=== PATIENT | female | born 1955 | race Caucasian/White ===

== ENCOUNTER 2017-09-04 19:08 | Emergency (ER) | payer OTHER, SELFPAY ==
[2017-09-04 19:09] VITALS: BP 124/80; PULSE 98; RESP 17; TEMP 36.6; O2SAT 100; BMI 41.1
--- NOTE | 2017-09-04 19:19 | RAD_ITS ---
STUDY: X-RAY CHEST REASON FOR EXAM: Female, 62 years old. Chest pain, shortness of breath and nausea. TECHNIQUE: Single AP portable view of the chest. COMPARISON: Prior chest radiograph of October 24, 2015 FINDINGS: The lungs are clear and expanded. There is no demonstrated pleural abnormality. Normal size heart. Normal mediastinum and yakov. Normal visualized pulmonary arteries. Normal visualized aortic arch and descending thoracic aorta. Normal visualized thoracic spine. Normal visualized ribs, clavicles, and shoulders. There is no demonstrated abnormality of the visualized soft tissue structures of the upper abdomen. RAD/Chest 1 View (Portable) IMPRESSION: Normal x-ray examination of the chest. Electronically Signed: Bisi Ng MD at 19:38 EDT , Service support ,
--- NOTE | 2017-09-04 19:19 | EKG12_ITS ---
Test Reason : CP Blood Pressure : / mmHG Vent. Rate : 094 BPM Atrial Rate : 094 BPM P-R Int : 152 ms QRS Dur : 074 ms QT Int : 358 ms P-R-T Axes : 067 049 051 degrees QTc Int : 447 ms Normal sinus rhythm Normal ECG Confirmed by PEREZ DOMINGO, STEVEN ([id number]), story editor ROBERT CARUSO ([id number]) on 09/09/2017 2:18:20 PM Referred By: BEBETO Confirmed By:STEVEN TODD MD
--- NOTE | 2017-09-04 19:22 | ED.VISSUMM ---
- ER Visit Summary Date of Service: 09/04/17 Chief Complaint: Chest pain History of Present Illness: The patient is a 62 F who presents with chest pain. Described as burning and about a 4 out of 10. She states that she ate dinner around 530 6:00 and had a whopper and potato chips. Just prior to arrival she developed a burning chest pain and epigastric discomfort. States her heart was racing and she felt a little short of breath. She took a nitroglycerin but did not help. Patient has a history of hypertension. She is a non-smoker. She does also carry a history of GERD and hypothyroidism. She was admitted in July 2015 at that time she had a negative nuclear stress test. Physical Examination: Afebrile vital signs are stable Gen: Well-nourished well-developed Head: Normocephalic atraumatic Eyes: Perrl EOMI ENT: TMs clear no rhinorrhea moist mucous membranes Neck: Supple no lymphadenopathy no JVD nontender CVS: Regular rate rhythm no murmurs normal S1-S2 Respiratory: No distress clear to auscultation bilaterally chest nontender Abdomen: Soft nontender nondistended normal bowel sounds no masses Back: Nontender Extremity: Nontender no edema Skin: Normal color no rash Neuro: alert orientated ?3 CN II-XII intact normal strength sensation reflexes gait cerebellar Psych: Normal affect normal mood Test Results: EKG shows a normal sinus rhythm at a rate of 94. Chest x-ray shows no acute findings. Creatinine 1.21. Troponin less than 0.02. Emergency Department Course and Treatment: Patient received Zofran and a GI cocktail. Patient is resting comfortably and pain-free. Her HARRIS score is 0. I believe her symptoms are most consistent with reflux disease. She will follow-up with her doctor return if worsening Impression: 1. Acute chest pain 2. GERD This note was generated with [employer] dictation software. It may contain incorrect words, spelling, and punctuation that were not noted in review of the chart prior to signing ED Disposition - Plan for ED Patient: Disposition: Home or Assisted Living Chief Complaint: Chest Pain Instructions: ED Chest Pain NonCardiac, ED GERD Referrals: Scot Griffin DO [Primary Care Provider] - 1 Week
[2017-09-04] MEDS: Ondansetron 4 MG/2 ML Vial IV (19:56)
[2017-09-04 20:33] LABS: Absolute Lymphocyte Count 3.93 X10^3/ul (0.83-4.51); Absolute Neutrophil Count 5.3 X10^3/uL (2.0-7.7); Basophil# 0.03 X10^3/uL; Basophil% 0.3 % (0-1); Eosinophil# 0.15 X10^3/uL; Eosinophils% 1.5 % (0-5); Hematocrit 43.4 % (37-47); Hemoglobin 14.2 g/dl (12.0-15.0); Lymphocyte # 3.93 X10^3/ul (4.0); Lymphocyte % 38.7 % (19-41); Mean Corp Hgb Conc 32.7 g/gl (32-36); Mean Corpuscular Hgb 29.3 pg (27.0-32.0); Mean Corpuscular Volume 89.5 fL (81-99); Mean Platelet Vol. 10.7 fl (6.2-12.0); Monocyte# 0.77 X10^3/uL; Monocyte% 7.6 % (0-10); Neutrophil # 5.26 X10^3/uL (2.7-7.7); Neutrophil % 51.7 % (47-70); Platelet Count 296 K/mm3 (150-450); RBC Distribution Width CV 13.8 % (11.6-14.6); Red Blood Count 4.85 M/mm3 (4.2-5.4); White Blood Count 10.2 K/mm3 (4.4-11.0)
[2017-09-04 20:34] LABS: Anion Gap 10 (5-15); BUN 22 mg/dL (7-18); BUN/Creat Ratio 18.2 RATIO (10-20); Calcium,Total 9.2 mg/dL (8.5-10.1); Chloride 103 mmol/L (98-107); Creatinine, Serum 1.21 mg/dL (0.55-1.02); EST Glomerular Filtration Rate 48 mL/min (>60); Est Glom Filt Rate - Afr Amer 58 mL/min (>60); Glucose 131 mg/dL (74-106); POSITIVE COUNT NO; POSITIVE DIFFERENTIAL NO; POSITIVE MORPHOLOGY NO; Potassium 3.8 mmol/L (3.5-5.1); Sodium Level 138 mmol/L (136-145)
[2017-09-04 21:51] VITALS: BP 122/95; PULSE 95; RESP 16
== END 2017-09-04 21:57 | disposition home or self-care (01) ==
PROVIDERS: Emergency Provider Emergency Medicine; Family Provider Student in an Organized Health Care Education/Training Program; PCP Student in an Organized Health Care Education/Training Program
DX: R07.9 Chest pain, unspecified (principal); K21.9 Gastro-esophageal reflux disease without esophagitis; I10 Essential (primary) hypertension; E03.9 Hypothyroidism, unspecified; E66.9 Obesity, unspecified; Z79.82 Long term (current) use of aspirin; Z79.899 Other long term (current) drug therapy
CPT/HCPCS: 71045; 80048; 84484; 85025; 93005; 96374; 99284; A4216; J2405

== ENCOUNTER 2019-05-31 05:16 | Observation (INO) | payer OTHER, SELFPAY ==
[2019-05-31] VITALS (14 sets, daily range): BP systolic 97–149; BP diastolic 47–83; PULSE 65–87; RESP 12–20; TEMP 36.6–36.9; O2SAT 93–100; BMI 42.8; BMI 42.0; BMI 42.1
--- NOTE | 2019-05-31 05:19 | EKG12_ITS ---
Test Reason : CP Blood Pressure : / mmHG Vent. Rate : 080 BPM Atrial Rate : 080 BPM P-R Int : 146 ms QRS Dur : 076 ms QT Int : 378 ms P-R-T Axes : 058 016 041 degrees QTc Int : 435 ms Normal sinus rhythm Possible Left atrial enlargement Borderline ECG Confirmed by HAYDE DOMINGO, MICHAEL ([id number]), science editor ROBERT CARUSO ([id number]) on 06/02/2019 10:44:53 AM Referred By: Taylor Almaraz Confirmed By:MICHAEL LOCK MD
--- NOTE | 2019-05-31 05:19 | RAD_ITS ---
HISTORY: cp, palpitations, sob. EXAMINATION/TECHNIQUE: XR Chest 1 View: Portable COMPARISON: 09/04/2017 FINDINGS: Cardiac telemetry leads in place. No significant change. Normal heart size. No vascular congestion, pleural effusion, or acute pulmonary infiltration. No pneumothorax. The bony thorax appears intact. RAD/Chest 1 View (Portable) IMPRESSION: No acute cardiopulmonary disease. No significant interval change. at 0600 Reported and signed by: Reynold Price MD Electronically Signed: Reynold Price, at 5:59 EST Tel , Service support ,
[2019-05-31] MEDS: Aspirin 81 MG TAB.CHEW 324 MG PO (05:25)
[2019-05-31] MEDS: Morphine 4 MG/ML Syringe IV (05:25)
[2019-05-31] MEDS: Ondansetron 4 MG/2 ML Vial IV (05:26)
[2019-05-31] MEDS: 0.9% Normal Saline 1,000 ML 150 ML IV (05:48)
[2019-05-31 05:49] LABS: Absolute Lymphocyte Count 2.01 X10^3/uL (0.83-4.51); Absolute Neutrophil Count 4.1 X10^3/uL (2.0-7.7); Basophil# 0.04 X10^3/uL; Basophil% 0.6 % (0-1); Eosinophil# 0.13 X10^3/uL; Eosinophils% 1.9 % (0-5); Hematocrit 38.4 % (37-47); Hemoglobin 12.6 g/dL (12.0-15.0); Lymphocyte # 2.01 X10^3/ul (4.0); Lymphocyte % 29.7 % (19-41); Mean Corp Hgb Conc 32.8 g/dL (32-36); Mean Corpuscular Volume 88.5 fL (81-99); Monocyte# 0.52 X10^3/uL; Monocyte% 7.7 % (0-10); NRBC Flagged by Analyzer 0 % (0-5); Neutrophil # 4.05 X10^3/uL (2.7-7.7); Neutrophil % 59.8 % (47-70); Platelet Count 222 K/mm3 (150-450); RBC Distribution Width CV 13.1 % (11.6-14.6); RBC Distribution Width SD 43.1 fl (35.1-43.9); Red Blood Count 4.34 M/mm3 (4.2-5.4); White Blood Count 6.8 K/mm3 (4.4-11.0)
[2019-05-31 06:12] LABS: Anion Gap 4 (5-15); BUN 15 mg/dL (7-18); BUN/Creat Ratio 14.3 RATIO (10-20); Calcium,Total 8.6 mg/dL (8.5-10.1); Chloride 109 mmol/L (98-107); Creatinine, Serum 1.05 mg/dL (0.55-1.02); EST Glomerular Filtration Rate 56 mL/min (>60); Est Glom Filt Rate - Afr Amer 68 mL/min (>60); Estimated Creatinine Clearance 41.92 ml/min; Glucose 100 mg/dL (74-106); Potassium 4.1 mmol/L (3.5-5.1); Sodium Level 141 mmol/L (136-145)
--- NOTE | 2019-05-31 06:20 | CT_ITS ---
HISTORY: CHEST PAIN, SOB, PALPITATIONS, HTN, SURG-ALICIA, HIATAL HERNIA REPAIR, EXAMINATION: CTA Chest WO/W Contrast Injection TECHNIQUE: Helically acquired images were obtained of the chest following IV contrast as per pulmonary angiogram protocol with 3D reconstructions. A radiation dose optimization technique was used for this scan. IV Contrast dosage and agent: 100ML ISOVUE 370 COMPARISON: 07/24/2015 FINDINGS: PULMONARY ARTERIES: Normal in caliber. No pulmonary embolism. AORTA, HEART, AND mediastinum: No aortic aneurysm or aortic dissection. Normal heart size. No pericardial effusion. No lymphadenopathy. Small hiatal hernia, unchanged. Lungs and pleural: Bilateral mild bronchial dilatation and peribronchial thickening without barrie bronchiectasis. No pulmonary infiltrate or suspicious lesion. No pleural effusion or significant pleural disease. Upper abdomen: Not well visualized. Bones: No acute osseous abnormality. CT/CTA Chest W/WO Contrast IMPRESSION: 1. No PE, thoracic aortic dissection, or pneumonia. 2. Peribronchial thickening and mild bronchial dilatation compatible with bronchitis. Smoking related bronchitis would be included in the differential. 3. Small hiatal hernia, unchanged. Individualized dose optimization techniques were used for this CT. at 0801 Reported and signed by: Reynold Price MD Electronically Signed: Reynold Price, at 8:00 EST Tel , Service support ,
--- NOTE | 2019-05-31 06:43 | ED.VIS.GEN ---
History of Present Illness Chief Complaint: Chest Pain Informant: Patient Onset: Today Context: Sudden Onset - Woke with pain Current Severity: Moderate Maximum Severity: Moderate Narrative: Patient presents with chest pain that woke her from sleep. States it feels like her heart is racing. She does have a history of hiatal hernia and tried taking some Mylanta. This did not resolve her symptoms. She took 2 of her 's nitroglycerin and reports minimal improvement. She states she does feel she has pain in her back as well. She denies shortness of breath. Pain does not radiate down into her abdomen or extremities. - Past Medical History (1) Hypothyroid Status: Chronic (2) Hiatal hernia Status: Chronic (3) Ureteral calculus, right Status: Chronic Comment: admitted with large stone in distal ureter intractable pain, n/v (4) Benign essential HTN Status: Chronic (5) GERD (gastroesophageal reflux disease) Status: Chronic Past Medical History - Allergies and Home Meds Allergies/Adverse Reactions: Allergies No Known Allergies Allergy (Verified 09/04/17 19:15) Primary Care Physician: Scot Griffin DO [Primary Care Provider] - Prior records reviewed: Yes Surgical History: cholecystectomy Lives: Spouse/ Significant Other Smoking Status: Never smoker - Family History Paternal Family History: Reports: Heart Disease Review of Systems General: Denies: Chills, Fever Eyes: Denies: Visual changes - bilaterally ENT: Denies: Bilateral ear pain Cardiovascular: Reports: Chest pain, Heart racing Respiratory: Denies: Dyspnea, Cough Gastrointestinal: Denies: Abdominal pain, Nausea, Vomiting, Diarrhea Genitourinary: Denies: Dysuria Musculoskeletal: Reports: Back pain. Denies: Extremity Pain Skin: Denies: Rash Neurological: Denies: Headache Allergy: Denies: Uticaria Physical Exam Vital Signs/Narrative: Vital Signs Temp Pulse Resp BP Pulse Ox 05/31/19 06:34 66 12 118/77 100 05/31/19 05:22 99 05/31/19 05:19 85 17 99 05/31/19 05:17 97.9 F 87 20 H 149/83 H 100 Inital Vital Signs reviewed: Yes General: Well nourished, Well developed Head: Normocephalic ENT: Moist mucous membranes Neck: Supple Cardiovascular: Regular rate, Regular rhythm Respiratory: No distress, CTA bilaterally Abdomen: Soft, Nontender, Hypoactive bowel sounds Extremities: Nontender, No edema Skin: Normal color, No rash Neurological: Alert, Oriented x3 Psychological: Normal affect Diagnostic/Tx/Re-eval Impressions Chest X-Ray 05/31/19 05:19 IMPRESSION: No acute cardiopulmonary disease. No significant interval change. at 0600 Reported and signed by: Reynold Price MD Electronically Signed: Reynold Price, at 5:59 EST Tel , Service support , Chest CTA 05/31/19 06:20 IMPRESSION: 1. No PE, thoracic aortic dissection, or pneumonia. 2. Peribronchial thickening and mild bronchial dilatation compatible with bronchitis. Smoking related bronchitis would be included in the differential. 3. Small hiatal hernia, unchanged. Individualized dose optimization techniques were used for this CT. at 0801 Reported and signed by: Reynold Price MD Electronically Signed: Reynold Price, at 8:00 EST Tel , Service support , 05/31/19 05:19 Chest 1 View (Portable) [RAD] Stat 05/31/19 06:20 CTA Chest W/WO Contrast [CT] Stat Laboratory Results 05/31/19 05/31/19 05/31/19 05:40 05:40 05:40 WBC 6.8 RBC 4.34 Hgb 12.6 Hct 38.4 MCV 88.5 MCH 29.0 MCHC 32.8 RDW Std Deviation 43.1 RDW Coeff of Ashleigh 13.1 Plt Count 222 MPV 10.0 Immature Gran % (Auto) 0.300 Neut % (Auto) 59.8 Lymph % (Auto) 29.7 [place] % (Auto) 7.7 Eos % (Auto) 1.9 Baso % (Auto) 0.6 Absolute Neuts (auto) 4.1 Absolute Lymphs (auto) 2.01 Nucleated RBC % 0 D-Dimer Quant (PE/DVT) 1.80 H* Sodium 141 Potassium 4.1 Chloride 109 H Carbon Dioxide 28.0 Anion Gap 4 L BUN 15 Creatinine 1.05 H Estim Creat Clear Calc 41.92 Est GFR (MDRD) Af Amer 68 Est GFR (MDRD) Non-Af 56 L BUN/Creatinine Ratio 14.3 Glucose 100 Calcium 8.6 Troponin I < 0.015 - EKG Initial EKG Interpretation: Sinus Rhythm - Sinus at 80 with no acute ischemia. - Medical Decision Making Patient was given aspirin on arrival along with morphine and Zofran. On repeat evaluation she is feeling improved. D-dimer is elevated. CTA of the chest is unremarkable. Patient be admitted for cardiac rule out. ED Disposition - Plan for ED Patient: Disposition: Acute Care Hospital [facility] Diagnosis: Chest pain Referrals: Scot Griffin DO [Primary Care Provider] -
--- NOTE | 2019-05-31 08:21 | NURSING ---
Addendum entered by Simona Hewitt 05/31/19 08:21: NOT OBS Original Note: MARIANNA PETERSON OBS
--- NOTE | 2019-05-31 09:58 | HP.PCM_ITS ---
History of Present Illness Date of Admission: 05/31/19 Chief Complaint: chest pain The patient is a 64 year old F with a past medical history of hypertension and hypothyroidism. She was admitted through the ED on 05/31/2019 with a complaint of chest pain which started acutely on morning of admission. Patient states she felt a sudden sharp retrosternal chest pain with assisted lightheadedness and dizziness and palpitations. She has not had pain like this before. She denied any shortness of breath or abdominal pain no diarrhea vomiting. Review of symptoms otherwise negative. She denied any long distance travel any history of blood clots in the legs of the lungs. Denies any previous history of heart disease. On admission in the ED vitals were essentially stable and chemistry was unremarkable. Initial troponin was negative. CBC was also unremarkable. D-dimer was elevated and so she had a CT a of the chest which was negative for PE. She was admitted to be managed for chest pain to rule out ACS. [] Past Medical History Past Medical History (Chronic Problems): Chronic Problems Hypothyroid (Chronic) Hiatal hernia (Chronic) Ureteral calculus, right (Chronic) admitted with large stone in distal ureter intractable pain, n/v GERD (gastroesophageal reflux disease) (Chronic) Benign essential HTN (Chronic) Allergies No Known Allergies Allergy (Verified 09/04/17 19:15) Home Medications: Ambulatory Orders Medication Instructions Recorded Aspirin E.C. 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 Denies: Chest Pressure, Chest Tightness, Edema, Heaviness, Orthopnea, Paroxysmal Noc. Dyspnea, Syncope Respiratory: Denies: Cough, Shortness of Breath, Shortness of breath at rest, Shortness of breath upon exertion, Sputum production Gastrointestinal: Denies: Abdominal Pain, Nausea, Vomiting Genitourinary: Denies: Dysuria Musculoskeletal: Denies: Joint Pain, Joint Tenderness Skin: Denies: Rash, Wounds Neurological: Denies: Numbness, Tingling, Focal weakness Psychiatric: Denies: Anxiety, Depression, Homicidal Ideations, Suicidal Ideations Hematologic/ Lymphatic: Denies: Easy Bruising, Easy Bleeding VTE Information - Inpt Only VTE Present on Admission: No VTE Pharm Prophylaxis ordered?: Yes Patient Problems: Active and Suspected Problems Chest pain (Acute) - Physical Exam Vitals/I&O's: Vital Signs Temp Pulse Resp BP Pulse Ox 97.9 F 65 17 120/66 99 05/31/19 08:50 05/31/19 08:50 05/31/19 08:50 05/31/19 08:50 05/31/19 08:50 Oxygen Flow Rate (L/min) 2 Oxygen Delivery Method Room Air Weight: 226 lb 6.636 oz Body Mass Index (BMI) 42.0 General: Alert, Oriented x3, Cooperative, No apparent distress HEENT: Atraumatic, PERRLA, EOMI, Normocephalic Oral: Moist Mucosa Neck: Supple, No JVD, Negative Carotid Bruits Lungs: Clear to auscultation, Normal air movement, No rhonchi, No wheeze, No rales Cardiovascular: Regular rate, Regular Rhythm, Normal S1, Normal S2, No murmurs Abdomen: Bowel Sounds Present, Soft, Non Tender, Non-Distended, No Hepato- splenomegaly Extremities: No clubbing, No cyanosis, No edema, Capillary Refill Less than 3 Seconds Skin: No rashes, No breakdown Musculoskeletal: No Tenderness to Palpation of Joints or Extremities Lymphatic: No Cervical, Supraclavicular, or Inguinal Adenopathy Neurological: Cranial nerves II-XII grossly intact, Neuro grossly intact, Motor Exam 5/5 strength throughout Psych/Mental Status: Normal Affect, Appropriate, Alert and oriented to time, place, person, mood and affect Laboratory Results 05/31/19 05:40: WBC 6.8, RBC 4.34, Hgb 12.6, Hct 38.4, MCV 88.5, MCH 29.0, MCHC 32.8, RDW Std Deviation 43.1, RDW Coeff of Ashleigh 13.1, Plt Count 222, MPV 10.0, Immature Gran % (Auto) 0.300, Neut % (Auto) 59.8, Lymph % (Auto) 29.7, [place] % (A uto) 7.7, Eos % (Auto) 1.9, Baso % (Auto) 0.6, Absolute Neuts (auto) 4.1, Absolute Lymphs (auto) 2.01, Nucleated RBC % 0 05/31/19 05:40: D-Dimer Quant (PE/DVT) 1.80 H* 05/31/19 05:40: Sodium 141, Potassium 4.1, Chloride 109 H, Carbon Dioxide 28.0, Anion Gap 4 L, BUN 15, Creatinine 1.05 H, Estim Creat Clear Calc 41.92, Est GFR (MDRD) Af Amer 68, Est GFR (MDRD) Non-Af 56 L, BUN/Creatinine Ratio 14.3, Glucose 100, Calcium 8.6, Troponin I < 0.015 05/31/19 09:35: Troponin I Pending Diagnostic Data Chest X-Ray 05/31/19 05:19 IMPRESSION: No acute cardiopulmonary disease. No significant interval change. at 0600 Reported and signed by: Reynold Price MD Electronically Signed: Reynold Price, at 5:59 EST Tel , Service support , Chest CTA 05/31/19 06:20 IMPRESSION: 1. No PE, thoracic aortic dissection, or pneumonia. 2. Peribronchial thickening and mild bronchial dilatation compatible with bronchitis. Smoking related bronchitis would be included in the differential. 3. Small hiatal hernia, unchanged. Individualized dose optimization techniques were used for this CT. at 0801 Reported and signed by: Reynold Price MD Electronically Signed: Reynold Price at 8:00 EST Tel , Service support , Current Medications Sodium Chloride () 10 - 40 ml IV UD PRN PRN Reason: SALINE FLUSH Assessment/Plan All Active Problems Chest pain (Acute) 64 y/o admitted with a complaint of chest pain to r.o ACS 1. Chest pain rule out ACS. * Admit to PCU with telemetry * Initial troponin is negative. We will cycle. * Chest CT a was negative for PE and showed peribronchial thickening and mild bronchial dilatation compatible with bronchitis and a small hiatal hernia which is unchanged. * Sublingual nitroglycerin as needed. P.o. aspirin 81 mg daily. * For stress test if troponins are negative. * check lipid panel. * 2. Hypothyroidism: On Synthroid. Will continue. 3. Hypertension: On lisinopril 20 mg daily. Blood pressure on admission felt to the 90 systolic. Will hold lisinopril for now. 4. GERD: On Protonix. DVT prophylaxis: Lovenox Code Status: Full code * Patient counseled extensively about different types of CODE STATUS including full code, DNR CCA and DNR CCA. Patient elects to be full code. Total [id number] time 16 minutes. * Code Visit OBSV E&M: 18153 Initial observation care L2 Procedures: 24186 Advncd Care Plan 30 Min
--- NOTE | 2019-05-31 10:10 | EKG12_ITS ---
Test Reason : CP ADMISSION Blood Pressure : / mmHG Vent. Rate : 059 BPM Atrial Rate : 059 BPM P-R Int : 158 ms QRS Dur : 084 ms QT Int : 428 ms P-R-T Axes : 055 033 035 degrees QTc Int : 423 ms Sinus bradycardia Otherwise normal ECG Confirmed by HAYDE DOMINGO, MICHAEL ([id number]), acquisitions editor ROBERT CARUSO ([id number]) on 06/02/2019 11:40:40 AM Referred By: Taylor Almaraz Confirmed By:MICHAEL LOCK MD
[2019-05-31] MEDS: Levothyroxine 25 MCG TABLET PO (12:23)
[2019-05-31 12:30] LABS: Bedside Glucose 113 mg/dL (70-110)
--- NOTE | 2019-05-31 14:57 | STRESSREP ---
Stress Test Report Pharmacologic myocardial perfusion stress test. 64-year-old lady with a history of chest pain. Stress protocol: Resting KG demonstrates normal sinus rhythm with a rate of 67 bpm normal intervals are noted resting blood pressure is 120/80 mmHg. 0.4 mg of regadenoson was infused per usual protocol followed by up intravenous and flush injection continuous security monitor was performed. The maximum heart rate was 99 bpm which was 62% of maximum predicted heart rate the maximum workload was 1 metabolic equivalent. At rest there were no ST or T wave changes noted suggest abnormal flow reserve at peak infusion nonspecific ST-T wave changes were noted. No clinical angina was noted. The resting blood pressure was 120/80 mmHg with a final blood pressure 124/70 mmHg. Myocardial perfusion protocol. 14.5 mCi of technetium 99m sestamibi was injected at rest. 0.4 mg of regadenoson was infused per usual protocol peak infusion 44.7 mCi of technetium 99m sestamibi was injected stress images were obtained stress and rest images were reconstructed in comparing the short axis vertical long horizontal long axis. Gated images was obtained Perfusion SPECT analysis: Review of the stress images demonstrate normal uptake of tracer noted in all areas of myocardium the rest images similar demonstrate normal uptake of tracer noted in all areas of myocardium no areas of reversibility are noted suggest ischemia no previous infarct is noted. Gated SPECT analysis: The gated ejection fraction is noted to be 81%. Conclusion: Normal pharmacologic myocardial perfusion stress test. Preserved ejection fraction
[2019-05-31] MEDS: Pantoprazole Sodium 40 MG Tablet PO (20:17)
[2019-05-31] MEDS: Paroxetine 20 MG Tablet PO (20:17)
[2019-06-01 03:00] VITALS: PULSE 78
[2019-06-01 04:20] VITALS: BP 131/73; PULSE 94; RESP 17; TEMP 36.7; O2SAT 95
[2019-06-01] MEDS: Levothyroxine 25 MCG TABLET PO (05:15)
[2019-06-01] MEDS: Enoxaparin 40 MG/0.4 ML Syringe SC (05:15)
[2019-06-01 05:31] LABS: Absolute Lymphocyte Count 1.88 X10^3/uL (0.83-4.51); Absolute Neutrophil Count 3.4 X10^3/uL (2.0-7.7); Basophil# 0.04 X10^3/uL; Basophil% 0.7 % (0-1); Eosinophil# 0.13 X10^3/uL; Eosinophils% 2.2 % (0-5); Hematocrit 38.9 % (37-47); Hemoglobin 12.1 g/dL (12.0-15.0); Lymphocyte # 1.88 X10^3/ul (4.0); Mean Corp Hgb Conc 31.1 g/dL (32-36); Mean Corpuscular Hgb 28.2 pg (27.0-32.0); Mean Corpuscular Volume 90.7 fL (81-99); Mean Platelet Vol. 9.8 fl (6.2-12.0); Monocyte# 0.42 X10^3/uL; Monocyte% 7.2 % (0-10); NRBC Flagged by Analyzer 0 % (0-5); Neutrophil # 3.38 X10^3/uL (2.7-7.7); Neutrophil % 57.6 % (47-70); Platelet Count 215 K/mm3 (150-450); RBC Distribution Width CV 13.4 % (11.6-14.6); RBC Distribution Width SD 44.7 fl (35.1-43.9); Red Blood Count 4.29 M/mm3 (4.2-5.4); White Blood Count 5.9 K/mm3 (4.4-11.0)
[2019-06-01 05:57] LABS: Anion Gap 2 (5-15); BUN 14 mg/dL (7-18); BUN/Creat Ratio 14.3 RATIO (10-20); Calcium,Total 8.3 mg/dL (8.5-10.1); Chloride 109 mmol/L (98-107); Creatinine, Serum 0.98 mg/dL (0.55-1.02); EST Glomerular Filtration Rate 61 mL/min (>60); Est Glom Filt Rate - Afr Amer 74 mL/min (>60); Estimated Creatinine Clearance 44.91 ml/min; Glucose 88 mg/dL (74-106); Potassium 4.2 mmol/L (3.5-5.1); Sodium Level 140 mmol/L (136-145)
[2019-06-01 07:00] VITALS: PULSE 79
[2019-06-01 09:15] VITALS: BP 147/86; PULSE 86; RESP 16; TEMP 36.8; O2SAT 96
[2019-06-01] MEDS: Lisinopril 20 MG Tablet PO (09:18)
[2019-06-01] MEDS: Pantoprazole Sodium 40 MG Tablet PO (09:18)
[2019-06-01] MEDS: Aspirin E.C. 81 MG Tablet PO (09:18)
--- NOTE | 2019-06-01 10:46 | DCINST_ITS ---
- Discharge Diagnoses Current Active Problems: Current Active and Chronic Problems Hypothyroid (Chronic) Hiatal hernia (Chronic) Chest pain (Acute) You will use the following diet at home:: Cardiac Your food should be the consistency of: Regular Your liquids should be the consistency of: Regular/Thin Discharge Activity: Return to Normal Activity Weight Bearing Status: Weight bearing as tolerated Call your doctor if you observe: Fever of 101 or Higher, Shortness of breath, Swelling in the ankles, Chest pain Instructions: What Is Angina?, First Aid: Heart Attacks, Recognizing a Heart Attack or Angina Allergies/Adverse Reactions: Allergies No Known Allergies Allergy (Verified 09/04/17 19:15) Medications to take at Discharge Aspirin E.C. [Ecotrin] 81 mg PO DAILY 07/08/13 Lisinopril [Zestril] 20 mg PO DAILY 07/08/13 Omeprazole [Prilosec] 40 mg PO BID 07/08/13 Paroxetine [Paxil] 20 mg PO QHS 07/08/13 Levothyroxine [Synthroid] 25 mcg PO DAILY@0600 05/31/19 Primary Care Physician: Scot Griffin DO [Primary Care Provider] - Please follow up with your Primary Care Physician in: one week Test Results: Test results from this visit will be discussed in further detail at your follow- up appointment, if applicable. Please Follow Up With: Joi De Luna Proposed Discharge Date: 06/01/19
--- NOTE | 2019-06-01 10:47 | PCM.DC.SUM ---
Discharge Date and Diagnosis Date of Admission: 05/31/19 Date of Discharge: 06/01/19 - Primary Discharge Diagnosis Active and Suspected Problems Chest pain (Acute) - Secondary Discharge Diagnosis Chronic Problems Hypothyroid (Chronic) Hiatal hernia (Chronic) Ureteral calculus, right (Chronic) admitted with large stone in distal ureter intractable pain, n/v GERD (gastroesophageal reflux disease) (Chronic) Benign essential HTN (Chronic) Hospital Course and Treatment Imaging Results: Diagnostic Data Chest X-Ray 05/31/19 05:19 IMPRESSION: No acute cardiopulmonary disease. No significant interval change. at 0600 Reported and signed by: Reynold Price MD Electronically Signed: Reynold Price, at 5:59 EST Tel , Service support , Chest CTA 05/31/19 06:20 IMPRESSION: 1. No PE, thoracic aortic dissection, or pneumonia. 2. Peribronchial thickening and mild bronchial dilatation compatible with bronchitis. Smoking related bronchitis would be included in the differential. 3. Small hiatal hernia, unchanged. Individualized dose optimization techniques were used for this CT. at 0801 Reported and signed by: Reynold Price MD Electronically Signed: Reynold Price at 8:00 EST Tel , Service support , Operations: None, - - ureteroscopy alex stone and stent Procedures: Stress test Summary of Care Provided: The patient is a 64 year old F with a past medical history of hypertension and hypothyroidism. She was admitted through the ED on 05/31/2019 with a complaint of chest pain which started acutely on morning of admission. Patient states she felt a sudden sharp retrosternal chest pain with assisted lightheadedness and dizziness and palpitations. She has not had pain like this before. She denied any shortness of breath or abdominal pain no diarrhea vomiting. Review of symptoms otherwise negative. She denied any long distance travel any history of blood clots in the legs of the lungs. Denies any previous history of heart disease. On admission in the ED vitals were essentially stable and chemistry was unremarkable. Initial troponin was negative. CBC was also unremarkable. D-dimer was elevated and so she had a CT a of the chest which was negative for PE. She was admitted to be managed for chest pain to rule out ACS. She had a stress test on 05/31/2019 which was negative. Of note, patient became hypotensive on day of admission with blood pressure going down to the 90s systolic. She was asymptomatic. Decision was made to keep patient overnight to monitor her. Hypotension resolved and did not recur. Patient was discharged home on 06/01/2019 and is follow-up with her primary care doctor within 1 week. Patient seen and examined prior to discharge. She had no complaints and was eager to go home. Review of systems otherwise negative. Labs and vitals reviewed. Home medication reviewed and reconciled. o/e: Vital Signs Height 5 ft 1.5 in Weight: 226 lb 6.636 oz Weight in Pounds 226.4 lbs Pulse Ox 96 Temperature 98.2 F Pulse Rate 86 Respiratory Rate 16 Blood Pressure 147/86 Blood Pressure Position Semi-Fowlers General: Alert, Oriented x3, Cooperative, No apparent distress HEENT: Atraumatic, PERRLA, EOMI, Normocephalic Oral: Moist Mucosa Neck: Supple, No JVD, Negative Carotid Bruits Lungs: Clear to auscultation, Normal air movement, No rhonchi, No wheeze, No rales Cardiovascular: Regular rate, Regular Rhythm, Normal S1, Normal S2, No murmurs Abdomen: Bowel Sounds Present, Soft, Non Tender, Non-Distended, No Hepato-splenomegaly Extremities: No clubbing, No cyanosis, No edema, Capillary Refill Less than 3 Seconds Skin: No rashes, No breakdown Musculoskeletal: No Tenderness to Palpation of Joints or Extremities Lymphatic: No Cervical, Supraclavicular, or Inguinal Adenopathy Neurological: Cranial nerves II-XII grossly intact, Neuro grossly intact, Motor Exam 5/5 strength throughout Psych/Mental Status: Normal Affect, Appropriate, Alert and oriented to time, place, person, mood and affect Plan as above. - Physical Exam Vitals/I&O's: Vital Signs Temp Pulse Resp BP Pulse Ox 98.2 F 86 16 147/86 H 96 06/01/19 09:15 06/01/19 09:15 06/01/19 09:15 06/01/19 09:15 06/01/19 09:15 Oxygen Flow Rate (L/min) 2 Oxygen Delivery Method Room Air Weight: 226 lb 6.636 oz Body Mass Index (BMI) 42.0 Intake and Output for Last 24 Hours 05/30/19 05/31/19 06/01/19 23:59 23:59 23:59 Intake Total 1205 / 1205 Balance 1205 / 1205 Laboratory Results 05/31/19 12:20: POC Glucose 113 H 05/31/19 12:30: Troponin I < 0.015 06/01/19 05:10: WBC 5.9, RBC 4.29, Hgb 12.1, Hct 38.9, MCV 90.7, MCH 28.2, MCHC 31.1 L, RDW Std Deviation 44.7 H, RDW Coeff of Ashleigh 13.4, Plt Count 215, MPV 9.8, Immature Gran % (Auto) 0.300, Neut % (Auto) 57.6, Lymph % (Auto) 32.0, [place] % (Auto) 7.2, Eos % (Auto) 2.2, Baso % (Auto) 0.7, Absolute Neuts (auto) 3.4, Absolute Lymphs (auto) 1.88, Nucleated RBC % 0 06/01/19 05:10: Sodium 140, Potassium 4.2, Chloride 109 H, Carbon Dioxide 29.0, Anion Gap 2 L, BUN 14, Creatinine 0.98, Estim Creat Clear Calc 44.91, Est GFR (MDRD) Af Amer 74, Est GFR (MDRD) Non-Af 61, BUN/Creatinine Ratio 14.3, Glucose 88, Calcium 8.3 L Current Medications Aspirin (Ecotrin) 81 mg PO DAILY@0800 [facility] Last Admin: 06/01/19 09:18 Dose: 81 mg Documented by: Enoxaparin Sodium (Lovenox) 40 mg SC DAILY@0600 [facility] Last Admin: 06/01/19 05:15 Dose: 40 mg Documented by: Glucagon () 1 mg IM .X1 PRN PRN Reason: Hypoglycemia Dextrose (Dextrose 10%-Water) 250 mls @ 999 mls/hr IV .Q16M PRN; Protocol PRN Reason: HYPOGLYCEMIA Levothyroxine Sodium (Synthroid) 25 mcg PO DAILY@0600 [facility] Last Admin: 06/01/19 05:15 Dose: 25 mcg Documented by: Lisinopril (Zestril) 20 mg PO DAILY [facility] Last Admin: 06/01/19 09:18 Dose: 20 mg Documented by: Nitroglycerin (Nitrostat) 0.4 mg SUBLINGUAL Q5M PRN PRN Reason: CARDIAC/CHEST PAIN Ondansetron HCl (Zofran) 4 mg IV Q8H PRN PRN PRN Reason: NAUSEA/VOMITING Pantoprazole Sodium (Protonix) 40 mg PO BID [facility] Last Admin: 06/01/19 09:18 Dose: 40 mg Documented by: Paroxetine HCl (Paxil) 20 mg PO QHS [facility] Last Admin: 05/31/19 20:17 Dose: 20 mg Documented by: Sodium Chloride () 10 - 40 ml IV UD PRN PRN Reason: SALINE FLUSH Discharge Diet: Low fat/ Low Cholesterol Discharge Activity: Return to Normal Activity Weight Bearing Status: Weight bearing as tolerated Call your doctor if you observe: Fever of 101 or Higher, Shortness of breath, Swelling in the ankles, Chest pain Home Medications: Medications to take at Discharge Aspirin E.C. [Ecotrin] 81 mg PO DAILY 07/08/13 Lisinopril [Zestril] 20 mg PO DAILY 07/08/13 Omeprazole [Prilosec] 40 mg PO BID 07/08/13 Paroxetine [Paxil] 20 mg PO QHS 07/08/13 Levothyroxine [Synthroid] 25 mcg PO DAILY@0600 05/31/19 Primary Care Physician: Scot Griffin DO [Primary Care Provider] - Please follow up with your Primary Care Physician in: one week Please Follow Up With: Joi De Luna Patient Instructions: What Is Angina?, First Aid: Heart Attacks, Recognizing a Heart Attack or Angina Disposition: Home Minutes spent on discharge:: 35 Patient Condition:: Stable Medical Necessity - Tobacco Use Smoking Status: Never smoker Meaningful Use Info Meaningful Use Diagnoses (Choose all that apply): None applicable Code Visit OBSV E&M: 54686 Observation care discharge
--- NOTE | 2019-06-01 11:42 | PHA.DC.MR ---
Pharmacy Service has performed discharge medication reconciliation for this patient. Home Medications Aspirin E.C. [Ecotrin] 81 mg PO DAILY 07/08/13 Lisinopril [Zestril] 20 mg PO DAILY 07/08/13 Omeprazole [Prilosec] 40 mg PO BID 07/08/13 Paroxetine [Paxil] 20 mg PO QHS 07/08/13 Levothyroxine [Synthroid] 25 mcg PO DAILY@0600 05/31/19 The patient's discharge medication list was reviewed for discrepancies and discrepancies were resolved.
== END 2019-06-01 12:35 | disposition home or self-care (01) ==
LOC: ED 08:08 → PCU 08:40
PROVIDERS: Admitting Provider Student in an Organized Health Care Education/Training Program; Emergency Provider Emergency Medicine; Family Provider Student in an Organized Health Care Education/Training Program; PCP Student in an Organized Health Care Education/Training Program; Referring Provider Student in an Organized Health Care Education/Training Program; Visit Provider Student in an Organized Health Care Education/Training Program
DX: R07.89 Other chest pain (principal); K44.9 Diaphragmatic hernia without obstruction or gangrene; E03.9 Hypothyroidism, unspecified; I10 Essential (primary) hypertension; K21.9 Gastro-esophageal reflux disease without esophagitis; Z79.899 Other long term (current) drug therapy; Z79.82 Long term (current) use of aspirin
CPT/HCPCS: 36415; 71045; 71275; 78452; 80048; 82962; 84484; 85025; 85379; 93005; 93017; 96361; 96372; 96374; 96375; 99218; 99285; A9500; J7030; Q9967; A4216; G0378; J2405; J2785

== ENCOUNTER → 2020-02-04 17:23 | Outpatient (CLI) | payer OTHER, SELFPAY ==
[2019-05-31 08:56] VITALS: BMI 42.0
== END ==
PROVIDERS: PCP Student in an Organized Health Care Education/Training Program; Referring Provider Nurse Practitioner Family; Visit Provider Nurse Practitioner Family
DX: Z20.828 Contact with and (suspected) exposure to other viral communicable diseases (principal)
CPT/HCPCS: 87635; C9803; U0003

== ENCOUNTER 2021-10-24 13:09 | Emergency (ER) | payer OTHER, SELFPAY ==
[2021-10-24 13:11] VITALS: BP 146/107; PULSE 129; RESP 20; TEMP 36.1; O2SAT 93; BMI 37.5
[2021-10-24 14:09] VITALS: BP 110/74; PULSE 99; RESP 12; O2SAT 99
--- NOTE | 2021-10-24 14:11 | ED.VIS.CHEST ---
HPI History of Present Illness Chief Complaint: Chest Pain Informant: patient Onset/Context/Timing Onset: Yesterday Activity at onset: gradual Timing: Continuous Quality: Positive for Aching and Pressure Location: Left Chest (Left upper chest) and - (Bilateral jaw) Worsened By: Nothing Relieved By: Nothing Associated Symptoms: Positive for Dyspnea, Lightheadedness and Palpitations; Negative for Nausea, Vomiting, Diaphoresis, Cough, Fever and Acid Reflux Narrative Narrative: This patient presented with chest pain that began last night. Patient states it was actually jaw pain that began last night. Patient states it was like an aching and pressure in her jaw. Patient then developed some pressure in her upper chest today. Patient states it is gradually gotten worse. Patient states nothing makes it worse and nothing makes it better. Patient admits to some shortness of breath and palpitations with it. Patient also admits to some lightheadedness. PFSH PFSH Home Medications Omeprazole [Prilosec] 40 mg PO BID 07/08/13 [History Last Taken 05/30/19] aspirin 81 mg PO DAILY 07/08/13 [History Last Taken 05/30/19] lisinopril 20 mg PO DAILY 07/08/13 [History Last Taken 05/30/19] paroxetine HCl 20 mg PO QHS 07/08/13 [History Last Taken 05/30/19] levothyroxine 25 mcg PO DAILY@0600 05/31/19 [History Last Taken 05/30/19] Allergy/AdvReac Type Severity Reaction Status Date / Time No Known Allergies Allergy Verified 10/24/21 13:15 Surgical History (Updated 10/24/21 @ 14:[address] Doug Shore DO) Hx of cholecystectomy Social History Smoking Status: Never smoker ROS ROS ED Constitutional Constitutional ED: Denies chills or fever(s) Eyes Eyes: Denies blurry vision or change in vision ENT ENT ED: Denies rhinorrhea or sore throat Cardiovascular Cardiovascular: Reports chest pain and palpitations Respiratory/Chest Respiratory/Chest: Reports dyspnea; Denies cough Gastrointestinal Gastrointestinal: Denies abdominal pain, nausea or vomiting Genitourinary Genitourinary ED: Denies dysuria or hematuria Musculoskeletal Musculoskeletal: Reports back pain and neck pain Integumentary Denies abscess or rash Neurologic Neurologic: Denies headache(s) or weakness Allergic/Immunologic Allergic/Immunologic ED: Denies mouth swelling or urticaria EXAM Physical Exam Const Vital Signs: 10/24/21 13:11 10/24/21 13:16 10/24/21 14:09 Temperature 97 F L Temperature Source Temporal Pulse Rate 129 H 99 Respiratory Rate 20 H 12 Respiratory Effort Short of Breath Labored Blood Pressure 146/107 H 110/74 Blood Pressure Mean 120 86 Pulse Ox 93 99 Oxygen Delivery Method Room Air Room Air Oxygen Flow Rate (L/min) 10/24/21 14:28 10/24/21 16:00 Temperature Temperature Source Pulse Rate 91 Respiratory Rate 12 Respiratory Effort Blood Pressure 105/67 Blood Pressure Mean 79 Pulse Ox 99 Oxygen Delivery Method Room Air Nasal Cannula Oxygen Flow Rate (L/min) 2 Positive well nourished, well developed and obese General Appearance ED: well developed and NAD Nutritional Appearance: obese HEENT normocephalic and atraumatic Eyes PERRL and EOMs intact bilaterally Neck supple and no JVD Chest Wall palpation of chest normal Resp normal respiratory effort and clear to auscultation bilaterally Effort and Inspection: Negative for respiratory distress Cardio regular rate, regular rhythm and no murmurs GI normal to inspection, nondistended, normoactive bowel sounds, soft to palpation, non-tender and non-distended Extremity normal to inspection General Extremety ED: Negative for edema or tenderness General Extremity: Negative for edema Neuro oriented x3, CN's II-XII intact bilaterally and no sensory deficits noted Sensorium / Orientation: awake and alert Motor Exam: strength 5/5 throughout Psych mental status grossly normal Heart Score History: Moderately Suspicious ECG: Normal Age: >45 - <65 years Risk Factors: 1 or 2 Risk Factors Troponin: </= Normal Limit Score: 3 MDM MDM MDM Narrative Medical decision making narrative: Patient was given aspirin here. EKG was obtained. On my interpretation, it showed a sinus tachycardia with a rate of 122. [place] interval, QRS interval, and QTc intervals were all normal. [place] was normal. There are no acute ST or T wave changes. Chest x-ray was obtained. There is 1 view. On my interpretation, there is left basilar atelectasis. There is no acute cardiopulmonary process. Bony thorax is normal. There is no cardiomegaly. Radiologist also interpreted the x-ray and agrees. CBC was within normal limits. Basic metabolic profile was within normal limits. D-dimer was obtained and was elevated at 1.01. High-sensitivity troponin a CTA of the chest was ordered. This was negative for any pulmonary embolism or aortic dissection. There is no infiltrate noted on the CT scan. 2-hour repeat high-sensitivity troponin was obtained and was also less than 3. Patient has a HEART score of 3. Patient was advised that this is low risk for acute cardiac event. Patient was instructed to follow-up with her primary care physician in 5 to 7 days for further evaluation. Patient understood and was agreeable with the plan. All questions were answered. Lab Data Attestation: I reviewed the patient's lab results. Labs: Laboratory Results - last 24 hr 10/24/21 10/24/21 10/24/21 13:24 13:24 13:24 WBC 8.1 RBC 4.38 Hgb 13.1 Hct 39.5 MCV 90.2 MCH 29.9 MCHC 33.2 RDW Std Deviation 42.4 RDW Coeff of Ashleigh 12.9 Plt Count 253 MPV 10.5 Immature Gran % (Auto) 0.400 Neut % (Auto) 87.6 H Lymph % (Auto) 6.1 L [place] % (Auto) 5.2 Eos % (Auto) 0.5 Baso % (Auto) 0.2 Absolute Neuts (auto) 7.1 Absolute Lymphs (auto) 0.49 L Nucleated RBC % 0 D-Dimer Quant (PE/DVT) 1.01 H* Sodium 137 Potassium 3.6 Chloride 106 Carbon Dioxide 23.0 Anion Gap 8 BUN 13 Creatinine 1.05 H Estim Creat Clear Calc 40.84 Est GFR (MDRD) Af Amer 68 Est GFR (MDRD) Non-Af 56 L BUN/Creatinine Ratio 12.4 Glucose 133 H Calcium 9.0 Troponin I High Sens < 3 L 10/24/21 17:05 WBC RBC Hgb Hct MCV MCH MCHC RDW Std Deviation RDW Coeff of Ashleigh Plt Count MPV Immature Gran % (Auto) Neut % (Auto) Lymph % (Auto) [place] % (Auto) Eos % (Auto) Baso % (Auto) Absolute Neuts (auto) Absolute Lymphs (auto) Nucleated RBC % D-Dimer Quant (PE/DVT) Sodium Potassium Chloride Carbon Dioxide Anion Gap BUN Creatinine Estim Creat Clear Calc Est GFR (MDRD) Af Amer Est GFR (MDRD) Non-Af BUN/Creatinine Ratio Glucose Calcium Troponin I High Sens < 3 L Radiography Diagnostic Testing: Clinical Impression(s) from Imaging Studies Chest X-Ray 10/24/21 15:05 IMPRESSION: Mild degree of increased markings at the left lung base suggestive of either atelectasis and/or early left basilar infiltrate.-ray examination of the chest. Electronically Signed: Pelon Perera MD at 15:29 EDT , Chest CTA 10/24/21 15:07 IMPRESSION: 1. No evidence of pulmonary embolus. 2. No aortic dissection or aneurysm. 3. No acute acute pulmonary disease or major interval change. 4. Small hiatal hernia. Electronically Signed: Bandar Conner DO at 16:18 EDT Reading Location ID and State: [facility] / [place] Tel [phone], Service support , EKG Initial EKG: Attestation: I personally reviewed and interpreted this EKG as follows: Interpretation: No Acute Injury Pattern and Sinus Tachycardia (122) Prior EKG tracings: available for review Prior: Unchanged (05/31/2019) Discharge Plan Triage Chief Complaint: Chest Pain ED Provider: Doug Shore Dx/Rx/DC Orders Clinical Impression: Chest pain, Benign essential HTN Instructions: ED Chest Pain, Uncertain Cause Prescriptions: No Action lisinopril 20 MG tablet 20 mg PO DAILY RF: 0 aspirin 81 MG tablet 81 mg PO DAILY RF: 0 paroxetine HCl 20 MG tablet 20 mg PO QHS RF: 0 Omeprazole [Prilosec] 40 MG capsule 40 mg PO BID RF: 0 levothyroxine 25 MCG tablet 25 mcg PO DAILY@0600 RF: 0 Primary Care Provider: Scot Griffin Referrals: Scot Griffin DO [Primary Care Provider] - 5-7 Days Disposition Disposition: Home, Self Care
--- NOTE | 2021-10-24 14:28 | EKG12_ITS ---
Test Reason : CP Blood Pressure : / mmHG Vent. Rate : 122 BPM Atrial Rate : 122 BPM P-R Int : 138 ms QRS Dur : 072 ms QT Int : 302 ms P-R-T Axes : 069 055 057 degrees QTc Int : 430 ms Sinus tachycardia Otherwise normal ECG Confirmed by SARAH DOMINGO, KENDRA ([id number]), editorial director ALEK HAMILTON ([id number]) on 10/26/2021 1:48:51 PM Referred By: GERDA Confirmed By:GAY SMITH MD
[2021-10-24] MEDS: Aspirin 81 MG TAB.CHEW 324 MG PO (14:38)
[2021-10-24 14:47] LABS: Absolute Lymphocyte Count 0.49 X10^3/uL (0.83-4.51); Absolute Neutrophil Count 7.1 X10^3/uL (2.0-7.7); Basophil# 0.02 X10^3/uL; Basophil% 0.2 % (0-1); Differential Indicated SCAN CRITERIA MET; Eosinophil# 0.04 X10^3/uL; Eosinophils% 0.5 % (0-5); Hematocrit 39.5 % (37-47); Hemoglobin 13.1 g/dL (12.0-15.0); Lymphocyte # 0.49 X10^3/ul (0.83-4.51); Lymphocyte % 6.1 % (19-41); Mean Corp Hgb Conc 33.2 g/dL (32-36); Mean Corpuscular Hgb 29.9 pg (27.0-32.0); Mean Corpuscular Volume 90.2 fL (81-99); Mean Platelet Vol. 10.5 fl (6.2-12.0); Monocyte# 0.42 X10^3/uL; Monocyte% 5.2 % (0-10); NRBC Flagged by Analyzer 0 % (0-5); Neutrophil # 7.09 X10^3/uL (2.7-7.7); Neutrophil % 87.6 % (47-70); POSITIVE DIFFERENTIAL YES; Platelet Count 253 K/mm3 (150-450); RBC Distribution Width CV 12.9 % (11.6-14.6); RBC Distribution Width SD 42.4 fl (35.1-43.9); Red Blood Count 4.38 M/mm3 (4.2-5.4); White Blood Count 8.1 K/mm3 (4.4-11.0)
[2021-10-24 14:57] LABS: D-Dimer Quantitative (DVT/PE) 1.01 FEU/ug/m (0.27-0.49)
[2021-10-24 15:00] LABS: Anion Gap 8 (5-15); BUN 13 mg/dL (7-18); BUN/Creat Ratio 12.4 RATIO (10-20); Chloride 106 mmol/L (98-107); Creatinine, Serum 1.05 mg/dL (0.55-1.02); EST Glomerular Filtration Rate 56 mL/min (>60); Est Glom Filt Rate - Afr Amer 68 mL/min (>60); Estimated Creatinine Clearance 40.84 ml/min; Glucose 133 mg/dL (74-106); Potassium 3.6 mmol/L (3.5-5.1); Sodium Level 137 mmol/L (136-145); Troponin-I HS (w/2H Reflex) < 3 pg/mL (3.0-54.0)
--- NOTE | 2021-10-24 15:05 | RAD_ITS ---
STUDY: X-RAY CHEST REASON FOR EXAM: Female, 66 years old. Chest pain TECHNIQUE: Single AP portable view of the chest. COMPARISON: Comparison is made with prior study dated 05/31/2019. FINDINGS: EKG electrodes are seen. Mild degree of increased markings at the left lung base suggestive of atelectasis and/or early left basilar infiltrate. There is no demonstrated pleural abnormality. Normal size heart. Normal mediastinum and yakov. Normal visualized pulmonary arteries. Normal visualized aortic arch and descending thoracic aorta. Normal visualized thoracic spine. Normal visualized ribs, clavicles, and shoulders. There is no demonstrated abnormality of the visualized soft tissue structures of the upper abdomen. RAD/Chest 1 View (Portable) IMPRESSION: Mild degree of increased markings at the left lung base suggestive of either atelectasis and/or early left basilar infiltrate.-ray examination of the chest. Electronically Signed: Pelon Perera MD at 15:29 EDT ,
--- NOTE | 2021-10-24 15:07 | CT_ITS ---
STUDY: CTA CHEST REASON FOR EXAM: Female, 66 years old. Elevated d-dimer. RADIATION DOSAGE (If Supplied By Facility): CTDIvol = ( 11.14 ) mGy, DLP = ( 542.13 ) mGycm TECHNIQUE: The examination was performed with the intravenous administration of IV 100mL Isovue-370. Post-processing of the angiographic images was performed, with multiplanar reformation and 3D reconstruction. Individualized dose optimization techniques were used for this CT. COMPARISON: CTA of the chest, 05/31/2019. Chest, 10/24/2021. FINDINGS: Normal enhancement of the main pulmonary artery and right and left pulmonary arteries. Normal enhancement of the bilateral peripheral pulmonary arteries. There is no demonstrated pulmonary embolism. Minimal atherosclerotic changes of the thoracic aorta without aneurysm. There is no demonstrated aortic dissection. Normal heart and pericardium. No coronary artery calcifications. Normal mediastinum. Normal hilar regions. Normal visualized trachea and bronchi. The lungs are hyper expanded, with flattening of the hemidiaphragms. No acute infiltrate or mass. Normal pleura. Normal chest wall structures. There are degenerative changes of thoracic spine. Question small hiatal hernia. The upper abdomen is otherwise unremarkable. CT/CTA Chest W/WO Contrast IMPRESSION: 1. No evidence of pulmonary embolus. 2. No aortic dissection or aneurysm. 3. No acute acute pulmonary disease or major interval change. 4. Small hiatal hernia. Electronically Signed: Bandar Conner DO at 16:18 EDT Reading Location ID and State: [id number] Tel [phone], Service support ,
[2021-10-24 16:00] VITALS: BP 105/67; PULSE 91; RESP 12; O2SAT 99
--- NOTE | 2021-10-24 16:19 | NURSING ---
PT STATES SHE IS NOT HAVING CHEST PAIN AT THIS TIME.
[2021-10-24 16:40] LABS: Reflex Troponin-HS? (from REC) Y
[2021-10-24 17:30] LABS: Troponin-I HS < 3 pg/mL (3.0-54.0)
[2021-10-24 17:39] VITALS: BP 112/68; PULSE 90; RESP 11; O2SAT 97
== END 2021-10-24 17:49 | disposition home or self-care (01) ==
PROVIDERS: Emergency Provider Emergency Medicine; PCP Student in an Organized Health Care Education/Training Program; Visit Provider Emergency Medicine
DX: R07.9 Chest pain, unspecified (principal); I10 Essential (primary) hypertension; E66.9 Obesity, unspecified; Z79.82 Long term (current) use of aspirin; Z79.899 Other long term (current) drug therapy
CPT/HCPCS: 71045; 71275; 80048; 84484; 85025; 85379; 93005; 99283; Q9967; A4216

== ENCOUNTER 2022-01-02 13:15 | Emergency (ER) | payer OTHER, SELFPAY ==
[2022-01-02 13:15] VITALS: BP 151/79; PULSE 74; PULSE 82; RESP 14; RESP 20; TEMP 36.3; O2SAT 97; BMI 38.0
--- NOTE | 2022-01-02 13:24 | EKG12_ITS ---
Test Reason : CHEST PAIN Blood Pressure : / mmHG Vent. Rate : 069 BPM Atrial Rate : 069 BPM P-R Int : 130 ms QRS Dur : 070 ms QT Int : 388 ms P-R-T Axes : 058 012 041 degrees QTc Int : 415 ms Normal sinus rhythm Normal ECG Confirmed by SARAH DOMINGO, KENDRA ([id number]), international editorial producer ALEK HAMILTON ([id number]) on 01/04/2022 2:16:43 PM Referred By: SONIA Confirmed By:GAY SMITH MD
[2022-01-02] MEDS: Aspirin 81 MG TAB.CHEW 324 MG PO (13:27)
[2022-01-02 13:29] VITALS: O2SAT 97
--- NOTE | 2022-01-02 13:30 | RAD_ITS ---
STUDY: X-RAY CHEST REASON FOR EXAM: Female, 66 years old. Chest pain TECHNIQUE: Single AP portable view of the chest. COMPARISON: Comparison is made with prior study dated 10/24/2021. FINDINGS: EKG electrodes are seen. The lungs are clear and expanded. There is no demonstrated pleural abnormality. Normal size heart. Normal mediastinum and yakov. Normal visualized pulmonary arteries. Normal visualized aortic arch and descending thoracic aorta. There are diffuse degenerative changes of the visualized thoracic spine. Normal visualized ribs, clavicles, and shoulders. There is no demonstrated abnormality of the visualized soft tissue structures of the upper abdomen. RAD/Chest 1 View (Portable) IMPRESSION: No acute abnormality is seen. Electronically Signed: Pelon Perera MD at 13:43 EDT ,
--- NOTE | 2022-01-02 13:32 | ED.VIS.CHEST ---
HPI History of Present Illness Chief Complaint: Chest Pain Informant: patient Onset/Context/Timing Onset: Today and Hours Activity at onset: sudden Timing: Continuous Quality: Positive for Aching Current Severity: Mild Maximum Severity: Mild Worsened By: Nothing Relieved By: Nothing Associated Symptoms: Negative for Nausea, Vomiting, Diaphoresis, Dyspnea, Cough, Fever or Lightheadedness Narrative Narrative: 66-year-old female history of hypothyroidism and hypertension. Has had prior stress test that were negative and a heart cath years ago that was negative. States that she is recently been placed on a steroid taper for poison abhishek. Yesterday she had an accelerated heart rate and had midsternal chest discomfort. Denies any recent exertional chest pain or exertional dyspnea. Denies any diaphoresis or nausea. Mild shortness of breath associate with chest pain today. The pain is improving on its own. She denies any leg pain or swelling. No history of DVT or PE. No hemoptysis. Prior Similar Symptoms: No Recent Illness/Hospitalization: No CVD Risk Factors: Positive for Hypertension; Negative for Diabetes or Smoking PE Risk Factors: Negative for Recent Travel/Surgery, Recent Immobilization, Prior DVT or PE, Cancer or OCP + Smoking + >/=35 TAD Risk Factors: Negative for Marfan's Syndrome PFSH PFSH Home Medications Omeprazole [Prilosec] 40 mg PO BID GERD 07/08/13 [History Last Taken 05/30/19] aspirin 81 mg tablet,delayed release 81 mg PO DAILY heart health 07/08/13 [History Last Taken 05/30/19] lisinopril 20 mg tablet 20 mg PO DAILY blood pressure 07/08/13 [History Last Taken 05/30/19] paroxetine HCl 20 mg tablet 20 mg PO QHS depression 07/08/13 [History Last Taken 05/30/19] levothyroxine 25 mcg tablet 25 mcg PO DAILY@0600 thyroid 05/31/19 [History Last Taken 05/30/19] Allergy/AdvReac Type Severity Reaction Status Date / Time No Known Allergies Allergy Verified 10/24/21 13:15 Surgical History Hx of cholecystectomy Social History Smoking Status: Never smoker ROS ROS ED ROS Narrative Chest pain. Review of Systems ROS Unobtainable: Denies due to encephalopathy Constitutional Constitutional ED: Denies chills or fever(s) Eyes Eyes: Reports none ENT ENT ED: Denies ear pain or rhinorrhea Cardiovascular Cardiovascular: Reports as per HPI and chest pain Respiratory/Chest Respiratory/Chest: Denies cough or dyspnea Gastrointestinal Gastrointestinal: Denies abdominal pain or constipation Genitourinary Genitourinary ED: Denies dysuria or hematuria Musculoskeletal Musculoskeletal: Denies arthralgias Integumentary Denies abscess Neurologic Neurologic: Denies headache(s) Psychiatric Psychiatric: Denies anxiety Endocrine Endocrinology: Denies cold intolerance Hematologic/Lymphatic Hematologic/Lymphatic: Denies easy bleeding Allergic/Immunologic Allergic/Immunologic ED: Denies mouth swelling EXAM Physical Exam Narrative Exam Narrative: 66-year-old female no acute distress. Vital signs stable afebrile. HEENT exam unremarkable. Neck nontender. No JVD. Lungs clear to auscultation. Heart regular rhythm rate about 80 no murmur. Abdomen soft nontender. Normal bowel sounds no peritoneal signs. Chest wall nontender. Back nontender. Moving all 4 extremities. Calves nontender without edema or cords. 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 Dorsi plantarflexion intact. Neurologic exam normal. Const Vital Signs: 01/02/22 13:15 01/02/22 13:15 01/02/22 13:29 Temperature 97.3 F L Temperature Source Temporal Pulse Rate 82 74 Respiratory Rate 20 H 14 Blood Pressure 151/79 H 151/79 H Blood Pressure Mean 103 103 Pulse Ox 97 97 97 Oxygen Delivery Method Room Air Room Air Room Air Positive well nourished, well developed and obese; Negative for cachectic, contractures or unkempt General Appearance ED: well developed and NAD; Negative for unkempt, cachectic, contractures or pallor Nutritional Appearance: obese; Negative for cachectic HEENT Reports moist mucous membranes normocephalic and atraumatic; Negative for trauma Eyes PERRL and EOMs intact bilaterally General Eye ED: Yes pale conjunctiva and scleral icterus Neck no lymphadenopathy, supple and no JVD General: Negative for tenderness Chest Wall inspection of chest normal and palpation of chest normal Chest: Negative for tenderness Resp normal respiratory effort and clear to auscultation bilaterally Effort and Inspection: respiratory distress Auscultation: Negative for rales, rhonchi or wheezes Cardio regular rate, regular rhythm, S1 normal heart sound, S2 normal heart sound and no murmurs Rate: Negative for bradycardia Rhythm: Negative for abnormal rhythm Peripheral Pulses: pulses 2+ throughout GI normal to inspection, nondistended, normoactive bowel sounds, soft to palpation, non-tender, non-distended and no masses Auscultation: Negative for hyperactive bowel sounds Back/Spine no CVA tenderness and no thoracic nor lumbar tenderness General Back: Negative for CVA tenderness Cervical Spine: Negative for cervical spine tenderness Extremity normal to inspection General Extremety ED: Negative for edema General Extremity: Negative for edema Neuro oriented x3 and CN's II-XII intact bilaterally Sensorium / Orientation: awake, alert, oriented to person, oriented to place and oriented to time; Negative for confused, lethargic or stuporous Motor Exam: strength 5/5 throughout Psych mental status grossly normal Appearance: Negative for unkempt Attitude: No agitated Mood & Affect: Negative for depressed, anxious or tearful Skin no rashes or lesions noted and no wounds General Skin Exam: Negative for jaundice or pallor Rashes: No rashes noted Trauma: Negative for abrasion Heart Score History: Slightly/Non-Suspicious ECG: Normal Age: >45 - <65 years Risk Factors: 1 or 2 Risk Factors Troponin: </= Normal Limit Score: 2 MDM MDM MDM Narrative Medical decision making narrative: 66-year-old female with nonexertional chest pain. Exam benign. She undergo cardiac work-up. Her initial EKG is unremarkable. Repeat exam patient is doing well at 2:45 PM. Pain is resolved. She has had no recent exertional symptoms. She had negative stress test a year ago in May 2019 and also a negative stress test in 2015. She is comfortable being discharged home. We discussed a 2-hour troponin which she deferred. I will follow-up with her primary care physician. She knows return if worse. Lab Data Attestation: I reviewed the patient's lab results. Lab results narrative: CBC shows a white count 16.1. H&H 14 and 43. Platelets 290. Electrolytes show a gap of 8 normal BUN and creatinine. Glucose 105. Troponin of 3. Chest x-ray negative. Labs: Laboratory Results - last 24 hr 01/02/22 01/02/22 13:20 13:20 WBC 16.1 H RBC 4.84 Hgb 14.7 Hct 43.1 MCV 89.0 MCH 30.4 MCHC 34.1 RDW Std Deviation 44.5 H RDW Coeff of Ashleigh 13.7 Plt Count 298 MPV 9.6 Immature Gran % (Auto) 0.900 Neut % (Auto) 79.2 H Lymph % (Auto) 13.1 L [place] % (Auto) 6.5 Eos % (Auto) 0.2 Baso % (Auto) 0.1 Absolute Neuts (auto) 12.7 H Absolute Lymphs (auto) 2.11 Nucleated RBC % 0 Sodium 139 Potassium 4.0 Chloride 105 Carbon Dioxide 26.0 Anion Gap 8 BUN 18 Creatinine 0.99 Estim Creat Clear Calc 43.32 Est GFR (MDRD) Af Amer 72 Est GFR (MDRD) Non-Af 60 BUN/Creatinine Ratio 18.2 Glucose 105 Calcium 9.2 Troponin I High Sens 3 Radiography Chest X-Ray - ED: 1 View, Read by ED Physician, Heart, Lungs, Mediastinum, Bony Structures, No Acute Disease and Chronic Changes Diagnostic Testing: Clinical Impression(s) from Imaging Studies Chest X-Ray 01/02/22 13:30 IMPRESSION: No acute abnormality is seen. Electronically Signed: Pelon Perera MD at 13:43 EDT , X-ray, portable, single view shows no acute abnormality. Interpreted by myself. Chronic changes. Rhythm Strip Rhythm Strip: Sinus Rhythm Rate: 69 Ectopy: None EKG Initial EKG: Attestation: I personally reviewed and interpreted this EKG as follows: Interpretation: Sinus Rhythm and No Acute Injury Pattern Comments: Normal sinus rhythm rate of 69 no acute signs of HI or ischemia. No S1, every 3 of T3. 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 Follow-up with your primary care physician. If you are feeling worse such as worsening pain, shortness of breath then return to the emergency department for repeat evaluation. Disposition Disposition: Home, Self Care
[2022-01-02 13:39] LABS: Absolute Lymphocyte Count 2.11 X10^3/uL (0.83-4.51); Absolute Neutrophil Count 12.7 X10^3/uL (2.0-7.7); Basophil# 0.02 X10^3/uL; Basophil% 0.1 % (0-1); Eosinophil# 0.04 X10^3/uL; Eosinophils% 0.2 % (0-5); Hematocrit 43.1 % (37-47); Hemoglobin 14.7 g/dL (12.0-15.0); Lymphocyte # 2.11 X10^3/ul (0.83-4.51); Lymphocyte % 13.1 % (19-41); Mean Corp Hgb Conc 34.1 g/dL (32-36); Mean Corpuscular Hgb 30.4 pg (27.0-32.0); Mean Platelet Vol. 9.6 fl (6.2-12.0); Monocyte# 1.05 X10^3/uL; Monocyte% 6.5 % (0-10); NRBC Flagged by Analyzer 0 % (0-5); Neutrophil # 12.73 X10^3/uL (2.7-7.7); Neutrophil % 79.2 % (47-70); Platelet Count 298 K/mm3 (150-450); RBC Distribution Width CV 13.7 % (11.6-14.6); RBC Distribution Width SD 44.5 fl (35.1-43.9); Red Blood Count 4.84 M/mm3 (4.2-5.4); White Blood Count 16.1 K/mm3 (4.4-11.0)
[2022-01-02 13:55] LABS: Anion Gap 8 (5-15); BUN 18 mg/dL (7-18); BUN/Creat Ratio 18.2 RATIO (10-20); Calcium,Total 9.2 mg/dL (8.5-10.1); Chloride 105 mmol/L (98-107); Creatinine, Serum 0.99 mg/dL (0.55-1.02); EST Glomerular Filtration Rate 60 mL/min (>60); Est Glom Filt Rate - Afr Amer 72 mL/min (>60); Estimated Creatinine Clearance 43.32 ml/min; Glucose 105 mg/dL (74-106); Sodium Level 139 mmol/L (136-145); Troponin-I HS (w/2H Reflex) 3 pg/mL (3.0-54.0)
[2022-01-02 14:54] VITALS: BP 132/82; PULSE 59; RESP 12; O2SAT 96
[2022-01-02 15:34] LABS: Reflex Troponin-HS? (from REC) Y
== END 2022-01-02 14:59 | disposition home or self-care (01) ==
PROVIDERS: Emergency Provider Emergency Medicine; PCP Student in an Organized Health Care Education/Training Program; Visit Provider Emergency Medicine
DX: R07.9 Chest pain, unspecified (principal); I10 Essential (primary) hypertension; E03.9 Hypothyroidism, unspecified; E66.9 Obesity, unspecified; Z68.38 Body mass index [BMI] 38.0-38.9, adult; Z79.82 Long term (current) use of aspirin; Z79.899 Other long term (current) drug therapy
CPT/HCPCS: 71045; 80048; 84484; 85025; 93005; 99284; A4216

== ENCOUNTER 2023-04-22 14:40 | Emergency (ER) | payer MEDICARE, SELFPAY ==
[2023-04-22 14:41] VITALS: BP 143/85; PULSE 94; RESP 16; TEMP 36.3; O2SAT 97; BMI 39.4
--- NOTE | 2023-04-22 15:10 | EKG12_ITS ---
Test Reason : CHEST PAIN Blood Pressure : / mmHG Vent. Rate : 085 BPM Atrial Rate : 085 BPM P-R Int : 150 ms QRS Dur : 072 ms QT Int : 364 ms P-R-T Axes : 058 027 048 degrees QTc Int : 433 ms Normal sinus rhythm Normal ECG Confirmed by PEREZ DOMINGO, STEVEN ([id number]), editorial assistant ALEK HAMILTON ([id number]) on 04/23/2023 11:08:36 AM Referred By: Confirmed By:STEVEN TODD MD
--- NOTE | 2023-04-22 15:14 | ED.VIS.CHEST ---
HPI <ANNMARIE Levin - Last Filed: 04/22/23 18:14> History of Present Illness Chief Complaint: Chest Pain Narrative Narrative: 67-year-old female with past medical history of HTN, HLD, hypothyroidism presents after an episode of chest pain. She states last night she had thanksgiving leftovers and then developed abdominal pain and significant amount of nonbloody diarrhea. She had a small amount of diarrhea this morning but the abdominal pain resolved. About 2 PM she was sitting watching TV when she had left-sided chest pressure radiating towards the left shoulder. It resolved within [address] here and she states she now feels back to normal. She had no shortness of breath, nausea or vomiting, or back pain. She denies cardiac history other than tachycardia episodes but she states she had normal Holter monitor and stress test within the last couple years. PFSH <ANNMARIE Levin - Last Filed: 04/22/23 18:14> PFSH Home Medications Omeprazole [Prilosec] 40 mg PO BID GERD 07/08/13 [History Last Taken 05/30/19] aspirin 81 mg tablet,delayed release 81 mg PO DAILY heart health 07/08/13 [History Last Taken 05/30/19] lisinopril 20 mg tablet 20 mg PO DAILY blood pressure 07/08/13 [History Last Taken 05/30/19] paroxetine HCl 20 mg tablet 20 mg PO QHS depression 07/08/13 [History Last Taken 05/30/19] levothyroxine 25 mcg tablet 25 mcg PO DAILY@0600 thyroid 05/31/19 [History Last Taken 05/30/19] Allergy/AdvReac Type Severity Reaction Status Date / Time No Known Allergies Allergy Verified 10/24/21 13:15 Surgical History Hx of cholecystectomy Social History Smoking Status: Never smoker ROS <ANNMARIE Levin - Last Filed: 04/22/23 18:14> ROS ED ROS Narrative Constitutional: Negative for fever, chills, malaise. CVS: Positive for chest pain. Negative for palpitations, syncope. Respiratory: Negative for shortness of breath, cough, orthopnea. GI: Positive for abdominal pain, diarrhea. Negative for nausea, vomiting, melena, hematochezia. : Negative for dysuria. Neuro: Negative for headache. EXAM <ANNMARIE Levin - Last Filed: 04/22/23 18:14> Physical Exam Narrative Exam Narrative: CONST: Patient sitting in no acute distress. EYES: Normal inspection. NECK: Normal inspection. RESP: No respiratory distress, CTAB. CVS: Regular rate and rhythm, no murmur, no gallop. ABD: Soft and nontender, no guarding or rebound, nondistended. SKIN: Color normal, no rash, warm, dry, intact. EXTREMITIES: Normal appearance, no pedal edema. NEURO: Oriented x4. PSYCH: Normal affect. Const Vital Signs: 04/22/23 14:41 04/22/23 15:20 04/22/23 17:11 Temperature 97.3 F L Temperature Source Temporal Pulse Rate 94 82 Respiratory Rate 16 16 Respiratory Effort Normal Non-Labored Blood Pressure 143/85 H 134/77 H Blood Pressure Mean 104 96 Pulse Ox 97 97 Oxygen Delivery Method Room Air Room Air 04/22/23 18:22 Temperature Temperature Source Pulse Rate 72 Respiratory Rate 16 Respiratory Effort Blood Pressure 129/74 H Blood Pressure Mean 92 Pulse Ox 98 Oxygen Delivery Method <Dr. Esequiel iVllalba MD - Last Filed: 04/22/23 22:02> Physical Exam Const Vital Signs: 04/22/23 14:41 04/22/23 15:20 04/22/23 17:11 Temperature 97.3 F L Temperature Source Temporal Pulse Rate 94 82 Respiratory Rate 16 16 Respiratory Effort Normal Non-Labored Blood Pressure 143/85 H 134/77 H Blood Pressure Mean 104 96 Pulse Ox 97 97 Oxygen Delivery Method Room Air Room Air 04/22/23 18:22 Temperature Temperature Source Pulse Rate 72 Respiratory Rate 16 Respiratory Effort Blood Pressure 129/74 H Blood Pressure Mean 92 Pulse Ox 98 Oxygen Delivery Method <ANNMARIE Levin - Last Filed: 04/22/23 18:14> Heart Score History: Moderately Suspicious ECG: Normal Age: >/= 65 years Risk Factors: >/= 3 Risk Factors or History of CAD Troponin: </= Normal Limit Score: 5 <Dr. Esequiel Villalba MD - Last Filed: 04/22/23 22:02> Heart Score Score: 5 MDM <ANNMARIE Levin - Last Filed: 04/22/23 18:14> [facility] Narrative Medical decision making narrative: Patient had abdominal pain and diarrhea last night which has resolved but presents due to an episode of chest pain prior to arrival. She appears well nontoxic. Vital signs within normal limits. She has a normal cardiopulmonary exam and abdomen is soft and nontender. CBC and CMP are unremarkable. EKG is sinus rhythm with no ischemic changes and serial enzymes are 5, delta 6. CXR shows no acute process. Her heart score is 5 but with 2 very low troponins I feel she can follow-up outpatient. She has remained asymptomatic here. She was comfortable with this plan and discharged in stable condition. Differential: ACS, GERD, musculoskeletal among others External records reviewed: Stress test 05/31/19 shows no ischemia, EF 81% Lab Data Attestation: I reviewed the patient's lab results. Labs: Laboratory Results - last 24 hr 04/22/23 04/22/23 15:16 17:10 WBC 8.2 RBC 4.31 Hgb 12.8 Hct 39.7 MCV 92.1 MCH 29.7 MCHC 32.2 RDW Std Deviation 44.4 H RDW Coeff of Ashleigh 13.1 Plt Count 237 MPV 9.9 Immature Gran % (Auto) 0.400 Neut % (Auto) 75.2 H Lymph % (Auto) 16.6 L [place] % (Auto) 6.3 Eos % (Auto) 1.0 Baso % (Auto) 0.5 Absolute Neuts (auto) 6.2 Absolute Lymphs (auto) 1.36 Nucleated RBC % 0 Sodium 142 Potassium 4.2 Chloride 114 H Carbon Dioxide 25.0 Anion Gap 3 L BUN 12 Creatinine 0.92 Estim Creat Clear Calc 46.00 Est GFR (MDRD) Af Amer 79 Est GFR (MDRD) Non-Af 65 BUN/Creatinine Ratio 13.1 Glucose 100 Calcium 8.6 Total Bilirubin 0.30 AST 15 ALT 24 Alkaline Phosphatase 88 Troponin I High Sens 5 6 Total Protein 6.8 Albumin 3.7 Globulin 3.1 Albumin/Globulin Ratio 1.2 Radiography Diagnostic Testing: Clinical Impression(s) from Imaging Studies Chest X-Ray 04/22/23 15:50 IMPRESSION: Normal x-ray examination of the chest. Electronically Signed: Hayden Garcia MD at 16:22 EST Reading Location ID and State: [address] Tel , Service support , ED attending interpretation of 1-view chest x-ray shows normal heart size, no acute infiltrate, edema, or effusion. <Dr. Esequeil Villalba MD - Last Filed: 04/22/23 22:02> [facility] Lab Data Labs: Laboratory Results - last 24 hr 04/22/23 04/22/23 15:16 17:10 WBC 8.2 RBC 4.31 Hgb 12.8 Hct 39.7 MCV 92.1 MCH 29.7 MCHC 32.2 RDW Std Deviation 44.4 H RDW Coeff of Ashleigh 13.1 Plt Count 237 MPV 9.9 Immature Gran % (Auto) 0.400 Neut % (Auto) 75.2 H Lymph % (Auto) 16.6 L [place] % (Auto) 6.3 Eos % (Auto) 1.0 Baso % (Auto) 0.5 Absolute Neuts (auto) 6.2 Absolute Lymphs (auto) 1.36 Nucleated RBC % 0 Sodium 142 Potassium 4.2 Chloride 114 H Carbon Dioxide 25.0 Anion Gap 3 L BUN 12 Creatinine 0.92 Estim Creat Clear Calc 46.00 Est GFR (MDRD) Af Amer 79 Est GFR (MDRD) Non-Af 65 BUN/Creatinine Ratio 13.1 Glucose 100 Calcium 8.6 Total Bilirubin 0.30 AST 15 ALT 24 Alkaline Phosphatase 88 Troponin I High Sens 5 6 Total Protein 6.8 Albumin 3.7 Globulin 3.1 Albumin/Globulin Ratio 1.2 Radiography Diagnostic Testing: Clinical Impression(s) from Imaging Studies Chest X-Ray 04/22/23 15:50 IMPRESSION: Normal x-ray examination of the chest. Electronically Signed: Hayden Garcia MD at 16:22 EST Reading Location ID and State: [address] [place] [address] Tel , Service support , Treatment and Re-Evaluation :: I have personally performed a face to face assessment of the patient and have reviewed the ELICEO Note. I performed a substantive portion of the visit including all aspects of the following. My felix findings include: History: Patient states that she had onset of chest pain in the upper mid chest. It radiated toward the left and the left upper arm. Did not go to the back or jaw. She felt slightly short of breath with it but was not diaphoretic lightheaded or nauseated. She is not exactly sure how long it lasted but it was at least 20 minutes and maybe 30 or so minutes. It is completely gone now. She had had some recent GI upset but that was mostly abdominal cramping and diarrhea and has essentially resolved. She was not having GERD symptoms with that. She thought her last stress test was 2 years ago but when we review the records it was almost 4 years ago this coming May. It was negative for acute disease. But the patient does have history of blood pressure cholesterol and obesity has risk factors. Exam: Patient is awake alert nontoxic and comfortable appearing. HEENT is normal. Neck shows no JVD. Lungs are clear bilaterally no pain with a deep breath. Saturations are normal at 97% on room air showing no hypoxia. Heart is regular. I hear no murmur. Peripheral pulses are normal x 4. Abdomen is mildly obese but soft and nontender. Extremities show no pallor swelling or tenderness. Medical Decision Making: EKG shows no acute process but this was done while she is not having symptoms. We will do x-ray and blood work. 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
[2023-04-22 15:32] LABS: Absolute Lymphocyte Count 1.36 X10^3/uL (0.83-4.51); Absolute Neutrophil Count 6.2 X10^3/uL (2.0-7.7); Basophil# 0.04 X10^3/uL; Basophil% 0.5 % (0-1); Eosinophil# 0.08 X10^3/uL; Hematocrit 39.7 % (37-47); Hemoglobin 12.8 g/dL (12.0-15.0); Lymphocyte # 1.36 X10^3/ul (0.83-4.51); Lymphocyte % 16.6 % (19-41); Mean Corp Hgb Conc 32.2 g/dL (32-36); Mean Corpuscular Hgb 29.7 pg (27.0-32.0); Mean Corpuscular Volume 92.1 fL (81-99); Mean Platelet Vol. 9.9 fl (6.2-12.0); Monocyte# 0.52 X10^3/uL; Monocyte% 6.3 % (0-10); NRBC Flagged by Analyzer 0 % (0-5); Neutrophil # 6.18 X10^3/uL (2.7-7.7); Neutrophil % 75.2 % (47-70); Platelet Count 237 K/mm3 (150-450); RBC Distribution Width CV 13.1 % (11.6-14.6); RBC Distribution Width SD 44.4 fl (35.1-43.9); Red Blood Count 4.31 M/mm3 (4.2-5.4); White Blood Count 8.2 K/mm3 (4.4-11.0)
--- NOTE | 2023-04-22 15:50 | RAD_ITS ---
STUDY: X-RAY CHEST REASON FOR EXAM: Female, 67 years old. chest pain TECHNIQUE: Single frontal view of the chest. COMPARISON: January 02, 2022 FINDINGS: The lungs are clear and expanded. There is no demonstrated pleural abnormality. Normal size heart. Normal mediastinum and yakov. Normal visualized pulmonary arteries. Normal visualized aortic arch and descending thoracic aorta. Normal visualized thoracic spine. Normal visualized ribs, clavicles, and shoulders. There is no demonstrated abnormality of the visualized soft tissue structures of the upper abdomen. RAD/Chest 1 View (Portable) IMPRESSION: Normal x-ray examination of the chest. Electronically Signed: Hayden Garcia MD at 16:22 [facility] ,
[2023-04-22 16:04] LABS: ALB/GLOB Ratio 1.2 RATIO (0.9-2.4); AST(SGOT) 15 U/L (15-37); Alanine Aminotransfer ALT/SGPT 24 U/L (13-56); Albumin, Serum 3.7 g/dL (3.2-5.0); Alkaline Phosphatase 88 U/L (45-117); Anion Gap 3 (5-15); BUN 12 mg/dL (7-18); BUN/Creat Ratio 13.1 RATIO (10-20); Calcium,Total 8.6 mg/dL (8.5-10.1); Chloride 114 mmol/L (98-107); Creatinine, Serum 0.92 mg/dL (0.55-1.02); EST Glomerular Filtration Rate 65 mL/min (>60); Est Glom Filt Rate - Afr Amer 79 mL/min (>60); Globulin 3.1 g/dL (2.2-4.2); Glucose 100 mg/dL (74-106); Potassium 4.2 mmol/L (3.5-5.1); Protein, Total 6.8 g/dL (6.4-8.2); Sodium Level 142 mmol/L (136-145); Troponin-I HS 5 pg/mL (3.0-54.0)
[2023-04-22 17:11] VITALS: BP 134/77; PULSE 82; RESP 16; O2SAT 97
[2023-04-22 18:05] LABS: Troponin-I HS 6 pg/mL (3.0-54.0)
[2023-04-22 18:22] VITALS: BP 129/74; PULSE 72; RESP 16; O2SAT 98
== END 2023-04-22 18:23 | disposition home or self-care (01) ==
PROVIDERS: Physician Assistant; Emergency Provider Emergency Medicine; PCP Student in an Organized Health Care Education/Training Program; Visit Provider Emergency Medicine
DX: R07.9 Chest pain, unspecified (principal)
CPT/HCPCS: 71045; 80053; 84484; 85025; 93005; 99283; A4216

== ENCOUNTER 2024-05-07 20:48 | Emergency (ER) | payer MEDICARE, SELFPAY ==
--- NOTE | 2024-05-07 20:25 | RAD_ITS ---
INDICATION: cough EXAMINATION/TECHNIQUE: X-RAY - XR Chest 2 Views COMPARISON: 04/22/2023 FINDINGS: LINES/DEVICES: None. LUNGS: No consolidation, edema or effusion. No pneumothorax. MEDIASTINUM AND CARDIOVASCULAR STRUCTURES: Cardiac silhouette not enlarged. Central airways and mediastinal contour are unremarkable. BONES AND SOFT TISSUES: No acute changes. RAD/Chest PA and Lateral IMPRESSION: No radiographic evidence of acute cardiopulmonary disease. Electronically Signed: Rico Spear MD at 21:54 EST ,
[2024-05-07 20:50] VITALS: BP 123/72; PULSE 108; RESP 18; TEMP 36.7; O2SAT 98; BMI 37.4
--- NOTE | 2024-05-07 21:05 | EKG12_ITS ---
Test Reason : DYSRHYTHMIA Blood Pressure : */* mmHG Vent. Rate : 89 BPM Atrial Rate : 89 BPM P-R Int : 150 ms QRS Dur : 72 ms QT Int : 346 ms P-R-T Axes : 50 41 52 degrees QTcB Int : 420 ms Normal sinus rhythm Normal ECG Confirmed by SARAH DOMINGO, KENDRA ([id number]), web editor ALEK HAMILTON ([id number]) on 05/12/2024 1:35:26 P M Referred By: Confirmed By: KENDRA SMITH MD
--- NOTE | 2024-05-07 21:12 | EDS_ITS ---
HPI <CHERYL Conklin - Last Filed: 05/07/24 21:17> History of Present Illness Chief Complaint: General Illness Narrative Narrative: Patient is a 68-year-old female history of hypertension hyperlipidemia, hypothyroidism, GERD who presents to the emergency department for chest pressure, left-sided chest pain. Patient states that 2 days ago, she received a COVID-19 and influenza shot on the same day. That night, states that she had some fever and chills, she had some jaw tightness that went away with Advil. Patient then had left-sided chest pain this morning, and 1 episode right before she came in, she states she was not doing any specific. She states at this time, she has no pain and feels generally well. She is just concerned because she has a family history of cardiac disease. PFSH <CHERYL Conklin - Last Filed: 05/07/24 21:17> [facility] Medical History (Updated 05/07/24 @ 21:38 by Kristi Lemus) Depression Hyperlipidemia Hypertension Home Medications ?Medication ?Instructions ?Recorded ?Last Taken ?Type Omeprazole [Prilosec] 40 mg PO BID GERD 07/08/13 05/30/19 History aspirin 81 mg tablet,delayed 81 mg PO DAILY heart health 07/08/13 05/30/19 History release lisinopril 20 mg tablet 20 mg PO DAILY blood pressure 07/08/13 05/30/19 History paroxetine HCl 20 mg tablet 20 mg PO QHS depression 07/08/13 05/30/19 History levothyroxine 25 mcg tablet 25 mcg PO DAILY@0600 thyroid 05/31/19 05/30/19 History metformin 500 mg tablet 500 mg PO QPM 05/07/24 Unknown History rosuvastatin 10 mg tablet 10 mg PO QHS 05/07/24 Unknown History Allergy/AdvReac Type Severity Reaction Status Date / Time No Known Allergies Allergy Verified 05/07/24 20:49 Surgical History Hx of cholecystectomy Social History Smoking Status: Never smoker ROS <CHERYL Conklin - Last Filed: 05/07/24 21:17> ROS ED ROS Narrative Constitutional: Negative for fever, chills, weight loss, weakness Eyes: Negative for vision loss, vision change, double vision ENT: Negative for any sore throat, ear pain, congestion Cardiovascular: Negative for any tightness, palpitations. Positive for left- sided chest pain Respiratory: Negative for any cough, sputum production, hemoptysis, dyspnea, dyspnea on exertion, orthopnea Gastrointestinal: Negative for any abdominal pain, nausea, vomiting, diarrhea, constipation, blood in stool, blood in vomit : Negative for any urinary frequency, dysuria, retention, blood in urine Muscle skeletal: Negative for any neck pain, back pain Neurological: Negative for any headache, syncope, dizziness Skin: Negative for any rashes, itching, abrasions, lacerations Psychiatric: Negative for any depression, anxiety, stress, suicidal ideation, homicidal ideation Hematologic: Negative for any excessive bruising, easy bleeding EXAM <CHERYL Conklin - Last Filed: 05/07/24 21:17> Physical Exam Narrative Exam Narrative: Vital signs reviewed. HEET: Head normocephalic atraumatic, TMs clear bilaterally. Posterior pharynx is clear, moist mucous membranes. Nares clear bilaterally. Neck: Supple with no lymphadenopathy or tenderness. No signs of meningismus. Cardiac: Regular rate and rhythm no murmurs gallops or rubs, equal peripheral p ulses bilaterally. Respiratory: Lungs clear to auscultation bilaterally. No chest tenderness. Abdomen: Soft, nontender, nondistended. No abdominal bruit or pulsatile masses. No hepatosplenomegaly Extremities: No peripheral edema, no signs of gross trauma or deformity. Active full range of motion of all extremities. Neuro: Cranial nerves II through XII intact, no focal neurological deficits. Skin: Clean dry and intact with no rash, purpura, petechiae, vesicles or pustules. Backs/flank: No CVA tenderness, no midline spinal tenderness, no deformity. Psych: Normal mood and affect. No SI, HI or acute psychosis. Const Vital Signs: 05/07/24 20:50 05/07/24 21:34 Temperature 98.1 F Temperature Source Temporal Pulse Rate 108 H Respiratory Rate 18 Respiratory Effort Normal Non-Labored Respiratory Pattern Normal Blood Pressure 123/72 H Blood Pressure Mean 89 Pulse Ox 98 Oxygen Delivery Method Room Air Positive well nourished and well developed General Appearance ED: well developed <Dr. Isaac High DO - Last Filed: 05/07/24 22:38> Physical Exam Const Vital Signs: 05/07/24 20:50 05/07/24 21:34 Temperature 98.1 F Temperature Source Temporal Pulse Rate 108 H Respiratory Rate 18 Respiratory Effort Normal Non-Labored Respiratory Pattern Normal Blood Pressure 123/72 H Blood Pressure Mean 89 Pulse Ox 98 Oxygen Delivery Method Room Air MDM <CHERYL Conklin - Last Filed: 05/07/24 21:17> [facility] Lab Data Labs: Laboratory Results - last 24 hr 05/07/24 21:15 WBC 5.3 RBC 4.17 L Hgb 12.2 Hct 38.1 MCV 91.4 MCH 29.3 MCHC 32.0 RDW Std Deviation 41.9 RDW Coeff of Ashleigh 12.4 Plt Count 200 MPV 10.2 Immature Gran % (Auto) 0.200 Neut % (Auto) 70.4 H Lymph % (Auto) 14.3 L Fountain % (Auto) 12.6 H Eos % (Auto) 1.9 Baso % (Auto) 0.6 Absolute Neuts (auto) 3.7 Absolute Lymphs (auto) 0.76 L Nucleated RBC % 0 Sodium 137 Potassium 4.1 Chloride 108 H Carbon Dioxide 24.0 Anion Gap 5 BUN 10 Creatinine 0.96 Estim Creat Clear Calc 58.79 Est GFR (MDRD) Af Amer 75 Est GFR (MDRD) Non-Af 62 BUN/Creatinine Ratio 10.5 Glucose 113 H Calcium 9.4 Troponin I High Sens < 3 L Radiography Diagnostic Testing: Clinical Impression(s) from Imaging Studies Chest X-Ray 05/07/24 20:25 IMPRESSION: No radiographic evidence of acute cardiopulmonary disease. Electronically Signed: Rico Spear MD at 21:54 EST Reading Location ID and State: [facility] / [place] Tel , Service support , EKG EKG shows normal sinus rhythm: Attestation: I personally reviewed and interpreted this EKG as follows: Interpretation: Sinus Rhythm Comments: Normal sinus rhythm, rate of 89 bpm, NJ interval 150 ms, QRS duration 72 ms, no acute ST elevation, no acute infarct noted. Treatment and Re-Evaluation :: Differential diagnosis includes however is not limited to: ACS, CA, anxiety, muscle skeletal chest pain Patient appears generally well, vital signs are stable, patient is nontoxic- appearing. Presenting to the emergency department for complaints of left-sided chest pain post COVID-19/influenza vaccinations 2 days ago. Since the pain has been intermittent, the patient received 2 troponins, basic laboratory values and including a chest x-ray. Patient states to be asymptomatic at this time and feels generally well. All radiologic examinations were read, reviewed by the emergency department attending. From these reads, a plan of care will be put in place. <Dr. Isaac High, DO - Last Filed: 05/07/24 22:38> [facility] MDM Narrative Medical decision making narrative: Attending note: I have personally performed a face to face assessment of the patient and have reviewed the ELICEO note. I personally made/approved the management plan and take responsibility for the patient management. I performed a substantive portion of the visit including all aspects of the following. My felix findings include: Jaw pain 2 days ago after COVID influenza vaccine. Yesterday intermittent left-sided chest pain lasting 1 to 2 hours. Last onset of symptoms today 6 PM last an hour. No cardiac history. Hypertension with diabetes, hyperlipidemia. Exam alert nontoxic currently symptomatic heart is regular lungs are clear. No swelling of the legs. EKG sinus rhythm. Chest x- ray 2 views interpreted myself and read by radiology shows no acute process. Labs cardiac workup negative troponin less than 3. Per algorithm nearly 100% sensitivity rule out cardiac disease. She remains asymptomatic. Outpatient follow-up with her doctor. Strict return precautions. All questions were answered. Lab Data Attestation: I reviewed the patient's lab results. Labs: Laboratory Results - last 24 hr 05/07/24 21:15 WBC 5.3 RBC 4.17 L Hgb 12.2 Hct 38.1 MCV 91.4 MCH 29.3 MCHC 32.0 RDW Std Deviation 41.9 RDW Coeff of Ashleigh 12.4 Plt Count 200 MPV 10.2 Immature Gran % (Auto) 0.200 Neut % (Auto) 70.4 H Lymph % (Auto) 14.3 L Fountain % (Auto) 12.6 H Eos % (Auto) 1.9 Baso % (Auto) 0.6 Absolute Neuts (auto) 3.7 Absolute Lymphs (auto) 0.76 L Nucleated RBC % 0 Sodium 137 Potassium 4.1 Chloride 108 H Carbon Dioxide 24.0 Anion Gap 5 BUN 10 Creatinine 0.96 Estim Creat Clear Calc 58.79 Est GFR (MDRD) Af Amer 75 Est GFR (MDRD) Non-Af 62 BUN/Creatinine Ratio 10.5 Glucose 113 H Calcium 9.4 Troponin I High Sens < 3 L Radiography Diagnostic Testing: Clinical Impression(s) from Imaging Studies Chest X-Ray 05/07/24 20:25 IMPRESSION: No radiographic evidence of acute cardiopulmonary disease. Electronically Signed: Rico Spear MD at 21:54 EST Reading Location ID and State: [facility] / [place] Tel , Service support , Discharge Plan Triage Chief Complaint: General Illness ED Midlevel Provider: Joon Stover ED Provider: Isaac High Dx/Rx/DC Orders Clinical Impression: Chest pain, Myalgia Instructions: ED Chest Pain, Noncardiac, ED Chest Pain, Uncertain Cause, ED Myalgias Prescriptions: No Action lisinopril 20 MG tablet 20 mg PO DAILY Patient Comments: blood pressure aspirin 81 MG tablet 81 mg PO DAILY Patient Comments: blood thinner paroxetine HCl 20 MG tablet 20 mg PO QHS Patient Comments: anti-depressant Omeprazole [Prilosec] 40 MG capsule 40 mg PO BID 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 Cardiac workup negative. Continue to take ibuprofen, Tylenol for your myalgias. Maintain hydration. Follow-up your doctor. If symptoms reoccurs or worsen, return to the ED for reevaluation. Print Language: Citizen Of [place] Disposition Disposition: Home, Self Care
[2024-05-07 21:27] LABS: Absolute Lymphocyte Count 0.76 X10^3/uL (0.83-4.51); Absolute Neutrophil Count 3.7 X10^3/uL (2.0-7.7); Basophil# 0.03 X10^3/uL; Basophil% 0.6 % (0-1); Eosinophils% 1.9 % (0-5); Hematocrit 38.1 % (37-47); Hemoglobin 12.2 g/dL (12.0-15.0); Lymphocyte # 0.76 X10^3/ul (0.83-4.51); Lymphocyte % 14.3 % (19-41); Mean Corpuscular Hgb 29.3 pg (27.0-32.0); Mean Corpuscular Volume 91.4 fL (81-99); Mean Platelet Vol. 10.2 fl (6.2-12.0); Monocyte# 0.67 X10^3/uL; Monocyte% 12.6 % (0-10); NRBC Flagged by Analyzer 0 % (0-5); Neutrophil # 3.74 X10^3/uL (2.7-7.7); Neutrophil % 70.4 % (47-70); Platelet Count 200 K/mm3 (150-450); RBC Distribution Width CV 12.4 % (11.6-14.6); RBC Distribution Width SD 41.9 fl (35.1-43.9); Red Blood Count 4.17 M/mm3 (4.2-5.4); White Blood Count 5.3 K/mm3 (4.4-11.0)
[2024-05-07 22:06] LABS: Anion Gap 5 (5-15); BUN 10 mg/dL (7-18); BUN/Creat Ratio 10.5 RATIO (10-20); Calcium,Total 9.4 mg/dL (8.5-10.1); Chloride 108 mmol/L (98-107); Creatinine, Serum 0.96 mg/dL (0.55-1.02); EST Glomerular Filtration Rate 62 mL/min (>60); Est Glom Filt Rate - Afr Amer 75 mL/min (>60); Estimated Creatinine Clearance 58.79 ml/min; Glucose 113 mg/dL (74-106); Potassium 4.1 mmol/L (3.5-5.1); Sodium Level 137 mmol/L (136-145); Troponin-I HS (w/2H Reflex) < 3 pg/mL (3.0-54.0)
[2024-05-07 22:36] VITALS: BP 136/84; PULSE 74; RESP 16; TEMP 36.7; O2SAT 97
[2024-05-07 23:20] LABS: Reflex Troponin-HS? (from REC) Y
== END 2024-05-07 22:37 | disposition home or self-care (01) ==
PROVIDERS: Nurse Practitioner; Emergency Provider Emergency Medicine; PCP Student in an Organized Health Care Education/Training Program; Visit Provider Emergency Medicine
DX: R07.89 Other chest pain (principal); M79.10 Myalgia, unspecified site; I10 Essential (primary) hypertension; E78.5 Hyperlipidemia, unspecified; Z79.82 Long term (current) use of aspirin; Z79.899 Other long term (current) drug therapy
CPT/HCPCS: 71046; 80048; 84484; 85025; 93005; 99283

== ENCOUNTER 2024-09-27 14:29 | Emergency (ER) | payer MEDICARE, SELFPAY ==
[2024-09-27 14:31] VITALS: BP 129/90; PULSE 101; RESP 26; TEMP 36.1; O2SAT 97; BMI 40.6
[2024-09-27] MEDS: Ibuprofen 200 MG Tablet 400 MG PO (14:58)
--- NOTE | 2024-09-27 15:00 | RAD_ITS ---
PROCEDURE: RIBS UNI MIN 3V W/PA CHEST, 09/27/2024 REASON FOR EXAM: FALL 3 WEEKS AGO, PAIN TECHNIQUE: A PA view of the chest as well as PA and oblique views of the RIGHT ribs were obtained. COMPARISON: 05/07/2024 FINDINGS: Heart: Unremarkable. Mediastinum: Trace atherosclerosis in the arch. Lungs/pleura: No focal consolidation. No sizeable pleural effusion or visible pneumothorax. Bones: Demineralization without visible acute displaced rib fracture. Degenerative changes of the shoulders including evidence of rotator cuff pathology on the RIGHT. Lines and support devices: None. Other: RIGHT upper quadrant surgical clips. RAD/Ribs Uni Min 3V w/PA Chest IMPRESSION: 1. Demineralization without visible acute displaced rib fracture or pneumothora x. 2. Additional description as above. Reading Location: [id number]
--- NOTE | 2024-09-27 15:03 | ED.VIS.FALL ---
HPI HPI - Fall History of Present Illness Chief Complaint: Fall Narrative Narrative: Patient is a 69-year-old female with history of GERD, hypertension, hypothyroidism and renal stones presenting with right-sided rib pain as well as chills and malaise. Patient is about 3 weeks ago she sustained a mechanical fall. She was walking in her kitchen when it was dark out and tripped. She landed on her right side. She does something fell off the counter and also hit her in the head. She denies any associated loss of conscious. She is not on any blood thinners. She notes since then she has had this right-sided rib pain. Has been worse with movement or deep breathing. It had been getting better however about a week ago she was mowing the lawn and was hurrying up because it was about to rain and line was very bumpy. She has had increased pain since. Today she woke up generally feeling worse and so become concerned that maybe she had a urinary tract infection so she came to the emergency room. She notes she called her primary care doctor and recommend she go to the ER to also get x-rays. She denies any dysuria or hematuria. Denies any fevers. Has had a mild associated cough. Did not feel short of breath but notes her pain is worse when she takes a big breath. Has not been taking anything for her pain. Denies any recent headaches. Did initially have a headache when she first hit her head but nothing since. Denies any associate numbness or tingling. Denies any vision changes no other complaints or concerns at this time. [facility] Medical History Depression Hyperlipidemia Hypertension Home Medications ?Medication ?Instructions ?Recorded ?Last Taken ?Type aspirin 81 mg tablet,delayed 81 mg PO DAILY heart health 07/08/13 09/27/24 History release lisinopril 20 mg tablet 20 mg PO DAILY blood pressure 07/08/13 09/27/24 History paroxetine HCl 20 mg tablet 20 mg PO QHS depression 07/08/13 09/26/24 History levothyroxine 25 mcg tablet 25 mcg PO SUMOTHFRSA thyroid 05/31/19 09/27/24 History metformin 500 mg tablet 500 mg PO QPM 05/07/24 09/26/24 History rosuvastatin 10 mg tablet 10 mg PO QHS 05/07/24 09/26/24 History ibuprofen 200 mg tablet (Advil) 400 mg PO Q6H PRN pain 09/27/24 09/27/24 History levothyroxine 25 mcg tablet 50 mcg PO TUWE 09/27/24 09/21/24 History Allergy/AdvReac Type Severity Reaction Status Date / Time No Known Allergies Allergy Verified 09/27/24 14:31 Surgical History Hx of cholecystectomy Social History Smoking Status: Never smoker ROS ROS ED Constitutional Constitutional ED: Reports chills; Denies fever(s) Cardiovascular Cardiovascular: Reports other Details: Right sided rib pain ; Denies chest pain or palpitations Respiratory/Chest Respiratory/Chest: Denies cough or dyspnea Gastrointestinal Gastrointestinal: Denies abdominal pain, nausea or vomiting Genitourinary Genitourinary ED: Denies dysuria, hematuria or urinary frequency Musculoskeletal Musculoskeletal: Denies back pain, myalgias or neck pain Integumentary Denies rash Neurologic Neurologic: Denies paresthesias or weakness Hematologic/Lymphatic Hematologic/Lymphatic: Denies easy bleeding or easy bruising EXAM Physical Exam Const Vital Signs: 09/27/24 14:31 Temperature 96.9 F L Temperature Source Temporal Pulse Rate 101 H Respiratory Rate 26 H Blood Pressure 129/90 H Blood Pressure Mean 103 Pulse Ox 97 Oxygen Delivery Method Room Air Positive well nourished and well developed General Appearance ED: well developed HEENT Reports normocephalic atraumatic Eyes PERRL Neck full ROM General: Negative for tenderness Chest Wall inspection of chest normal Chest Narrative: No chest wall crepitus. Highly reproducible tenderness to the right anterior ribs along the costal margin. No overlying skin changes. Resp normal respiratory effort and clear to auscultation bilaterally Effort and Inspection: pain with movement Cardio regular rate, regular rhythm and no murmurs GI non-tender and non-distended Inspection: Negative for abdominal distention Auscultation: normoactive bowel sounds Palpation: soft; Negative for guarding Back/Spine no CVA tenderness Neuro oriented x3, moves all extremities and no focal motor deficits [place] Coma Scale: document GCS findings Spontaneous Obeys Commands Oriented 15 Psych mental status grossly normal and thought process normal MDM MDM MDM Narrative Medical decision making narrative: Patient evaluated for right-sided rib pain for the past 3 weeks as a mechanical fall. As she is at increased pain for the past week since she mowed her lawn on a riding lawnmower. In addition today she started to feel foggy and chills and came in because she was also concerned she could have a urinary tract infection. On exam she has a soft abdomen with no tenderness in the right upper quadrant. She is having reproducible pain over the right lower ribs around the midclavicular line. No overlying rash present. Low suspicion for shingles. Patient overall is quite well-appearing. Will patient states something landed on her head she denies any loss of consciousness or major head injury. The fall was 3 weeks ago she has a normal neurologic exam. I do not think she requires CT imaging at this time. She is not on any blood thinner. Review x-ray obtained to look for secondary pneumonia, rib fracture or pneumothorax. Reviewed by myself as well as radiology does not show any acute process. Patient is given a dose of Motrin in the emergency room. Urinalysis is not consistent with urinary tract infection. As she has a benign abdominal exam and highly reproducible rib pain I do not think she requires further imaging or blood work. Is encouraged to follow-up outpatient with her primary care doctor. Discussed using Lidoderm patches as well as [id number] pain medication. She verbalized given understands plan. Discharged home in stable and improved condition. Lab Data Labs: Laboratory Results - last 24 hr 09/27/24 16:30 Urine Color Straw Urine Clarity Clear Urine pH 7.0 Ur Specific [place] 1.005 Urine Protein 15 H Urine Glucose (UA) Normal Urine Ketones Negative Urine Occult Blood Negative Urine Nitrite Negative Urine Bilirubin Negative Urine Urobilinogen Normal Ur Leukocyte Esterase 25 H Radiography Diagnostic Testing: Clinical Impression(s) from Imaging Studies Ribs w/Chest X-Ray 09/27/24 15:00 IMPRESSION: 1. Demineralization without visible acute displaced rib fracture or pneumothorax. 2. Additional description as above. Reading Location: [facility] Discharge Plan Triage Chief Complaint: Fall ED Provider: Kera Ceja Dx/Rx/DC Orders Clinical Impression: Right-sided chest wall pain Instructions: ED Mechanical Fall, ED Bruise, Rib Prescriptions: No Action lisinopril 20 MG tablet 20 mg PO DAILY Patient Comments: blood pressure aspirin 81 MG tablet 81 mg PO DAILY Patient Comments: blood thinner paroxetine HCl 20 MG tablet 20 mg PO QHS Patient Comments: anti-depressant levothyroxine 25 MCG tablet 25 mcg PO SUMOTHFR Patient Comments: thyroid levothyroxine 25 mcg tablet 50 mcg PO TUWE ibuprofen [Advil] 200 mg tablet 400 mg PO Q6H PRN (Reason: pain) metformin 500 mg tablet 500 mg PO QPM rosuvastatin 10 mg tablet 10 mg PO QHS Primary Care Provider: Scot Griffin Referrals: Scot Griffin DO [Primary Care Provider] - Activity Restrictions/Additional Instructions: Use Lidoderm patches and [id number] ibuprofen or Tylenol for pain. If your symptoms worsen you have a hard time breathing please return to the emergency room. Your urinalysis is not consistent with urinary tract infection at this time. Print Language: [place] Disposition Disposition: Home, Self Care
[2024-09-27 16:37] LABS: Bacteria 0 SEEN /hpf (None Seen); Mucous, Urine 0 SEEN /hpf (<or=2+); Red Blood Cells-Urine 0 SEEN /hpf (0-5)
[2024-09-27 16:44] LABS: Color, Urine Straw (Yellow); Glucose, Dipstick Normal (Normal); Ketone-Dipstick Negative (Negative); Leukocyte Esterase-Dipstick 25 /ul (Negative); Nitrite-Dipstick Negative (Negative); Occult Blood-Urine Negative /ul (Negative); Protein-Dipstick 15 mg/dl (Negative); Specific Gravity, Urine 1.005 (1.002-1.030); Urine Bilirubin Dipstick Negative (Negative); Urine Clarity Clear (Clear); Urine Urobilinogen Normal (Normal)
[2024-09-27 17:06] VITALS: BP 134/78; PULSE 79; RESP 16; O2SAT 99
[2024-09-27 17:53] LABS: Squamous Epithelial Cells - UA 0-5 SEEN /hpf (5-10); White Blood Cells 0-5 SEEN /hpf (0-5)
== END 2024-09-27 17:07 | disposition home or self-care (01) ==
PROVIDERS: Emergency Provider Emergency Medicine; PCP Student in an Organized Health Care Education/Training Program; Visit Provider Emergency Medicine
DX: R07.89 Other chest pain (principal); I10 Essential (primary) hypertension; E78.5 Hyperlipidemia, unspecified; Z79.82 Long term (current) use of aspirin; Z79.899 Other long term (current) drug therapy
CPT/HCPCS: 71101; 81001; 99282

== ENCOUNTER 2024-11-04 01:17 | Emergency (ER) | payer MEDICARE, SELFPAY ==
[2024-11-04 01:18] VITALS: BP 159/80; PULSE 118; RESP 20; TEMP 36.4; O2SAT 98; BMI 38.6
--- NOTE | 2024-11-04 01:30 | RAD_ITS ---
PROCEDURE: CHEST 1 VIEW (PORTABLE) 11/04/2024 REASON FOR EXAM: CHEST PAIN TECHNIQUE: Frontal view of the chest. COMPARISON: 09/27/ FINDINGS: Interval appearance of bilateral basilar atelectatic pulmonary changes. There is no demonstrated pleural abnormality. Normal heart and pericardium. Normal mediastinum and yakov. Normal visualized pulmonary arteries. Normal visualized aortic arch and descending thoracic aorta. Unchanged diffuse spondylosis of the visualized thoracic spine. Normal visualized ribs, clavicles, and shoulders. There is no demonstrated abnormality of the visualized soft tissue structures of the upper abdomen. RAD/Chest 1 View (Portable) IMPRESSION: Interval appearance of bilateral basilar atelectatic pulmonary changes. Reading Location: [facility]
--- NOTE | 2024-11-04 01:32 | EKG12_ITS ---
Test Reason : PALPS Blood Pressure : */* mmHG Vent. Rate : 100 BPM Atrial Rate : 100 BPM P-R Int : 156 ms QRS Dur : 72 ms QT Int : 348 ms P-R-T Axes : 57 9 44 degrees QTcB Int : 448 ms Sinus rhythm with occasional Premature ventricular complexes Otherwise normal ECG Confirmed by Malik Marcelo ([id number]), editor in chief newspaper ALEK HAMILTON ([id number]) on 11/04/2024 10:19:53 AM Referred By: Confirmed By: Malik Marcelo
--- NOTE | 2024-11-04 01:33 | EDS_ITS ---
HPI History of Present Illness Chief Complaint: Palpitations Narrative Narrative: 69-year-old female past medical history of hypothyroidism, hypertension, presents with heart palpitations that began about half an hour ago. She relates history that she was trying to go to bed and she felt her heart racing, then skipping a beat. She tried to take her pulse and she felt it going fast, then paused. She denies any chest pain, no shortness of breath. She states she felt very flushed and had to take the covers off of her. She is concerned about her elevated heart rate. She denies any leg swelling, no fevers or chills. Occasional cough. PFSH [facility] Medical History Depression Hyperlipidemia Hypertension Home Medications ?Medication ?Instructions ?Recorded ?Last Taken ?Type aspirin 81 mg tablet,delayed 81 mg PO DAILY heart heal th 07/08/13 09/27/24 History release lisinopril 20 mg tablet 20 mg PO DAILY blood pressur e 07/08/13 09/27/24 History paroxetine HCl 20 mg tablet 20 mg PO QHS depression 09/26/24 History levothyroxine 25 mcg tablet 25 mcg PO SUMOTHFRSA thyro id 05/31/19 09/27/24 History metformin 500 mg tablet 500 mg PO QPM 05/07/2409/26 History rosuvastatin 10 mg tablet 10 mg PO QHS 05/07/24 History ibuprofen 200 mg tablet (Advil) 400 mg PO Q6H PRN pain 09/27/24 09/27/24 History levothyroxine 25 mcg tablet 50 mcg PO TUWE 09/27/24 History turmeric PO 11/04/24 Unknown History Allergy/AdvReac Type Severity Reaction Status Date / Time No Known Allergies Allergy Verified 11/04/24 01:17 Surgical History Hx of cholecystectomy Social History Smoking Status: Never smoker ROS ROS ED ROS Narrative Review of systems positive for palpitations, no chest pain, no shortness of breath. Positive for feeling flushed. No leg swelling. No nausea or vomiting. No diaphoresis. EXAM Physical Exam Narrative Exam Narrative: Afebrile. Vital signs noted. Nontoxic-appearing. Cardiovascular examination initially revealed a mild tachycardia. She then went into a slower rate in the 90s on examination. Lungs clear to auscultation bilaterally. Abdomen soft, nontender, with positive bowel sounds. No guarding or rebound. Neurological examination nonfocal, nonlateralizing. No pedal edema appreciated. Const Vital Signs: 11/04/24 01:18 11/04/24 01:18 11/04/24 01:36 Temperature 97.5 F L Temperature Source Temporal Pulse Rate 118 H Respiratory Rate 20 H Respiratory Effort Short of Breath Blood Pressure 159/80 H Blood Pressure Mean 106 Pulse Ox 98 99 Oxygen Delivery Method Room Air Room Air 11/04/24 02:17 11/04/24 03:00 11/04/24 04:00 Temperature Temperature Source Pulse Rate 86 90 80 Respiratory Rate 18 16 16 Respiratory Effort Blood Pressure 120/72 109/55 L 106/50 L Blood Pressure Mean 88 73 68 Pulse Ox 98 96 97 Oxygen Delivery Method Room Air Room Air Room Air MDM MDM MDM Narrative Medical decision making narrative: Differential diagnosis includes but not limited to sinus tachycardia versus atrial fibrillation versus acute coronary syndrome versus pulmonary embolism. EKG was obtained and interpreted by myself independently as normal sinus rhythm at 100 bpm with PVCs but no acute ST changes. No STEMI. I will screen her with a D-dimer and rule her out with biomarkers with initial and repeat troponin. TSH will be obtained as well. However, I doubt thyroid storm. I reviewed her laboratory work and she has normal white count of 8.6 with hemoglobin 12.3, hematocrit 36.5 and platelet count normal at 210. D-dimer is elevated at 0.89 but when compared to prior, it has been as high as 1, and chronically elevated. Regardless, in order to rule out pulmonary embolism, CTA was obtained and there is no evidence of dissection, nor is or evidence of pulmonary embolism. Electrolyte panel is significant for carbon dioxide of 17.8 and slightly elevated anion gap of 16 which may be lab error versus hyperventilation. Glucose 106. High-sensitivity troponin initially is 10, TSH normal at 1.52. Chest x-ray interpreted by myself independently shows no evidence of pneumonia or consolidation, I do not feel antibiotics are indicated. I reviewed the radiology report which confirms my independent interpretation. As she was awaiting her second troponin, repeat examination shows her feeling improved. Her heart rate is now in the 80s to 90. Her blood pressure has improved as well to 109/55. As long as her second high-sensitivity troponin makes her have an acceptable delta troponin, I do feel that she can be discharged to follow-up with her primary care provider. She is no longer having PVCs on the monitor. I reviewed her second troponin and it is 9 for an acceptable delta troponin. She states she only drinks 1 cup of coffee daily. She was told she may need to wear a Holter monitor in the future as an outpatient. Return instructions were reviewed. Disposition is discharged home in stable condition. History & Record Review Discussion w/independent historian: Patient Lab Data Attestation: I reviewed the patient's lab results. Labs: Laboratory Results - last 24 hr 11/04/24 11/04/24 01:23 03:24 WBC 8.6 RBC 4.11 L Hgb 12.3 Hct 36.5 L MCV 88.8 MCH 29.9 MCHC 33.7 RDW Std Deviation 40.9 RDW Coeff of Ashleigh 12.5 Plt Count 210 MPV 10.3 Immature Gran % (Auto) 0.200 Neut % (Auto) 83.4 H Lymph % (Auto) 9.7 L Young % (Auto) 5.9 Eos % (Auto) 0.6 Baso % (Auto) 0.2 Absolute Neuts (auto) 7.2 Absolute Lymphs (auto) 0.84 Nucleated RBC % 0 D-Dimer Quant (PE/DVT) 0.89 H* Sodium 139 Potassium 3.4 Chloride 105 Carbon Dioxide 17.8 L Anion Gap 16 H BUN 13 Creatinine 0.92 Estim Creat Clear Calc 61.64 Est GFR (MDRD) Non-Af 68 BUN/Creatinine Ratio 13.9 Glucose 106 H Calcium 9.6 Magnesium 1.9 Troponin T High Sens 10 Troponin T Hi Sens 2 Hr 9 TSH 1.520 Radiography Diagnostic Testing: Clinical Impression(s) from Imaging Studies Chest X-Ray 11/04/24 01:30 IMPRESSION: Interval appearance of bilateral basilar atelectatic pulmonary changes. [id number] Chest CT[facility] 11/04/24 02:04 IMPRESSION: Mild bilateral basilar atelectatic pulmonary changes. Small sliding hiatal hernia. 4 mm nodule in the left lower lobe. No follow-up is needed. No significant coronary artery calcifications. No CT evidence of pulmonary embolus or aortic dissection. Reading Location: [place] [id number] Discharge Plan Triage Chief Complaint: Palpitations ED Provider: Zach Mckay Dx/Rx/DC Orders Clinical Impression: Palpitations, Dysrhythmia, PVCs (premature ventricular contractions) Instructions: Premature Ventricular Contractions, ED Palpitations Prescriptions: No Action lisinopril 20 MG tablet 20 mg PO DAILY Patient Comments: blood pressure aspirin 81 MG tablet 81 mg PO DAILY Patient Comments: blood thinner paroxetine HCl 20 MG tablet 20 mg PO QHS Patient Comments: anti-depressant levothyroxine 25 MCG tablet 25 mcg PO SUMOTHFR Patient Comments: thyroid levothyroxine 25 mcg tablet 50 mcg PO TUWE ibuprofen [Advil] 200 mg tablet 400 mg PO Q6H PRN (Reason: pain) turmeric PO metformin 500 mg tablet 500 mg PO QPM rosuvastatin 10 mg tablet 10 mg PO QHS Primary Care Provider: Scot Griffin Referrals: Scot Griffin DO [Primary Care Provider] - As soon as possible Activity Restrictions/Additional Instructions: Return to the emergency department with continued elevated heart rate, new or worsening symptoms. Follow-up with your primary care provider. You may need referral to cardiology or wear a Holter monitor in the future. Print Language: Turkmen Disposition Disposition: Home, Self Care
[2024-11-04 01:36] VITALS: O2SAT 99
[2024-11-04 01:42] LABS: Absolute Lymphocyte Count 0.84 X10^3/uL (0.83-4.51); Absolute Neutrophil Count 7.2 X10^3/uL (2.0-7.7); Basophil# 0.02 X10^3/uL; Basophil% 0.2 % (0-1); Eosinophil# 0.05 X10^3/uL; Eosinophils% 0.6 % (0-5); Hematocrit 36.5 % (37-47); Hemoglobin 12.3 g/dL (12.0-15.0); Lymphocyte # 0.84 X10^3/ul (0.83-4.51); Lymphocyte % 9.7 % (19-41); Mean Corp Hgb Conc 33.7 g/dL (32-36); Mean Corpuscular Hgb 29.9 pg (27.0-32.0); Mean Corpuscular Volume 88.8 fL (81-99); Mean Platelet Vol. 10.3 fl (6.2-12.0); Monocyte# 0.51 X10^3/uL; Monocyte% 5.9 % (0-10); NRBC Flagged by Analyzer 0 % (0-5); Neutrophil % 83.4 % (47-70); Platelet Count 210 K/mm3 (150-450); RBC Distribution Width CV 12.5 % (11.6-14.6); RBC Distribution Width SD 40.9 fl (35.1-43.9); Red Blood Count 4.11 M/mm3 (4.2-5.4); White Blood Count 8.6 K/mm3 (4.4-11.0)
[2024-11-04] MEDS: 0.9% Normal Saline (1000mL) 1,000 ML 999 ML IV (01:51)
--- OUTSIDE RECORDS SUMMARY | 2024-11-04 01:51 | XMS RPT_ITS | CCD ---
Author Organization [facility] Care Team Providers Care [employer] Admissions Representative Name Role Phone Scot Griffin DO Primary Care Provider Scot Griffin Unavailable Judah Jaimes Unavailable Dr. Judah Jaimes Attending Unavail able Dr. Scot Griffin Primary Care Unava ilable Scot Griffin DO Primary Care Provider [facility] Attending Unava ilable SCOT GRIFFIN Primary Care Unavailable Scto Griffin DO Primary Care Provider Alberto JOHNSON, Adalgisa Unavailable [phone] Scot Griffin Primary Care Unavailable Isaac High Attending Unavailable Kera Ceja Attending Unavailable Scot Griffin Primary Care Unavailable SCOT GRIFFIN Attending Unavailable SCOT GRIFFIN Primary Care Unavailable SELF Referring Unavailable SCOT GRIFFIN L Primary Care Unavailable JOSÉ MIGUEL GODINEZ Referring Unavailable SCOT GRIFFIN Referring Unavailable ELIAS SCOT L Primary Care Unavailable SCOT GRIFFIN L Attending Unavailable SCOT GRIFFIN L Primary Care Unavailable GRIFFINSCOT MACEDO L Referring Unavailable SCOT GRIFFIN L Primary Care Unavailable SCOT GRIFFIN L Primary Care Unavailable SCOT GRIFFIN Attending Unavailable Scot Griffin DO Primary Care Provider SCOT GRIFFIN Primary Care Unavailable GIOVANY POON Attending U navailable Medications Current Medications Medication Drug Class(es) Dates Sig (Normalized) Sig (Original) [id number] 200 actuat albuterol 0.09 mg/actuat metered dose inhaler (20 sources) beta2-Adrenergic Agonist Start: 2021 take 2 puff(s) by inhalation every four hours as needed albuterol HFA (PROAIR HFA) 90 mcg/actuation inhaler Inhale 2 Puffs as instructed every 4 hours as needed. 18 g 2021 Active Comment on above: Inhale 2 Puffs as in structed every 4 hours as needed. aspirin 81 mg delayed release oral tablet (20 sources) Platelet Aggregation Inhibitor, Nonsteroidal Anti-inflammatory Drug Start: 07-08-2013 aspirin 81 MG EC tablet Take 1 (one) tablet (81 mg total) by mouth . 07/08/2013 Active Start: 10-06-2001 ASPIRIN 81MG T ABLET Take one (1) tablet daily . 0 10/06/2001 Active Comment on above: Take one (1) tablet daily . benzonatate 100 mg oral capsule (20 sources) Non-narcotic Antitussive Start: 05-21-20 take 1 capsule by mouth every eight hours as needed benzonatate (TESSALON PERLE) 100 mg capsule Take 1 capsule by mouth three times daily as needed. 30 capsule 2021 Active Comment on above: Take 1 capsule by [facility] three times daily as needed. clobetasol propionate 0.0005 mg/mg topical ointment (2 sources) Corticosteroid Start: 12-25-19 End: 01-24-20 clobetasol (TEMOVATE) 0.05 % ointment Indications: Dermatitis due to plants, including poison shira, sumac, and oak Apply to affected area twice daily. 60 g 0 12/24/2021 01/23/2022 Active Start: 12-24-2021 End: 12-24-2021 clobetasol (IMPOYZ) 0.025 % cream Apply to affected area twice daily. 100 g 0 12/24/2021 12/24/2021 Discontinued Comment on above: Apply to affected ar ea twice daily. levothyroxine sodium 0.025 mg oral tablet (20 sources) l-Thyroxine Start: 09-23-2023 End: 09-29-2024 levothyroxine (SYNTHROID) 25 mcg tablet Take 1 tablet 5 days a week (25 mcg) and Take 2 tablets 2 days a week (50 mcg). 100 tablet 3 09/29/2024 Active Start: 07-25-2015 End: 09-23-2023 take 1 tablet by mouth once daily before breakfast levothyroxine (SYNTHROID) 25 mcg tablet Take 1 tablet by mouth daily before breakfast. 90 tablet 1 06/01/2021 12/17/2021 Discontinued levothyroxine so dium (LEVOTHYROXINE ORAL) Take by mouth . Active Comment on above: Take 1 tablet by kayden th daily before breakfast. lisinopril 20 mg oral tablet (20 sources) Angiotensin Converting Enzyme Inhibitor Start: 014 End: lisinopriL (PRINIVIL,ZESTRIL) 20 MG tablet Take 1 (one) tablet (20 mg total) by mouth . 07/08/2013 Active Comment on above: Take 1 tablet by kayden th once daily. metFORMIN hydrochloride 500 mg oral tablet (16 sources) Biguanide Start: End: take 1 tablet by mouth once daily at dinner metFORMIN (GLUCOPHAGE) 500 mg tablet Take 1 tablet by mouth daily with dinner. 90 tablet 3 09/29/2024 Active Comment on above: Take 1 tablet by kayden th daily with dinner. nitrofurantoin, macrocrystals 25 mg / nitrofurantoin, monohydrate 75 mg oral capsule (2 sources) Nitrofuran Antibacterial Start: 023 End: take 1 capsule by mouth twice daily at mealtime nitrofurantoin monohydrate and macrocrystal (MACROBID) 100 mg capsule Indications: Recurrent UTI (urinary tract infection) Take 1 capsule by mouth twice daily with meals for 7 days. 14 capsule 0 08/01/2022 08/08/2022 Active Comment on above: Take 1 capsule by mo uth twice daily with meals for 7 days. nystatin [id number] unt/ml topical cream (20 sources) Polyene Antifungal Start: End: nystatin (MYCOSTATIN) cream Indications: Yeast infection of the skin Apply to affected area two times a day for 14 days. 30 g 0 09/22/2023 10/06/2023 Active Start: 08-01-2022 nystatin (MYCO STATIN) powder Indications: Yeast infection of the skin Apply 1 application to affected area twice daily. 30 g 08/01/2022 Active Comment on above: Apply 1 application to affected area twice daily. omeprazole 40 mg delayed release oral capsule (20 sources) Proton Pump Inhibitor Start: 07-08-2013 omeprazole (PRILOSEC) 40 MG capsule Take by mouth . 07/08/2013 Active take 1 capsule by mouth once kenia ly omeprazole (PRILOSEC) 20 mg capsule Take 20 mg by mouth once daily. Active Comment on above: Take 20 mg by mouth once daily. PARoxetine hydrochloride 20 mg oral tablet (20 sources) Serotonin Reuptake Inhibitor Start: 2 End: take 1 tablet by mouth once daily PARoxetine (PAXIL) 20 mg tablet Take 1 tablet by mouth once daily. 90 tablet 3 02/24/2024 Active Start: 07-08-2013 PARoxetine mes ylate (PEXEVA) 20 MG tablet Take 1 (one) tablet (20 mg total) by mouth . 07/08/2013 Active Comment on above: Take 1 tablet by kayden once daily. polyethylene glycol 3350 [id number] mg / potassium chloride 2980 mg / sodium bicarbonate 6720 mg / sodium chloride 5840 mg / sodium sulfate 90216 mg powder for oral solution (2 sources) Osmotic Laxative Start: 09-12-2023 End: 09-12-2023 peg 3350-electrolytes (GAVILYTE-C) 240-22.72-6.72 -5.84 gram solution Indications: Special screening for malignant neoplasms, colon Take 4,000 mL by mouth one time only for 1 dose. 4000 mL 0 09/12/2023 09/12/2023 Discontinued Comment on above: Take 4,000 mL by kayden one time only for 1 dose. predniSONE 10 mg oral tablet (3 sources) Start: 09-22-2023 End: 10-01-2023 predniSONE (DELTASONE) 10 mg tablet Indications: Contact dermatitis due to plants, except food, unspecified contact dermatitis type Take 4 tabs daily for 3 days, then 2 tabs daily for 3 days, then 1 tab daily for 3 days with food. 21 tablet 0 09/22/2023 10/01/2023 Active Start: 12-24-2021 End: 01-08-2022 predniSONE (DELTASONE) 10 mg tablet Indications: Dermatitis due to plants, including poison shira, sumac, and oak Take 4 tabs daily x5 days, then 2 tabs daily for 5 days, then 1 tab daily for 5 days. 35 tablet 0 12/24/2021 01/08/2022 Active Comment on above: Take 4 tabs daily x5 days, then 2 tabs daily for 5 days, then 1 tab daily for 5 days. rosuvastatin calcium 10 mg oral tablet (20 sources) HMG-CoA Reductase Inhibitor Start: 3 End: 4 take 1 tablet by mouth once daily at bedtime rosuvastatin (CRESTOR) 10 mg tablet Take 1 tablet by mouth daily at bedtime. 90 tablet 3 02/24/2024 Active Comment on above: Take 1 tablet by kayden th daily at bedtime. Completed/Discontinued Medications Medication Drug Class(es) Dates Sig (Normalized) Sig (Original) azithromycin 250 mg oral tablet (3 sources) Macrolide Antimicrobial Start: 07-24-2015 End: 07-25-2015 Azithromycin (Zithromax Z-Shahzad) 250 MG tablet Discontinued 250 MG PO DIRECTED July 24, 2015 12:00am July 25, 2015 10:56am Problems Active Problems Problem Classification Problem Date Documented Date Episodic/Chronic Abdominal hernia (20 sources) Hiatal hernia; Translations: [Diaphragmatic hernia without obstruction or gangrene] 09-19-2003 Episodic Abdominal pain (1 source) Right upper quadrant pain; Translations: [Right upper quadrant pain] 04-29-2023 Episodic Allergic reactions (2 sources) Contact dermatitis due to plants; Translations: [Unspecified contact dermatitis due to plants, except food] Episodic Anxiety disorders (20 sources) Anxiety; Translations: [Anxiety disorder, unspecified] 07-20-2012 Chronic Calculus of urinary tract (3 sources) Ureteric stone; Translations: [Calculus of ureter] 05-31-2019 Episodic Cardiac dysrhythmias (20 sources) Cardiac arrhythmia; Translations: [Cardiac arrhythmia, unspecified] 09-19-2003 Chronic Cardiac dysrhythmias (4 sources) Palpitations; Translations: [Palpitations] Onset: 06-11-2022 06-11-2022 Episodic Disorders of lipid metabolism (20 sources) Dyslipidemia; Translations: [Hyperlipidemia, unspecified] Onset: 08-13-2022 Chronic Esophageal disorders (20 sources) Gastroesophageal reflux disease; Translations: [Gastro-esophageal reflux disease without esophagitis] Onset: 04-11-2015 2021 Chronic Essential hypertension (20 sources) Benign essential hypertension; Translations: [Essential (primary) hypertension] Onset: 04-11-2015 Resolved: 07-21-2015 04-11-2015 Chronic Genitourinary symptoms and ill-defined conditions (1 source) Increased frequency of urination; Translations: [Frequency of micturition] Episodic Immunizations and screening for infectious disease (2 sources) Requires a tetanus booster; Translations: [Encounter for immunization] Onset: 09-29-2024 09-29-2024 Episodic Mycoses (2 sources) Candidiasis of skin; Translations: [Candidiasis of skin and nail] Episodic Nonspecific chest pain (8 sources) Chest pain; Translations: [Chest pain, unspecified] Onset: 06-11-2022 06-11-2022 Episodic Osteoarthritis (20 sources) Bilateral arthritis of knees; Translations: [Bilateral primary osteoarthritis of knee] Onset: 04-11-2015 04-11-2015 Chronic Other congenital anomalies (20 sources) Fragile X syndrome; Translations: [Fragile X chromosome] 09-19-2003 Chronic Other ear and sense organ disorders (18 sources) Bilateral tinnitus; Translations: [Tinnitus, bilateral] Onset: 09-12-2023 09-12-2023 Episodic Other injuries and conditions due to external causes (1 source) Injury of right shoulder; Translations: [Unspecified injury of right shoulder and upper arm, subsequent encounter] Episodic Other injuries and conditions due to external causes (1 source) Injury of upper extremity; Translations: [Unspecified injury of left shoulder and upper arm, initial encounter] 07-17-2021 Episodic Other lower respiratory disease (2 sources) Shortness of breath; Translations: [Shortness of breath] Onset: 06-11-2022 Episodic Other non-traumatic joint disorders (1 source) Pain in right shoulder; Translations: [Pain in joint, shoulder region] Episodic Other non-traumatic joint disorders (1 source) Decreased range of shoulder movement; Translations: [Stiffness of right shoulder, not elsewhere classified] Episodic Other nutritional; endocrine; and metabolic disorders (20 sources) Body mass index 40+ - severely obese; Translations: [Morbid (severe) obesity due to excess calories] Onset: 04-11-2015 04-11-2015 Chronic Other nutritional; endocrine; and metabolic disorders (20 sources) Cholesterol level - finding; Translations: [Lipoprotein deficiency] Onset: 04-11-2015 04-11-2015 Chronic Other nutritional; endocrine; and metabolic disorders (20 sources) Obese class II; Translations: [Obesity, unspecified] Onset: 08-13-2022 Chronic Other nutritional; endocrine; and metabolic disorders (15 sources) Obesity; Translations: [Obesity, unspecified] Onset: 09-12-2023 09-12-2023 Chronic Spondylosis; intervertebral disc disorders; other back problems (1 source) Pain in thoracic spine; Translations: [Pain in thoracic spine] Onset: 06-11-2022 Episodic Sprains and strains (2 sources) Unspecified sprain of left shoulder joint, initial encounter; Translations: [Unspecified sprain of left shoulder joint, initial encounter] Onset: 10-08-2022 Episodic Thyroid disorders (20 sources) Hypothyroidism; Translations: [Hypothyroidism, unspecified] Onset: 06-23-2019 06-23-2019 Chronic Unclassified (2 sources) CHEST PAIN/ANXIETY 06-11-2022 Comment on above: CHEST PAIN/ANXIETY Urinary tract infections (1 source) Recurrent urinary tract infection; Translations: [Urinary tract infection, site not specified] Episodic Past or Other Problems Problem Classification Problem Date Documented Da te Episodic/Chronic Diabetes mellitus without complication (18 sources) Hyperglycemia; Translations: [Hyperglycemia, unspecified] Onset: 09-12-2023 09-12-2023 Episodic Other ear and sense organ disorders (20 sources) Tinnitus; Translations: [Tinnitus, unspecified ear] Onset: 09-27-2016 09-27-2016 Episodic Other ear and sense organ disorders (1 source) Tinnitus, bilateral; Translations: [Tinnitus, bilateral] Onset: 09-12-2023 Episodic Other gastrointestinal disorders (15 sources) Diarrhea; Translations: [Diarrhea, unspecified] Onset: 09-12-2023 04-29-2023 Episodic Other non-traumatic joint disorders (20 sources) Pain in right knee; Translations: [Pain in joint, lower leg] Onset: 04-11-2015 04-11-2015 Episodic Other nutritional; endocrine; and metabolic disorders (8 sources) Weight gain; Translations: [Abnormal weight gain] Onset: 09-12-2023 09-12-2023 Episodic Other nutritional; endocrine; and metabolic disorders (6 sources) Weight increased; Translations: [Abnormal weight gain] Onset: 09-12-2023 09-12-2023 Episodic Other screening for suspected conditions (not mental disorders or infectious disease) (8 sources) Patient encounter status; Translations: [Encounter for screening mammogram for malignant neoplasm of breast] Onset: 04-06-2024 Episodic Results Test Name Value Interpretation Reference Range Facility [facility] 09-29-2024 CNOV Office Visit (FAMPWS ) MINDI JOSHI ([id number]) 1955 F Date Time Provider Department 09/29/24 10:20 AM SCOT GRIFFIN [facility] During your visit today, we recorded the following information about you: Temperature Pulse Respiration Blood pressure 97 degrees 80/minute 16/minute 116/70 Weight 92.1 kg Scot Griffin, 09/29/2024 12:46 PM Signed CC: Mindi Joshi is a 69 year old female who presents to the office for follow up HPI: Tried Rejuven knee product for her knee pain, caused her pain to be worse- doesn't want to pursue injections or pain medications. Was cleaning, she fell and tripped over a trash can and she fell on her right rib cage- went to the EMERGENCY DEPARTMENT and had no fractures. HTN, well controlled, taking lisinopril as prescribed, no SE with medication HPL, taking Crestor medication 10 mg a day, tolerating well without SE Hypothyroidism, taking synthroid as prescribed, no SE with medication Mood, stable, taking Paxil Obesity, she was seen about 3 months ago in the office and was started on meformin to help her with weight loss. She is noticing that the medication is working. She has been able to lose 10 lbs. Weight down from 205 lbs to currently 195 lbs. She is excited about this. She has been cutting back on her sugars and starch foods as well. Started getting headaches, coming and going, mild. Started after began metformin- she feels that these are getting better for her. No red flag symptoms Hyperglycemia, no known hx of diabetes. 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 Colon polyp 2012 tubular adenoma GERD (gastroesophageal reflux disease) hiatal hernia HTN (hypertension) Hypothyroidism 07/2015 Renal calculus 1990s Snoring PAST SURGICAL HISTORY Procedure Laterality Date COLONOSCOPY AND POLYPECTOMY 07/08/2012 tubular adenoma, repeat 2016 EGD hiatal hernia HEART CATHETERIZATION 2000s x 2, patient reports negative PAST SURGICAL HISTORY OF gallbladder PAST SURGICAL HISTORY OF kidney stone retrieval Social History: Social History Tobacco Use Smoking status: Never Smokeless tobacco: Never Substance Use Topics Alcohol use: No Drug use: No FAMILY HISTORY Problem Relation Age of Onset Ischemic Heart Disease Father CABG Stroke Maternal Grandmother Stroke Paternal Grandmother in 80s Seizures Daughter Stroke Sister brain aneurysm other (Fragile X) Daughter other (Fragile X) Daughter Current Outpatient prescriptions: metFORMIN (GLUCOPHAGE) 500 mg tablet Take 1 tablet by mouth daily with dinner. lisinopril (ZESTRIL) 20 mg tablet Take 1 tablet by mouth once daily. levothyroxine (SYNTHROID) 25 mcg tablet Take 1 tablet 5 days a week (25 mcg) and Take 2 tablets 2 days a week (50 mcg). rosuvastatin (CRESTOR) 10 mg tablet Take 1 tablet by mouth daily at bedtime. PARoxetine (PAXIL) 20 mg tablet Take 1 tablet by mouth once daily. nystatin (MYCOSTATIN) powder Apply 1 application to affected area twice daily. benzonatate (TESSALON PERLE) 100 mg capsule Take 1 capsule by mouth three times daily as needed. albuterol HFA (PROAIR HFA) 90 mcg/actuation inhaler Inhale 2 Puffs as instructed every 4 hours as needed. omeprazole (PRILOSEC) 20 mg capsule Take 20 mg by mouth once daily. ASPIRIN 81MG TABLET Take one (1) tablet daily . Allergies: ALLERGIES No Known Allergies ROS: See HPI PE: 09/29/24 1027 09/29/24 1028 BP: 116/70 Pulse: 80 Resp: 16 Temp: 36.1 ?C (97 ?F) TempSrc: Left Tympanic Weight: 92.1 kg (203 lb) 92.1 kg (203 lb) Gen: AANDO, NAD, non-toxic appearing, Pleasant, cooperative HEENT: NT/AC, PERRLA, EOMs intact b/l, nares clear and patent b/l, pharynx without erythema, exudate or lesions. MMM, Uvula midline. EACs without erythema or debris. TMs pearly leonardo with intact landmarks b/l. Neck: supple, No cervical LAD, no thyromegaly, no carotid bruits CV: RRR, normal S1 and S2, no murmurs, no gallops, no rubs, Pulses 2+ and symmetric in UE and LE b/l Lungs: normal respiratory effort, CTA b/l, no wheezing or rhonchi or rales Abd: soft, central obesity, NT, ND, +BS, no hepatosplenomegaly MS: FROM all 4 extremities- arthritis multiple joints including b/l knees Neuro: CN II-XII intact b/l, strength 5/5 b/l UE and LE, DTRs 2/4 UE and LE, sensation intact. Skin: warm, dry, intact, No rashes or lesions on exposed skin. No edema, normal pulses ASSESSMENT/PLAN: 1. IFG (impaired fasting glucose) - ICD9: 790.21, ICD10: R73.01 (primary diagnosis) Diet controlled. stable 2. Need for tetanus booster - ICD9: V03.7, ICD10: Z23 - TD VACCINE, AGE 7+ YR, 2 LF TETANUS (TDVAX) 3. Hypothyroidism, acquired - ICD9: 244.9, ICD10: E03.9 - Instructed patient on importance of taking on an empty stomach either first thing in the morning or at bedtime. 4. Essential hyperte (more content not included)... Normal [facility] Emergency Department Summary on 09-27-2024 Emergency Department Summary [facility] Medical Records Department [address] [place] [address] Emergency Department Summary 09/27/24 MR#: [id number] Acct: [id number] Name: MINDI JOSHI Rep #: [id number] : 1955 69 From: Kera Ceja DO PCP: Dr. Scot Griffin, DO Status:[facility] ER Location: ED HPI HPI - Fall History of Present Illness Chief Complaint: Fall Narrative Narrative: Patient is a 69-year-old female with history of GERD, hypertension, hypothyroidism and renal stones presenting with right-sided rib pain as well as chills and malaise. Patient is about 3 weeks ago she sustained a mechanical fall. She was walking in her kitchen when it was dark out and tripped. She landed on her right side. She does something fell off the counter and also hit her in the head. She denies any associated loss of conscious. She is not on any blood thinners. She notes since then she has had this right-sided rib pain. Has been worse with movement or deep breathing. It had been getting better however about a week ago she was mowing the lawn and was hurrying up because it was about to rain and line was very bumpy. She has had increased pain since. Today she woke up generally feeling worse and so become concerned that maybe she had a urinary tract infection so she came to the emergency room. She notes she called her primary care doctor and recommend she go to the ER to also get x-rays. She denies any dysuria or hematuria. Denies any fevers. Has had a mild associated cough. Did not feel short of breath but notes her pain is worse when she takes a big breath. Has not been taking anything for her pain. Denies any recent headaches. Did initially have a headache when she first hit her head but nothing since. Denies any associate numbness or tingling. Denies any vision changes no other complaints or concerns at this time. [facility] Medical History Depression Hyperlipidemia Hypertension Home Medications ???Medication ???Instructions ???Recorded ???Last Taken ???Type aspirin 81 mg tablet,delayed 81 mg PO DAILY heart health 09/27/24 History release lisinopril 20 mg tablet 20 mg PO DAILY blood pressure 06/2609/27/24 History paroxetine HCl 20 mg tablet 20 mg PO QHS depression 07/08/13 0 09/26/24 History levothyroxine 25 mcg tablet 25 mcg PO SUMOTHFRSA thyroid 05/3109/27/24 History metformin 500 mg tablet 500 mg PO QPM 05/07/24 09/26/24 Hi story rosuvastatin 10 mg tablet 10 mg PO QHS 05/07/24 09/26/24 His tory ibuprofen 200 mg tablet (Advil) 400 mg PO Q6H PRN pain 09/27/24 History levothyroxine 25 mcg tablet 50 mcg PO TUWE 09/27/24 09/21/24 H istory Allergy/AdvReac Type Severity Reaction Status Date / Time No Known Allergies Allergy Verified 09/27/24 14:31 Surgical History Hx of cholecystectomy Social History Smoking Status: Never smoker ROS ROS ED Constitutional Constitutional ED: Reports chills; Denies fever(s) Cardiovascular Cardiovascular: Reports other Details: Right sided rib pain ; Denies chest pain or palpitations Respiratory/Chest Respiratory/Chest: Denies cough or dyspnea Gastrointestinal Gastrointestinal: Denies abdominal pain, nausea or vomiting Genitourinary Genitourinary ED: Denies dysuria, hematuria or urinary frequency Musculoskeletal Musculoskeletal: Denies back pain, myalgias or neck pain Integumentary Denies rash Neurologic Neurologic: Denies paresthesias or weakness Hematologic/Lymphatic Hematologic/Lymphatic: Denies easy bleeding or easy bruising EXAM Physical Exam Const Vital Signs: 09/27/24 14:31 Temperature 96.9 F L Temperature Source Temporal Pulse Rate 101 H Respiratory Rate 26 H Blood Pressure 129/90 H Blood Pressure Mean 103 Pulse Ox 97 Oxygen Delivery Method Room Air Positive well nourished and well developed General Appearance ED: well developed HEENT Reports normocephalic atraumatic Eyes PERRL Neck full ROM General: Negative for tenderness Chest Wall inspection of chest normal Chest Narrative: No chest wall crepitus. Highly reproducible tenderness to the right anterior ribs along the costal margin. No overlying skin changes. Resp normal respiratory effort and clear to auscultation bilaterally Effort and Inspection: pain with movement Cardio regular rate, regular rhythm and no murmurs GI non-tender and non-distended Inspection: Negative for abdominal distention Auscultation: normoactive bowel sounds Palpation: soft; Negative for guarding Back/Spine no CVA tenderness Neuro oriented x3, moves all extremities and no focal motor deficits [place] [facility] (more content not included)... Normal [facility] Ribs Uni Min 3V w/PA Cheston 09-27-2024 Ribs Uni Min 3V w/PA Chest [facility] Imaging Services [address] [place], [place] [id number] Ribs Uni Min 3V w/PA Chest MR#: [id number] Acct: [id number] Name: MINDI JOSHI Rep #: [id number] : 1955 F 69 From: Cristian Cid MD PCP: Dr. Scot Griffin DO Status: REG ER Study: Ribs Uni Min 3V w/PA Chest Date of Exam: 09/27 Exam# [id number] Ordering Dr: Kera Ceja DO PROCEDURE: RIBS UNI MIN 3V W/PA CHEST, 09/27/2024 REASON FOR EXAM: FALL 3 WEEKS AGO, PAIN TECHNIQUE: A PA view of the chest as well as PA and oblique views of the RIGHT ribs were obtained. COMPARISON: 05/07/2024 FINDINGS: Heart: Unremarkable. Mediastinum: Trace atherosclerosis in the arch. Lungs/pleura: No focal consolidation. No sizeable pleural effusion or visible pneumothorax. Bones: Demineralization without visible acute displaced rib fracture. Degenerative changes of the shoulders including evidence of rotator cuff pathology on the RIGHT. Lines and support devices: None. Other: RIGHT upper quadrant surgical clips. RAD/Ribs Uni Min 3V w/PA Chest IMPRESSION: 1. Demineralization without visible acute displaced rib fracture or pneumothorax. 2. Additional description as above. Reading Location: [id number] CC: Dr. Kera Ceja DO; Dr. Scot Griffin DO Job Coach: Signed Normal [facility] Urinalysis, Completeon 09-27 EPI,SQUAMOUS 0-5 SEEN Normal 5-10 [facility] Comment on above: Order Comment: CLEAN CATCH Performed By: #### L 400.0001 #### [facility] [address] [place], [place], [address] WBC 0-5 SEEN Normal 0-5 [facility] Comment on above: Order Comment: CLEAN CATCH Performed By: #### L 400.0001 #### [facility] [address] [place], [address] BACTERIA 0 SEEN Normal None Seen [facility] Comment on above: Order Comment: CLEAN CATCH Performed By: #### L 400.0001 #### [facility] [address] [place], [address] Mucus Ql (Urine sed) 0 SEEN Normal [facility] Comment on above: Order Comment: CLEAN CATCH Performed By: #### L 400.0001 #### [facility] [address] [place], [address] RBC 0 SEEN Normal 0-5 [facility] Comment on above: Order Comment: CLEAN CATCH Performed By: #### L 400.0001 #### [facility] [address] [place], [address] 12 Lead EKGon 05-07-2024 12 Lead EKG [facility] Cardiovascular Services [address] [place] [address] 12 Lead EKG 05/07/24 2110 MR#: [id number] Acct: [id number] Name: MINDI JOSHI Rep #: [id number] : 1955 68 From: Stefania Magallanes MD Attending Dr: Status: DEP ER Ordering Dr: Joon Stover Date: 05/07/24 Location: ED Sex: F C Admitted: Test Reason : DYSRHYTHMIA Blood Pressure : */* mmHG Vent. Rate : 89 BPM Atrial Rate : 89 BPM P-R Int : 150 ms QRS Dur : 72 ms QT Int : 346 ms P-R-T Axes : 50 41 52 degrees QTcB Int : 420 ms Normal sinus rhythm Normal ECG Confirmed by SARAH DOMINGO, KENDRA ([id number]), editor continuity and script DANIKA HAMILTON ([id number]) on 05/12/2024 1:35:26 PM Referred By: Confirmed By: KENDRA MAGALLANES MD 05/12/24 1332 Date Stefania Magallanes MD CC: CHERYL Stover; Dr. Scot Griffin DO; Dr. Isaac High DO Signed Normal [facility] Basic Metabolic Profile (BMP )on 05-07-2024 BUN/CRE 10.5 RATIO Normal 10-20 [facility] Comment on above: Order Comment: 'TROP ' Serial specimen #1, #2 or #3: 1 1 Y Performed By: #### L 500.2500, L501.5425, L100.0100 #### [facility] [address] [place], [address] CA,Total 9.4 mg/dL Normal 8.5-10.1 [facility] Comment on above: Order Comment: 'TROP ' Serial specimen #1, #2 or #3: 1 1 Y Performed By: #### L 500.2500, L501.5425, L100.0100 #### [facility] [address] [place], [address] Chloride [Moles/Vol] 108 mmol/L High 98-107 [facility] Comment on above: Order Comment: 'TROP ' Serial specimen #1, #2 or #3: 1 1 Y Performed By: #### L 500.2500, L501.5425, L100.0100 #### [facility] [address] [place], [address] CO2 [Moles/Vol] 24.0 mmol/L Normal 21.0-32.0 [facility] Comment on above: Order Comment: 'TROP ' Serial specimen #1, #2 or #3: 1 1 Y Performed By: #### L 500.2500, L501.5425, L100.0100 #### [facility] [address] [place], [address] Creatinine [Mass/Vol] 0.96 mg/dL Normal 0.55-1.02 [facility] Comment on above: Order Comment: 'TROP ' Serial specimen #1, #2 or #3: 1 1 Y Result Comment: The validity of the calculated GFR GFRAA in patients over 70 years has not been determined. Clinical correlation is essential. Performed By: #### L 500.2500, L501.5425, L100.0100 #### [facility] [address] [place], [address] ECRCL 58.79 ml/min Normal [facility] Comment on above: Order Comment: 'TROP ' Serial specimen #1, #2 or #3: 1 1 Y Performed By: #### L 500.2500, L501.5425, L100.0100 #### [facility] [address] [place], [address] EST GFR - AA 75 mL/min Normal >60 [facility] Comment on above: Order Comment: 'TROP ' Serial specimen #1, #2 or #3: 1 1 Y Result Comment: Afri can Pan[place]ian GFR Calc Performed By: #### L 500.2500, L501.5425, L100.0100 #### [facility] [address] [place], [address] GAP 5 Normal 5-15 [facility] Comment on above: Order Comment: 'TROP ' Serial specimen #1, #2 or #3: 1 1 Y Performed By: #### L 500.2500, L501.5425, L100.0100 #### [facility] [address] [place], [address] GFR/1.73 sq M.predicted among non-blacks MDRD (S/P/Bld) [Vol rate/Area] 62 mL/min/{1.73_m2} Normal >60 [facility] Comment on above: Order Comment: 'TROP ' Serial specimen #1, #2 or #3: 1 1 Y Result Comment: Non- GFR Calc Performed By: #### L 500.2500, L501.5425, L100.0100 #### [facility] [address] [place], [address] Glucose [Mass/Vol] 113 mg/dL High 74-106 [facility] Comment on above: Order Comment: 'TROP ' Serial specimen #1, #2 or #3: 1 1 Y Result Comment: Fast ing Glucose result from 100 to 125 mg/dL suggests IMPAIRED HOMEOSTASIS per A.D.A. criteria. Performed By: #### L 500.2500, L501.5425, L100.0100 #### [facility] [address] [place], [address] Potassium [Moles/Vol] 4.1 mmol/L Normal 3.5-5.1 [facility] Comment on above: Order Comment: 'TROP ' Serial specimen #1, #2 or #3: 1 1 Y Performed By: #### L 500.2500, L501.5425, L100.0100 #### [facility] [address] [place], [address] Sodium [Moles/Vol] 137 mmol/L Normal 136-145 [facility] Comment on above: Order Comment: 'TROP ' Serial specimen #1, #2 or #3: 1 1 Y Performed By: #### L 500.2500, L501.5425, L100.0100 #### [facility] [address] [place], [address] Urea nitrogen [Mass/Vol] 10 mg/dL Normal 7-18 [facility] Comment on above: Order Comment: 'TROP ' Serial specimen #1, #2 or #3: 1 1 Y Performed By: #### L 500.2500, L501.5425, L100.0100 #### [facility] [address] [place], [address] CBC W/Diff, Automatedon 12- Absolute Lymph 0.76 X10 3/uL Low 0.83-4.51 [facility] Comment on above: Performed By: #### L 500.2500, L501.5425, L100.0100 #### [facility] [address] [place], [address] Absolute Neut 3.7 X10 3/uL Normal 2.0-7.7 [facility] Comment on above: Performed By: #### L 500.2500, L501.5425, L100.0100 #### [facility] [address] [place], [address] Basophils/100 WBC (Bld) 0.6 % Normal 0-1 [facility] Comment on above: Performed By: #### L 500.2500, L501.5425, L100.0100 #### [facility] [address] [place], [address] Eosinophils/100 WBC (Bld) 1.9 % Normal 0-5 [facility] Comment on above: Performed By: #### L 500.2500, L501.5425, L100.0100 #### [facility] [address] [place], [address] Erythrocyte distribution width (RBC) [Ratio] 12.4 % Normal 11.6-14.6 [facility] Comment on above: Performed By: #### L 500.2500, L501.5425, L100.0100 #### [facility] [address] [place], [address] Hematocrit (Bld) [Volume fraction] 38.1 % Normal 37-47 [facility] Comment on above: Performed By: #### L 500.2500, L501.5425, L100.0100 #### [facility] [address] [place], [address] Hemoglobin (Bld) [Mass/Vol] 12.2 g/dL Normal 12.0-15.0 [facility] Comment on above: Performed By: #### L 500.2500, L501.5425, L100.0100 #### [facility] [address] [place], [address] IG% 0.200 Normal 0.0-0.9 [facility] Comment on above: Result Comment: IG% - Immature Granulocytes (promyelocytes, myelocytes and metamyelocytes) > 1% indicates that a LEFT SHIFT is Present. Performed By: #### L 500.2500, L501.5425, L100.0100 #### [facility] [address] [place], [address] Lymphocytes/100 WBC (Bld) 14.3 % Low 19-41 [facility] Comment on above: Performed By: #### L 500.2500, L501.5425, L100.0100 #### [facility] [address] [place], [address] MCH (RBC) [Entitic mass] 29.3 pg Normal 27.0-32.0 [facility] Comment on above: Performed By: #### L 500.2500, L501.5425, L100.0100 #### [facility] [address] [place], [address] MCHC (RBC) [Mass/Vol] 32.0 g/dL Normal 32-36 [facility] Comment on above: Performed By: #### L 500.2500, L501.5425, L100.0100 #### [facility] [address] [place], [address] MCV (RBC) [Entitic vol] 91.4 fL Normal 81-99 [facility] Comment on above: Performed By: #### L 500.2500, L501.5425, L100.0100 #### [facility] [address] [place], [address] Monocytes/100 WBC (Bld) 12.6 % High 0-10 [facility] Comment on above: Performed By: #### L 500.2500, L501.5425, L100.0100 #### [facility] [address] [place], [address] Neutrophils/100 WBC (Bld) 70.4 % High 47-70 [facility] Comment on above: Performed By: #### L 500.2500, L501.5425, L100.0100 #### [facility] [address] [place], [address] Nucleated RBC (Bld) [#/Vol] 0 10*3/uL Normal 0-5 [facility] Comment on above: Performed By: #### L 500.2500, L501.5425, L100.0100 #### [facility] [address] [place], [address] Platelet mean volume (Bld) [Entitic vol] 10.2 fL Normal 6.2-12.0 [facility] Comment on above: Performed By: #### L 500.2500, L501.5425, L100.0100 #### [facility] [address] [place], [address] Platelets (Bld) [#/Vol] 200 10*3/uL Normal 150-450 [facility] Comment on above: Performed By: #### L 500.2500, L501.5425, L100.0100 #### [facility] [address] [place], [address] RBC (Bld) [#/Vol] 4.17 10*6/uL Low 4.2-5.4 [facility] Comment on above: Performed By: #### L 500.2500, L501.5425, L100.0100 #### [facility] [address] [place], [address] RDW SD 41.9 fl Normal 35.1-43.9 [facility] Comment on above: Performed By: #### L 500.2500, L501.5425, L100.0100 #### [facility] [address] [place], [address] WBC (Bld) [#/Vol] 5.3 10*3/uL Normal 4.4-11.0 [facility] Comment on above: Performed By: #### L 500.2500, L501.5425, L100.0100 #### [facility] [address] [place], [address] Chest PA and Lateralon 05-07 Chest PA and Lateral [facility] Imaging Services [address] [place] [address] Chest PA and Lateral MR#: [id number] Acct: [id number] Name: MINDI JOSHI Rep #: [id number] : 1955 F 68 From: Rico Spear MD PCP: Dr. Scot Griffin DO Status: REG ER Study: Chest PA and Lateral Date of Exam: 05/07/24 Exam# [id number] Ordering Dr: Joon Stover [employer] [id number] INDICATION: cough EXAMINATION/TECHNIQUE: X-RAY - XR Chest 2 Views COMPARISON: 04/22/2023 FINDINGS: LINES/DEVICES: None. LUNGS: No consolidation, edema or effusion. No pneumothorax. MEDIASTINUM AND CARDIOVASCULAR STRUCTURES: Cardiac silhouette not enlarged. Central airways and mediastinal contour are unremarkable. BONES AND SOFT TISSUES: No acute changes. RAD/Chest PA and Lateral IMPRESSION: No radiographic evidence of acute cardiopulmonary disease. Electronically Signed: Rico Spear MD at 21:54 EST , CC: CHERYL Stover; Dr. Scot Griffin DO Job Coach: Signed Normal [facility] Emergency Department Summary on 05-07-2024 Emergency Department Summary [facility] Medical Records Department [address] [place] [address] Emergency Department Summary 05/07/24 MR#: [id number] Acct: [id number] Name: MINDI JOSHI Rep #: [id number] : 1955 68 From: Isaac Dee PCP: Dr. Scot Griffin DO Status:DEP ER Location: ED HPI History of Present Illness Chief Complaint: General Illness Narrative Narrative: Patient is a 68-year-old female history of hypertension hyperlipidemia, hypothyroidism, GERD who presents to the emergency department for chest pressure, left-sided chest pain. Patient states that 2 days ago, she received a COVID-19 and influenza shot on the same day. That night, states that she had some fever and chills, she had some jaw tightness that went away with Advil. Patient then had left-sided chest pain this morning, and 1 episode right before she came in, she states she was not doing any specific. She states at this time, she has no pain and feels generally well. She is just concerned because she has a family history of cardiac disease. [facility] Medical History (Updated 05/07/24 @ 21:38 by Kristi Lemus) Depression Hyperlipidemia Hypertension Home Medications ???Medication ???Instructions ???Recorded ???Last Taken ???Type Omeprazole [Prilosec] 40 mg PO BID GERD 07/08/13 05/30/19 History aspirin 81 mg tablet,delayed 81 mg PO DAILY heart health 07/08/13 05/30/19 History release lisinopril 20 mg tablet 20 mg PO DAILY blood pressure 07/08/13 05/30/19 History paroxetine HCl 20 mg tablet 20 mg PO QHS depression 07/08/13 05/30/19 History levothyroxine 25 mcg tablet 25 mcg PO DAILY@0600 thyroid 05/31/19 05/30/19 History metformin 500 mg tablet 500 mg PO QPM 05/07/24 Unknown History rosuvastatin 10 mg tablet 10 mg PO QHS 05/07/24 Unknown History Allergy/AdvReac Type Severity Reaction Status Date / Time No Known Allergies Allergy Verified 05/07/24 20:49 Surgical History Hx of cholecystectomy Social History Smoking Status: Never smoker ROS ROS ED ROS Narrative Constitutional: Negative for fever, chills, weight loss, weakness Eyes: Negative for vision loss, vision change, double vision ENT: Negative for any sore throat, ear pain, congestion Cardiovascular: Negative for any tightness, palpitations. Positive for left-sided chest pain Respiratory: Negative for any cough, sputum production, hemoptysis, dyspnea, dyspnea on exertion, orthopnea Gastrointestinal: Negative for any abdominal pain, nausea, vomiting, diarrhea, constipation, blood in stool, blood in vomit : Negative for any urinary frequency, dysuria, retention, blood in urine Muscle skeletal: Negative for any neck pain, back pain Neurological: Negative for any headache, syncope, dizziness Skin: Negative for any rashes, itching, abrasions, lacerations Psychiatric: Negative for any depression, anxiety, stress, suicidal ideation, homicidal ideation Hematologic: Negative for any excessive bruising, easy bleeding EXAM Physical Exam Narrative Exam Narrative: Vital signs reviewed. HEET: Head normocephalic atraumatic, TMs clear bilaterally. Posterior pharynx is clear, moist mucous membranes. Nares clear bilaterally. Neck: Supple with no lymphadenopathy or tenderness. No signs of meningismus. Cardiac: Regular rate and rhythm no murmurs gallops or rubs, equal peripheral pulses bilaterally. Respiratory: Lungs clear to auscultation bilaterally. No chest tenderness. Abdomen: Soft, nontender, nondistended. No abdominal bruit or pulsatile masses. No hepatosplenomegaly Extremities: No peripheral edema, no signs of gross trauma or deformity. Active full range of motion of all extremities. Neuro: Cranial nerves II through XII intact, no focal neurological deficits. Skin: Clean dry and intact with no rash, purpura, petechiae, vesicles or pustules. Backs/flank: No CVA tenderness, no midline spinal tenderness, no deformity. Psych: Normal mood and affect. No SI, HI or acute psychosis. Const Vital Signs: 05/07/24 20:50 05/07/24 21:34 Temperature 98.1 F Temperature Source Temporal Pulse Rate 108 H Respiratory Rate 18 Respiratory Effort Normal Non-Labored Respiratory Pattern Normal Blood Pressure 123/72 H Blood Pressure Mean 89 Pulse Ox 98 Oxygen Delivery Method Room Air Positive well nourished and well developed General Appearance ED: well developed Physical Exam Const Vital Signs: 05/07/24 20:50 05/07/24 21:34 Temperature 98.1 F Temperature Source Temporal Pulse Rate 108 H Respiratory Rate 18 Respiratory Effort Normal Non-Labored Respiratory Pattern Normal Blood Pressure 123/72 H Blood Pressure Mean 89 Pulse Ox 98 (more content not included)... Normal [facility] L501.5425on 05-07-2024 TROPONIN-I HS < 3 Low 3.0-54.0 [facility] Comment on above: Order Comment: 'TROP ' Serial specimen #1, #2 or #3: 1 1 Y Result Comment: Mia carreon Note: New Test Units and Gender Specific Reference Ranges. For more information see Policy Stat Procedure [place] High Sensitivity Troponin (TNIH) and attachments. Performed By: #### L 500.2500, L501.5425, L100.0100 #### [facility] [address] [place], [address] CBC W Auto Differential pane l (Bld)on 05-05-2024 Basophils (Bld) [#/Vol] 0.04 10*3/uL Normal <0.11 [facility] Comment on above: Order Comment: Speci men Type: BLOOD SPECIMENOrdering Facility: [facility] Address: [address] [place] [address] Performed By: #### 5 7021-8 ####[facility] [id number] [place] [address] [place] Basophils/100 WBC (Bld) 0.6 % Normal [facility] Comment on above: Order Comment: Speci men Type: BLOOD SPECIMENOrdering Facility: [facility] Address: [address] [place] [address] Performed By: #### 5 7021-8 ####[facility] [id number] [place] [address] [place] Differential cell count method Nom (Bld) Auto Normal [facility] Comment on above: Order Comment: Speci men Type: BLOOD SPECIMENOrdering Facility: [facility] Address: [address] [place] [address] Performed By: #### 5 7021-8 ####[facility] [id number] [place] [address] [place] Eosinophils (Bld) [#/Vol] 0.20 10*3/uL Normal <0.46 [facility] Comment on above: Order Comment: Speci men Type: BLOOD SPECIMENOrdering Facility: [facility] Address: [address] [place] [address] Performed By: #### 5 7021-8 ####[facility] [id number] [place] [address] [place] Eosinophils/100 WBC (Bld) 2.8 % Normal [facility] Comment on above: Order Comment: Speci men Type: BLOOD SPECIMENOrdering Facility: [facility] Address: [address] [place] [address] Performed By: #### 5 7021-8 ####[facility] [id number] [place] [address] [place] Erythrocyte distribution width (RBC) [Ratio] 12.8 % Normal 11.5-15.0 [facility] Comment on above: Order Comment: Speci men Type: BLOOD SPECIMENOrdering Facility: [facility] Address: [address] [place] [address] Performed By: #### 5 7021-8 ####[facility] [id number] [place] [address] [place] Hematocrit (Bld) [Volume fraction] 41.4 % Normal 36.0-46.0 [facility] Comment on above: Order Comment: Speci men Type: BLOOD SPECIMENOrdering Facility: [facility] Address: [address] [place] [address] Performed By: #### 5 7021-8 ####[facility] [id number] [place] [address] [place] Hemoglobin (Bld) [Mass/Vol] 12.8 g/dL Normal 11.5-15.5 [facility] Comment on above: Order Comment: Speci men Type: BLOOD SPECIMENOrdering Facility: [facility] Address: [address] [place] [address] Performed By: #### 5 7021-8 ####[facility] [id number] [place] [address] [place] Immature granulocytes (Bld) [#/Vol] 10*3/uL Normal <0.10 [facility] Comment on above: Order Comment: Speci men Type: BLOOD SPECIMENOrdering Facility: [facility] Address: [address] [place] [address] Performed By: #### 5 7021-8 ####[facility] [id number] [place] [address] [place] Immature granulocytes/100 WBC (Bld) 0.3 % Normal [facility] Comment on above: Order Comment: Speci men Type: BLOOD SPECIMENOrdering Facility: [facility] Address: [address] [place] [address] Performed By: #### 5 7021-8 ####[facility] [id number] [place] [address] [place] Lymphocytes (Bld) [#/Vol] 2.21 10*3/uL Normal 1.00-4.00 [facility] Comment on above: Order Comment: Speci men Type: BLOOD SPECIMENOrdering Facility: [facility] Address: [address] [place] [address] Performed By: #### 5 7021-8 ####[facility] [id number] [place] [address] [place] Lymphocytes/100 WBC (Bld) 30.9 % Normal [facility] Comment on above: Order Comment: Speci men Type: BLOOD SPECIMENOrdering Facility: [facility] Address: [address] [place] [address] Performed By: #### 5 7021-8 ####[facility] [id number] [place] [address] [place] MCH (RBC) [Entitic mass] 29.0 pg Normal 26.0-34.0 [facility] Comment on above: Order Comment: Speci men Type: BLOOD SPECIMENOrdering Facility: [facility] Address: [address] [place] [address] Performed By: #### 5 7021-8 ####[facility] [id number] [place] [address] [place] MCHC (RBC) [Mass/Vol] 30.9 g/dL Normal 30.5-36.0 [facility] Comment on above: Order Comment: Speci men Type: BLOOD SPECIMENOrdering Facility: [facility] Address: [address] [place] [address] Performed By: #### 5 7021-8 ####[facility] [id number] [place] [address] [place] MCV (RBC) [Entitic vol] 93.9 fL Normal 80.0-100.0 [facility] Comment on above: Order Comment: Speci men Type: BLOOD SPECIMENOrdering Facility: [facility] Address: [address] [place] [address] Performed By: #### 5 7021-8 ####[facility] [id number] [place] [address] [place] Monocytes (Bld) [#/Vol] 0.59 10*3/uL Normal <0.87 [facility] Comment on above: Order Comment: Speci men Type: BLOOD SPECIMENOrdering Facility: [facility] Address: [address] [place] [address] Performed By: #### 5 7021-8 ####[facility] [id number] [place] [address] [place] Monocytes/100 WBC (Bld) 8.3 % Normal [facility] Comment on above: Order Comment: Speci men Type: BLOOD SPECIMENOrdering Facility: [facility] Address: [address] [place] [address] Performed By: #### 5 7021-8 ####[facility] [id number] [place] [address] [place] Neutrophils (Bld) [#/Vol] 4.09 10*3/uL Normal 1.45-7.50 [facility] Comment on above: Order Comment: Speci men Type: BLOOD SPECIMENOrdering Facility: [facility] Address: [address] [place] [address] Performed By: #### 5 7021-8 ####[facility] [id number] [place] [address] [place] Neutrophils/100 WBC (Bld) 57.1 % Normal [facility] Comment on above: Order Comment: Speci men Type: BLOOD SPECIMENOrdering Facility: [facility] Address: [address] [place] [address] Performed By: #### 5 7021-8 ####[facility] [id number] [place] [address] [place] Nucleated RBC (Bld) [#/Vol] 10*3/uL Normal <0.01 [facility] Comment on above: Order Comment: Speci men Type: BLOOD SPECIMENOrdering Facility: [facility] Address: [address] [place] [address] Performed By: #### 5 7021-8 ####[facility] LABCLIA [id number] [place] [address] [place] Nucleated RBC/100 WBC (Bld) [Ratio] 0.0 /100 WBC Normal [facility] Comment on above: Order Comment: Speci men Type: BLOOD SPECIMENOrdering Facility: [facility] Address: [address] [place] [address] Performed By: #### 5 7021-8 ####[facility] LABCLIA [id number] [place] [address] [place] Platelet mean volume (Bld) [Entitic vol] 11.0 fL Normal 9.0-12.7 [facility] Comment on above: Order Comment: Speci men Type: BLOOD SPECIMENOrdering Facility: [facility] Address: [address] [place] [address] Performed By: #### 5 7021-8 ####[facility] LABCLIA [id number] [place] [address] [place] Platelets (Bld) [#/Vol] 240 10*3/uL Normal 150-400 [facility] Comment on above: Order Comment: Speci men Type: BLOOD SPECIMENOrdering Facility: [facility] Address: [address] [place] [address] Performed By: #### 5 7021-8 ####[facility] LABCLIA [id number] [place] [address] [place] RBC (Bld) [#/Vol] 4.41 10*6/uL Normal 3.90-5.20 [facility] Comment on above: Order Comment: Speci men Type: BLOOD SPECIMENOrdering Facility: [facility] Address: [address] [place] [address] Performed By: #### 5 7021-8 ####[facility] LABCLIA [id number] [place] [address] [place] WBC (Bld) [#/Vol] 7.15 10*3/uL Normal 3.70-11.00 [facility] Comment on above: Order Comment: Speci men Type: BLOOD SPECIMENOrdering Facility: [facility] Address: [address] [place] [address] Performed By: #### 5 7021-8 ####[facility] LABCLIA [id number] [address] [id number] [id number] [place] CNOVjennifer 05-05-2024 CNOV Office Visit (FAMPWS ) MINDI JOSHI ([id number]) 1955 F Date Time Provider Department 05/05/24 8:40 [facility] visit today, we recorded the following information about you: Temperature Pulse Respiration Blood pressure 97 degrees 64/minute 20/minute 120/70 Weight 90.1 kg Scot Griffin DO 05/05/2024 9:09 PM Signed CC: Mindi Joshi is a 68 year old female who presents to the office for follow up HPI: HTN, well controlled, taking lisinopril as prescribed, no SE with medication HPL, taking Crestor medication 10 mg a day, tolerating well without SE Hypothyroidism, taking synthroid as prescribed, no SE with medication Mood, stable, taking Paxil Obesity, she was seen about 3 months ago in the office and was started on meformin to help her with weight loss. She is noticing that the medication is working. She has been able to lose >10 lbs in the last 6-7 months. Weight down from 205 lbs to currently 198 lbs, previously at 210 lbs. She is excited about this. She has been cutting back on her sugars and starch foods as well. Tolerating the medication well without SE Hyperglycemia, no known hx of diabetes. 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 lisinopril (ZESTRIL) 20 mg tablet Take 1 tablet by mouth once daily. levothyroxine (SYNTHROID) 25 mcg tablet Take 1 tablet 5 days a week (25 mcg) and Take 2 tablets 2 days a week (50 mcg). rosuvastatin (CRESTOR) 10 mg tablet Take 1 tablet by mouth daily at bedtime. PARoxetine (PAXIL) 20 mg tablet Take 1 tablet by mouth once daily. nystatin (MYCOSTATIN) powder Apply 1 application to affected area twice daily. benzonatate (TESSALON PERLE) 100 mg capsule Take 1 capsule by mouth three times daily as needed. albuterol HFA (PROAIR HFA) 90 mcg/actuation inhaler Inhale 2 Puffs as instructed every 4 hours as needed. omeprazole (PRILOSEC) 20 mg capsule Take 20 mg by mouth once daily. ASPIRIN 81MG TABLET Take one (1) tablet daily . No current facility-administered medications for this visit. ALLERGIES No Known Allergies Social History Tobacco Use Smoking status: Never Smokeless tobacco: Never Substance Use Topics Alcohol use: No Drug use: No ROS: See HPI PE: BP 120/70 Pulse 64 Temp (Src) 97 (Temporal) Resp 20 Wt 198 lb 10.2 oz (90.1kg) Gen: AANDOX3, NAD, non-toxic appearing HEENT: PERRLA, EOMs intact b/l, nares without drainage, pharynx without erythema, exudate, lesions, or drainage. Uvula midline. Neck: No LAD, no thyromegaly, no meningismus. CV: RRR, no murmur Lungs: CTA b/l, no wheezing Skin: No rashes, lesions, or wounds on exposed skin. Central obesity No edema, normal pulses ASSESSMENT/PLAN: 1. IFG (impaired fasting glucose) - ICD9: 790.21, ICD10: R73.01 (primary diagnosis) Continue metformin Continue weight loss efforts. 2. Need for influenza vaccination - ICD9: V04.81, ICD10: Z23 - INFLUENZA VACCINE, PRSV FREE, AGE 65+ YR, HIGH DOSE, TRIVALENT (FLUZONE HIGH-DOSE) 3. Need for COVID-19 vaccine - ICD9: V04.89, ICD10: Z23 - PFIZER-BIONTECH COVID-19 VACCINE AGE 12+ YR (COMIRNATY) 4. Hypothyroidism, acquired - ICD9: 244.9, ICD10: E03.9 - Instructed patient on importance of taking on an empty stomach either first thing in the morning or at bedtime. - continue current dose of Synthroid - COMPREHENSIVE METABOLIC PANEL - COMPLETE BLOOD COUNT AND DIFFERENTIAL - THYROID STIMULATING HORMONE - T4 FREE/FREE THYROXINE 5. Essential hypertension - ICD9: 401.9, ICD10: I10 - Controlled - Continue current medications - Recommend home blood pressure monitoring, to bring results to next visit - Encouraged sodium restriction, DASH or Mediterranean diet - Recommend regular aerobic exercise 6. Dyslipidemia - ICD9: 272.4, ICD10: E78.5 - Control undetermined, due for labs - Continue current medications - Counseled on healthy diet and regular exercise Scot Griffin DO Return if no improvement. Follow up with Scot Griffin DO. To ER if develops chest pain, shortness of breath. Discussed risks, benefits, alternatives, and potential side effects of medications. Patient/Guardian expressed understanding and agreed with the plan. See patient instructions. (more content not included)... Normal [facility] Comprehensive metabolic 2000 panelon 05-05-2024 Albumin [Mass/Vol] 4.2 g/dL Normal 3.9-4.9 [facility] Comment on above: Order Comment: Bonnyi aletha Type: BLOOD SPECIMENOrdering Facility: [facility] Address: [address] [place] [address] Performed By: #### 2 4323-8, 3016-3, 3024-7 ####[facility] LABCLIA [id number] [place] [address] [place] ALP [Catalytic activity/Vol] 91 U/L Normal 34-123 [facility] Comment on above: Order Comment: Speci men Type: BLOOD SPECIMENOrdering Facility: [facility] Address: [address] [place] [address] Performed By: #### 2 4323-8, 3016-3, 302-7 ####[facility] LABCLIA [id number] [address] [address] [place] ALT [Catalytic activity/Vol] 17 U/L Normal 7-38 [facility] Comment on above: Order Comment: Speci men Type: BLOOD SPECIMENOrdering Facility: [facility] Address: [address] [place] [address] Performed By: #### 2 4323-8, 6-3, 7 ####[facility] LABCLIA [id number] [place] [address] [place] Anion gap [Moles/Vol] 12 mmol/L Normal 8-15 [facility] Comment on above: Order Comment: Speci men Type: BLOOD SPECIMENOrdering Facility: [facility] Address: [address] [place] [address] Performed By: #### 2 4323-8, 3015-3, 7 ####[facility] LABCLIA [id number] [place] [id number] [place] AST [Catalytic activity/Vol] 20 U/L Normal 13-35 [facility] Comment on above: Order Comment: Speci men Type: BLOOD SPECIMENOrdering Facility: [facility] Address: [address] [place] [address] Performed By: #### 2 4323-8, 3015-3, 7 ####[facility] LABCLIA [id number] [address] [address] [place] Bilirubin [Mass/Vol] 0.2 mg/dL Normal 0.2-1.3 [facility] Comment on above: Order Comment: Speci men Type: BLOOD SPECIMENOrdering Facility: [facility] Address: [address] [place] [address] Performed By: #### 2 4323-8, 6-3, 3023-7 ####[facility] LABCLIA [id number] [address] [address] [place] Calcium [Mass/Vol] 9.3 mg/dL Normal 8.5-10.2 [facility] Comment on above: Order Comment: Speci men Type: BLOOD SPECIMENOrdering Facility: [facility] Address: [address] [place], [place] [address] Performed By: #### 2 4323-8, 6-3, 7 ####[facility] LABCLIA [id number] [address] [address] [place] Chloride [Moles/Vol] 109 mmol/L High 98-107 [facility] Comment on above: Order Comment: Speci men Type: BLOOD SPECIMENOrdering Facility: [facility] Address: [address] [place] [address] Performed By: #### 2 4323-8, 3015-3, 7 ####[facility] LABCLIA [id number] [place] [id number] [place] CO2 [Moles/Vol] 24 mmol/L Normal 22-30 [facility] Comment on above: Order Comment: Speci men Type: BLOOD SPECIMENOrdering Facility: [facility] Address: [address] [place] [address] Performed By: #### 2 4323-8, 3015-3, 7 ####[facility] LABCLIA [id number] [address] [address] [place] Creatinine [Mass/Vol] 0.95 mg/dL Normal 0.58-0.96 [facility] Comment on above: Order Comment: Speci men Type: BLOOD SPECIMENOrdering Facility: [facility] Address: [address] [place], [place] [address] Performed By: #### 2 4323-8, 6-3, 3023-7 ####[facility] LABCLIA [id number] [place] [id number] [place] Creatinine and Glomerular filtration rate.predicted panel (S/P/Bld) 66 mL/min/1.73m??? Normal >=60 [facility] Comment on above: Order Comment: Jarvis pompa Type: BLOOD SPECIMENOrdering Facility: [facility] Address: [address] [place] [address] Result Comment: Shaneka mated Glomerular Filtration Rate (eGFR) is calculated using the 2020 CKD-EPI creatinine equation. This equation utilizes serum creatinine, sex, and age as parameters. The creatinine assay has traceable calibration to isotope dilution-mass spectrometry. Refer to KDIGO guidelines for clinical interpretation. In patients with unstable renal function, e.g. those with acute kidney injury, the eGFR may not accurately reflect actual GFR. Performed By: #### 2 4323-8, 3016-3, 302-7 ####[facility] LABCLIA [id number] [place] [address] [place] Glucose [Mass/Vol] 89 mg/dL Normal 74-99 [facility] Comment on above: Order Comment: Jarvis pompa Type: BLOOD SPECIMENOrdering Facility: [facility] Address: [address] [place] [address] Result Comment: The [place] Diabetes Association (ADA) provides guidance for cutoff values for fasting glucose and random glucose. The ADA defines fasting as no caloric intake for at least 8 hours. Fasting plasma glucose results between 100 to 125 mg/dL indicate increased risk for diabetes (prediabetes). Fasting plasma glucose results greater than or equal to 126 mg/dL meet the criteria for diagnosis of diabetes. In the absence of unequivocal hyperglycemia, results should be confirmed by repeat testing. In a patient with classic symptoms of hyperglycemia or hyperglycemic crisis, random plasma glucose results greater than or equal to 200 mg/dL meet the criteria for diagnosis of diabetes. Reference: Standards of Medical Care in Diabetes 2016, [place] [employer]. Diabetes Care. 2016.39(Suppl 1). Performed By: #### 2 4323-8, 3016-3, 3024-7 ####[facility] LABCLIA [id number] [place] [id number] [place] Potassium [Moles/Vol] 4.5 mmol/L Normal 3.7-5.1 [facility] Comment on above: Order Comment: Speci men Type: BLOOD SPECIMENOrdering Facility: [facility] Address: [address] [place] [address] Performed By: #### 2 4323-8, 3016-3, 7 ####[facility] LABCLIA [id number] [place] [address] [place] Protein [Mass/Vol] 6.6 g/dL Normal 6.3-8.0 [facility] Comment on above: Order Comment: Speci men Type: BLOOD SPECIMENOrdering Facility: [facility] Address: [address] [place] [address] Performed By: #### 2 4323-8, 3015-3, 7 ####[facility] LABCLIA [id number] [place] [address] [place] Sodium [Moles/Vol] 145 mmol/L High 136-144 [facility] Comment on above: Order Comment: Speci men Type: BLOOD SPECIMENOrdering Facility: [facility] Address: [address] [place] [address] Performed By: #### 2 4323-8, 3015-3, 7 ####[facility] LABCLIA [id number] [place] [address] [place] Urea nitrogen [Mass/Vol] 8 mg/dL Normal 7-21 [facility] Comment on above: Order Comment: Speci men Type: BLOOD SPECIMENOrdering Facility: [facility] Address: [address] [place] [address] Performed By: #### 2 4323-8, 3015-3, 7 ####[facility] LABCLIA [id number] [place] [id number] [place] T4 Free SerPl-mCncon 024 Free T4 [Mass/Vol] 1.2 ng/dL Normal 0.9-1.7 [facility] Comment on above: Order Comment: Speci men Type: BLOOD SPECIMENOrdering Facility: [facility] Address: [address] [place], [place] [address] Performed By: #### 2 4323-8, 3016-3, 3024-7 ####[facility]CLIA [id number] [place] [id number] [place] TSH SerPl-aCncon 05-05-2024 TSH Qn 3.470 m[IU]/L Normal 0.270-4.200 [facility] Comment on above: Order Comment: Speci men Type: BLOOD SPECIMENOrdering Facility: [facility] Address: [address] [place] [address] Performed By: #### 2 4323-8, 3016-3, 3024-7 ####[facility] LABCLIA [id number] [place] [id number] [place] [facility]ATH SCREENINGon 04-06-2024 [facility] SCREENING * * *Final Report* * * DATE OF EXAM: Apr 06 2024 8:29AM [facility] 0581 - [facility] SCREENING / PROCEDURE REASON: Encounter for screening mammogram for malignant neoplasm of breast * * * * Physician Interpretation * * * * RESULT: [place] [address] HISTORY: Patient is 68 years old and is seen for screening and is asymptomatic in both breasts. Patient states no personal history of breast cancer. Patient states no personal history of other cancers. COMPARISON STUDIES: The present examination has been compared to prior imaging studies dated 04/24/2015 (mammogram), 10/23/2016 (mammogram) and 03/10/2023 (mammogram). MAMMOGRAM TECHNIQUE: The study was acquired using full field digital technology and interpreted from soft copy. Digital Breast Tomosynthesis (DBT) images were obtained and used to assist in the interpretation of this examination. Computer-aided detection was utilized by the radiologist in the interpretation of this examination. MAMMOGRAM FINDINGS: There are scattered areas of fibroglandular density. No suspicious masses, calcifications or other abnormalities are seen in either breast. There are no significant changes from the prior study. IMPRESSION: There is no mammographic evidence of malignancy in either breast. Routine screening mammogram is recommended. Annual mammogram will be due in 1 year. BI-RADS Category 1: Negative RISK: Based on the Tyrer-Cuzick (TC) risk assessment model, this patient has a 3.0% lifetime risk of developing breast cancer, meaning they are at average risk for developing breast cancer. However, this is only an estimate based on available history provided on the patient's questionnaire. We encourage all patients to talk with their providers about these results, further recommendations for managing breast health, and appropriate supplemental screening options if the patient has dense breast tissue. Interpreting Radiologist: Kiran Raygoza M.D. Electronically signed on: 04/06/2024 Job Coach: [employer] Date/Time: Apr 06 2024 8:16A Dictated by: KIRAN RAYGOZA MD This examination was interpreted and the report reviewed and electronically signed by: KIRAN RAYGOZA MD on Apr 06 2024 10:50AM EST [id number] Normal [facility] Breast Screeningon 2023 IMPRESSION: There is no mammographic evidence of malignancy in either breast. Routine screening mammogram is recommended. Annual mammogram will be due in 1 year. BI-RADS Category 1: Negative RISK: Based on the Tyrer-Cuzick (TC) risk assessment model, this patient has a 3.0% lifetime risk of developing breast cancer, meaning they are at average risk for developing breast cancer. However, this is only an estimate based on available history provided on the patient's questionnaire. We encourage all patients to talk with their providers about these results, further recommendations for managing breast health, and appropriate supplemental screening options if the patient has dense breast tissue. Interpreting Radiologist: Kiran Raygoza M.D. Electronically signed on: 04/06/2024 Job Coach: [employer] Date/Time: Apr 06 2024 8:16A Dictated by: KIRAN RAYGOZA MD This examination was interpreted and the report reviewed and electronically signed by: KIRAN RAYGOZA MD on Apr 06 2024 10:50AM EST DIVISION OF RADIOLOGY * * *Final Report* * * DATE OF EXAM: Apr 06 2024 8:29AM [facility] 0581 - [facility] SCREENING / PROCEDURE REASON: Encounter for screening mammogram for malignant neoplasm of breast * * * * Physician Interpretation * * * * RESULT: [facility] [address] [place] [address] HISTORY: Patient is 68 years old and is seen for screening and is asymptomatic in both breasts. Patient states no personal history of breast cancer. Patient states no personal history of other cancers. COMPARISON STUDIES: The present examination has been compared to prior imaging studies dated 04/24/2015 (mammogram), 10/23/2016 (mammogram) and 03/10/2023 (mammogram). MAMMOGRAM TECHNIQUE: The study was acquired using full field digital technology and interpreted from soft copy. Digital Breast Tomosynthesis (DBT) images were obtained and used to assist in the interpretation of this examination. Computer-aided detection was utilized by the radiologist in the interpretation of this examination. MAMMOGRAM FINDINGS: There are scattered areas of fibroglandular density. No suspicious masses, calcifications or other abnormalities are seen in either breast. There are no significant changes from the prior study. DIVISION OF RADIOLOGY Provider, [facility] - 04/06/2024 * * *Final Report* * * DATE OF EXAM: Apr 06 2024 8:29AM [facility] 0581 - [facility] SCREENING / PROCEDURE REASON: Encounter for screening mammogram for malignant neoplasm of breast * * * * Physician Interpretation * * * * RESULT: [facility] [address] [place] [id number] HISTORY: Patient is 68 years old and is seen for screening and is asymptomatic in both breasts. Patient states no personal history of breast cancer. Patient states no personal history of other cancers. COMPARISON STUDIES: The present examination has been compared to prior imaging studies dated 04/24/2015 (mammogram), 10/23/2016 (mammogram) and 03/10/2023 (mammogram). MAMMOGRAM TECHNIQUE: The study was acquired using full field digital technology and interpreted from soft copy. Digital Breast Tomosynthesis (DBT) images were obtained and used to assist in the interpretation of this examination. Computer-aided detection was utilized by the radiologist in the interpretation of this examination. MAMMOGRAM FINDINGS: There are scattered areas of fibroglandular density. No suspicious masses, calcifications or other abnormalities are seen in either breast. There are no significant changes from the prior study. IMPRESSION IMPRESSION: There is no mammographic evidence of malignancy in either breast. Routine screening mammogram is recommended. Annual mammogram will be due in 1 year. BI-RADS Category 1: Negative RISK: Based on the Tyrer-Cuzick (TC) risk assessment model, this patient has a 3.0% lifetime risk of developing breast cancer, meaning they are at average risk for developing breast cancer. However, this is only an estimate based on available history provided on the patient's questionnaire. We encourage all patients to talk with their providers about these results, further recommendations for managing breast health, and appropriate supplemental screening options if the patient has dense breast tissue. Interpreting Radiologist: Kiran Raygoza M.D. Electronically signed on: 04/06/2024 Job Coach: CHIOMA Transcribe Date/Time: Apr 06 2024 8:16A Dictated by: KIRAN RAYGOZA MD This examination was interpreted and the report reviewed and electronically signed by: KIRAN RAYGOZA MD on Apr 06 2024 10:50AM EST [facility] Radiology Study observation (narrative) [facility] MG Breast ScreeningOrdered B y: [facility] Provider on 04-06-2024 [facility] CNCOon 02-18-2024 CNCO Letter Text Normal [facility]IND[facility]OS[facility] ([id number]) 1955 F Date Time Provider Department 02/10/24 JOSÉ MIGUEL GODINEZ During your visit today, we recorded the following information about you: José Miguel Godinez PA-C 02/10/2024 2:18 PM Signed Please let patient know that her TSH was just above normal range, but her free T4 was normal. Is she taking her thyroid medication regularly and on an empty stomach? Is she having any symptoms? The rest of her labs all looked good, kidney function stable-increase fluids and avoid NSAIDs. José Miguel Godinez PA-C 02/10/2024 Roz Yi MA 02/10/2024 4:26 PM Signed Tried to reach pt, VM not set up yet. Unable to leave message or call back number. KATE Bush Rilee, MA 02/16/2024 11:06 AM Signed Attempted to contact pt but unable to LM due to VM not being setup yet. KATE Coats Kathryn, MA 02/17/2024 11:30 AM Signed Tried to reach pt again, Still unable to leave message. KATE Bush Helen E, LPN 02/17/2024 1:10 PM Signed Mindi returned call, given below results/recommendations . Patient initially started to take thyroid med 1 tablet 5 days a week, then 2 tablets 2 days a week, but she completely forgot and went back to taking 1 tablet once daily. Reports no s/s, no constipation, fatigue, hair lose. Please review AND advise. José Miguel Langford LPN, PA-C 02/17/2024 1:51 PM Signed She can go back to taking as prescribed- 1 tab 5 days a week, and 2 tabs 2 days a week. AIDE Garcia Jazzmin, MA 02/17/2024 2:20 PM Signed Pt informed Rachael Burch MA Allergies As of Date: 02/10/2024 (No Known Allergies) Date Reviewed: 01/14/2024 Reviewed by: Juliet Hart LPN - Fully Assessed Reason for Visit: Results [95] Prescriptions as of 02/17/2024 - rosuvastatin (CRESTOR) 10 mg tablet Take 1 tablet by mouth daily at bedtime. - levothyroxine (SYNTHROID) 25 mcg tablet Take 1 tablet 5 days a week (25 mcg) and Take 2 tablets 2 days a week (50 mcg). - metFORMIN (GLUCOPHAGE) 500 mg tablet Take 1 tablet by mouth daily with dinner. - lisinopril (ZESTRIL) 20 mg tablet Take 1 tablet by mouth once daily. - PARoxetine (PAXIL) 20 mg tablet Take 1 tablet by mouth once daily. - nystatin (MYCOSTATIN) powder Apply 1 application to affected area twice daily. - benzonatate (TESSALON PERLE) 100 mg capsule Take 1 capsule by mouth three times daily as needed. - albuterol HFA (PROAIR HFA) 90 mcg/actuation inhaler Inhale 2 Puffs as instructed every 4 hours as needed. - omeprazole (PRILOSEC) 20 mg capsule Take 20 mg by mouth once daily. - ASPIRIN 81MG TABLET Take one (1) tablet daily . Meds Comments as of 07/08/2012: Held ASA and garlic tabs as advised. Problem List As Of Date 02/10/2024 Noted Resolved Supraventricular tachycardia [I49.9] Unspecified essential hypertension [I10] 07/21/2015 Carrier of Fragile X syndrome [Q99.2] DIAPHRAGMATIC HERNIA [K44.9] GERD (gastroesophageal reflux disease) [K21.9] Anxiety [F41.9] Morbid obesity with BMI of 40.0-44.9, adult (HC*04/11/2015 Gastroesophageal reflux disease without esophag*04/11/2015 Low HDL (under 40) [E78.6] 04/11/2015 Essential hypertension [I10] 04/11/2015 Bilateral knee pain [M25.561, M25.562] 04/11/2015 Arthritis of both knees [M17.0] 04/11/2015 Tinnitus [H93.19] 09/27/2016 Well adult exam [Z00.00] 06/23/2019 Hypothyroidism, acquired [E03.9] 06/23/2019 Obesity, Class II, BMI 35-39.9 [E66.9] 08/13/2022 Dyslipidemia [E78.5] 08/13/2022 Weight gain [R63.5] 09/12/2023 Class 2 obesity with body mass index (BMI) of 3*09/12/2023 Tinnitus, bilateral [H93.13] 09/12/2023 Diarrhea [R19.7] 09/12/2023 Hyperglycemia [R73.9] 09/12/2023 Encounter Status:Closed by RACHAEL BURCH on 02/17/24 Normal [facility] CNOVon 01-14-2024 CNOV Office Visit (FAMPWS ) MINDI JOSHI ([id number]) 1955 F Date Time Provider Department 01/14/24 9:00 [facility] visit today, we recorded the following information about you: Temperature Pulse Respiration Blood pressure 97 degrees 80/minute 20/minute 110/60 Weight 88.5 kg Scot Griffin, 01/14/2024 11:48 AM Signed CC Mindi Donohue Aroldo is a 68 year old female who presents to the office for follow up HPI: HTN, well controlled, taking lisinopril as prescribed, no SE with medication HPL, taking Crestor medication 10 mg a day, tolerating well without SE Hypothyroidism, taking synthroid as prescribed, no SE with medication Mood, stable, taking Paxil Obesity, she was seen about 3 months ago in the office and was started on meformin to help her with weight loss. She is noticing that the medication is working. She has been able to lose 10 lbs. Weight down from 205 lbs to currently 195 lbs. She is excited about this. She has been cutting back on her sugars and starch foods as well. Started getting headaches, coming and going, mild. Started after began metformin- she feels that these are getting better for her. No red flag symptoms Hyperglycemia, no known hx of diabetes. 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 2013: Colon polyp Comment: tubular adenoma No date: GERD (gastroesophageal reflux disease) Comment: hiatal hernia No date: HTN (hypertension) 07/2015: Hypothyroidism : Renal calculus No date: Snoring PAST SURGICAL HISTORY 07/08/2012: COLONOSCOPY AND POLYPECTOMY Comment: tubular adenoma, repeat 2016 No date: EGD Comment: hiatal hernia 1999s: HEART CATHETERIZATION Comment: x 2, patient reports negative No date: PAST SURGICAL HISTORY OF Comment: gallbladder No date: PAST SURGICAL HISTORY OF Comment: kidney stone retrieval Current Outpatient Medications Medication Sig rosuvastatin (CRESTOR) 10 mg tablet Take 1 tablet by mouth daily at bedtime. levothyroxine (SYNTHROID) 25 mcg tablet Take 1 tablet 5 days a week (25 mcg) and Take 2 tablets 2 days a week (50 mcg). metFORMIN (GLUCOPHAGE) 500 mg tablet Take 1 tablet by mouth daily with dinner. lisinopril (ZESTRIL) 20 mg tablet Take 1 tablet by mouth once daily. PARoxetine (PAXIL) 20 mg tablet Take 1 tablet by mouth once daily. nystatin (MYCOSTATIN) powder Apply 1 application to affected area twice daily. benzonatate (TESSALON PERLE) 100 mg capsule Take 1 capsule by mouth three times daily as needed. albuterol HFA (PROAIR HFA) 90 mcg/actuation inhaler Inhale 2 Puffs as instructed every 4 hours as needed. omeprazole (PRILOSEC) 20 mg capsule Take 20 mg by mouth once daily. ASPIRIN 81MG TABLET Take one (1) tablet daily . No current facility-administered medications for this visit. ALLERGIES No Known Allergies Social History Tobacco Use Smoking status: Never Smokeless tobacco: Never Substance Use Topics Alcohol use: No Drug use: No ROS: See HPI PE: BP 110/60 Pulse 80 Temp (Src) 97 (Right Tympanic) Resp 20 Wt 195 lb (88.5kg) Gen: AANDOX3, NAD, non-toxic appearing HEENT: PERRLA, EOMs intact b/l, nares without drainage, pharynx without erythema, exudate, lesions, or drainage. Uvula midline. Neck: No LAD, no thyromegaly, no meningismus. CV: RRR, no murmur Lungs: CTA b/l, no wheezing Skin: No rashes, lesions, or wounds on exposed skin. Normal neurologic examination No edema, normal pulses ASSESSMENT/PLAN: 1. Hypothyroidism, acquired - ICD9: 244.9, ICD10: E03.9 (primary diagnosis) - Instructed patient on importance of taking on an empty stomach either first thing in the morning or at bedtime. - continue current dose of Synthroid 2. Encounter for screening mammogram for malignant neoplasm of breast - ICD9: V76.12, ICD10: Z12.31 - Set up for mammogram, yearly mammogram recommended - Encouraged monthly BSE - SARATH SCREENING 3. Class 2 obesity with body mass index (BMI) of 39.0 to 39.9 in adult, unspecified obesity type, unspecified whether serious comorbidity present - ICD9: 278.00, V85.39, ICD10: E66.9, Z68.39 Weight decreasing - Behavioral intervention, - Pharmacological intervention, - Eat well program, and - Continue current medications 4. Essential hypertension - ICD9: 401.9, ICD10: I10 - Controlled - Continue current medications - Recommend home blood pressure monitoring, to bring results to next visit - Encouraged sodium restriction, DASH or Mediterranean diet - Recommend regular aerobic exercise - Discussed need for and benefit of weight loss. BMI 37.79 kg/(m2) 5. Dyslipidemia - ICD9: 272.4, ICD10: E78.5 - Improving control - Continue current medications - Counseled on healthy diet and regular exercise Scot Griffin DO Return if no improvement. Follow up with Scot Griffin DO. To (more content not included)... Normal [facility] Comprehensive metabolic 2000 panelon 01-14-2024 Albumin [Mass/Vol] 4.6 g/dL Normal 3.9-4.9 [facility] Comment on above: Order Comment: Speci men Type: BLOOD SPECIMENOrdering Facility: [facility] Address: [address] [place] [address] Performed By: #### 2 4323-8, 3024-7, 3016-3 ####[facility] LABCLIA [id number] [address] [address] [place] ALP [Catalytic activity/Vol] 96 U/L Normal 34-123 [facility] Comment on above: Order Comment: Speci men Type: BLOOD SPECIMENOrdering Facility: [facility] Address: [address] [place] [address] Performed By: #### 2 4323-8, 3024-7, 3016-3 ####[facility] LABCLIA [id number] [address] [address] [place] ALT [Catalytic activity/Vol] 20 U/L Normal 7-38 [facility] Comment on above: Order Comment: Speci men Type: BLOOD SPECIMENOrdering Facility: [facility] Address: [address] [place] [address] Performed By: #### 2 4323-8, 3024-7, 3016-3 ####[facility] LABCLIA [id number] [place] [address] [place] Anion gap [Moles/Vol] 12 mmol/L Normal 8-15 [facility] Comment on above: Order Comment: Speci men Type: BLOOD SPECIMENOrdering Facility: [facility] Address: [address] [place] [address] Performed By: #### 2 4323-8, 3024-7, 3016-3 ####[facility] LABCLIA [id number] [place] [address] [place] AST [Catalytic activity/Vol] 25 U/L Normal 13-35 [facility] Comment on above: Order Comment: Speci men Type: BLOOD SPECIMENOrdering Facility: [facility] Address: [address] [place] [address] Performed By: #### 2 4323-8, 3024-7, 3016-3 ####[facility] LABCLIA [id number] [place] [address] [place] Bilirubin [Mass/Vol] 0.5 mg/dL Normal 0.2-1.3 [facility] Comment on above: Order Comment: Speci men Type: BLOOD SPECIMENOrdering Facility: [facility] Address: [address] [place] [address] Performed By: #### 2 4323-8, 3024-7, 3016-3 ####[facility] LABCLIA [id number] [place] [address] [place] Calcium [Mass/Vol] 10.0 mg/dL Normal 8.5-10.2 [facility] Comment on above: Order Comment: Speci men Type: BLOOD SPECIMENOrdering Facility: [facility] Address: [address] [place] [address] Performed By: #### 2 4323-8, 3024-7, 6-3 ####[facility] LABCLIA [id number] [place] [address] [place] Chloride [Moles/Vol] 106 mmol/L Normal 98-107 [facility] Comment on above: Order Comment: Speci men Type: BLOOD SPECIMENOrdering Facility: [facility] Address: [address] [place] [address] Performed By: #### 2 4323-8, 3023-7, 3015-3 ####[facility] LABCLIA [id number] [place] [address] [place] CO2 [Moles/Vol] 23 mmol/L Normal 22-30 [facility] Comment on above: Order Comment: Speci men Type: BLOOD SPECIMENOrdering Facility: [facility] Address: [address] [place] [address] Performed By: #### 2 4323-8, 3023-7, 3 ####[facility] LABCLIA [id number] [place] [address] [place] Creatinine [Mass/Vol] 1.03 mg/dL High 0.58-0.96 [facility] Comment on above: Order Comment: Speci men Type: BLOOD SPECIMENOrdering Facility: [facility] Address: [address] [place] [address] Performed By: #### 2 4323-8, 3023-7, 3015-3 ####[facility] LABCLIA [id number] [place] [id number] [place] Creatinine and Glomerular filtration rate.predicted panel (S/P/Bld) 60 mL/min/1.73m??? Normal >=60 [facility] Comment on above: Order Comment: Jarvis pompa Type: BLOOD SPECIMENOrdering Facility: [facility] Address: [address] [place] [address] Result Comment: Shaneka mated Glomerular Filtration Rate (eGFR) is calculated using the 2020 CKD-EPI creatinine equation. This equation utilizes serum creatinine, sex, and age as parameters. The creatinine assay has traceable calibration to isotope dilution-mass spectrometry. Refer to KDIGO guidelines for clinical interpretation. In patients with unstable renal function, e.g. those with acute kidney injury, the eGFR may not accurately reflect actual GFR. Performed By: #### 2 4323-8, 3024-7, 3016-3 ####[facility] LABIA [id number] [place] [address] [place] Glucose [Mass/Vol] 99 mg/dL Normal 74-99 [facility] Comment on above: Order Comment: Jarvis pompa Type: BLOOD SPECIMENOrdering Facility: [facility] Address: [address] [place] [address] Result Comment: The [place] Diabetes Association (ADA) provides guidance for cutoff values for fasting glucose and random glucose. The ADA defines fasting as no caloric intake for at least 8 hours. Fasting plasma glucose results between 100 to 125 mg/dL indicate increased risk for diabetes (prediabetes). Fasting plasma glucose results greater than or equal to 126 mg/dL meet the criteria for diagnosis of diabetes. In the absence of unequivocal hyperglycemia, results should be confirmed by repeat testing. In a patient with classic symptoms of hyperglycemia or hyperglycemic crisis, random plasma glucose results greater than or equal to 200 mg/dL meet the criteria for diagnosis of diabetes. Reference: Standards of Medical Care in Diabetes 2016, [place] [employer]. Diabetes Care. 2016.39(Suppl 1). Performed By: #### 2 4323-8, 3024-7, 6-3 ####[facility] LABIA [id number] [place] [id number] [place] Potassium [Moles/Vol] 4.2 mmol/L Normal 3.7-5.1 [facility] Comment on above: Order Comment: Speci men Type: BLOOD SPECIMENOrdering Facility: [facility] Address: [address] [place] [address] Performed By: #### 2 4323-8, 302-7, 6-3 ####[facility] LABCLIA [id number] [address] [address] [place] Protein [Mass/Vol] 7.4 g/dL Normal 6.3-8.0 [facility] Comment on above: Order Comment: Speci men Type: BLOOD SPECIMENOrdering Facility: [facility] Address: [address] [place] [address] Performed By: #### 2 4323-8, 3023-7, 3 ####[facility] LABCLIA [id number] [place] [address] [place] Sodium [Moles/Vol] 141 mmol/L Normal 136-144 [facility] Comment on above: Order Comment: Speci men Type: BLOOD SPECIMENOrdering Facility: [facility] Address: [address] [place] [address] Performed By: #### 2 4323-8, 3023-7, 3 ####[facility] LABCLIA [id number] [place] [address] [place] Urea nitrogen [Mass/Vol] 12 mg/dL Normal 7-21 [facility] Comment on above: Order Comment: Speci men Type: BLOOD SPECIMENOrdering Facility: [facility] Address: [address] [place] [address] Performed By: #### 2 4323-8, 3023-7, 3015-3 ####[facility] LABIA [id number] [place] [id number] [place] T4 Free SerPl-mCncon 024 Free T4 [Mass/Vol] 1.4 ng/dL Normal 0.9-1.7 [facility] Comment on above: Order Comment: Speci men Type: BLOOD SPECIMENOrdering Facility: [facility] Address: [address] [place] [id number] Performed By: #### 2 4323-8, 3024-7, 3016-3 ####[facility] LABIA [id number] [place] [id number] [place] TSH SerPl-aCncon 01-14-2024 TSH Qn 4.290 m[IU]/L High 0.270-4.200 [facility] Comment on above: Order Comment: Speci men Type: BLOOD SPECIMENOrdering Facility: [facility] Address: [address] [place] [id number] Performed By: #### 2 4323-8, 3024-7, 3016-3 ####[facility] LABCLIA [id number] [place] [id number] [facility] CNPNon 12-29-2023 CNPN Telephone (4CQ) MINDI JOSHI ([id number]) 1955 F Date Time Provider Department 12/29/23 SCOT GRIFFIN 4CQ During your visit today, we recorded the following information about you: Radha Alberts 12/29/2023 9:47 AM Signed PT is requesting confirmation if any labs are to be done prior to her upcoming appointment on 01/14/[address] Griffin. No labs are currently shown. Please advise patient. Thank you! José Miguel Godinez PA-C 12/30/2023 11:32 AM Signed Thyroid labs and cmp ordered (last TSH slightly elevated). Recent lipid panel and A1C within normal range 3 months ago, will hold on rechecking at this visit. José Miguel Godinez PA-C 12/30/2023 Danika Cullen, LETICIA 12/30/2023 11:43 AM Signed Pt called and is notified of providers message and instructions. Pt voices understanding. Danika Cullen RN Allergies As of Date: 12/29/2023 (No Known Allergies) Date Reviewed: 09/22/2023 Reviewed by: Seda Fletcher MA - Fully Assessed Reason for Visit: Results [95] Primary Visit Diagnosis:Hypothyroidis m, acquired [E03.9] Order(s):THYROID STIMULATING HORMONE [SQTSH] Order #: [id number] FUTURE T4 FREE/FREE THYROXINE [SQFT4] Order #: [id number] FUTURE COMPREHENSIVE METABOLIC PANEL [SQCMP] Order #: [id number] FUTURE Prescriptions as of 12/30/2023 - rosuvastatin (CRESTOR) 10 mg tablet Take 1 tablet by mouth daily at bedtime. - levothyroxine (SYNTHROID) 25 mcg tablet Take 1 tablet 5 days a week (25 mcg) and Take 2 tablets 2 days a week (50 mcg). - metFORMIN (GLUCOPHAGE) 500 mg tablet Take 1 tablet by mouth daily with dinner. - lisinopril (ZESTRIL) 20 mg tablet Take 1 tablet by mouth once daily. - PARoxetine (PAXIL) 20 mg tablet Take 1 tablet by mouth once daily. - nystatin (MYCOSTATIN) powder Apply 1 application to affected area twice daily. - benzonatate (TESSALON PERLE) 100 mg capsule Take 1 capsule by mouth three times daily as needed. - albuterol HFA (PROAIR HFA) 90 mcg/actuation inhaler Inhale 2 Puffs as instructed every 4 hours as needed. - omeprazole (PRILOSEC) 20 mg capsule Take 20 mg by mouth once daily. - ASPIRIN 81MG TABLET Take one (1) tablet daily . Meds Comments as of 07/08/2012: Held ASA and garlic tabs as advised. 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] DIAPHRAGMATIC HERNIA [K44.9] GERD (gastroesophageal reflux disease) [K21.9] Anxiety [F41.9] Morbid obesity with BMI of 40.0-44.9, adult (HC*04/11/2015 Gastroesophageal reflux disease without esophag*04/11/2015 Low HDL (under 40) [E78.6] 04/11/2015 Essential hypertension [I10] 04/11/2015 Bilateral knee pain [M25.561, M25.562] 04/11/2015 Arthritis of both knees [M17.0] 04/11/2015 Tinnitus [H93.19] 09/27/2016 Well adult exam [Z00.00] 06/23/2019 Hypothyroidism, acquired [E03.9] 06/23/2019 Obesity, Class II, BMI 35-39.9 [E66.9] 08/13/2022 Dyslipidemia [E78.5] 08/13/2022 Weight gain [R63.5] 09/12/2023 Class 2 obesity with body mass index (BMI) of 3*09/12/2023 Tinnitus, bilateral [H93.13] 09/12/2023 Diarrhea [R19.7] 09/12/2023 Hyperglycemia [R73.9] 09/12/2023 Encounter Status:Closed by DANIKA CULLEN on 12/30/23 Normal [facility] CBC W Auto Differential pane l (Bld)on 04-29-2023 Basophils (Bld) [#/Vol] 0.03 10*3/uL <0.11 k/uL [facility] Basophils/100 WBC (Bld) 0.5 % [facility] Differential cell count method Nom (Bld) Auto [facility] Eosinophils (Bld) [#/Vol] 0.08 10*3/uL <0.46 k/uL [facility] Eosinophils/100 WBC (Bld) 1.3 % [facility] Erythrocyte distribution width (RBC) [Ratio] 12.9 % 11.5 - 15.0 % [facility] Hematocrit (Bld) [Volume fraction] 43.8 % 36.0 - 46.0 % [facility] Hemoglobin (Bld) [Mass/Vol] 14.2 g/dL 11.5 - 15.5 g/dL [facility] Immature granulocytes (Bld) [#/Vol] <0.10 k/uL [facility] Immature granulocytes/100 WBC (Bld) 0.2 % [facility] Lymphocytes (Bld) [#/Vol] 1.88 10*3/uL 1.00 - 4.00 k/uL [facility] Lymphocytes/100 WBC (Bld) 31.2 % [facility] MCH (RBC) [Entitic mass] 29.8 pg 26.0 - 34.0 pg [facility] MCHC (RBC) [Mass/Vol] 32.4 g/dL 30.5 - 36.0 g/dL [facility] MCV (RBC) [Entitic vol] 91.8 fL 80.0 - 100.0 fL [facility] Monocytes (Bld) [#/Vol] 0.54 10*3/uL <0.87 k/uL [facility] Monocytes/100 WBC (Bld) 9.0 % [facility] Neutrophils (Bld) [#/Vol] 3.49 10*3/uL 1.45 - 7.50 k/uL [facility] Neutrophils/100 WBC (Bld) 57.8 % [facility] Nucleated RBC (Bld) [#/Vol] <0.01 k/uL [facility] Nucleated RBC/100 WBC (Bld) [Ratio] 0.0 /100 WBC [facility] Platelet mean volume (Bld) [Entitic vol] 10.6 fL 9.0 - 12.7 fL [facility] Platelets (Bld) [#/Vol] 258 10*3/uL 150 - 400 k/uL [facility] RBC (Bld) [#/Vol] 4.77 10*6/uL 3.90 - 5.2 0 m/uL [facility] WBC (Bld) [#/Vol] 6.03 10*3/uL 3.70 - 11. 00 k/uL [facility] Absolute lymphocyte countOrd ered By: Suzepoonam Burnette on 04-22-2023 Lymphocytes Auto (Unsp spec) [#/Vol] 1.36 10*3/uL 0.83-4.51 [facility] Basophil percentageOrdered B y: Suze Vasile on 04-22-2023 Basophils/100 WBC (Bld) 0.5 % 0-1 [facility] Bilirubin [Mass/Vol] 0.30 mg/dL 0.20-1.00 [facility] Comment on above: For patients on eltr ombopag therapy, use of Dimension [place] TBIL is not recommended. Chloride [Moles/Vol] 114 mmol/L 98-107 [facility] Eosinophils/100 WBC (Bld) 1.0 % 0-5 [facility] Glucose [Mass/Vol] 100 mg/dL 74-106 [facility] Comment on above: Fasting Glucose resu lt from 100 to 125 mg/dL suggests IMPAIRED HOMEOSTASIS per A.D.A. criteria. Neutrophils (Bld) [#/Vol] 6.2 10*3/uL 2.0-7.7 [facility] Neutrophils/100 WBC (Bld) 75.2 % 47-70 [facility] Potassium [Moles/Vol] 4.2 mmol/L 3.5-5.1 [facility] Protein [Mass/Vol] 6.8 g/dL 6.4-8.2 [facility] Sodium [Moles/Vol] 142 mmol/L 136-145 [facility] WBC (Bld) [#/Vol] 8.2 10*3/uL 4.4-11.0 [facility] Blood erythrocytes count (nu mber/volume)Ordered By: Suze Burnette on 04-22-2023 RBC (Bld) [#/Vol] 4.31 10*6/uL 4.2-5.4 [facility] Blood hemoglobin measurement (mass/volume)Ordered By: Suze Burnette on 04-22-2023 Hemoglobin (Bld) [Mass/Vol] 12.8 g/dL 12.0-15.0 [facility] Blood lymphocytes/100 leukoc ytesOrdered By: Suze Burnette on 04-22-2023 Lymphocytes/100 WBC (Bld) 16.6 % 19-41 [facility] Blood monocytes/100 leukocyt esOrdered By: Suze Burnette on 04-22-2023 Monocytes/100 WBC (Bld) 6.3 % 0-10 [facility] Blood platelet mean volumeOr dered By: Suze Burnette on 04-22-2023 Platelet mean volume (Bld) [Entitic vol] 9.9 fL 6.2-12.0 [facility] Determination of erythrocyte mean corpuscular volume (MCV)Ordered By: Suze Burnette on 04-22-2023 MCV (RBC) [Entitic vol] 92.1 fL 81-99 [facility] Hematocrit Auto (Bld) [Volum e fraction]Ordered By: Suze Burnette on 04-22-2023 Hematocrit (Bld) [Volume fraction] 39.7 % 37-47 [facility] Laboratory - Chemistry and C hemistry - challengeOrdered By: Suze Burnette on 04-22-2023 ALP [Catalytic activity/Vol] 88 U/L 45-117 [facility] ALT [Catalytic activity/Vol] 24 U/L 13-56 [facility] CO2 [Moles/Vol] 25.0 mmol/L 21.0-32.0 [facility] Globulin (S) [Mass/Vol] 3.1 g/dL 2.2-4.2 [facility] Urea nitrogen/Creatinine [Mass ratio] 13.1 mg/mg 10-20 [facility] Laboratory - Hematology and Cell countsOrdered By: Suze Burnette on 04-22-2023 Erythrocyte distribution width (RBC) [Entitic vol] 44.4 fL 35.1-43.9 [facility] Erythrocyte distribution width (RBC) [Ratio] 13.1 % 11.6-14.6 [facility] Immature granulocytes/100 WBC (Bld) 0.400 % 0.0-0.9 [facility] Comment on above: IG% - Immature Granu locytes (promyelocytes, myelocytes and metamyelocytes) > 1% indicates that a LEFT SHIFT is Present. MCH (RBC) [Entitic mass] 29.7 pg 27.0-32.0 [facility] Nucleated RBC/100 WBC (Bld) [Ratio] 0 % 0-5 [facility] MCHC Auto (RBC) [Mass/Vol]Or dered By: Suze Burnette on 04-22-2023 MCHC (RBC) [Mass/Vol] 32.2 g/dL 32-36 [facility] No Panel InformationOrdered By: Suze Burnette on 04-22-2023 Troponin I High Sensitivity 6 pg/mL 3.0-54.0 [facility] Comment on above: Please Note: New Janessa t Units and Gender Specific Reference Ranges. For more information see Policy Stat Procedure [place] High Sensitivity Troponin (TNIH) and attachments. Estimated Creatinine Clearance Calc 46.00 ml/min [facility] Estimated GFR (MDRD) Amer 79 mL/min >60 [facility] Comment on above: GFR Calc Estimated GFR (MDRD) Non-Af Amer 65 mL/min >60 [facility] Comment on above: Non- GFR Calc Platelets bldOrdered By: Ev Burnette on 04-22-2023 Platelets (Bld) [#/Vol] 237 10*3/uL 150-450 [facility] Serum or plasma albumin ami urement (mass/volume)Ordered By: Suze Burnette on 04-22-2023 Albumin [Mass/Vol] 3.7 g/dL 3.2-5.0 [facility] Serum or plasma albumin/glob ulin mass ratioOrdered By: Suze Burnette on 04-22-2023 Albumin/Globulin [Mass ratio] 1.2 {ratio} 0.9-2.4 [facility] Serum or plasma calcium ami urement (mass/volume)Ordered By: Suze Burnette on 04-22-2023 Calcium [Mass/Vol] 8.6 mg/dL 8.5-10.1 [facility] Serum or plasma creatinine m easurement (mass/volume)Ordered By: Suze Burnette on 04-22-2023 Creatinine [Mass/Vol] 0.92 mg/dL 0.55-1.02 [facility] Comment on above: The validity of the calculated GFR & GFRAA in patients over 70 years has not been determined. Clinical correlation is essential. Serum or plasma urea nitroge n measurement (mass/volume)Ordered By: Suze Burnette on 04-22-2023 Urea nitrogen [Mass/Vol] 12 mg/dL 7-18 [facility] Thin prep Papanicolaou smear with manual screeningOrdered By: Suze Burnette on 04-22-2023 Thin prep Papanicolaou smear with manual screening 15 U/L 15-37 [facility] Thin prep Papanicolaou smear with manual screening 3 5-15 [facility] SARATH SCREENINGon 03-10-2023 [facility] XR HUMERUS RIGHT 2+ VIEWS (S TANDARD)on 10-08-2022 XR HUMERUS RIGHT 2+ VIEWS (STANDARD) EXAMINATION: XR HUMERUS RIGHT 2+ VIEWS (STANDARD); XR SHOULDER RIGHT 2+ VIEWS (STANDARD) 10/08/2022 6:43 pm HISTORY: ORDERING SYSTEM PROVIDED HISTORY: right upper arm pain, TECHNOLOGIST PROVIDED HISTORY: Injury/Trauma Reason for exam: right upper arm pain Cancer History: no Surgery, RadiationHistory: no Encounter Type: Initial Mechanism of injury: fell through deck ORDERING SYSTEM PROVIDED DIAGNOSIS CODES: COMPARISON: None FINDINGS: 3 films were done of the right shoulder. 2 films were done of the right humerus. Mild osteopenic changes are noted in both studies. No fracture is noted the clavicle or scapula. The ureter shows no bony lesion or fracture. Soft tissues are unremarkable. Limited views of the right hemothorax are unremarkable. IMPRESSION: 1. No dislocation or obvious fracture of the right humerus or shoulder. 2. Mild osteopenic changes noted. Workstation ID: [id number] Dictated by: GOKUL LAMBERT on FriOctober 08, 2022 7:31:18 PM EDT Transcribed by: GOKUL LAMBERT on FriOctober 08, 2022 7:31:18 PM EDT Finalized by: GOKUL LAMBERT on FriOctober 08, 2022 7:31:18 PM EDT [facility] Comment on above: Order Comment: Injur y/Trauma or Illness?:Injury/Trauma How long have you had these symptoms (acute/chronic)?:Acute Reason for exam?:right upper arm pain History of cancer?:no Surgeries, chemotherapy, or radiation?:no Type of Exam?:Initial Mechanism of injury?:fell through deck XR SHOULDER RIGHT 2+ VIEWS ( STANDARD)on 10-08-2022 XR SHOULDER RIGHT 2+ VIEWS (STANDARD) EXAMINATION: XR HUMERUS RIGHT 2+ VIEWS (STANDARD); XR SHOULDER RIGHT 2+ VIEWS (STANDARD) 10/08/2022 6:43 pm HISTORY: ORDERING SYSTEM PROVIDED HISTORY: right upper arm pain, TECHNOLOGIST PROVIDED HISTORY: Injury/Trauma Reason for exam: right upper arm pain Cancer History: no Surgery, RadiationHistory: no Encounter Type: Initial Mechanism of injury: fell through deck ORDERING SYSTEM PROVIDED DIAGNOSIS CODES: COMPARISON: None FINDINGS: 3 films were done of the right shoulder. 2 films were done of the right humerus. Mild osteopenic changes are noted in both studies. No fracture is noted the clavicle or scapula. The ureter shows no bony lesion or fracture. Soft tissues are unremarkable. Limited views of the right hemothorax are unremarkable. IMPRESSION: 1. No dislocation or obvious fracture of the right humerus or shoulder. 2. Mild osteopenic changes noted. Workstation ID: [id number] Dictated by: GOKUL LAMBERT on FriOctober 08, 2022 7:31:18 PM EDT Transcribed by: GOKUL LAMBERT on FriOctober 08, 2022 7:31:18 PM EDT Finalized by: GOKUL LAMBERT on FriOctober 08, 2022 7:31:18 PM EDT [facility] Comment on above: Order Comment: Injur y/Trauma or Illness?:Injury/Trauma How long have you had these symptoms (acute/chronic)?:Acute Reason for exam?:right upper arm pain after falling through deck History of cancer?:no Surgeries, chemotherapy, or radiation?:no Type of Exam?:Initial Mechanism of injury?:fall UA DIP, URINE (POC)on 2022 BILIRUBIN UA (POCT) Negative Negative [facility] CLARITY UA (POCT) Clear [facility] COLOR UA (POCT) Yellow [facility] GLUCOSE UA (POCT) Negative Negative mg/dL [facility] HEMOGLOBIN/BLOOD UA (POCT) Negative Negative [facility] KETONE UA (POCT) Negative Negative mg/dL [facility] LEUKOCYTES UA (POCT) Trace Abnormal Negative [facility] NITRITE UA (POCT) Negative Negative [facility] PH UA (POCT) 6.0 4.5 - 8.0 [facility] Protein Ql (U) Negative Negative mg/dL [facility] SPECIFIC GRAVITY UA (POCT) <=1.005 Abnormal 1.005 - 1.030 [facility] UROBILINOGEN UA (POCT) 0.2 E.U./dL Glory l E.U./dL [facility] BASIC METABOLIC PANELon 05-26 Anion gap [Moles/Vol] 14 mmol/L Normal 10 - 20 [facility] Comment on above: Performed By: #### B MP #### [address] [address] Calcium [Mass/Vol] 9.0 mg/dL Normal 8.6 - 10.3 [facility] Comment on above: Performed By: #### B MP #### [address] [address] Chloride [Moles/Vol] 107 mmol/L Normal 98 - 107 [facility] Comment on above: Performed By: #### B MP #### [address] [address] Creatinine [Mass/Vol] 0.98 mg/dL Normal 0.50 - 1.05 [facility] Comment on above: Performed By: #### B MP #### [address] [address] GFR/1.73 sq M.predicted among non-blacks MDRD (S/P/Bld) [Vol rate/Area] 64 mL/min/{1.73_m2} Normal >90 [facility] Comment on above: Result Comment: CALC ULATIONS OF ESTIMATED GFR ARE PERFORMED USING THE 2020 CKD-EPI STUDY REFIT EQUATION WITHOUT THE RACE VARIABLE FOR THE IDMS-TRACEABLE CREATININE METHODS. https://jasn.asnjournals.org/content//ASN.70061 05850 Performed By: #### B MP #### [address] [address] Glucose [Mass/Vol] 102 mg/dL High 74 - 99 [facility] Comment on above: Performed By: #### B MP #### [address] [address] HCO3 (Bld) [Moles/Vol] 23 mmol/L Normal 21 - 32 [facility] Comment on above: Performed By: #### B MP #### [address] [address] Potassium [Moles/Vol] 3.8 mmol/L Normal 3.5 - 5.3 [facility] Comment on above: Performed By: #### B MP #### [address] [address] Sodium [Moles/Vol] 140 mmol/L Normal 136 - 145 [facility] Comment on above: Performed By: #### B MP #### [address] [address] Urea nitrogen [Mass/Vol] 15 mg/dL Normal 6 - 23 [facility] Comment on above: Performed By: #### B MP #### [address] [address] CBC AND DIFFERENTIALon 06-11 % AUTOMATED IMMATURE GRAN 0.2 % Normal 0.0 - 0.9 [facility] Comment on above: Result Comment: Jessy ture Granulocyte Count (IG) includes promyelocytes, myelocytes and metamyelocytes but does not include bands. Percent differential counts (%) should be interpreted in the context of the absolute cell counts (cells/L). Performed By: #### C BCDF #### [address] [address] Basophils (Bld) [#/Vol] 0.04 10*3/uL Normal 0.00 - 0.10 [facility] Comment on above: Performed By: #### C BCDF #### [address] [address] Basophils/100 WBC (Bld) 0.7 % Normal 0.0 - 2.0 [facility] Comment on above: Performed By: #### C BCDF #### [address] [address] Eosinophils (Bld) [#/Vol] 0.10 10*3/uL Normal 0.00 - 0.70 [facility] Comment on above: Performed By: #### C BCDF #### [address] [address] Eosinophils/100 WBC (Bld) 1.7 % Normal 0.0 - 6.0 [facility] Comment on above: Performed By: #### C BCDF #### [address] [address] Erythrocyte distribution width (RBC) [Ratio] 13.0 % Normal 11.5 - 14.5 [facility] Comment on above: Performed By: #### C BCDF #### [address] [address] Hematocrit (Bld) [Volume fraction] 37.6 % Normal 36.0 - 46.0 [facility] Comment on above: Performed By: #### C BCDF #### [address] [address] Hemoglobin (Bld) [Mass/Vol] 12.3 g/dL Normal 12.0 - 16.0 [facility] Comment on above: Performed By: #### C BCDF #### [address] [address] Lymphocytes (Bld) [#/Vol] 2.13 10*3/uL Normal 1.20 - 4.80 [facility] Comment on above: Performed By: #### C BCDF #### [address] [address] Lymphocytes/100 WBC (Bld) 36.9 % Normal 13.0 - 44.0 [facility] Comment on above: Performed By: #### C BCDF #### [address] [address] MCHC (RBC) [Mass/Vol] 32.7 g/dL Normal 32.0 - 36.0 [facility] Comment on above: Performed By: #### C BCDF #### [address] [address] MCV (RBC) [Entitic vol] 89 fL Normal 80 - 100 [facility] Comment on above: Performed By: #### C BCDF #### [address] [address] Monocytes (Bld) [#/Vol] 0.42 10*3/uL Normal 0.10 - 1.00 [facility] Comment on above: Performed By: #### C BCDF #### [address] [address] Monocytes/100 WBC (Bld) 7.3 % Normal 2.0 - 10.0 [facility] Comment on above: Performed By: #### C BCDF #### [address] [address] Neutrophils (Bld) [#/Vol] 3.08 10*3/uL Normal 1.20 - 7.70 [facility] Comment on above: Result Comment: Perc ent differential counts (%) should be interpreted in the context of the absolute cell counts (cells/L). Performed By: #### C BCDF #### [address] [address] Neutrophils/100 WBC (Bld) 53.2 % Normal 40.0 - 80.0 [facility] Comment on above: Performed By: #### C BCDF #### [address] [address] Platelets (Bld) [#/Vol] 229 10*3/uL Normal 150 - 450 [facility] Comment on above: Performed By: #### C BCDF #### [address] [address] RBC 4.24 x10E12/L Normal 4.00 - 5.20 [facility] Comment on above: Performed By: #### C BCDF #### [address] [address] WBC (Bld) [#/Vol] 5.8 10*3/uL Normal 4.4 - 11.3 [facility] Comment on above: Performed By: #### C BCDF #### [address] [address] CHEST 1 VIEWon 06-11-2022 CHEST 1 VIEW Patient Name: MINDI JOSHI STUDY: CHEST 1 VIEW; 06/11/2022 5:06 am INDICATION: Chest Pain . COMPARISON: None. ACCESSION NUMBER(S): [id number] ORDERING CLINICIAN: JUDAH JAIMES FINDINGS: AP radiograph of the chest was provided. CARDIOMEDIASTINAL SILHOUETTE: Enlarged LUNGS: Nonspecific perihilar and left basilar interstitial opacities. No sizable pleural effusion or pneumothorax. ABDOMEN: No remarkable upper abdominal findings. BONES: No acute osseous changes. IMPRESSION: 1. Enlarged cardiac silhouette with possible pulmonary vascular congestion. Left basilar opacities likely atelectasis. Electronically signed by: LILIYA NOWAK DO Normal [facility] MAGNESIUMon 06-11-2022 Magnesium [Mass/Vol] 2.03 mg/dL Normal 1.60 - 2.40 [facility] Comment on above: Performed By: #### M G #### [facility] [address] [place] [address] Provider Note - ED v3on 05-26 Provider Note - ED v3 Provider Note: Chart Review: ED NOTES ED NOTES: HPI: Patient is a 67-year-old female presents with a chief complaint of chest pain/rapid heartbeat. States it lasted about 1/2-hour. She was lying in bed at the time. EMS was contacted. States it lasted about half hour but is since dissipated. When asked whether it was still going on when EMS was there during the EKG she said yes. That EKG showed a heart rate of 86 and a normal sinus rhythm without any ST changes. He is currently essentially asymptomatic. No shortness of breath or radiating symptoms. No fevers or chills. ROS: Constitution: Denies Eyes: Chucky Ears: Denies Nose: Denies Mouth/Teeth: Denies Throat/Neck: Denies Cardiovascular: Denies Respiratory: Denies Gastrointestinal: Denies Musculoskeletal: Denies Integumentary: Denies Endocrine: Denies Neuro: Denies Psychiatric: Denies Heme/Lymph: Denies Allergic/Immunologic: Denies Physical Exam I have reviewed the triage vital signs. Const: Well nourished, well developed, appears stated age, no acute distress Eyes: PERRL, EOM intact, no conjunctival injection, vision grossly normal HENT: Neck supple without meningismus , Moist mucous membranes, no pharyengeal swelling or exudate CV: Regular rate and rhythm, Warm, well-perfused extremities. Chest non tender RESP: Lungs clear bilaterally, Unlabored respiratory effort GI: soft, non-tender, non-distended, no masses : MSK: No gross deformities appreciated Back: Non tender, no pain with ROM Skin: Warm, dry. No rashes Neuro: Alert and oriented x4, GCS 15 , production estimator II-XII grossly intact. Sensation and motor function of extremities grossly intact. Psych: Appropriate mood and affect. I have reviewed and confirmed nurses/medics notes for patient past, social and family history. Portions of this note were dictated by speech recognition. An attempt at proof reading was made to minimize errors. Minor errors in video poker floorman may be present. HISTORY OF PRESENTING ILLNESS MINDI is a 67 year old Female and was seen by me at 11-Jun-2022 04:36 for a chief complaint of chest pain (pt states around 0300 she began to have some shortness of breath along with chest pain and a racing heart. She got up and started to walk around to try to relax. Laid and still felt like her heart was racing and developed what she thought was heart burn so she took her mylanta. she states that she waited 15 min for it to kick in and then call EMS per her DrRochelle triana. Also endorses back pain between the shoulder blades)(1). Triage Information: Most recent Vital Sign Value Date Temp (F): 97.8 06-11-2022 04:39 Temp (C): 36.5 06-11-2022 04:39 Heart Rate (beats/min): 75 06-11-2022 04:39 Respirations (breaths/min): 18 06-11-2022 04:39 SpO2 (%): 98 06-11-2022 04:39 BP Systolic (mm Hg): 98 06-11-2022 04:39 BP Diastolic (mm Hg): 64 06-11-2022 04:39 PAST MEDICAL HISTORY ALLERGIES/INTOLERANCES: No Known Allergies HEALTH HISTORY: No documented data. OUTPATIENT MEDICATIONS: Home Medications Review Status for Reconciliation: N/A Med Status: N/A No documented data. SIGNIFICANT EVENTS: Past Medical History Description:Anxiety Description:HTN CRITICAL CARE RESULTS: Recent Lab Results: I have reviewed these laboratory results: Troponin I, High Sensitivity Trending View [id number] 05:35:00 11-Jun-2022 04:44:00 Troponin I, High Sensitivity3 3 Complete Blood Count + Differential 11-Jun-2022 04:44:00 ResultValue White Blood Cell Count 5.8 Red Blood Cell Count 4.24 HGB 12.3 HCT 37.6 MCV 89 MCHC 32.7 PLT 229 RDW-CV 13.0 Neutrophil % 53.2 Immature Granulocytes % 0.2 Lymphocyte % 36.9 Monocyte % 7.3 Eosinophil % 1.7 Basophil % 0.7 Neutrophil Count 3.08 Lymphocyte Count 2.13 Monocyte Count 0.42 Eosinophil Count 0.10 Basophil Count 0.04 Basic Metabolic Panel 11-Jun-2022 04:44:00 ResultValue Glucose, Serum 102 H NA 140 K 3.8 CL 107 Bicarbonate, Serum 23 Anion Gap, Serum 14 BUN 15 CREAT 0.98 GFR Female 64 Calcium, Serum 9.0 Magnesium, Serum 11-Jun-2022 04:44:00 ResultValue Magnesium, Serum 2.03 Radiology Results: Impression: 1. Enlarged cardiac silhouette with possible pulmonary vascular congestion. Left basilar opacities likely atelectasis. Xray Chest 1 View [Jun 11 2022 5:16AM] VITAL SIGNS: T PRBP SpO2O2(LPM) %FiO2 Method 11-Jun-2022 04:39:[id number]/64 98 room air, no respiratory support MDM MDM/ED COURSE: Is nontoxic and well-appearing. She presented with a chief complaint of chest pain/heart racing sensation. She was placed on a monitor and IV access was established. She was administered 1 L of normal saline. And overall she is feeling much better. Laboratory studies essentially unremarkable for acute findings. Chest x-ray showed some mild cardiomegaly however (more content not included)... Normal [facility] Risk Screen - Adult Emergenc yon 06-11-2022 Risk Screen - Adult Emergency Preferred Language: Preferred Language: Preferred Language for Discussing Health Care (patient/designee)Pato perez Patient Preferred Pharmacy: Patient Preferred Pharmacy Statement: I have reviewed and updated the patient's preferred pharmacy selection for today's visit. Advanced Directives: Advance Directive/DNRno Advance Directive Information Givenpatient/family declined Family Violence Adult: Abuse Screen: Are you or have you been threatened or abused physically, emotionally, or sexually by anyoneno Learning Assessment (Patient): Learning Assessment (Patient): Patient is Able to be Assessed for Learningyes Factors Influencing Readiness to Learnfatigue Factors that Impact Ability to Learnnone Devices/Methods Used to Communicatenone Learning Preferencesverbal instruction; written material Cultural Considerationsnone Developmental Considerationsnone Baptism Considerationsnone Learning Assessment (Other Learner): Learning Assessment (Other Learner): Other learner availableno Pressure Injury/TB/Substance: Pressure Injury: Pressure Injury Present on Admissionno Do you have a coughno Smoking Statusnever smoker Alcohol Usedenies Drug Usedenies Drug 2 Usedenies Admission Risk Screen: Significant IndicatorsComplete CAGE: CAGE: Is this an injured patient at a Tra[place] Center [place] [place] no Electronic Signatures: Juliana Chin (RN) (Signed 11-Jun-2022 04:59) Authored: Preferred Language, Patient Preferred Pharmacy, Advanced Directives, Family Violence Adult, Learning Assessment (Patient), Learning Assessment (Other Learner), Pressure Injury/TB/Substance, Pressure Injury, CAGE Last Updated: 11-Jun-2022 04:59 by Juliana Chin (RN) Normal [facility] TROPONIN I, HIGH SENSITIVITY on 06-11-2022 TROPONIN I, HIGH SENSITIVITY 3 ng/L Normal 0 - 13 [facility] Comment on above: Result Comment: . Less than 99th percentile of normal range cutoff- Female and children under 18 years old <14 ng/L; Male <21 ng/L: Negative Repeat testing should be performed if clinically indicated. . Female and children under 18 years old 14-50 ng/L; Male 21-50 ng/L: Consistent with possible cardiac damage and possible increased clinical risk. Serial measurements may help to assess extent of myocardial damage. . >50 ng/L: Consistent with cardiac damage, increased clinical risk and myocardial infarction. Serial measurements may help assess extent of myocardial damage. . NOTE: Children less than 1 year old may have higher baseline troponin levels and results should be interpreted in conjunction with the overall clinical context. . NOTE: Troponin I testing is performed using a different testing methodology at [facility] than at other legacy [facility]. Direct result comparisons should only be made within the same method. Performed By: #### T [facility] #### [id number] [place] [address] TROPONIN I, HIGH SENSITIVITY 3 ng/L Normal 0 - 13 [facility] Comment on above: Result Comment: . Less than 99th percentile of normal range cutoff- Female and children under 18 years old <14 ng/L; Male <21 ng/L: Negative Repeat testing should be performed if clinically indicated. . Female and children under 18 years old 14-50 ng/L; Male 21-50 ng/L: Consistent with possible cardiac damage and possible increased clinical risk. Serial measurements may help to assess extent of myocardial damage. . >50 ng/L: Consistent with cardiac damage, increased clinical risk and myocardial infarction. Serial measurements may help assess extent of myocardial damage. . NOTE: Children less than 1 year old may have higher baseline troponin levels and results should be interpreted in conjunction with the overall clinical context. . NOTE: Troponin I testing is performed using a different testing methodology at [facility] than at other [facility]. Direct result comparisons should only be made within the same method. Performed By: #### T [facility] #### [facility] [address] [place] [address] Triage - EDon 06-11-2022 Triage - ED Chart Review: ARRIVAL INFORMATION Mode of Arrival: ambulance Agency: City Agency Name: [place] CHIEF COMPLAINT MINDI JOSHI is a Female patient with a chief complaint of chest pain (pt states around 0300 she began to have some shortness of breath along with chest pain and a racing heart. She got up and started to walk around to try to relax. Laid and still felt like her heart was racing and developed what she thought was heart burn so she took her mylanta. she states that she waited 15 min for it to kick in and then call EMS per her DrRochelle instructed. Also endorses back pain between the shoulder blades). Triage Date/Time: 11-Jun-2022 04:39 JEWEL: 2 Pain Rating (0-10): 3 = Mild Pain location: chest and back Vital Signs: Temperature: 97.8F ( 36.5C) taken temporal Blood Pressure: 98/64 Mean: Heart Rate: 75 Respiratory Rate: 18 Pulse Oximetry: 98% on room air, no respiratory support. Height: 5 feet 1.00 inches. 154.9 CM Weight: 210.3 pounds. Calculated 95.4 kg. (stated) Calculated BMI (kg/m2): 39.759 Calculated BSA (m2) 2.03 [place] Coma Scale: Best Eye Response: (E4) spontaneous Best Motor Response: (M6) obeys commands Best Verbal Response: (V5) oriented Kae Score: 15 Cough lasting greater than 3 weeks: no Allergies: no Mask applied: no Patient has homicidal thoughts: no Symptoms Are POSITIVE For: pain Symptoms Are Negative For: anxiety, chills, diaphoresis, dyspnea, headache, loss of consciousness, nausea, numbness, tingling and weakness Risk Screens Suicide Risk Screen In the Past Month: Have you wished you were or wished you could go to sleep and not wake up no In the Past Month: Have you had any actual thoughts of killing yourself no In Your Lifetime: Have you ever done anything, started to do anything, or prepared to do anything to end your life no Nicole Fall Scale Screening Has the patient fallen before (or is the patient in the ED as a result of a fall) has not had a fall Does the patient have an impaired gait does not have impaired gait Is the patient cognitively impaired not cognitively impaired Interventions: Nicole Fall Interventions: LOW INTERVENTIONS: *patient oriented to surroundings and call system, * patient/family falls education completed and documented, *patients fall status communicated during bedside handoff, *whiteboard updated, *mode of toileting discussed with patient, *bed in low position with brakes locked, *call light in reach, * non-skid footwear TRAVEL HISTORY Travel History Coronavirus Screening: no exposure or symptoms Travel Exposure History: NO travel to International locations in the past 30 days PAIN Pain Scale Used: RONN Pain Rating (0-10): 3 = Mild Past Medical History: Past Medical History Reviewedyes HTN: Past Medical History, Active Anxiety: Past Medical History, Active Electronic Signatures: Juliana Chin (RN) (Signed 11-Jun-2022 04:55) Authored: Quick Triage, Chart Review Mode Christensen (EMT-P) (Signed 11-Jun-2022 04:45) Entered: Risk Screens, Pain, Travel History, Chart Review, Scores, Past Medical History Authored: Quick Triage, Risk Screens, Pain, Travel History, Chart Review, Scores, Past Medical History Last Updated: 11-Jun-2022 04:55 by Juliana Chin (RN) [facility] Absolute lymphocyte counton 01-02-2022 Lymphocytes Auto (Unsp spec) [#/Vol] 2.11 10*3/uL 0.83-4.51 [facility] Work Phone: Basophil percentageon 2021 Basophils/100 WBC (Bld) 0.1 % 0-1 [facility] Work Phone: Chloride [Moles/Vol] 105 mmol/L 98-107 [facility] Work Phone: Eosinophils/100 WBC (Bld) 0.2 % 0-5 [facility] Work Phone: Glucose [Mass/Vol] 105 mg/dL 74-106 [facility] Work Phone: Comment on above: Fasting Glucose resu lt from 100 to 125 mg/dL suggests IMPAIRED HOMEOSTASIS per A.D.A. criteria. Neutrophils (Bld) [#/Vol] 12.7 10*3/uL 2.0-7.7 [facility] Work Phone: Neutrophils/100 WBC (Bld) 79.2 % 47-70 [facility] Work Phone: [phone] Potassium [Moles/Vol] 4.0 mmol/L 3.5-5.1 [facility] Work Phone: [phone] Sodium [Moles/Vol] 139 mmol/L 136-145 [facility] Work Phone: [phone] WBC (Bld) [#/Vol] 16.1 10*3/uL 4.4-11.0 [facility] Work Phone: [phone] Blood erythrocytes count (nu mber/volume)on 01-02-2022 RBC (Bld) [#/Vol] 4.84 10*6/uL 4.2-5.4 [facility] Work Phone: Blood hemoglobin measurement (mass/volume)on 01-02-2022 Hemoglobin (Bld) [Mass/Vol] 14.7 g/dL 12.0-15.0 [facility] Work Phone: Blood lymphocytes/100 leukoc yteson 01-02-2022 Lymphocytes/100 WBC (Bld) 13.1 % 19-41 [facility] Work Phone: [phone] Blood monocytes/100 leukocyt eson 01-02-2022 Monocytes/100 WBC (Bld) 6.5 % 0-10 [facility] Work Phone: Blood platelet mean volumeon 01-02-2022 Platelet mean volume (Bld) [Entitic vol] 9.6 fL 6.2-12.0 [facility] Work Phone: Determination of erythrocyte mean corpuscular volume (MCV)on 01-02-2022 MCV (RBC) [Entitic vol] 89.0 fL 81-99 [facility] Work Phone: [phone] Hematocrit Auto (Bld) [Volum e fraction]on 01-02-2022 Hematocrit (Bld) [Volume fraction] 43.1 % 37-47 [facility] Work Phone: [phone] Laboratory - Chemistry and C hemistry - challengeon 01-02-2022 CO2 [Moles/Vol] 26.0 mmol/L 21.0-32.0 [facility] Work Phone: [phone] Urea nitrogen/Creatinine [Mass ratio] 18.2 mg/mg 10-20 [facility] Work Phone: [phone] Laboratory - Hematology and Cell countson 01-02-2022 Erythrocyte distribution width (RBC) [Entitic vol] 44.5 fL 35.1-43.9 [facility] Work Phone: [phone] Erythrocyte distribution width (RBC) [Ratio] 13.7 % 11.6-14.6 [facility] Work Phone: [phone] Immature granulocytes/100 WBC (Bld) 0.900 % 0.0-0.9 [facility] Work Phone: [phone] Comment on above: IG% - Immature Granu locytes (promyelocytes, myelocytes and metamyelocytes) > 1% indicates that a LEFT SHIFT is Present. MCH (RBC) [Entitic mass] 30.4 pg 27.0-32.0 [facility] Work Phone: [phone] Nucleated RBC/100 WBC (Bld) [Ratio] 0 % 0-5 [facility] Work Phone: [phone] MCHC Auto (RBC) [Mass/Vol]on 01-02-2022 MCHC (RBC) [Mass/Vol] 34.1 g/dL 32-36 [facility] Work Phone: [phone] No Panel Informationon 01-02 Estimated Creatinine Clearance Calc 43.32 ml/min [facility] Work Phone: [phone] Estimated GFR (MDRD) Amer 72 mL/min >60 [facility] Work Phone: [phone] Comment on above: GFR Calc Estimated GFR (MDRD) Non-Af Amer 60 mL/min >60 [facility] Work Phone: Comment on above: Non- GFR Calc Troponin I High Sensitivity 3 pg/mL 3.0-54.0 [facility] Work Phone: Comment on above: Please Note: New Janessa t Units and Gender Specific Reference Ranges. For more information see Policy Stat Procedure [place] High Sensitivity Troponin (TNIH) and attachments. Platelets bldon 01-02-2022 Platelets (Bld) [#/Vol] 298 10*3/uL 150-450 [facility] Work Phone: Serum or plasma calcium ami urement (mass/volume)on 01-02-2022 Calcium [Mass/Vol] 9.2 mg/dL 8.5-10.1 [facility] Work Phone: Serum or plasma creatinine m easurement (mass/volume)on 01-02-2022 Creatinine [Mass/Vol] 0.99 mg/dL 0.55-1.02 [facility] Work Phone: Comment on above: The validity of the calculated GFR & GFRAA in patients over 70 years has not been determined. Clinical correlation is essential. Serum or plasma urea nitroge n measurement (mass/volume)on 01-02-2022 Urea nitrogen [Mass/Vol] 18 mg/dL 7-18 [facility] Work Phone: Thin prep Papanicolaou smear with manual screeningon 01-02-2022 Thin prep Papanicolaou smear with manual screening 8 5-15 [facility] Work Phone: Absolute lymphocyte counton 10-24-2021 Lymphocytes Auto (Unsp spec) [#/Vol] 0.49 10*3/uL 0.83-4.51 [facility] Work Phone: Basophil percentageon 2021 Basophils/100 WBC (Bld) 0.2 % 0-1 [facility] Work Phone: Chloride [Moles/Vol] 106 mmol/L 98-107 [facility] Work Phone: Eosinophils/100 WBC (Bld) 0.5 % 0-5 [facility] Work Phone: Glucose [Mass/Vol] 133 mg/dL 74-106 [facility] Work Phone: Comment on above: Fasting Glucose resu lt greater than or equal to 126 mg/dL suggests DIABETES MELLITUS per A.D.A. criteria. Neutrophils (Bld) [#/Vol] 7.1 10*3/uL 2.0-7.7 [facility] Work Phone: Neutrophils/100 WBC (Bld) 87.6 % 47-70 [facility] Work Phone: Potassium [Moles/Vol] 3.6 mmol/L 3.5-5.1 [facility] Work Phone: Sodium [Moles/Vol] 137 mmol/L 136-145 [facility] Work Phone: WBC (Bld) [#/Vol] 8.1 10*3/uL 4.4-11.0 [facility] Work Phone: Blood erythrocytes count (nu mber/volume)on 10-24-2021 RBC (Bld) [#/Vol] 4.38 10*6/uL 4.2-5.4 [facility] Work Phone: Blood hemoglobin measurement (mass/volume)on 10-24-2021 Hemoglobin (Bld) [Mass/Vol] 13.1 g/dL 12.0-15.0 [facility] Work Phone: Blood lymphocytes/100 leukoc yteson 10-24-2021 Lymphocytes/100 WBC (Bld) 6.1 % 19-41 [facility] Work Phone: Blood monocytes/100 leukocyt eson 10-24-2021 Monocytes/100 WBC (Bld) 5.2 % 0-10 [facility] Work Phone: Blood platelet mean volumeon 10-24-2021 Platelet mean volume (Bld) [Entitic vol] 10.5 fL 6.2-12.0 [facility] Work Phone: [phone] Determination of erythrocyte mean corpuscular volume (MCV)on 10-24-2021 MCV (RBC) [Entitic vol] 90.2 fL 81-99 [facility] Work Phone: [phone] Hematocrit Auto (Bld) [Volum e fraction]on 10-24-2021 Hematocrit (Bld) [Volume fraction] 39.5 % 37-47 [facility] Work Phone: [phone] Laboratory - Chemistry and C hemistry - challengeon 10-24-2021 CO2 [Moles/Vol] 23.0 mmol/L 21.0-32.0 [facility] Work Phone: [phone] Urea nitrogen/Creatinine [Mass ratio] 12.4 mg/mg 10-20 [facility] Work Phone: [phone] Laboratory - Hematology and Cell countson 10-24-2021 Erythrocyte distribution width (RBC) [Entitic vol] 42.4 fL 35.1-43.9 [facility] Work Phone: [phone] Erythrocyte distribution width (RBC) [Ratio] 12.9 % 11.6-14.6 [facility] Work Phone: [phone] Immature granulocytes/100 WBC (Bld) 0.400 % 0.0-0.9 [facility] Work Phone: [phone] Comment on above: IG% - Immature Granu locytes (promyelocytes, myelocytes and metamyelocytes) > 1% indicates that a LEFT SHIFT is Present. MCH (RBC) [Entitic mass] 29.9 pg 27.0-32.0 [facility] Work Phone: [phone] Nucleated RBC/100 WBC (Bld) [Ratio] 0 % 0-5 [facility] Work Phone: [phone] MCHC Auto (RBC) [Mass/Vol]on 10-24-2021 MCHC (RBC) [Mass/Vol] 33.2 g/dL 32-36 [facility] Work Phone: [phone] No Panel Informationon 10-24 Troponin I High Sensitivity < 3 pg/mL 3.0-54.0 [facility] Work Phone: Comment on above: Please Note: New Janessa t Units and Gender Specific Reference Ranges. For more information see Policy Stat Procedure [place] High Sensitivity Troponin (TNIH) and attachments. D-Dimer Quantitative (PE/DVT) 1.01 FEU/ug/m 0.27-0.49 [facility] Work Phone: Comment on above: D-Dimer ELEVATED (>0 .49): Additional studies and clinicalassessments are indicated to conclude diagnosis of:Deep Vein Thrombosis (DVT) or Pulmonary Embolism (PE)CRITICAL VALUE VERIFIED. [facility] DR JONES10/24/21 [facility] READ BACK BY SAME . Estimated Creatinine Clearance Calc 40.84 ml/min [facility] Work Phone: Estimated GFR (MDRD) Amer 68 mL/min >60 [facility] Work Phone: Comment on above: GFR Calc Estimated GFR (MDRD) Non-Af Amer 56 mL/min >60 [facility] Work Phone: Comment on above: Non- GFR Calc Platelets bldon 10-24-2021 Platelets (Bld) [#/Vol] 253 10*3/uL 150-450 [facility] Work Phone: Serum or plasma calcium ami urement (mass/volume)on 10-24-2021 Calcium [Mass/Vol] 9.0 mg/dL 8.5-10.1 oste r [facility] Work Phone: Serum or plasma creatinine m easurement (mass/volume)on 10-24-2021 Creatinine [Mass/Vol] 1.05 mg/dL 0.55-1.02 [facility] Work Phone: Comment on above: The validity of the calculated GFR & GFRAA in patients over 70 years has not been determined. Clinical correlation is essential. Serum or plasma urea nitroge n measurement (mass/volume)on 10-24-2021 Urea nitrogen [Mass/Vol] 13 mg/dL 7-18 [facility] Work Phone: [phone] Thin prep Papanicolaou smear with manual screeningon 10-24-2021 Thin prep Papanicolaou smear with manual screening 8 5-15 [facility] Work Phone: XR Humerus - left AP and Lat eralon 07-17-2021 IMPRESSION: No radiographic evidence of acute osseous abnormality Job Coach: PRAVEEN Transcribe Date/Time: Jul 17 2021 10:04A Dictated by : NEHEMIAS BARRON MD This examination was interpreted and the report reviewed and electronically signed by: NEHEMIAS BARRON MD on Jul 17 2021 10:05AM EST DIVISION OF RADIOLOGY * * *Final Report* * * DATE OF EXAM: Jul 17 2021 10:02AM WOX [id number] - XR HUMERUS 2V AP/LAT LT / PROCEDURE REASON: Arm injury, left, initial encounter * * * * Physician Interpretation * * * * CLINICAL INDICATION: Arm pain TECHNIQUE: AP and lateral radiographs of the left humerus COMPARISON: None FINDINGS: No acute fracture or dislocation identified. DIVISION OF RADIOLOGY Provider, Mike Jones [facility] - 07/17/2021 * * *Final Report* * * DATE OF EXAM: Jul 17 2021 10:02AM WOX 5354 - XR HUMERUS 2V AP/LAT LT / PROCEDURE REASON: Arm injury, left, initial encounter * * * * Physician Interpretation * * * * CLINICAL INDICATION: Arm pain TECHNIQUE: AP and lateral radiographs of the left humerus COMPARISON: None FINDINGS: No acute fracture or dislocation identified. IMPRESSION IMPRESSION: No radiographic evidence of acute osseous abnormality Job Coach: [facility] Transcribe Date/Time: Jul 17 2021 10:04A Dictated by : NEHEMIAS BARRON MD This examination was interpreted and the report reviewed and electronically signed by: NEHEMIAS BARRON MD on Jul 17 2021 10:05AM EST [facility] Radiology Study observation (narrative) [facility] XR Humerus - left AP and Lat eralOrdered By: [facility] Provider on 07-17-2021 [facility] Auto Diffon 11-14-2018 Basophils #/vol (Bld) 0.1 E3/mcL Normal 0.0-0.2 [facility] Comment on above: Order Comment: Order Added by Discern Expert. Performed By: #### 2 [id number] #### YOVANNY RemHemo [address] [place] [address] Basophils/100 WBC (Bld) 0.9 % Normal 0.0-2.0 [facility] Comment on above: Order Comment: Order Added by Discern Expert. Performed By: #### 2 [id number] #### YOVANNY RemHemo [address] [place] [address] Eos Absolute 0.1 E3/mcL Normal 0.0-0.7 [facility] Comment on above: Order Comment: Order Added by Discern Expert. Performed By: #### 2 [id number] #### YOVANNY RemHemo [address] [place] [address] Eosinophils/100 WBC (Bld) 1.9 % Normal 0.0-11.0 [facility] Comment on above: Order Comment: Order Added by Discern Expert. Performed By: #### 2 [id number] #### YOVANNY RemHemo [address] [place] [address] Lymphocytes #/vol (Bld) 1.8 E3/mcL Normal 1.2-3.4 [facility] Comment on above: Order Comment: Order Added by Discern Expert. Performed By: #### 2 [id number] #### YOVANNY RemHemo [address] [place] [address] Lymphocytes/100 WBC (Bld) 26.6 % Normal 20.0-55.0 [facility] Comment on above: Order Comment: Order Added by Discern Expert. Performed By: #### 2 [id number] #### YOVANNY RemHemo [address] [place] [address] Cedar Absolute 0.6 E3/mcL Normal 0.0-0.7 [facility] Comment on above: Order Comment: Order Added by Discern Expert. Performed By: #### 2 [id number] #### YOVANNY RemHemo [address] [place] [address] Monocytes/100 WBC (Bld) 8.9 % Normal 0.0-10.0 [facility] Comment on above: Order Comment: Order Added by Discern Expert. Performed By: #### 2 [id number] #### YOVANNY RemHemo [address] [place] [address] Neutro Absolute 4.2 E3/mcL Normal 1.4-6.5 [facility] Comment on above: Order Comment: Order Added by Discern Expert. Performed By: #### 2 [id number] #### YOVANNY WellsHemo [address] [place] [address] Neutro Auto 61.7 % Normal 37.0-75.0 [facility] Comment on above: Order Comment: Order Added by Discern Expert. Performed By: #### 2 [id number] #### YOVANNY WellsHemo [address] [place], [place] [id number] CBC w/ Auto Diffon 9 Erythrocyte distribution width Ratio (RBC) 14.1 % Normal 11.5-14.5 [facility] Comment on above: Performed By: #### 2 [id number] #### YOVANNY WellsHemo [facility] [place] [address] Hematocrit Volume Fraction (Bld) 37.7 % Normal 36.0-48.0 [facility] Comment on above: Performed By: #### 2 [id number] #### YOVANNY WellsHemo [address] [place] [address] Hemoglobin mass conc (Bld) 12.4 g/dL Normal 12.0-16.0 [facility] Comment on above: Performed By: #### 2 [id number] #### YOVANNY WellsHemo [address] [place], [place] [id number] MCH Entitic mass (RBC) 29.2 pg Normal 27.0-31.0 [facility] Comment on above: Performed By: #### 2 [id number] #### YOVANNY WellsHemo [address] [place] [id number] MCHC mass conc (RBC) 32.9 g/dL Low 33.0-37.[address] [facility] Comment on above: Performed By: #### 2 [id number] #### YOVANNY WellsHemo [address] [place] [address] MCV Entitic volume (RBC) 88.9 fL Normal 78.0-100.0 [facility] Comment on above: Performed By: #### 2 [id number] #### YOVANNY WellsHemo [address] [place] [id number] Platelet mean volume Entitic volume (Bld) 8.6 fL Normal 7.4-11.0 [facility] Comment on above: Performed By: #### 2 [id number] #### YOVANNY WellsHemo [address] [place] [address] Platelets #/vol (Bld) 229 E3/mcL Normal 130-400 [facility] Comment on above: Performed By: #### 2 [id number] #### YOVANNY WellsHemo [address] [place] [id number] RBC #/vol (Bld) 4.24 E6/mcL Normal 3.90-5.40 [facility] Comment on above: Performed By: #### 2 [id number] #### YOVANNY WellsHemo [address] [place] [id number] WBC #/vol (Bld) 6.8 E3/mcL Normal 3.6-11.0 [facility] Comment on above: Performed By: #### 2 [id number] #### YOVANNY WellsHemo [address] [place] [address] CMPon 11-14-2018 Albumin mass conc 3.8 g/dL Normal 3.4-5.0 [facility] Comment on above: Performed By: #### 2 [id number] #### YOVANNYPoonam Burrows [address] [place], [place] [address] Albumin/Globulin mass ratio 1.7 {ratio} Normal 1.1-1.9 [facility] Comment on above: Performed By: #### 2 [id number] #### YOVANNY [employer] [facility] [place] [id number] Alk Phos 87 Int._Unit/L Normal 33-136 [facility] Comment on above: Performed By: #### 2 [id number] #### YOVANNY [employer] [address] [place] [address] ALT enzyme act/vol 13 Int._Unit/L Normal 7-45 [facility] Comment on above: Performed By: #### 2 [id number] #### YOVANNY [employer] [address] [place] [id number] Anion gap molar conc 12 mmol/L Normal 10-[address] [facility] Comment on above: Performed By: #### 2 [id number] #### YOVANNY [employer] [address] [place] [address] AST enzyme act/vol 13 Int._Unit/L Normal 9-39 [facility] Comment on above: Performed By: #### 2 [id number] #### YOVANNY [employer] [address] [place] [address] Bili Total 0.21 mg/dL Normal 0.00-1.20 [facility] Comment on above: Performed By: #### 2 [id number] #### YOVANNY [employer] [address] [place] [address] Calcium mass conc 8.6 mg/dL Normal 8.6-10.3 [facility] Comment on above: Performed By: #### 2 [id number] #### YOVANNY [employer] [address] [place] [address] Chloride molar conc 108 mmol/L High 98-107 [facility] Comment on above: Performed By: #### 2 727644 #### YOVANNY [employer] [address] [place] [address] CO2 molar conc 23.0 mmol/L Normal 21.0-32.0 [facility] Comment on above: Performed By: #### 2 [id number] #### YOVANNY [employer] [address] [place] [address] Creatinine mass conc 0.9 mg/dL Normal 0.5-1.[address] [facility] Comment on above: Performed By: #### 2 [id number] #### YOVANNY [employer] [address] [place] [address] Globulin mass conc (S) 2.0 g/dL Normal 2.0-4.0 [facility] Comment on above: Performed By: #### 2 [id number] #### YOVANNYPoonam [employer] [address] [place] [address] Glucose mass conc 108 mg/dL High 70-99 [facility] Comment on above: Performed By: #### 2 609122 #### YOVANNYPoonam [employer] [address] [place] [address] Potassium molar conc 3.6 mmol/L Normal 3.5-5.[address] [facility] Comment on above: Performed By: #### 2 [id number] #### YOVANNY [employer] [address] [place] [address] Protein mass conc 6.1 g/dL Low 6.4-8.2 [facility] Comment on above: Performed By: #### 2 979392 #### YOVANNY [employer] [facility] [place] [address] Sodium molar conc 140 mmol/L Normal 136-145 [facility] Comment on above: Performed By: #### 2 773561 #### YOVANNY [employer] [address] [place] [address] Urea nitrogen mass conc 16 mg/dL Normal 6-23 [facility] Comment on above: Performed By: #### 2 [id number] #### YOVANNY [address] [place] [address] Urea nitrogen/Creatinine mass ratio 17.8 ratio Normal 5.4-30.0 [facility] Comment on above: Performed By: #### 2 [id number] #### YOVANNY [address] [address] Troponin-Ion 11-14-2018 Troponin I.cardiac mass conc 0.01 ng/mL Normal 0.00-0.03 [facility] Comment on above: Performed By: #### 2 [id number] #### YOVANNY [employer] [address] [place] [address] Troponin I.cardiac mass conc 0.01 ng/mL Normal 0.00-0.03 [facility] Comment on above: Performed By: #### 2 [id number] #### YOVANNY [address] [address] XR Chest 2 Viewson 9 XR Chest 2 Views Exam Date/Time: 11/14/2018 03:19 EDT Reason for Exam: COPD Report STUDY: XR Chest 2 Views; 11/14/2018 3:19 am INDICATION: COPD. COMPARISON: None. ACCESSION NUMBER(S): [id number] ORDERING CLINICIAN: Jose Tam FINDINGS: The cardiac silhouette is normal in size. No focal airspace consolidation or pleural effusion. No pneumothorax. Multilevel degenerative change of the thoracic spine. IMPRESSION: No airspace consolidation or pleural effusion. FINAL REPORT Dictated: 11/14/2018 4:02 am Carlos Riddle MD Signed (Electronic Signature): 11/14/2018 4:02 am Signed by: Carlos Riddle MD Technologist: [facility] eGFRon 11-14-2018 GFR/1.73 sq M predicted among non-blacks MDRD vol rate/area (S/P/Bld) mL/min/{1.73_m2} [facility] Comment on above: Order Comment: Order added by Discern Expert. Performed By: #### 1 [id number] #### YOVANNY [employer] [address] [place] [id number] Vital Signs Date Time Vital Sign Value Performing Clinician Facility 09-29-2024 10:28-0400 Body mass index (BMI) [Ratio] 39.34 kg/m2 Scot Griffin DO Work Phone: [facility] 09-29-2024 10:28-0400 Body temperature 97 [degF] Scot Griffin DO Work Phone: [facility] 09-29-2024 10:28-0400 Body weight 92.08 kg Scot Griffin DO Work Phone: [facility] 09-29-2024 10:28-0400 Diastolic blood pressure 70 mm[Hg] Scot Griffin DO Work Phone: [facility] 09-29-2024 10:28-0400 Heart rate 80 /min Scot Griffin DO Work Phone: [facility] 09-29-2024 10:28-0400 Respiratory rate 16 /min Scot Griffin DO Work Phone: [facility] 09-29-2024 10:28-0400 Systolic blood pressure 116 mm[Hg] Scot Griffin DO Work Phone: [facility] 01-14-2024 09:01-0400 Body mass index (BMI) [Ratio] 37.79 kg/m2 Scot Griffin DO Work Phone: [facility] 01-14-2024 09:01-0400 Body temperature 97 [degF] Scot Griffin DO Work Phone: [facility] 01-14-2024 09:01-0400 Body weight 88.45 kg Scot Griffin DO Work Phone: [facility] 01-14-2024 09:01-0400 Diastolic blood pressure 60 mm[Hg] Scot Griffin DO Work Phone: [facility] 01-14-2024 09:01-0400 Heart rate 80 /min Scot Griffin DO Work Phone: [facility] 01-14-2024 09:01-0400 Respiratory rate 20 /min Scot Griffin DO Work Phone: [facility] 01-14-2024 09:01-0400 Systolic blood pressure 110 mm[Hg] Scot Griffin DO Work Phone: [facility] 09-22-2023 14:47-0400 Body mass index (BMI) [Ratio] 40.84 kg/m2 Becca Martinez APRN.[employer] MACHINE FEEDER Work Phone: [facility] 09-22-2023 14:47-0400 Body temperature 97.5 [degF] Becca Martinez APRN.[employer]ING MACHINE FEEDER Work Phone: [facility] 09-22-2023 14:47-0400 Body weight 95.6 kg Becca Martinez APRN.[employer]ING MACHINE FEEDER Work Phone: [facility] 09-22-2023 14:47-0400 Diastolic blood pressure 82 mm[Hg] Becca Martinez APRN.[employer]ING MACHINE FEEDER Work Phone: [facility] 09-22-2023 14:47-0400 Heart rate 117 /min Becca Martinez APRN.[employer]ING MACHINE FEEDER Work Phone: [facility] 09-22-2023 14:47-0400 Respiratory rate 20 /min Becca Martinez APRN.[employer]ING MACHINE FEEDER Work Phone: [facility] 09-22-2023 14:47-0400 SaO2% (BldA) [Mass fraction] 97 % Becca Martinez APRN.[employer] MACHINE FEEDER Work Phone: [facility] 09-22-2023 14:47-0400 Systolic blood pressure 158 mm[Hg] Becca Martinez CUSTOMER EXPERIENCE RETAIL CLERK.[employer] MACHINE FEEDER Work Phone: [facility] 09-12-2023 07:45-0400 Body height 153 cm Scot Griffin DO Work Phone: [facility] 09-12-2023 07:45-0400 Body temperature 97.2 [degF] Scot Griffin DO Work Phone: [facility] 09-12-2023 07:45-0400 Body weight 92.99 kg Scot Griffin DO Work Phone: [facility] 09-12-2023 07:45-0400 Diastolic blood pressure 82 mm[Hg] Scot Griffni DO Work Phone: [facility] 09-12-2023 07:45-0400 Heart rate 80 /min Scot Griffin DO Work Phone: [facility] 09-12-2023 07:45-0400 Respiratory rate 20 /min Scot Griffin DO Work Phone: [facility] 09-12-2023 07:45-0400 Systolic blood pressure 130 mm[Hg] Scot Griffin DO Work Phone: [facility] 04-29-2023 08:59-0500 Body temperature 99.39 [degF] Tala Podlogar CUSTOMER EXPERIENCE RETAIL CLERK.[employer] MACHINE FEEDER Work Phone: [facility] 04-29-2023 08:59-0500 Body weight 90.9 kg Tala Podlogar CUSTOMER EXPERIENCE RETAIL CLERK.[employer] MACHINE FEEDER Work Phone: [facility] 04-29-2023 08:59-0500 Diastolic blood pressure 78 mm[Hg] Tala Podlogar CUSTOMER EXPERIENCE RETAIL CLERK.[employer]ING MACHINE FEEDER Work Phone: [facility] 04-29-2023 08:59-0500 Heart rate 92 /min Tala Podlogar CUSTOMER EXPERIENCE RETAIL CLERK.[employer]ING MACHINE FEEDER Work Phone: [facility] 04-29-2023 08:59-0500 Respiratory rate 20 /min Tala Podlogar CUSTOMER EXPERIENCE RETAIL CLERK.[employer] MACHINE FEEDER Work Phone: [facility] 04-29-2023 08:59-0500 SaO2% (BldA) [Mass fraction] 97 % Tala Sanchez CUSTOMER EXPERIENCE RETAIL CLERK.[employer]ING MACHINE FEEDER Work Phone: [facility] 04-29-2023 08:59-0500 Systolic blood pressure 122 mm[Hg] Tala Sanchez CUSTOMER EXPERIENCE RETAIL CLERK.[employer]ING MACHINE FEEDER Work Phone: [facility] 04-22-2023 18:22-0500 Diastolic blood pressure 74 mm[Hg] [facility] 04-22-2023 18:22-0500 Heart rate 72 /min [facility] 04-22-2023 18:22-0500 Respiratory rate 16 /min [facility] 04-22-2023 18:22-0500 SaO2% (BldA) [Mass fraction] 98 % [facility] 04-22-2023 18:22-0500 Systolic blood pressure 129 mm[Hg] [facility] 04-22-2023 14:41-0500 Body height 154.94 cm [facility] 04-22-2023 14:41-0500 Body mass index (BMI) [Ratio] 39.4 kg/m2 [facility] 04-22-2023 14:41-0500 Body temperature 97.3 [degF] [facility] 04-22-2023 14:41-0500 Body weight 94.8 kg [facility] 11-19-2022 15:40-0400 Body temperature 96.69 [degF] Scot Griffin DO Work Phone: [facility] 11-19-2022 15:40-0400 Body weight 88.45 kg Scot Griffin DO Work Phone: [facility] 11-19-2022 15:40-0400 Diastolic blood pressure 70 mm[Hg] Scot Griffin DO Work Phone: [facility] 11-19-2022 15:40-0400 Heart rate 64 /min Scot Griffin DO Work Phone: [facility] 11-19-2022 15:40-0400 Respiratory rate 20 /min Scot Griffin DO Work Phone: [facility] 11-19-2022 15:40-0400 Systolic blood pressure 120 mm[Hg] Scot Griffin DO Work Phone: [facility] 08-12-2022 10:53-0400 Body height 153 cm Scot Griffin DO Work Phone: [facility] 08-12-2022 10:53-0400 Body temperature 98.1 [degF] Scot Griffin DO Work Phone: [facility] 08-12-2022 10:53-0400 Body weight 90.27 kg Scot Griffin DO Work Phone: [facility] 08-12-2022 10:53-0400 Diastolic blood pressure 80 mm[Hg] Scot Griffin DO Work Phone: [facility] 08-12-2022 10:53-0400 Heart rate 76 /min Scot Griffin DO Work Phone: [facility] 08-12-2022 10:53-0400 Respiratory rate 20 /min Scot Griffin DO Work Phone: [facility] 08-12-2022 10:53-0400 Systolic blood pressure 118 mm[Hg] Scot Griffin DO Work Phone: [facility] 08-01-2022 16:51-0500 Body temperature 99.19 [degF] Tsering Cain APRN.CRAYON SORTING MACHINE FEEDER Work Phone: [facility] 08-01-2022 16:51-0500 Body weight 87.09 kg Tsering Cain APRN.CRAYON SORTING MACHINE FEEDER Work Phone: [facility] 08-01-2022 16:51-0500 Diastolic blood pressure 70 mm[Hg] Tsering Cain APRN.CRAYON SORTING MACHINE FEEDER Work Phone: [facility] 08-01-2022 16:51-0500 Heart rate 80 /min Tsering Cain APRN.CRAYON SORTING MACHINE FEEDER Work Phone: [facility] 08-01-2022 16:51-0500 Respiratory rate 16 /min Tsering Cain APRN.CRAYON SORTING MACHINE FEEDER Work Phone: [facility] 08-01-2022 16:51-0500 Systolic blood pressure 124 mm[Hg] Tsering Cain APRN.CRAYON SORTING MACHINE FEEDER Work Phone: [facility] 06-11-2022 06:50-0500 Diastolic blood pressure 78 mm[Hg] Scot Griffin Other Phone: [facility] 06-11-2022 06:50-0500 Heart rate 73 /min Scot Griffin Other Phone: [facility] 06-11-2022 06:50-0500 Respiratory rate 16 /min Scot Griffin Other Phone: [facility] 06-11-2022 06:50-0500 SaO2% (BldA) [Mass fraction] 96 % Scot Griffin Other Phone: [facility] 06-11-2022 06:50-0500 Systolic blood pressure 116 mm[Hg] Scot Griffin Other Phone: [facility] 06-11-2022 06:39-0500 Body height 154.9 cm Scot Griffin Other Phone: [facility] 06-11-2022 06:39-0500 Body temperature 97.7 [degF] Scot Griffin Other Phone: [facility] 06-11-2022 06:39-0500 Body weight 95.4 kg Scot Griffin Other Phone: [facility] 02-25-2022 14:24-0400 Body height 153 cm Scot Griffin DO Work Phone: [facility] 02-25-2022 14:24-0400 Body temperature 98.01 [degF] Scot Griffin DO Work Phone: [facility] 02-25-2022 14:24-0400 Body weight 93.89 kg Scot Griffin DO Work Phone: [facility] 02-25-2022 14:24-0400 Diastolic blood pressure 80 mm[Hg] Scot Griffin DO Work Phone: [facility] 02-25-2022 14:24-0400 Heart rate 76 /min Scot Griffin DO Work Phone: [facility] 02-25-2022 14:24-0400 Respiratory rate 16 /min Scot Griffin DO Work Phone: [facility] 02-25-2022 14:24-0400 Systolic blood pressure 120 mm[Hg] Scot Griffin DO Work Phone: [facility] 01-02-2022 14:54-0400 Diastolic blood pressure 82 mm[Hg] [facility] Work Phone: 01-02-2022 14:54-0400 Heart rate 59 /min [facility] Work Phone: 01-02-2022 14:54-0400 Respiratory rate 12 /min [facility] Work Phone: 01-02-2022 14:54-0400 SaO2% (BldA) [Mass fraction] 96 % [facility] Work Phone: 01-02-2022 14:54-0400 Systolic blood pressure 132 mm[Hg] [facility] Work Phone: 01-02-2022 13:15-0400 Body height 154.94 cm [facility] Work Phone: 01-02-2022 13:15-0400 Body mass index (BMI) [Ratio] 38 kg/m2 [facility] Work Phone: 01-02-2022 13:15-0400 Body temperature 97.3 [degF] [facility] Work Phone: 01-02-2022 13:15-0400 Body weight 91.4 kg [facility] Work Phone: 12-24-2021 13:00-0400 Body weight 92.9 kg Kimberly Zurawick CUSTOMER EXPERIENCE RETAIL CLERK.CRAYON SORTING MACHINE FEEDER Work Phone: [facility] 12-24-2021 13:00-0400 Diastolic blood pressure 60 mm[Hg] Kimberly Zurawick CUSTOMER EXPERIENCE RETAIL CLERK.CRAYON SORTING MACHINE FEEDER Work Phone: [facility] 12-24-2021 13:00-0400 Heart rate 82 /min Kimberly Zurawick CUSTOMER EXPERIENCE RETAIL CLERK.CRAYON SORTING MACHINE FEEDER Work Phone: [facility] 12-24-2021 13:00-0400 Respiratory rate 16 /min Kimberly Zurawick CUSTOMER EXPERIENCE RETAIL CLERK.CRAYON SORTING MACHINE FEEDER Work Phone: [facility] 12-24-2021 13:00-0400 SaO2% (BldA) [Mass fraction] 97 % Kimberly Zurawick CUSTOMER EXPERIENCE RETAIL CLERK.CRAYON SORTING MACHINE FEEDER Work Phone: [facility] 12-24-2021 13:00-0400 Systolic blood pressure 118 mm[Hg] Kimberly Zurawick CUSTOMER EXPERIENCE RETAIL CLERK.CRAYON SORTING MACHINE FEEDER Work Phone: [facility] 10-24-2021 17:39-0400 Diastolic blood pressure 68 mm[Hg] [facility] Work Phone: 10-24-2021 17:39-0400 Heart rate 90 /min [facility] Work Phone: 10-24-2021 17:39-0400 Respiratory rate 11 /min [facility] Work Phone: 10-24-2021 17:39-0400 SaO2% (BldA) [Mass fraction] 97 % [facility] Work Phone: 10-24-2021 17:39-0400 Systolic blood pressure 112 mm[Hg] [facility] Work Phone: 10-24-2021 16:00-0400 Inhaled oxygen flow rate 2 L/min [facility] Work Phone: 10-24-2021 13:11-0400 Body height 154.94 cm [facility] Work Phone: 10-24-2021 13:11-0400 Body mass index (BMI) [Ratio] 37.5 kg/m2 [facility] Work Phone: 10-24-2021 13:11-0400 Body temperature 97 [degF] [facility] Work Phone: [id number] Body weight 90.26 kg [facility] Work Phone: Encounters Encounter Date Encounter Type Care Provider Facility Start: 10-05-2024 End: 10-05-2024 Transcribe Orders Yvrose Bosch MA [facility] Comment on above: Tinnitus, bilateral (Primary Dx) Start: 10-05-2024 ambulatory SCOT HARDINON [facility] Start: 09-29-2024 End: 09-29-2024 Patient encounter procedure Scot Burrell Griffin DO Work Phone: [facility] [place] Comment on above: IFG (impaired fastin g glucose) (Primary Dx); Need for tetanus booster; Hypothyroidism, acquired; Essential hypertension; Dyslipidemia; Tinnitus, bilateral; Primary osteoarthritis of both knees Start: 09-29-2024 End: 09-29-2024 ambulatory SCOT L GRIFFIN Facility:[facility] Start: 09-27-2024 End: 09-27-2024 Emergency department patient visit Kera Ceja Facility:[facility] Start: 09-27-2024 End: 09-27-2024 ambulatory Scot Burrell Griffin DO Work Phone: [facility] [place] Comment on above: chest injury Start: 05-07-2024 End: 05-07-2024 Emergency department patient visit Scot Griffin Facility:[facility] Start: 05-05-2024 End: 05-05-2024 ambulatory SCOT L GRIFFIN Facility:[facility] Start: 04-06-2024 End: 04-06-2024 ambulatory SCOT L GRIFFIN Facility:[facility] Start: 04-06-2024 End: 04-06-2024 Subsequent hospital visit by physician Screen Mammo [facility] Comment on above: Encounter for screen ing mammogram for malignant neoplasm of breast [Z12.31] Start: 04-01-2024 End: 04-01-2024 Refill Scot Griffin DO Work Phone: [facility] [place] Comment on above: Refill Request Start: 02-23-2024 End: 02-24-2024 Refill Scot Griffin DO Work Phone: [facility] [place] Comment on above: Refill Request; Medi cation Problem (Has 1 Synthroid left.) Start: 02-10-2024 End: 02-17-2024 Telephone encounter José Miguel Godinez PA-C Work Phone: [facility] [place] Comment on above: Results Start: 01-14-2024 End: 01-14-2024 ambulatory SCOT HARDINON Facility:[facility] Start: 01-14-2024 End: 01-14-2024 Patient encounter procedure Scot Griffin DO Work Phone: [facility] [place] Comment on above: Hypothyroidism, acqu ired (Primary Dx); Encounter for screening mammogram for malignant neoplasm of breast; Class 2 obesity with body mass index (BMI) of 39.0 to 39.9 in adult, unspecified obesity type, unspecified whether serious comorbidity present; Essential hypertension; Dyslipidemia Start: 12-29-2023 Telephone encounter Scot Burrell Julio nicciammon DO Work Phone: [address] [place] [address] Comment on above: Results Start: 12-18-2023 ambulatory Yasmeen Ko [facility] Start: 12-18-2023 Patient encounter procedure Yasmeen Ko MA [facility] Comment on above: Population Health Na vigation Outreach ([place] AWV/HCC and care gaps ) Start: 12-02-2023 Refill Scot glynn DO Work Phone: [facility] [place] Comment on above: Refill Request Start: 09-23-2023 Telephone encounter José Miguel Godinez PA-C Work Phone: [facility] Start: 09-22-2023 End: 09-22-2023 Patient encounter procedure Becca Martinez APRN.CRAYON SORTING MACHINE FEEDER Work Phone: [facility] Comment on above: Yeast infection of t he skin (Primary Dx); Contact dermatitis due to plants, except food, unspecified contact dermatitis type Start: 09-12-2023 End: 09-12-2023 Patient encounter procedure Scot Griffin DO Work Phone: [facility] [place] Comment on above: Hypothyroidism, acqu ired (Primary Dx); Special screening for malignant neoplasms, colon; Tinnitus, bilateral; Class 2 obesity with body mass index (BMI) of 39.0 to 39.9 in adult, unspecified obesity type, unspecified whether serious comorbidity present; Weight gain; Essential hypertension; Diarrhea, unspecified type; Dyslipidemia; Anxiety; Hyperglycemia; Screening for malignant neoplasm of the rectum; Screening for colon cancer Start: 09-02-2023 ambulatory Suze Perry [facility] [place] Comment on above: Population Health Na vigation Outreach (Med adherence ) Start: 06-30-2023 Telephone encounter Scot zuñiga DO Work Phone: [facility] [place] Comment on above: Lab Orders Start: 04-29-2023 End: 04-29-2023 Patient encounter procedure Tala Sanchez APRN.CRAYON SORTING MACHINE FEEDER Work Phone: [facility] [place] Comment on above: Diarrhea, unspecifie d type (Primary Dx); Right upper quadrant pain Start: 04-22-2023 End: 04-22-2023 Emergency department patient visit [facility] Work Phone: Start: 03-10-2023 Documentation procedure Mammog wanda Coordinator [facility] Start: 03-10-2023 Letter encounter Mammography Coordinator [facility] Department Start: 03-10-2023 End: 03-10-2023 Subsequent hospital visit by physician Screen Mammo [facility] Comment on above: Encounter for screen ing mammogram for breast cancer [Z12.31] Start: 03-08-2023 End: 03-08-2023 ambulatory [facility] [place] Work Phone: [facility] [place] Start: 03-06-2023 Refill Scot glynn DO Work Phone: [facility] [place] Comment on above: Refill Request Start: 11-19-2022 End: 11-19-2022 Patient encounter procedure Scot Griffin DO Work Phone: [facility] Comment on above: Acute pain of right shoulder (Primary Dx); Injury of right shoulder, subsequent encounter; Decreased right shoulder range of motion Start: 10-08-2022 End: 10-08-2022 Emergency department patient visit XAVI RIVERA [facility] Start: 08-12-2022 End: 08-12-2022 Patient encounter procedure Scot Griffin DO Work Phone: [facility] [place] Comment on above: Hypothyroidism, acqu ired (Primary Dx); Essential hypertension; Dyslipidemia; Anxiety; Obesity, Class II, BMI 35-39.9 Start: 08-05-2022 Telephone encounter Tsering floyd CUSTOMER EXPERIENCE RETAIL CLERK.CRAYON SORTING MACHINE FEEDER Work Phone: [facility] Comment on above: Results Start: 08-01-2022 End: 08-01-2022 Patient encounter procedure Tsering Cain CUSTOMER EXPERIENCE RETAIL CLERK.CRAYON SORTING MACHINE FEEDER Work Phone: [facility] Comment on above: Yeast infection of t he skin (Primary Dx); Urinary frequency; Recurrent UTI (urinary tract infection) Start: 06-14-2022 Telephone encounter Suze Dunbar son PT Work Phone: [facility] Comment on above: Patient Update; Appo intment Start: 06-11-2022 End: 06-11-2022 Emergency department patient visit Judah Jaimes [facility] Emergency 02 Start: 06-05-2022 Telephone encounter Scot zuñiga DO Work Phone: [facility] Start: 02-25-2022 End: 02-25-2022 Patient encounter procedure Scot Griffin DO Work Phone: [facility] Comment on above: Well adult exam (Kavita bruno Dx); Hypothyroidism, acquired; Essential hypertension; Anxiety Start: 02-25-2022 End: 02-25-2022 Patient encounter status Scot Griffin DO Work Phone: [facility] Start: 01-02-2022 End: 01-02-2022 [facility] Start: 12-24-2021 End: 12-24-2021 Patient encounter procedure Kimberly Birmingham CUSTOMER EXPERIENCE RETAIL CLERK.CRAYON SORTING MACHINE FEEDER Work Phone: [facility] Comment on above: Dermatitis due to pl ants, including poison shira, sumac, and oak (Primary Dx) Start: 12-17-2021 Refill Scot glynn DO Work Phone: [facility] Comment on above: Refill Request Start: 10-31-2021 ambulatory Scot glynn DO Work Phone: Internal [facility] Start: 10-24-2021 End: 10-24-2021 Emergency department patient visit [facility] Start: 07-17-2021 End: 07-17-2021 Subsequent hospital visit by physician [facility] Work Phone: Radiology Comment on above: Arm injury, left, in itial encounter [S49.92XA] Start: 06-23-2019 Patient encounter status Myranda jose Griffin DO Work Phone: [facility] Work Phone: Procedures Date Procedure Procedure Detail Performing Clinician Start: 04-06-2024 Screening mammograph y bi 2-view breast inc cad Scot Griffin DO Work Phone: Start: 09-12-2023 Adult depression scr eening assessment Yasmeen Ko MA Start: 09-12-2023 Lipid 1996 panel - S vadim or Plasma Becca Martinez APRN.CRAYON SORTING MACHINE FEEDER Work Phone: Start: 04-29-2023 Lipid 1996 panel - S vadim or Plasma Scot Griffin DO Work Phone: Start: 04-22-2023 Plain chest X-ray Start: 03-10-2023 Screening mammograph y bi 2-view breast inc cad Bulk Order Provider Start: 03-08-2023 INFLUENZA VACCINE, P RSV FREE, AGE 65+ YR, HIGH DOSE, QUADRIVALENT (FLUZONE HIGH-DOSE) Cristian Whalen MD Work Phone: Start: 08-01-2022 Urnls dip stick/tabl et rgnt auto w/o microscopy Tsering Cain APRN.CRAYON SORTING MACHINE FEEDER Work Phone: Start: 06-11-2022 End: 06-11-2022 EKG impression Judah Jaimes Start: 05-29-2022 Lipid 1996 panel - S vadim or Plasma Scot Griffin DO Work Phone: Start: 01-02-2022 Plain chest X-ray Start: 12-24-2021 Adult depression scr eening assessment Kimberly Birmingham CUSTOMER EXPERIENCE RETAIL CLERK.CRAYON SORTING MACHINE FEEDER Work Phone: Start: 10-24-2021 CT angiography of ch est with contrast Start: 10-24-2021 Plain chest X-ray Start: 07-17-2021 Radex humerus minimu m 2 views Risa Barger PA-C Work Phone: Start: 11-22-2020 Adult depression scr eening assessment Scot Griffin DO Work Phone: Start: 08-09-2019 Colonoscopy Scot macedo DO Work Phone: Start: 04-24-2015 Mammography Scot macedo DO Work Phone: Plan of Treatment Date Care Activity Detail Author Start: 09-29-2034 Urine microalbumin profile DTa P,Tdap,Td Vaccine (3 - Td or Tdap) [facility] Start: 2032 Respiratory Syncytia l Virus Immunization: Risk, 60-74 Risk, or 75+ (1 - 1-dose 75+ series) Respiratory Syncytial Virus Immunization: Risk, 60-74 Risk, or 75+ (1 - 1-dose 75+ series) [facility] Start: 09-11-2028 Lipid panel Lipid Screening [facility] Start: 04-29-2028 Lipid panel Lipid Screening [facility] Start: 05-29-2027 Lipid 1996 panel - S vadim or Plasma Lipid Screening [facility] Start: 05-29-2027 LIPID SCREEN LIPID SCREEN [facility] Start: 05-05-2027 Diabetes Screening Diabetes Screenin [facility] Start: 01-13-2027 Diabetes Screening Diabetes Screenin g [facility] Start: 09-11-2026 Diabetes Screening Diabetes Screenin g [facility] Start: 04-29-2026 Diabetes Screening Diabetes Screenin g [facility] Start: 12-09-2025 LIPID SCREEN LIPID SCREEN [facility] Start: 09-29-2025 Annual PCP Team Roller Coaster Operator fabiana Disease Visit Annual PCP Team Chronic Disease Visit [facility] Start: 09-29-2025 BP Controlled (<130/80) BP Controlle d (<130/80) [facility] Start: 06-11-2025 DIABETES SCREEN DIABETES SCREEN [facility] Start: 06-11-2025 Diabetes Screening Diabetes Screenin g [facility] Start: 05-29-2025 DIABETES SCREEN DIABETES SCREEN [facility] Start: 05-05-2025 Annual PCP Team Roller Coaster Operator fabiana Disease Visit Annual PCP Team Chronic Disease Visit [facility] Start: 05-05-2025 BP Controlled (<130/80) BP Controlle d (<130/80) [facility] Start: 04-06-2025 Screening for malign ant neoplasm of breast Mammogram Screening [facility] Start: 04-05-2025 End: 04-05-2025 Patient encounter procedure 04/05/2025 12:00 PM EST Office Visit Family Digna P[facility] [address] [place], [place] [id number] Scot Griffin DO [address] [place], [place] [id number] 6 month follow up Family [facility] Comment on above: 6 month follow up Start: 01-24-2025 Influenza vaccination Influenz a Vaccine (Season Ended) [facility] Start: 01-13-2025 Annual PCP Team Roller Coaster Operator fabiana Disease Visit Annual PCP Team Chronic Disease Visit [facility] Start: 01-13-2025 BP Controlled (<130/80) BP Controlle d (<130/80) [facility] Start: 11-03-2024 Covid-19 Vaccine ( season) Covid-19 Vaccine ( season) [facility] Start: 09-29-2024 End: 09-29-2024 Patient encounter procedure 09/29/2024 10:20 AM EDT Office Visit Family Digna Pugh [address] [place] [id number] Scot Griffin DO [address] [place], [place] [id number] 6 month follow up [facility] [place] Comment on above: 6 month follow up Start: 09-11-2024 Annual PCP Team Roller Coaster Operator fabiana Disease Visit Annual PCP Team Chronic Disease Visit [facility] Start: 09-11-2024 Covid-19 Vaccine ( season) Covid-19 Vaccine () [facility] Comment on above: Postponed from 01/24 (Declined at this time) Start: 09-11-2024 Depression Screening Depression Scre ening [facility] Start: 05-05-2024 End: 05-05-2024 Patient encounter procedure 05/05/2024 8:40 AM EST Office Visit [facility] [place] [address] [facility] [place], [place] [id number] Scot Griffin DO [address] [place] [address] 4 month follow up Family Digna P[facility] Comment on above: 4 month follow up Start: 04-29-2024 Annual PCP Team Roller Coaster Operator fabiana Disease Visit Annual PCP Team Chronic Disease Visit [facility] Start: 04-29-2024 BP Controlled (<130/80) BP Controlle d (<130/80) [facility] Start: 04-06-2024 End: 04-06-2024 Patient encounter procedure 04/06/2024 8:30 AM EST Appointment Mammogram [address] [place], [place] [address] Encounter for screening mammogram for malignant neoplasm of breast [Z12.31] Mammogram Comment on above: Encounter for screen ing mammogram for malignant neoplasm of breast [Z12.31] Start: 03-10-2024 Mammography Mammogram Screening [facility] Start: 03-10-2024 Screening for malign ant neoplasm of breast Mammogram Screening [facility] Start: 01-25-2024 Covid-19 Vaccine ( season) Covid-19 Vaccine ( season) [facility] Start: 01-25-2024 Influenza vaccination Influenza Vacc ine (#1) [facility] Start: 01-14-2024 End: 01-14-2024 Patient encounter procedure 01/14/2024 9:00 AM EDT Office Visit [facility] [place] [address] [place] [address] Scot Griffin DO [address] [place] [address] 4 month follow up [facility] [place] Comment on above: 4 month follow up Start: 12-30-2023 End: 03-30-2024 Comprehensive metabolic 2000 panel - Serum or Plasma COMPREHENSIVE METABOLIC PANEL Lab Routine Hypothyroidism, acquired Expected: 12/30/2023, Expires: 03/30/2024 [facility] Comment on above: Expected: 12/30/2023 , Expires: 03/30/2024 Start: 12-30-2023 End: 03-30-2024 Thyrotropin [Units/volume] in Serum or Plasma THYROID STIMULATING HORMONE Lab Routine Hypothyroidism, acquired Expected: 12/30/2023, Expires: 03/30/2024 [facility] Work Phone: Comment on above: Expected: 12/30/2023 , Expires: 03/30/2024 Start: 12-30-2023 End: 03-30-2024 Thyroxine (T4) free [Mass/volume] in Serum or Plasma T4 FREE/FREE THYROXINE Lab Routine Hypothyroidism, acquired Expected: 12/30/2023, Expires: 03/30/2024 [facility] Comment on above: Expected: 12/30/2023 , Expires: 03/30/2024 Start: 12-26-2023 End: 12-26-2023 Patient encounter procedure 12/26/2023 8:15 AM EDT Appointment Ambulatory Surgery [address] [place] [address] Anupama Barrientos MD [address] [place] [id number] Screening for colon cancer [Z12.11] Ambulatory Surgery Comment on above: Screening for colon cancer [Z12.11] Start: 12-10-2023 DIABETES SCREEN DIABETES SCREEN [facility] Start: 11-20-2023 ANNUAL PCP TEAM STEREOTYPER FABIANA DISEASE VISIT ANNUAL PCP TEAM CHRONIC DISEASE VISIT [facility] Start: 06-27-2024 BP CONTROLLED (<130/80) BP CONTROLLE D (<130/80) [facility] Start: 11-05-2023 End: 11-05-2023 Patient encounter procedure 11/05/2023 7:30 AM EDT Appointment Ambulatory Surgery [address] [place] [address] Anupama Barrientos MD [address] [place] [address] Screening for colon cancer [Z12.11] Ambulatory Surgery Comment on above: Screening for colon cancer [Z12.11] Start: 09-23-2023 End: 12-23-2023 Thyrotropin [Units/volume] in Serum or Plasma THYROID STIMULATING HORMONE Lab Routine Hypothyroidism, acquired Expected: 09/23/2023, Expires: 12/23/2023 [facility] Work Phone: Comment on above: Expected: 09/23/2023 , Expires: 12/23/2023 Start: 09-23-2023 End: 12-23-2023 Thyroxine (T4) free [Mass/volume] in Serum or Plasma T4 FREE/FREE THYROXINE Lab Routine Hypothyroidism, acquired Expected: 09/23/2023, Expires: 12/23/2023 [facility] Comment on above: Expected: 09/23/2023 , Expires: 12/23/2023 Start: 09-23-2023 End: 12-23-2023 Triiodothyronine (T3) Free [Mass/volume] in Serum or Plasma T3, FREE Lab Routine Hypothyroidism, acquired Expected: 09/23/2023, Expires: 12/23/2023 [facility] Comment on above: Expected: 09/23/2023 , Expires: 12/23/2023 Start: 09-12-2023 End: 12-12-2023 CBC W Auto Differential panel - Blood [facility] Work Phone: Comment on above: Expected: 09/12/2023 , Expires: 12/12/2023 Start: 09-12-2023 End: 12-12-2023 Hemoglobin A1c in Blood [facility] Work Phone: Comment on above: Expected: 09/12/2023 , Expires: 12/12/2023 Start: 09-12-2023 End: 12-12-2023 Lipid 1996 panel - Serum or Plasma [facility] Work Phone: Comment on above: Expected: 09/12/2023 , Expires: 12/12/2023 Start: 08-27-2023 Tetanus vaccination Tetanus: Every 1 0yrs [facility] Start: 08-27-2023 Urine microalbumin profile [facility] Start: 08-13-2023 ANNUAL PCP TEAM STEREOTYPER FABIANA DISEASE VISIT ANNUAL PCP TEAM CHRONIC DISEASE VISIT [facility] Start: 08-02-2023 ANNUAL PCP TEAM STEREOTYPER FABIANA DISEASE VISIT ANNUAL PCP TEAM CHRONIC DISEASE VISIT [facility] Start: 08-02-2023 BP CONTROLLED (<130/80) BP CONTROLLE D (<130/80) [facility] Start: 07-02-2023 End: 10-01-2023 CBC panel - Blood by Automated count CBC Lab Routine Essential hypertension Expected: 07/02/2023, Expires: 10/01/2023 [facility] Work Phone: Comment on above: Expected: 07/02/2023 , Expires: 10/01/2023 Start: 07-02-2023 End: 10-01-2023 Comprehensive metabolic 2000 panel - Serum or Plasma COMP METABOLIC PANEL Lab Routine Essential hypertension Expected: 07/02/2023, Expires: 10/01/2023 [facility] Work Phone: Comment on above: Expected: 07/02/2023 , Expires: 10/01/2023 Start: 07-02-2023 End: 10-01-2023 Thyrotropin [Units/volume] in Serum or Plasma TSH BLD Lab Routine Hypothyroidism, acquired Expected: 07/02/2023, Expires: 10/01/2023 [facility] Work Phone: Comment on above: Expected: 07/02/2023 , Expires: 10/01/2023 Start: 07-02-2023 End: 10-01-2023 Thyroxine (T4) free [Mass/volume] in Serum or Plasma T4 FREE/FREE THYROX Lab Routine Hypothyroidism, acquired Expected: 07/02/2023, Expires: 10/01/2023 [facility] Work Phone: Comment on above: Expected: 07/02/2023 , Expires: 10/01/2023 Start: 05-26-2023 Behavioral Health Screening Behavioral Health Screening [facility] Start: 05-26-2023 Depression Assessment Depression Ass essment [facility] Start: 04-29-2023 End: 07-29-2023 Lipase [Enzymatic activity/volume] in Serum or Plasma [facility] Work Phone: Comment on above: Expected: 04/29/2023 , Expires: 07/29/2023 Start: 04-22-2023 [facility] Start: 02-25-2023 ANNUAL PCP TEAM STEREOTYPER FABIANA DISEASE VISIT ANNUAL PCP TEAM CHRONIC DISEASE VISIT [facility] Start: 01-24-2023 Covid-19 Vaccine () Covid-19 Vaccine () [facility] Start: 01-24-2023 Influenza vaccination C [facility] Start: 12-24-2022 Adult depression scr eening assessment DEPRESSION SCREENING [facility] Start: 12-24-2022 ANNUAL PCP TEAM STEREOTYPER FABIANA DISEASE VISIT ANNUAL PCP TEAM CHRONIC DISEASE VISIT [facility] Start: 12-24-2022 BP CONTROLLED (<130/80) BP CONTROLLE D (<130/80) [facility] Start: 08-12-2022 End: 10-12-2022 Comprehensive metabolic 2000 panel - Serum or Plasma COMP METABOLIC PANEL Lab Routine Hypothyroidism, acquired Expected: 08/12/2022, Expires: 10/12/2022 [facility] Work Phone: Comment on above: Expected: 08/12/2022 , Expires: 10/12/2022 Start: 08-12-2022 End: 10-12-2022 Lipid 1996 panel - Serum or Plasma LIPID PANEL BASIC Lab Routine Dyslipidemia Expected: 08/12/2022, Expires: 10/12/2022 [facility] Work Phone: Comment on above: Expected: 08/12/2022 , Expires: 10/12/2022 Start: 08-12-2022 End: 10-12-2022 Thyrotropin [Units/volume] in Serum or Plasma TSH BLD Lab Routine Hypothyroidism, acquired Expected: 08/12/2022, Expires: 10/12/2022 [facility] Work Phone: Comment on above: Expected: 08/12/2022 , Expires: 10/12/2022 Start: 08-12-2022 End: 10-12-2022 Thyroxine (T4) free [Mass/volume] in Serum or Plasma T4 FREE/FREE THYROX Lab Routine Dyslipidemia Expected: 08/12/2022, Expires: 10/12/2022 [facility] Work Phone: Comment on above: Expected: 08/12/2022 , Expires: 10/12/2022 Start: 08-08-2022 Colonoscopy COLONOSCOPY [facility] Start: 08-08-2022 COLORECTAL CANCER SCREENING COLORECTAL CANCER SCREENING [facility] Start: 08-08-2022 Screening for malign ant neoplasm of colon [facility] Start: 07-17-2022 BP CONTROLLED (<130/80) BP CONTROLLE D (<130/80) [facility] Start: 05-26-2022 ADVANCE DIRECTIVE DISCUSSION ADVANCE DIRECTIVE DISCUSSION [facility] Start: 05-26-2022 DEPRESSION ASSESSMENT DEPRESSION ASS ESSMENT [facility] Start: 2022 BONE DENSITY BONE DENSITY [facility] Start: 2022 Bone Density Screening Bone Density Screening [facility] Start: 2022 Fall risk assessment Falls Risk Asse ssment [facility] Start: 2022 PNEUMOCOCCAL: 65+ (1 - PCV) PNEUMOCOCCAL: 65+ (1 - PCV) [facility] Start: 2022 Screening for osteoporosis Bone Dens ity Screening [facility] Start: 04-27-2022 End: 06-27-2022 CBC panel - Blood by Automated count CBC Lab Routine Well adult exam Expected: 04/27/2022, Expires: 06/27/2022 [facility] Work Phone: Comment on above: Expected: 04/27/2022 , Expires: 06/27/2022 Start: 04-27-2022 End: 06-27-2022 Comprehensive metabolic 2000 panel - Serum or Plasma COMP METABOLIC PANEL Lab Routine Well adult exam Expected: 04/27/2022, Expires: 06/27/2022 [facility] Work Phone: Comment on above: Expected: 04/27/2022 , Expires: 06/27/2022 Start: 04-27-2022 End: 06-27-2022 Hemoglobin A1c in Blood HGB A1C Lab Routine Well adult exam Expected: 04/27/2022 (Approximate), Expires: 06/27/2022 [facility] Work Phone: Comment on above: Expected: 04/27/2022 (Approximate), Expires: 06/27/2022 Start: 04-27-2022 End: 06-27-2022 Lipid 1996 panel - Serum or Plasma LIPID PANEL BASIC Lab Routine Well adult exam Expected: 04/27/2022, Expires: 06/27/2022 [facility] Work Phone: Comment on above: Expected: 04/27/2022 , Expires: 06/27/2022 Start: 04-27-2022 End: 06-27-2022 Thyrotropin [Units/volume] in Serum or Plasma TSH BLD Lab Routine Hypothyroidism, acquired Well adult exam Expected: 04/27/2022, Expires: 06/27/2022 [facility] Work Phone: Comment on above: Expected: 04/27/2022 , Expires: 06/27/2022 Start: 04-27-2022 End: 06-27-2022 Thyroxine (T4) free [Mass/volume] in Serum or Plasma T4 FREE/FREE THYROX Lab Routine Hypothyroidism, acquired Well adult exam Expected: 04/27/2022, Expires: 06/27/2022 [facility] Work Phone: Comment on above: Expected: 04/27/2022 , Expires: 06/27/2022 Start: 01-24-2022 Influenza vaccination C [facility] Start: 01-02-2022 Blood chemistry [facility] Work Phone: Start: 01-02-2022 End: 01-02-2022 [facility] Work Phone: Start: 12-17-2021 End: 02-16-2022 CBC panel - Blood by Automated count CBC Lab Routine Essential hypertension Expected: 12/17/2021, Expires: 02/16/2022 [facility] Work Phone: Comment on above: Expected: 12/17/2021 , Expires: 02/16/2022 Start: 12-17-2021 End: 02-16-2022 Comprehensive metabolic 2000 panel - Serum or Plasma COMP METABOLIC PANEL Lab Routine Essential hypertension Expected: 12/17/2021, Expires: 02/16/2022 [facility] Work Phone: Comment on above: Expected: 12/17/2021 , Expires: 02/16/2022 Start: 12-17-2021 End: 02-16-2022 Thyrotropin [Units/volume] in Serum or Plasma TSH BLD Lab Routine Hypothyroidism, acquired Expected: 12/17/2021, Expires: 02/16/2022 [facility] Work Phone: Comment on above: Expected: 12/17/2021 , Expires: 02/16/2022 Start: 12-17-2021 End: 02-16-2022 Thyroxine (T4) free [Mass/volume] in Serum or Plasma T4 FREE/FREE THYROX Lab Routine Hypothyroidism, acquired Expected: 12/17/2021, Expires: 02/16/2022 [facility] Work Phone: Comment on above: Expected: 12/17/2021 , Expires: 02/16/2022 Start: 12-17-2021 End: 02-16-2022 Triiodothyronine (T3) [Mass/volume] in Serum or Plasma T3 BLD Lab Routine Hypothyroidism, acquired Expected: 12/17/2021, Expires: 02/16/2022 [facility] Work Phone: Comment on above: Expected: 12/17/2021 , Expires: 02/16/2022 Start: 11-22-2021 Adult depression scr eening assessment DEPRESSION SCREENING [facility] Start: 11-22-2021 ANNUAL PCP TEAM STEREOTYPER FABIANA DISEASE VISIT ANNUAL PCP TEAM CHRONIC DISEASE VISIT [facility] Start: 11-22-2021 BP CONTROLLED (<130/80) BP CONTROLLE D (<130/80) [facility] Start: 10-24-2021 [facility] Work Phone: Start: 03-15-2021 COVID-19 VACCINE (3 - Booster for Moderna series) COVID-19 VACCINE (3 - Booster for Moderna series) [facility] Start: 12-08-2020 COVID-19 VACCINE (3 - Booster for Moderna series) COVID-19 VACCINE (3 - Booster for Moderna series) [facility] Start: 12-08-2020 COVID-19 VACCINE (3 - Moderna series) COVID-19 VACCINE (3 - Moderna series) [facility] Start: 06-02-2020 PAP TESTING PAP TESTING [facility] Start: 2017 RSV Vaccine (1 - 1-d ose 60+ series) RSV Vaccine (1 - 1-dose 60+ series) [facility] Start: 2017 RSV Vaccine (1 - Ris k 60-74 years 1-dose series) RSV Vaccine (1 - Risk 60-74 years 1-dose series) [facility] Start: 04-24-2016 Mammography [facility] Start: 2007 Administration of he rpes zoster vaccine Zoster Vaccines (1 of 2) [facility] Start: 2007 Pneumococcal Vaccine : Age 50+ (1 of 1 - PCV) Pneumococcal Vaccine: Age 50+ (1 of 1 - PCV) [facility] Start: 2007 Screening for malign ant neoplasm of colon Flexible sigmoidoscopy [facility] Start: 2007 SHINGRIX VACCINE (1 of 2) AGUAYO GRIX VACCINE (1 of 2) [facility] Start: 2002 COLOGUARD (FIT-DNA) COLOGUARD (FIT-D NA) [facility] Start: [address] COLONOGRAPHY [facility] Start: 2002 FECAL OCCULT BLOOD FECAL OCCULT BLOO D [facility] Start: 2002 Screening for malign ant neoplasm of colon [facility] Start: 2002 SIGMOIDOSCOPY SIGMOIDOSCOPY [facility] Start: 1997 Screening for malign ant neoplasm of breast Mammogram [facility] Start: 1987 HPV TESTING HPV TESTING [facility] Start: 1975 Hepatitis C screening Hepatitis C Sc reening [facility] Start: 1975 HIV SCREENING HIV SCREENING Shireen rosado [facility] Start: 1969 Depression screening using PHQ-9 (Patient Health Questionnaire 9) score Depression Screening/Follow-Up (PHQ-2/9) [facility] Start: 1960 Medicare Wellness Visit Medicare Wel lness Visit [facility] Start: 1957 Screening for malign ant neoplasm of colon [facility] Start: 1957 Screening for osteoporosis Dexa Scan [facility] Bacteria identified in Urine by Culture URINE CULTURE Microbiology Routine Recurrent UTI (urinary tract infection) Ordered: 08/01/2022 [facility] Work Phone: Comment on above: Ordered: 08/01/2022 End: 02-12-2025 MG Breast Screening SARATH SCREENING Radiology Routine Encounter for screening mammogram for malignant neoplasm of breast 1 Occurrences starting 01/14/2024 until 02/12/2025 [facility] Work Phone: Comment on above: 1 Occurrences starti ng 01/14/2024 until 02/12/2025 Patient Education [facility] Work Phone: Patient referral [facility] Work Phone: End: 09-11-2024 Screening colonoscopy COLONOSCOPY SCREENING Endoscopy Routine Screening for colon cancer 1 Occurrences starting 09/12/2023 until 09/11/2024 [facility] Work Phone: Comment on above: 1 Occurrences starti ng 09/12/2023 until 09/11/2024 End: 11-30-2022 Screening mammography bi 2-view breast inc cad SARATH SCREENING Radiology Routine Encounter for screening mammogram for breast cancer 1 Occurrences starting 10/31/2021 until 11/30/2022 [facility] Work Phone: Comment on above: 1 Occurrences starti ng 10/31/2021 until 11/30/[facility] Immunizations Immunization Date Immunization Notes Care Provider William humphrey 09-29-2024 tetanus and diphtheria toxoids, adsorbed, preservative free, for adult use (2 Lf of tetanus toxoid and 2 Lf of diphtheria toxoid) Scot Griffin DO Work Phone: [facility] 05-05-2024 COVID-19 vaccine, ag e 12+ yr ([facility] Scot Griffin DO Work Phone: [facility] 05-05-2024 influenza, high dose seasonal, preservative-free Scot Griffin DO Work Phone: [facility] 03-08-2023 influenza (HD-IIV4) vaccine, age 65+ yr, high dose, quadrivalent, PF (FLUZONE HIGH-DOSE) Immunization [place] Work Phone: [facility] 03-08-2023 influenza virus vaccine, unspecified formulation Scot Griffin DO Work Phone: [facility] 08-12-2022 pneumococcal (PCV20) vaccine, 20 valent (PREVNAR 20) Scot Griffin DO Work Phone: [facility] Work Phone: 08-12-2022 pneumococcal Conjugate, unspecified formulation Scot Griffin DO Work Phone: [facility] Work Phone: 02-20-2022 influenza, seasonal, injectable Scot Griffin DO Work Phone: [facility] Work Phone: 02-20-2022 influenza virus vaccine, unspecified formulation Scot Griffin DO Work Phone: [facility] 10-13-2020 COVID-19 vaccine, full dose (MODERNA) Scot Griffin DO Work Phone: [facility] Work Phone: 09-15-2020 COVID-19 vaccine, full dose (MODERNA) Scot Griffin DO Work Phone: [facility] Work Phone: 03-16-2019 influenza, seasonal, injectable Scot Griffin DO Work Phone: [facility] Work Phone: 03-15-2015 influenza, injectable, quadrivalent, preservative free [facility] 03-15-2015 influenza, seasonal, injectable [facility] Work Phone: 03-13-2015 influenza, seasonal, injectable Scot Griffin DO Work Phone: [facility] Work Phone: 08-26-2013 tetanus toxoid, reduced diphtheria toxoid, and acellular pertussis vaccine, adsorbed Scot Griffin DO Work Phone: [facility] 06-09-2012 influenza virus vaccine, unspecified formulation Scot Matthewrison DO Work Phone: [facility] Payers Date Payer Category Payer Self-pay [id number] 2022 Medicare (Managed Care) [employer] Member Subscriber Plan / Payer (Effective 2022-Present) Name: Mindi Joshi Relation to Subscriber: Self Name: Mindi Joshi Payer ID: [id number] (NAIC) Group ID: Not on file Type: HMO Address: [address] [place] [id number] 2022 Unknown 2022 Medicare HMO [employer] ESSENTIAL/PLUS/CONNECT/SN P HMO [id number] 2022 Unknown [id number] 2017 Private Health Insurance AESHARON QUINTANILLA CHOICE POS II [id number] 2017-Present [phone] [address] [place] [address] POS [id number] 2017 Private Health Insurance [id number] 2011 Private Health Insurance [id number] 1955 Unknown [id number] 1955 Unknown [id number] 1955 Unknown [id number] Unknown [id number] Unknown [id number] Social History Date Type Detail Facility Start: 10-24-2021 End: 04-22-2023 Tobacco smoking status NHIS Unknown if ever smoked [facility] Start: 05-31-2019 Occasional [facility] Start: 05-31-2019 None [facility] Start: 05-31-2019 Spouse/ Signif icant Other [facility] Start: 12-07-2016 Non-smoker [facility] Start: 1955 Sex Assigned At Female W [facility] Start: 06-17-2012 End: 10-08-2022 Tobacco smoking status NHIS Never smoked tobacco [facility] Start: 06-17-2012 End: 10-08-2022 Tobacco use and exposure Smokeless tobacco non-user [facility] Start: 07-17-2021 End: 09-29-2024 Alcohol intake Current non-drinker of alcohol (finding) [facility] Start: 1955 Sex Assigned At Not on file C [facility] Start: 12-14-2021 End: 12-24-2021 Exposure to SARS-CoV-2 (event) Yes [facility] Start: 06-17-2021 End: 02-25-2022 Exposure to SARS-CoV-2 (event) Not sure [facility] Work Phone: Start: 10-08-2022 End: 11-19-2022 History of Social function [facility] Work Phone: Start: 10-08-2022 End: 11-19-2022 Tobacco use panel [facility] Work Phone: Adult Depression Screening Assessment 0 [facility] Work Phone: Start: 10-08-2022 Alcoholic beverage intake Lifetime non-drinker (finding) [facility] Functional Status Date Assessment Result Facility 09-19-2014 Are you deaf, or do you have serious difficulty hearing No 09/19/2014 2:38 PM EDT Monica Rodriguez Cma No [facility] 09-19-2014 Are you blind, or do you have serious difficulty seeing, even when wearing glasses No 09/19/2014 2:38 PM EDT Monica Rodriguez Cma No [facility] 09-19-2014 Do you have serious difficulty walking or climbing stairs No 09/19/2014 2:38 PM EDT Monica Rodriguez Cma No [facility] 09-19-2014 Do you have difficul ty dressing or bathing Yes 09/19/2014 2:38 PM EDT Monica Rodriguez Cma Yes [facility] 09-19-2014 Because of a physica l, mental, or emotional condition, do you have difficulty doing errands alone such as visiting a physician's office or shopping No 09/19/2014 2:38 PM EDT Monica Rodriguez Cma No [facility] Mental Status Date Assessment Result Facility 04-22-2023 Cognitive function Voice/Name [facility] Work Phone: 01-02-2022 Cognitive function Voice/Name [facility] Work Phone: 10-24-2021 Cognitive function Voice/Name [facility] Work Phone: 09-19-2014 Because of a physica l, mental, or emotional condition, do you have serious difficulty concentrating, remembering, or making decisions No 09/19/2014 2:38 PM EDT Monica Rodriguez Cma No [facility] Clinical Notes 07-21-2015 to 09-29-2024 Patient InstructionsScot Griffin DO - 09/29/2024 10:45 AM EDTTelephone Encounter - Rosanna Prado RN - 09/27/2024 1:13 PM EDTTelephone Encounter - Rosanna Prado RN - 09/27/2024 1:13 PM EDT Note Date & Type Note Facility 09-29-2024 Instructions Scot Griffin DO - 09/29/2024 10:50 AM EDT Turmeric-curcumin 500-1000 mg 1-2 times a day with food (can start once a day and then increase to twice a day after a few weeks) + [place] oil or Krill oil 7451-9909 mg a day with food. documented in this encounter [facility] 09-29-2024 Note HNO ID: [id number] Author: SCOT GRIFFIN DO Service: ? Author Type: Physician Type: Progress Notes Filed: 09/29/2024 12:46 Note Text: CC: Mindi Joshi is a 69 year old female who presents to the office for follow up HPI: Tried Rejuven knee product for her knee pain, caused her pain to be worse- doesn't want to pursue injections or pain medications. Was cleaning, she fell and tripped over a trash can and she fell on her right rib cage- went to the EMERGENCY DEPARTMENT and had no fractures. HTN, well controlled, taking lisinopril as prescribed, no SE with medication HPL, taking Crestor medication 10 mg a day, tolerating well without SE Hypothyroidism, taking synthroid as prescribed, no SE with medication Mood, stable, taking Paxil Obesity, she was seen about 3 months ago in the office and was started on meformin to help her with weight loss. She is noticing that the medication is working. She has been able to lose 10 lbs. Weight down from 205 lbs to currently 195 lbs. She is excited about this. She has been cutting back on her sugars and starch foods as well. Started getting headaches, coming and going, mild. Started after began metformin- she feels that these are getting better for her. No red flag symptoms Hyperglycemia, no known hx of diabetes. 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 Colon polyp 2012 tubular adenoma GERD (gastroesophageal reflux disease) hiatal hernia HTN (hypertension) Hypothyroidism 07/2015 Renal calculus Snoring PAST SURGICAL HISTORY Procedure Laterality Date COLONOSCOPY AND POLYPECTOMY 07/08/2012 tubular adenoma, repeat 2016 EGD hiatal hernia HEART CATHETERIZATION 2000s x 2, patient reports negative PAST SURGICAL HISTORY OF gallbladder PAST SURGICAL HISTORY OF kidney stone retrieval Social History: Social History Tobacco Use Smoking status: Never Smokeless tobacco: Never Substance Use Topics Alcohol use: No Drug use: No FAMILY HISTORY Problem Relation Age of Onset Ischemic Heart Disease Father CABG Stroke Maternal Grandmother Stroke Paternal Grandmother in 80s Seizures Daughter Stroke Sister brain aneurysm other (Fragile X) Daughter other (Fragile X) Daughter Current Outpatient prescriptions: metFORMIN (GLUCOPHAGE) 500 mg tablet Take 1 tablet by mouth daily with dinner. lisinopril (ZESTRIL) 20 mg tablet Take 1 tablet by mouth once daily. levothyroxine (SYNTHROID) 25 mcg tablet Take 1 tablet 5 days a week (25 mcg) and Take 2 tablets 2 days a week (50 mcg). rosuvastatin (CRESTOR) 10 mg tablet Take 1 tablet by mouth daily at bedtime. PARoxetine (PAXIL) 20 mg tablet Take 1 tablet by mouth once daily. nystatin (MYCOSTATIN) powder Apply 1 application to affected area twice daily. benzonatate (TESSALON PERLE) 100 mg capsule Take 1 capsule by mouth three times daily as needed. albuterol HFA (PROAIR HFA) 90 mcg/actuation inhaler Inhale 2 Puffs as instructed every 4 hours as needed. omeprazole (PRILOSEC) 20 mg capsule Take 20 mg by mouth once daily. ASPIRIN 81MG TABLET Take one (1) tablet daily . Allergies: ALLERGIES No Known Allergies ROS: See HPI PE: 09/29/24 1027 09/29/24 1028 BP: 116/70 Pulse: 80 Resp: 16 Temp: 36.1 ?C (97 ?F) TempSrc: Left Tympanic Weight: 92.1 kg (203 lb) 92.1 kg (203 lb) Gen: AANDO, NAD, non-toxic appearing, Pleasant, cooperative HEENT: NT/AC, PERRLA, EOMs intact b/l, nares clear and patent b/l, pharynx without erythema, exudate or lesions. MMM, Uvula midline. EACs without erythema or debris. TMs pearly leonardo with intact landmarks b/l. Neck: supple, No cervical LAD, no thyromegaly, no carotid bruits CV: RRR, normal S1 and S2, no murmurs, no gallops, no rubs, Pulses 2+ and symmetric in UE and LE b/l Lungs: normal respiratory effort, CTA b/l, no wheezing or rhonchi or rales Abd: soft, central obesity, NT, ND, +BS, no hepatosplenomegaly MS: FROM all 4 extremities- arthritis multiple joints including b/l knees Neuro: CN II-XII intact b/l, strength 5/5 b/l UE and LE, DTRs 2/4 UE and LE, sensation intact. Skin: warm, dry, intact, No rashes or lesions on exposed skin. No edema, normal pulses ASSESSMENT/PLAN: 1. IFG (impaired fasting glucose) - ICD9: 790.21, ICD10: R73.01 (primary diagnosis) Diet controlled. stable 2. Need for tetanus booster - ICD9: V03.7, ICD10: Z23 - TD VACCINE, AGE 7+ YR, 2 LF TETANUS (TDVAX) 3. Hypothyroidism, acquired - ICD9: 244.9, ICD10: E03.9 - Instructed patient on importance of taking on an empty stomach either first thing in the morning or at bedtime. 4. Essential hypertension - ICD9: 401.9, ICD10: I10 - Controlled - Continue current medications - Recommend home blood pressure monitoring, to bring results to next visit - Encouraged sodium restriction, DASH or Mediterranean diet - Recommend regular aerobic exercise 5. Dyslipidemia - ICD9: 272.4, ICD10: E78.5 (more content not included)... [facility] 09-29-2024 History of Present illness Narrative CC: Mindi Joshi is a 69 year old female who presents to the office for follow up HPI: Tried Rejuven knee product for her knee pain, caused her pain to be worse- doesn't want to pursue injections or pain medications. Was cleaning, she fell and tripped over a trash can and she fell on her right rib cage- went to the EMERGENCY DEPARTMENT and had no fractures. HTN, well controlled, taking lisinopril as prescribed, no SE with medication HPL, taking Crestor medication 10 mg a day, tolerating well without SE Hypothyroidism, taking synthroid as prescribed, no SE with medication Mood, stable, taking Paxil Obesity, she was seen about 3 months ago in the office and was started on meformin to help her with weight loss. She is noticing that the medication is working. She has been able to lose 10 lbs. Weight down from 205 lbs to currently 195 lbs. She is excited about this. She has been cutting back on her sugars and starch foods as well. Started getting headaches, coming and going, mild. Started after began metformin- she feels that these are getting better for her. No red flag symptoms Hyperglycemia, no known hx of diabetes. 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 Colon polyp 2012 tubular adenoma GERD (gastroesophageal reflux disease) hiatal hernia HTN (hypertension) Hypothyroidism 07/2015 Renal calculus Snoring PAST SURGICAL HISTORY Procedure Laterality Date COLONOSCOPY & POLYPECTOMY 07/08/2012 tubular adenoma, repeat 2016 EGD hiatal hernia HEART CATHETERIZATION 2000s x 2, patient reports negative PAST SURGICAL HISTORY OF gallbladder PAST SURGICAL HISTORY OF kidney stone retrieval Social History: Social History Tobacco Use Smoking status: Never Smokeless tobacco: Never Substance Use Topics Alcohol use: No Drug use: No FAMILY HISTORY Problem Relation Age of Onset Ischemic Heart Disease Father CABG Stroke Maternal Grandmother Stroke Paternal Grandmother in 80s Seizures Daughter Stroke Sister brain aneurysm other (Fragile X) Daughter other (Fragile X) Daughter Current Outpatient prescriptions: metFORMIN (GLUCOPHAGE) 500 mg tablet Take 1 tablet by mouth daily with dinner. lisinopril (ZESTRIL) 20 mg tablet Take 1 tablet by mouth once daily. levothyroxine (SYNTHROID) 25 mcg tablet Take 1 tablet 5 days a week (25 mcg) and Take 2 tablets 2 days a week (50 mcg). rosuvastatin (CRESTOR) 10 mg tablet Take 1 tablet by mouth daily at bedtime. PARoxetine (PAXIL) 20 mg tablet Take 1 tablet by mouth once daily. nystatin (MYCOSTATIN) powder Apply 1 application to affected area twice daily. benzonatate (TESSALON PERLE) 100 mg capsule Take 1 capsule by mouth three times daily as needed. albuterol HFA (PROAIR HFA) 90 mcg/actuation inhaler Inhale 2 Puffs as instructed every 4 hours as needed. omeprazole (PRILOSEC) 20 mg capsule Take 20 mg by mouth once daily. ASPIRIN 81MG TABLET Take one (1) tablet daily . Allergies: ALLERGIES No Known Allergies ROS: See HPI PE: 09/29/24 1027 09/29/24 1028 BP: 116/70 Pulse: 80 Resp: 16 Temp: 36.1 C (97 F) TempSrc: Left Tympanic Weight: 92.1 kg (203 lb) 92.1 kg (203 lb) Gen: A&O, NAD, non-toxic appearing, Pleasant, cooperative HEENT: NT/AC, PERRLA, EOMs intact b/l, nares clear and patent b/l, pharynx without erythema, exudate or lesions. MMM, Uvula midline. EACs without erythema or debris. TMs pearly leonardo with intact landmarks b/l. Neck: supple, No cervical LAD, no thyromegaly, no carotid bruits CV: RRR, normal S1 and S2, no murmurs, no gallops, no rubs, Pulses 2+ and symmetric in UE and LE b/l Lungs: normal respiratory effort, CTA b/l, no wheezing or rhonchi or rales Abd: soft, central obesity, NT, ND, +BS, no hepatosplenomegaly MS: FROM all 4 extremities- arthritis multiple joints including b/l knees Neuro: CN II-XII intact b/l, strength 5/5 b/l UE and LE, DTRs 2/4 UE and LE, sensation intact. Skin: warm, dry, intact, No rashes or lesions on exposed skin. No edema, normal pulses ASSESSMENT/PLAN: 1. IFG (impaired fasting glucose) - ICD9: 790.21, ICD10: R73.01 (primary diagnosis) Diet controlled. stable 2. Need for tetanus booster - ICD9: V03.7, ICD10: Z23 - TD VACCINE, AGE 7+ YR, 2 LF TETANUS (TDVAX) 3. Hypothyroidism, acquired - ICD9: 244.9, ICD10: E03.9 - Instructed patient on importance of taking on an empty stomach either first thing in the morning or at bedtime. 4. Essential hypertension - ICD9: 401.9, ICD10: I10 - Controlled - Continue current medications - Recommend home blood pressure monitoring, to bring results to next visit - Encouraged sodium restriction, DASH or Mediterranean diet - Recommend regular aerobic exercise 5. Dyslipidemia - ICD9: 272.4, ICD10: E78.5 - Controlled - Continue current medications - Counseled on healthy diet and regular exercise 6. Tinnitus, bilateral - ICD9: 388.30, ICD10: H93.13 - CONSULT TO ENT 7. Primary osteoarthritis of both knees - ICD9: 715.16, ICD10: M17.0 She isn't interested in corticosteroid injections or orthopedics appt Start on supplements as d/w her today Scot Griffin DO To ER if develops chest pain, shortness of breath, or severe worsening of symptoms. Discussed risks, benefits, alternatives, and potential side effects of medications. Patient expressed understanding and agreed with the plan. Scot Griffin DO [address] [place] [address] documented in this encounter [facility] 09-27-2024 Telephone encounter Note Triage Protocol Advised: ER now. Pt agreeable and has transportation. Reason for Disposition SEVERE chest pain Answer Assessment - Initial Assessment Questions Patient reports severe pain in her right side below right breast radiating to side and into backside, especially when taking deep breath in. Began several days ago. Pt states she fell in her kitchen onto her right side a few weeks ago. Denies having any broken skin, bruising or selling after falling. Has experienced pain in right side and right arm since then. Right side pain has worsened after doing some mowing a few days ago and it has been severe since. Has not tried any OTC pain relievers or topical medications. Denies any chest pain, chest pressure, SOB, fever or urinary concerns/changes. Able to take a deep breath in. Has unchanged +ROM to right shoulder and arm. Takes baby aspirin daily. 1. MECHANISM: as above 2. ONSET: as above 3. LOCATION: as above 4. APPEARANCE: no bruising, bleeding, swelling 5. BLEEDING: no 6. SEVERITY: no difficulty breathing 7. SIZE: n/a 8. PAIN: - SEVERE (8-10): Excruciating pain, unable to do any normal activities. 9. TETANUS: no breaks in skin Protocols used: Chest [id number] [facility] 09-27-2024 Miscellaneous Notes Triage Protocol Advised: ER now. Pt agreeable and has transportation. Reason for Disposition SEVERE chest pain Answer Assessment - Initial Assessment Questions Patient reports severe pain in her right side below right breast radiating to side and into backside, especially when taking deep breath in. Began several days ago. Pt states she fell in her kitchen onto her right side a few weeks ago. Denies having any broken skin, bruising or selling after falling. Has experienced pain in right side and right arm since then. Right side pain has worsened after doing some mowing a few days ago and it has been severe since. Has not tried any OTC pain relievers or topical medications. Denies any chest pain, chest pressure, SOB, fever or urinary concerns/changes. Able to take a deep breath in. Has unchanged +ROM to right shoulder and arm. Takes baby aspirin daily. 1. MECHANISM: as above 2. ONSET: as above 3. LOCATION: as above 4. APPEARANCE: no bruising, bleeding, swelling 5. BLEEDING: no 6. SEVERITY: no difficulty breathing 7. SIZE: n/a 8. PAIN: - SEVERE (8-10): Excruciating pain, unable to do any normal activities. 9. TETANUS: no breaks in skin Protocols used: Chest [id number] documented in this encounter [facility] 05-05-2024 Note HNO ID: [id number] Author: SCOT GRIFFIN, DO Service: ? Author Type: Physician Type: Progress Notes Filed: 05/05/2024 21:09 Note Text: CC: Mindi Joshi is a 68 year old female who presents to the office for follow up HPI: HTN, well controlled, taking lisinopril as prescribed, no SE with medication HPL, taking Crestor medication 10 mg a day, tolerating well without SE Hypothyroidism, taking synthroid as prescribed, no SE with medication Mood, stable, taking Paxil Obesity, she was seen about 3 months ago in the office and was started on meformin to help her with weight loss. She is noticing that the medication is working. She has been able to lose >10 lbs in the last 6-7 months. Weight down from 205 lbs to currently 198 lbs, previously at 210 lbs. She is excited about this. She has been cutting back on her sugars and starch foods as well. Tolerating the medication well without SE Hyperglycemia, no known hx of diabetes. 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 Colon polyp 2012 tubular adenoma GERD (gastroesophageal reflux disease) hiatal hernia HTN (hypertension) Hypothyroidism 07/2015 Renal calculus Snoring PAST SURGICAL HISTORY Procedure Laterality Date COLONOSCOPY AND POLYPECTOMY 07/08/2012 tubular adenoma, repeat 2016 EGD hiatal hernia HEART CATHETERIZATION 2000s x 2, patient reports negative PAST SURGICAL HISTORY OF gallbladder PAST SURGICAL HISTORY OF kidney stone retrieval Current Outpatient Medications Medication Sig metFORMIN (GLUCOPHAGE) 500 mg tablet Take 1 tablet by mouth daily with dinner. lisinopril (ZESTRIL) 20 mg tablet Take 1 tablet by mouth once daily. levothyroxine (SYNTHROID) 25 mcg tablet Take 1 tablet 5 days a week (25 mcg) and Take 2 tablets 2 days a week (50 mcg). rosuvastatin (CRESTOR) 10 mg tablet Take 1 tablet by mouth daily at bedtime. PARoxetine (PAXIL) 20 mg tablet Take 1 tablet by mouth once daily. nystatin (MYCOSTATIN) powder Apply 1 application to affected area twice daily. benzonatate (TESSALON PERLE) 100 mg capsule Take 1 capsule by mouth three times daily as needed. albuterol HFA (PROAIR HFA) 90 mcg/actuation inhaler Inhale 2 Puffs as instructed every 4 hours as needed. omeprazole (PRILOSEC) 20 mg capsule Take 20 mg by mouth once daily. ASPIRIN 81MG TABLET Take one (1) tablet daily . No current facility-administered medications for this visit. ALLERGIES No Known Allergies Social History Tobacco Use Smoking status: Never Smokeless tobacco: Never Substance Use Topics Alcohol use: No Drug use: No ROS: See HPI PE: BP 120/70 Pulse 64 Temp (Src) 97 (Temporal) Resp 20 Wt 198 lb 10.2 oz (90.1kg) Gen: AANDOX3, NAD, non-toxic appearing HEENT: PERRLA, EOMs intact b/l, nares without drainage, pharynx without erythema, exudate, lesions, or drainage. Uvula midline. Neck: No LAD, no thyromegaly, no meningismus. CV: RRR, no murmur Lungs: CTA b/l, no wheezing Skin: No rashes, lesions, or wounds on exposed skin. Central obesity No edema, normal pulses ASSESSMENT/PLAN: 1. IFG (impaired fasting glucose) - ICD9: 790.21, ICD10: R73.01 (primary diagnosis) Continue metformin Continue weight loss efforts. 2. Need for influenza vaccination - ICD9: V04.81, ICD10: Z23 - INFLUENZA VACCINE, PRSV FREE, AGE 65+ YR, HIGH DOSE, TRIVALENT (FLUZONE HIGH-DOSE) 3. Need for COVID-19 vaccine - ICD9: V04.89, ICD10: Z23 - [employer] COVID-19 VACCINE AGE 12+ YR (COMIRNATY) 4. Hypothyroidism, acquired - ICD9: 244.9, ICD10: E03.9 - Instructed patient on importance of taking on an empty stomach either first thing in the morning or at bedtime. - continue current dose of Synthroid - COMPREHENSIVE METABOLIC PANEL - COMPLETE BLOOD COUNT AND DIFFERENTIAL - THYROID STIMULATING HORMONE - T4 FREE/FREE THYROXINE 5. Essential hypertension - ICD9: 401.9, ICD10: I10 - Controlled - Continue current medications - Recommend home blood pressure monitoring, to bring results to next visit - Encouraged sodium restriction, DASH or Mediterranean diet - Recommend regular aerobic exercise 6. Dyslipidemia - ICD9: 272.4, ICD10: E78.5 - Control undetermined, due for labs - Continue current medications - Counseled on healthy diet and regular exercise Scot Griffin DO Return if no improvement. Follow up with Scot Griffin DO. To ER if develops chest pain, shortness of breath. Discussed risks, benefits, alternatives, and potential side effects of medications. Patient/Guardian expressed understanding and agreed with the plan. See patient instructions. Scot Griffin DO [address] [place] [address] [facility] 04-06-2024 History of Present illness Narrative Radiology Service Progress Note PATIENT NAME: Mindi Joshi DATE OF SERVICE: April 06, 2024 TIME: 8:13 AM PATIENT IDENTITY VERIFICATION COMPLETED USING TWO (2) IDENTIFIERS: Name and Date of confirmed by patient verbally. FALL SCREENING: Has the patient had 2 falls in the last year or 1 fall with injury or currently using an Ambulatory Assistive Device (Walker, Cane, Wheelchair, Crutches, etc.)? No PATIENT GENDER DATA: Female. status: : No status: NO. PATIENT RELEVANT IMPLANT DATA REVIEWED: Not Applicable PATIENT PRESENTS WITH AN IMPLANTABLE OR ATTACHED STREET CAR INSPECTOR: No RADIOLOGY DEPARTMENT: Mammography PERIPHERAL IV DATA: Not applicable SIGNED BY: RT Katey(R) April 06, 2024 8:13 AM documented in this encounter [facility] 04-06-2024 Miscellaneous Notes Patient notified via [employer] documented in this encounter [facility] 04-06-2024 Note HNO ID: [id number] Author: MOLLY COYLE RT(R) Service: ? Author Type: Technologist Type: Progress Notes Filed: 04/06/2024 08:13 Note Text: Radiology Service Progress Note PATIENT NAME: Mindi Joshi DATE OF SERVICE: April 06, 2024 TIME: 8:13 AM PATIENT IDENTITY VERIFICATION COMPLETED USING TWO (2) IDENTIFIERS: Name and Date of confirmed by patient verbally. FALL SCREENING: Has the patient had 2 falls in the last year or 1 fall with injury or currently using an Ambulatory Assistive Device (Walker, Cane, Wheelchair, Crutches, etc.)? No PATIENT GENDER DATA: Female. status: : No status: NO. PATIENT RELEVANT IMPLANT DATA REVIEWED: Not Applicable PATIENT PRESENTS WITH AN IMPLANTABLE OR ATTACHED STREET CAR INSPECTOR: No RADIOLOGY DEPARTMENT: Mammography PERIPHERAL IV DATA: Not applicable SIGNED BY: RT Katey(R) April 06, 2024 8:13 AM [facility] 04-06-2024 Progress note Formatting of t his note might be different from the original. Patient notified via [employer]ic[employer] [facility] 04-01-2024 Telephone encounter Note Prescription Refill Information The patient has been identified by name and date of : Yes Caregiver verified no other encounters exist for this prescription request: Yes Caregiver confirmed with patient/requestor that no other refills are due, in the near future, with this provider at this time: Yes The last office visit in the department: 01/14/24 Does the patient have a future office visit with this provider/department: Yes Requested Prescriptions Pending Prescriptions Disp Refills metFORMIN (GLUCOPHAGE) 500 mg tablet 90 tablet 1 Sig: Take 1 tablet by mouth daily with dinner. Simona Griffin LPN April 01, 2024 3:35 PM [facility] 04-01-2024 Miscellaneous Notes Prescription Refill Information The patient has been identified by name and date of : Yes Caregiver verified no other encounters exist for this prescription request: Yes Caregiver confirmed with patient/requestor that no other refills are due, in the near future, with this provider at this time: Yes The last office visit in the department: 01/14/24 Does the patient have a future office visit with this provider/department: Yes Requested Prescriptions Pending Prescriptions Disp Refills metFORMIN (GLUCOPHAGE) 500 mg tablet 90 tablet 1 Sig: Take 1 tablet by mouth daily with dinner. Simona Griffin LPN April 01, 2024 3:35 PM Prescription Refill Information The patient has been identified by name and date of : Yes Caregiver verified no other encounters exist for this prescription request: Yes Caregiver confirmed with patient/requestor that no other refills are due, in the near future, with this provider at this time: Yes The last office visit in the department: Does the patient have a future office visit with this provider/department: Yes 05-05-24 Requested Prescriptions Pending Prescriptions Disp Refills metFORMIN (GLUCOPHAGE) 500 mg tablet 90 tablet 1 Sig: Take 1 tablet by mouth daily with dinner. Alejandrina Hooks April 01, 2024 2:33 PM documented in this encounter [facility] 04-01-2024 Telephone encounter Note Prescription Refill Information The patient has been identified by name and date of : Yes Caregiver verified no other encounters exist for this prescription request: Yes Caregiver confirmed with patient/requestor that no other refills are due, in the near future, with this provider at this time: Yes The last office visit in the department: Does the patient have a future office visit with this provider/department: Yes 05-05-24 Requested Prescriptions Pending Prescriptions Disp Refills metFORMIN (GLUCOPHAGE) 500 mg tablet 90 tablet 1 Sig: Take 1 tablet by mouth daily with dinner. Alejandrina Hooks April 01, 2024 2:33 PM [facility] 02-23-2024 Telephone encounter Note Patient has 1 of the synthroid left due to the dose being raised. Please adjust qty and she needs this expedited today. TY Prescription Refill Information The patient has been identified by name and date of : Yes Caregiver verified no other encounters exist for this prescription request: Yes Caregiver confirmed with patient/requestor that no other refills are due, in the near future, with this provider at this time: Yes The last office visit in the department: 01/14/24 Does the patient have a future office visit with this provider/department: Yes Requested Prescriptions Pending Prescriptions Disp Refills lisinopril (ZESTRIL) 20 mg tablet 90 tablet 3 Sig: Take 1 tablet by mouth once daily. levothyroxine (SYNTHROID) 25 mcg tablet Sig: Take 1 tablet 5 days a week (25 mcg) and Take 2 tablets 2 days a week (50 mcg). rosuvastatin (CRESTOR) 10 mg tablet 90 tablet 1 Sig: Take 1 tablet by mouth daily at bedtime. PARoxetine (PAXIL) 20 mg tablet 90 tablet 3 Sig: Take 1 tablet by mouth once daily. Anupama Mosqueda LPN February 23, 2024 3:51 PM [facility] 02-23-2024 Miscellaneous Notes Patient has 1 of the synthroid left due to the dose being raised. Please adjust qty and she needs this expedited today. TY Prescription Refill Information The patient has been identified by name and date of : Yes Caregiver verified no other encounters exist for this prescription request: Yes Caregiver confirmed with patient/requestor that no other refills are due, in the near future, with this provider at this time: Yes The last office visit in the department: 01/14/24 Does the patient have a future office visit with this provider/department: Yes Requested Prescriptions Pending Prescriptions Disp Refills lisinopril (ZESTRIL) 20 mg tablet 90 tablet 3 Sig: Take 1 tablet by mouth once daily. levothyroxine (SYNTHROID) 25 mcg tablet Sig: Take 1 tablet 5 days a week (25 mcg) and Take 2 tablets 2 days a week (50 mcg). rosuvastatin (CRESTOR) 10 mg tablet 90 tablet 1 Sig: Take 1 tablet by mouth daily at bedtime. PARoxetine (PAXIL) 20 mg tablet 90 tablet 3 Sig: Take 1 tablet by mouth once daily. Anupama Mosqueda LPN February 23, 2024 3:51 PM Patient has 1 of the synthroid left due to the dose being raised. Please adjust qty and she needs this expedited today. TY Patient has been identified by name and date of : Yes Patient phones for refill(s): Requested Prescriptions Pending Prescriptions Disp Refills lisinopril (ZESTRIL) 20 mg tablet 90 tablet 3 Sig: Take 1 tablet by mouth once daily. levothyroxine (SYNTHROID) 25 mcg tablet Sig: Take 1 tablet 5 days a week (25 mcg) and Take 2 tablets 2 days a week (50 mcg). rosuvastatin (CRESTOR) 10 mg tablet 90 tablet 1 Sig: Take 1 tablet by mouth daily at bedtime. PARoxetine (PAXIL) 20 mg tablet 90 tablet 3 Sig: Take 1 tablet by mouth once daily. Date of last office visit in primary care: 01/14/2024 Date of next office visit in primary care: 05/05/2024 Please advise. Thank you. Tala Guillermo. documented in this encounter [facility] 02-23-2024 Telephone encounter Note Patient has 1 of the synthroid left due to the dose being raised. Please adjust qty and she needs this expedited today. TY Patient has been identified by name and date of : Yes Patient phones for refill(s): Requested Prescriptions Pending Prescriptions Disp Refills lisinopril (ZESTRIL) 20 mg tablet 90 tablet 3 Sig: Take 1 tablet by mouth once daily. levothyroxine (SYNTHROID) 25 mcg tablet Sig: Take 1 tablet 5 days a week (25 mcg) and Take 2 tablets 2 days a week (50 mcg). rosuvastatin (CRESTOR) 10 mg tablet 90 tablet 1 Sig: Take 1 tablet by mouth daily at bedtime. PARoxetine (PAXIL) 20 mg tablet 90 tablet 3 Sig: Take 1 tablet by mouth once daily. Date of last office visit in primary care: 01/14/2024 Date of next office visit in primary care: 05/05/2024 Please advise. Thank you. Tala Guillermo. [facility] 02-17-2024 Telephone encounter Note Pt informed Rachael Burch MA [facility] 02-17-2024 Miscellaneous Notes Pt informed Rachael Burch MA She can go back to taking as prescribed- 1 tab 5 days a week, and 2 tabs 2 days a week. José Miguel Godinez PA-C Mindi returned call, given below results/recommendations. Patient initially started to take thyroid med 1 tablet 5 days a week, then 2 tablets 2 days a week, but she completely forgot and went back to taking 1 tablet once daily. Reports no s/s, no constipation, fatigue, hair lose. Please review & advise. Muriel Melendez LPN Tried to reach pt again, Still unable to leave message. Roz Yi MA Attempted to contact pt but unable to LM due to VM not being setup yet. Annalisa Renee MA Tried to reach pt, VM not set up yet. Unable to leave message or call back number. Roz Yi MA Please let patient know that her TSH was just above normal range, but her free T4 was normal. Is she taking her thyroid medication regularly and on an empty stomach? Is she having any symptoms? The rest of her labs all looked good, kidney function stable-increase fluids and avoid NSAIDs. José Miguel Godinez PA-C 02/10/2024 documented in this encounter [facility] 02-17-2024 Telephone encounter Note She can go back to taking as prescribed- 1 tab 5 days a week, and 2 tabs 2 days a week. José Miguel Godinez PA-C [facility] 02-17-2024 Telephone encounter Note Mindi returned call, given below results/recommendations. Patient initially started to take thyroid med 1 tablet 5 days a week, then 2 tablets 2 days a week, but she completely forgot and went back to taking 1 tablet once daily. Reports no s/s, no constipation, fatigue, hair lose. Please review & advise. Muriel Melendez LPN [facility] 02-17-2024 Telephone encounter Note Tried to reach pt again, Still unable to leave message. Roz Yi MA [facility] 02-16-2024 Telephone encounter Note Attempted to contact pt but unable to LM due to VM not being setup yet. Annalisa Renee MA [facility] 02-10-2024 Telephone encounter Note Tried to reach pt, VM not set up yet. Unable to leave message or call back number. Roz Yi MA [facility] 02-10-2024 Telephone encounter Note Please let patient know that her TSH was just above normal range, but her free T4 was normal. Is she taking her thyroid medication regularly and on an empty stomach? Is she having any symptoms? The rest of her labs all looked good, kidney function stable-increase fluids and avoid NSAIDs. José Miguel Godinez PA-C 02/10/2024 [facility] 01-14-2024 Instructions Scot Griffin DO - 01/14/2024 9:36 AM EDT Increase protein in your diet Options are protein bars Or Protein yogurt drinks - find these by the yogurt at the store [employer] or [employer] brand are great Make sure you are getting more consistent exercise as well documented in this encounter [facility] 01-14-2024 Note HNO ID: [id number] Author: SCOT GRIFFIN DO Service: ? Author Type: Physician Type: Progress Notes Filed: 01/14/2024 11:48 Note Text: AIDA Joshi is a 68 year old female who presents to the office for follow up HPI: HTN, well controlled, taking lisinopril as prescribed, no SE with medication HPL, taking Crestor medication 10 mg a day, tolerating well without SE Hypothyroidism, taking synthroid as prescribed, no SE with medication Mood, stable, taking Paxil Obesity, she was seen about 3 months ago in the office and was started on meformin to help her with weight loss. She is noticing that the medication is working. She has been able to lose 10 lbs. Weight down from 205 lbs to currently 195 lbs. She is excited about this. She has been cutting back on her sugars and starch foods as well. Started getting headaches, coming and going, mild. Started after began metformin- she feels that these are getting better for her. No red flag symptoms Hyperglycemia, no known hx of diabetes. 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 2013: Colon polyp Comment: tubular adenoma No date: GERD (gastroesophageal reflux disease) Comment: hiatal hernia No date: HTN (hypertension) 07/2015: Hypothyroidism 1990s: Renal calculus No date: Snoring PAST SURGICAL HISTORY 07/08/2012: COLONOSCOPY AND POLYPECTOMY Comment: tubular adenoma, repeat 2016 No date: EGD Comment: hiatal hernia 1999s: HEART CATHETERIZATION Comment: x 2, patient reports negative No date: PAST SURGICAL HISTORY OF Comment: gallbladder No date: PAST SURGICAL HISTORY OF Comment: kidney stone retrieval Current Outpatient Medications Medication Sig rosuvastatin (CRESTOR) 10 mg tablet Take 1 tablet by mouth daily at bedtime. levothyroxine (SYNTHROID) 25 mcg tablet Take 1 tablet 5 days a week (25 mcg) and Take 2 tablets 2 days a week (50 mcg). metFORMIN (GLUCOPHAGE) 500 mg tablet Take 1 tablet by mouth daily with dinner. lisinopril (ZESTRIL) 20 mg tablet Take 1 tablet by mouth once daily. PARoxetine (PAXIL) 20 mg tablet Take 1 tablet by mouth once daily. nystatin (MYCOSTATIN) powder Apply 1 application to affected area twice daily. benzonatate (TESSALON PERLE) 100 mg capsule Take 1 capsule by mouth three times daily as needed. albuterol HFA (PROAIR HFA) 90 mcg/actuation inhaler Inhale 2 Puffs as instructed every 4 hours as needed. omeprazole (PRILOSEC) 20 mg capsule Take 20 mg by mouth once daily. ASPIRIN 81MG TABLET Take one (1) tablet daily . No current facility-administered medications for this visit. ALLERGIES No Known Allergies Social History Tobacco Use Smoking status: Never Smokeless tobacco: Never Substance Use Topics Alcohol use: No Drug use: No ROS: See HPI PE: BP 110/60 Pulse 80 Temp (Src) 97 (Right Tympanic) Resp 20 Wt 195 lb (88.5kg) Gen: AANDOX3, NAD, non-toxic appearing HEENT: PERRLA, EOMs intact b/l, nares without drainage, pharynx without erythema, exudate, lesions, or drainage. Uvula midline. Neck: No LAD, no thyromegaly, no meningismus. CV: RRR, no murmur Lungs: CTA b/l, no wheezing Skin: No rashes, lesions, or wounds on exposed skin. Normal neurologic examination No edema, normal pulses ASSESSMENT/PLAN: 1. Hypothyroidism, acquired - ICD9: 244.9, ICD10: E03.9 (primary diagnosis) - Instructed patient on importance of taking on an empty stomach either first thing in the morning or at bedtime. - continue current dose of Synthroid 2. Encounter for screening mammogram for malignant neoplasm of breast - ICD9: V76.12, ICD10: Z12.31 - Set up for mammogram, yearly mammogram recommended - Encouraged monthly BSE - SARATH SCREENING 3. Class 2 obesity with body mass index (BMI) of 39.0 to 39.9 in adult, unspecified obesity type, unspecified whether serious comorbidity present - ICD9: 278.00, V85.39, ICD10: E66.9, Z68.39 Weight decreasing - Behavioral intervention, - Pharmacological intervention, - Eat well program, and - Continue current medications 4. Essential hypertension - ICD9: 401.9, ICD10: I10 - Controlled - Continue current medications - Recommend home blood pressure monitoring, to bring results to next visit - Encouraged sodium restriction, DASH or Mediterranean diet - Recommend regular aerobic exercise - Discussed need for and benefit of weight loss. BMI 37.79 kg/(m2) 5. Dyslipidemia - ICD9: 272.4, ICD10: E78.5 - Improving control - Continue current medications - Counseled on healthy diet and regular exercise Scot Griffin DO Return if no improvement. Follow up with Scot Griffin DO. To ER if develops chest pain, shortness of breath. Discussed risks, benefits, alternatives, and potential side effects of medications. Patient/Guardian expressed understanding and agreed with the plan. See patient instructions. Scot Griffin DO [address] [place] [address] Phone (more content not included)... [facility] 01-14-2024 History of Present illness Narrative ADIA Joshi is a 68 year old female who presents to the office for follow up HPI: HTN, well controlled, taking lisinopril as prescribed, no SE with medication HPL, taking Crestor medication 10 mg a day, tolerating well without SE Hypothyroidism, taking synthroid as prescribed, no SE with medication Mood, stable, taking Paxil Obesity, she was seen about 3 months ago in the office and was started on meformin to help her with weight loss. She is noticing that the medication is working. She has been able to lose 10 lbs. Weight down from 205 lbs to currently 195 lbs. She is excited about this. She has been cutting back on her sugars and starch foods as well. Started getting headaches, coming and going, mild. Started after began metformin- she feels that these are getting better for her. No red flag symptoms Hyperglycemia, no known hx of diabetes. 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 2012: Colon polyp Comment: tubular adenoma No date: GERD (gastroesophageal reflux disease) Comment: hiatal hernia No date: HTN (hypertension) 07/2015: Hypothyroidism 1990s: Renal calculus No date: Snoring PAST SURGICAL HISTORY 07/08/2012: COLONOSCOPY & POLYPECTOMY Comment: tubular adenoma, repeat 2015 No date: EGD Comment: hiatal hernia 1999s: HEART CATHETERIZATION Comment: x 2, patient reports negative No date: PAST SURGICAL HISTORY OF Comment: gallbladder No date: PAST SURGICAL HISTORY OF Comment: kidney stone retrieval Current Outpatient Medications Medication Sig rosuvastatin (CRESTOR) 10 mg tablet Take 1 tablet by mouth daily at bedtime. levothyroxine (SYNTHROID) 25 mcg tablet Take 1 tablet 5 days a week (25 mcg) and Take 2 tablets 2 days a week (50 mcg). metFORMIN (GLUCOPHAGE) 500 mg tablet Take 1 tablet by mouth daily with dinner. lisinopril (ZESTRIL) 20 mg tablet Take 1 tablet by mouth once daily. PARoxetine (PAXIL) 20 mg tablet Take 1 tablet by mouth once daily. nystatin (MYCOSTATIN) powder Apply 1 application to affected area twice daily. benzonatate (TESSALON PERLE) 100 mg capsule Take 1 capsule by mouth three times daily as needed. albuterol HFA (PROAIR HFA) 90 mcg/actuation inhaler Inhale 2 Puffs as instructed every 4 hours as needed. omeprazole (PRILOSEC) 20 mg capsule Take 20 mg by mouth once daily. ASPIRIN 81MG TABLET Take one (1) tablet daily . No current facility-administered medications for this visit. ALLERGIES No Known Allergies Social History Tobacco Use Smoking status: Never Smokeless tobacco: Never Substance Use Topics Alcohol use: No Drug use: No ROS: See HPI PE: BP 110/60 Pulse 80 Temp (Src) 97 (Right Tympanic) Resp 20 Wt 195 lb (88.5kg) Gen: A&OX3, NAD, non-toxic appearing HEENT: PERRLA, EOMs intact b/l, nares without drainage, pharynx without erythema, exudate, lesions, or drainage. Uvula midline. Neck: No LAD, no thyromegaly, no meningismus. CV: RRR, no murmur Lungs: CTA b/l, no wheezing Skin: No rashes, lesions, or wounds on exposed skin. Normal neurologic examination No edema, normal pulses ASSESSMENT/PLAN: 1. Hypothyroidism, acquired - ICD9: 244.9, ICD10: E03.9 (primary diagnosis) - Instructed patient on importance of taking on an empty stomach either first thing in the morning or at bedtime. - continue current dose of Synthroid 2. Encounter for screening mammogram for malignant neoplasm of breast - ICD9: V76.12, ICD10: Z12.31 - Set up for mammogram, yearly mammogram recommended - Encouraged monthly BSE - SARATH SCREENING 3. Class 2 obesity with body mass index (BMI) of 39.0 to 39.9 in adult, unspecified obesity type, unspecified whether serious comorbidity present - ICD9: 278.00, V85.39, ICD10: E66.9, Z68.39 Weight decreasing - Behavioral intervention, - Pharmacological intervention, - Eat well program, and - Continue current medications 4. Essential hypertension - ICD9: 401.9, ICD10: I10 - Controlled - Continue current medications - Recommend home blood pressure monitoring, to bring results to next visit - Encouraged sodium restriction, DASH or Mediterranean diet - Recommend regular aerobic exercise - Discussed need for and benefit of weight loss. BMI 37.79 kg/(m^2) 5. Dyslipidemia - ICD9: 272.4, ICD10: E78.5 - Improving control - Continue current medications - Counseled on healthy diet and regular exercise Scot Griffin DO Return if no improvement. Follow up with Scot Griffin DO. To ER if develops chest pain, shortness of breath. Discussed risks, benefits, alternatives, and potential side effects of medications. Patient/Guardian expressed understanding and agreed with the plan. See patient instructions. Scot Griffin DO [address] [place] [address] documented in this encounter [facility] 12-30-2023 Telephone encounter Note Pt called and is notified of providers message and instructions. Pt voices understanding. Danika Cullen RN [facility] 12-30-2023 Miscellaneous Notes Pt called and is notified of providers message and instructions. Pt voices understanding. Danika Cullen RN Thyroid labs and cmp ordered (last TSH slightly elevated). Recent lipid panel and A1C within normal range 3 months ago, will hold on rechecking at this visit. José Miguel Godinez PA-C 12/30/2023 PT is requesting confirmation if any labs are to be done prior to her upcoming appointment on 01/14/[address] Griffin. No labs are currently shown. Please advise patient. Thank you! documented in this encounter [facility] 12-30-2023 Telephone encounter Note Thyroid labs and cmp ordered (last TSH slightly elevated). Recent lipid panel and A1C within normal range 3 months ago, will hold on rechecking at this visit. José Miguel Godinez PA-C 12/30/2023 [facility] 12-29-2023 Telephone encounter Note PT is requesting confirmation if any labs are to be done prior to her upcoming appointment on 01/14/[address] Griffin. No labs are currently shown. Please advise patient. Thank you! [facility] 12-18-2023 Note HNO ID: [id number] Author: YASMEEN KO MA Service: ? Author Type: Blind Cleaner Type: Progress Notes Filed: 12/18/2023 15:12 Note Text: POPULATION HEALTH NAVIGATION OUTREACH Action/FYI Contacted patient to schedule [facility] Annual Wellness Visit, care gaps and HCCs due. 1st attempt: Unable to leave message; voicemail not set up 2nd attempt: My Chart message sent Reason for Outreach Care Gap/HCC or Scheduling Wellness Visits Care Gaps due: Annual Wellness Exam Breast Cancer Screening Controlling Blood Pressure Colorectal Cancer Screening Patient Contacted: Unable or unnecessary to reach patient: Unable to leave message Pipeline message sent HCC related Navigation Signature: Yasmeen Ko MA December 18, 2023 3:11 PM [facility] 12-18-2023 History of Present illness Narrative POPULATION HEALTH NAVIGATION OUTREACH Action/FYI Contacted patient to schedule [facility] Annual [facility]ness Visit, care gaps and HCCs due. 1st attempt: Unable to leave message; voicemail not set up 2nd attempt: My Chart message sent Reason for Outreach Care Gap/HCC or Scheduling Wellness Visits Care Gaps due: Annual Wellness Exam Breast Cancer Screening Controlling Blood Pressure Colorectal Cancer Screening Patient Contacted: Unable or unnecessary to reach patient: Unable to leave message Pipeline message sent HCC related Navigation Signature: Yasmeen Ko MA December 18, 2023 3:11 PM documented in this encounter [facility] 12-18-2023 Note Patient Outreach (DANI WINTERS) ANTWAN JOSHIAlexa Donohue ([id number]) 1955 F Date Time Provider Department 12/18/23 YASMEEN KO During your visit today, we recorded the following information about you: Yasmeen Ko MA 12/18/2023 3:12 PM Signed POPULATION HEALTH NAVIGATION OUTREACH Action/FYI Contacted patient to schedule [facility]ness Visit, care gaps and HCCs due. 1st attempt: Unable to leave message; voicemail not set up 2nd attempt: My Chart message sent Reason for Outreach Care Gap/HCC or Scheduling Wellness Visits Care Gaps due: Annual Wellness Exam Breast Cancer Screening Controlling Blood Pressure Colorectal Cancer Screening Patient Contacted: Unable or unnecessary to reach patient: Unable to leave message MyChart message sent HCC related Navigation Signature: Yasmeen Ko MA December 18, 2023 3:11 PM Allergies As of Date: 12/18/2023 (No Known Allergies) Date Reviewed: 09/22/2023 Reviewed by: Seda Fletcher MA - Fully Assessed Reason for Visit: Population Health Navigation Outreach [3910] Cmt: [place] AWV/HCC and care gaps Prescriptions as of 12/18/2023 - rosuvastatin (CRESTOR) 10 mg tablet Take 1 tablet by mouth daily at bedtime. - levothyroxine (SYNTHROID) 25 mcg tablet Take 1 tablet 5 days a week (25 mcg) and Take 2 tablets 2 days a week (50 mcg). - metFORMIN (GLUCOPHAGE) 500 mg tablet Take 1 tablet by mouth daily with dinner. - lisinopril (ZESTRIL) 20 mg tablet Take 1 tablet by mouth once daily. - PARoxetine (PAXIL) 20 mg tablet Take 1 tablet by mouth once daily. - nystatin (MYCOSTATIN) powder Apply 1 application to affected area twice daily. - benzonatate (TESSALON PERLE) 100 mg capsule Take 1 capsule by mouth three times daily as needed. - albuterol HFA (PROAIR HFA) 90 mcg/actuation inhaler Inhale 2 Puffs as instructed every 4 hours as needed. - omeprazole (PRILOSEC) 20 mg capsule Take 20 mg by mouth once daily. - ASPIRIN 81MG TABLET Take one (1) tablet daily . Meds Comments as of 07/08/2012: Held ASA and garlic tabs as advised. Problem List As Of Date 12/18/2023 Noted Resolved Supraventricular tachycardia [I49.9] Unspecified essential hypertension [I10] 07/21/2015 Carrier of Fragile X syndrome [Q99.2] DIAPHRAGMATIC HERNIA [K44.9] GERD (gastroesophageal reflux disease) [K21.9] Anxiety [F41.9] Morbid obesity with BMI of 40.0-44.9, adult (HC*04/11/2015 Gastroesophageal reflux disease without esophag*04/11/2015 Low HDL (under 40) [E78.6] 04/11/2015 Essential hypertension [I10] 04/11/2015 Bilateral knee pain [M25.561, M25.562] 04/11/2015 Arthritis of both knees [M17.0] 04/11/2015 Tinnitus [H93.19] 09/27/2016 Well adult exam [Z00.00] 06/23/2019 Hypothyroidism, acquired [E03.9] 06/23/2019 Obesity, Class II, BMI 35-39.9 [E66.9] 08/13/2022 Dyslipidemia [E78.5] 08/13/2022 Weight gain [R63.5] 09/12/2023 Class 2 obesity with body mass index (BMI) of 3*09/12/2023 Tinnitus, bilateral [H93.13] 09/12/2023 Diarrhea [R19.7] 09/12/2023 Hyperglycemia [R73.9] 09/12/2023 Encounter Status:Closed by YASMEEN KO on 12/18/23 [facility] 12-02-2023 Telephone encounter Note The following approved medication requests have been transmitted electronically. Requested Prescriptions Signed Prescriptions Disp Refills rosuvastatin (CRESTOR) 10 mg tablet 90 tablet 1 Sig: Take 1 tablet by mouth daily at bedtime. Authorizing Provider: BINH CHILD MD [facility] 12-02-2023 Miscellaneous Notes The following approved medication requests have been transmitted electronically. Requested Prescriptions Signed Prescriptions Disp Refills rosuvastatin (CRESTOR) 10 mg tablet 90 tablet 1 Sig: Take 1 tablet by mouth daily at bedtime. Authorizing Provider: BINH CHILD MD Last office visit -- 09/12/2023 Rachael Burch MA Prescription Refill Information The patient has been identified by name and date of : Yes Caregiver verified no other encounters exist for this prescription request: Yes Caregiver confirmed with patient/requestor that no other refills are due, in the near future, with this provider at this time: Yes The last office visit in the department: 09-12-23 Does the patient have a future office visit with this provider/department: Yes Requested Prescriptions Pending Prescriptions Disp Refills rosuvastatin (CRESTOR) 10 mg tablet 90 tablet 2 Sig: Take 1 tablet by mouth daily at bedtime. Bárbara Fowler December 02, 2023 2:57 PM documented in this encounter [facility] 12-02-2023 Telephone encounter Note Last office visit -- 09/12/2023 Rachael Burch MA [facility] 12-02-2023 Telephone encounter Note Prescription Refill Information The patient has been identified by name and date of : Yes Caregiver verified no other encounters exist for this prescription request: Yes Caregiver confirmed with patient/requestor that no other refills are due, in the near future, with this provider at this time: Yes The last office visit in the department: 09-12-23 Does the patient have a future office visit with this provider/department: Yes Requested Prescriptions Pending Prescriptions Disp Refills rosuvastatin (CRESTOR) 10 mg tablet 90 tablet 2 Sig: Take 1 tablet by mouth daily at bedtime. Bárbara Fowler December 02, 2023 2:57 PM [facility] 09-23-2023 Telephone encounter Note Pt. informed. [facility] 09-23-2023 Miscellaneous Notes Pt. informed. Attempted to call No answer or VM. Please let patient know that her TSH was slightly elevated, indicating we may need to increase her levothyroxine slightly. I see where there were some concerns with weight gain at her recent visit. I would recommend starting with 1 tablet (25 mcg) 5 days a week, and take 2 tablets (50 mcg) 2 days a week. Repeat labs in 6-8 weeks. The rest of her labs looked good, no major concerns. José Miguel Godinez PA-C 09/23/2023 documented in this encounter [facility] 09-23-2023 Telephone encounter Note Attempted to call No answer or VM. [facility] 09-23-2023 Telephone encounter Note Please let patient know that her TSH was slightly elevated, indicating we may need to increase her levothyroxine slightly. I see where there were some concerns with weight gain at her recent visit. I would recommend starting with 1 tablet (25 mcg) 5 days a week, and take 2 tablets (50 mcg) 2 days a week. Repeat labs in 6-8 weeks. The rest of her labs looked good, no major concerns. José Miguel Godinez PA-C 09/23/2023 [facility] 09-22-2023 Instructions Becca Martinez APRN.[facility] - 09/22/2023 3:01 PM EDT Contact Dermatitis Contact dermatitis is a type of skin rash. It occurs when skin comes into contact with chemicals or physical substances that cause an allergic or irritant reaction. Contact dermatitis can occur from exposure to many different compounds found both in the home and at work. There are two types of contact dermatitis: Allergic contact dermatitis. This occurs when skin, which has become sensitive to a certain substance (allergen), comes in contact with that substance again. This is a delayed skin reaction that typically develops 12 to 72 hours after exposure. Irritant contact dermatitis. This occurs when the skin is repeatedly exposed to a mild irritant (such as detergent or solvents) over a long period of time. If skin is exposed to a strong irritant (such as acid, alkali, solvent, strong soap, or detergent), skin damage can be immediate. What are common sources of allergic contact dermatitis? Not everyone reacts to allergens. However, some people become allergic to something that they had previously tolerated for many years. Skin can become allergic to a substance after many exposures or after just one exposure. Common sources of allergic contact dermatitis include: Metals such as nickel (present in costume jewelry or snaps on jeans). Nickel may cause an allergic dermatitis in areas in contact with the metal (for example, the ears under earrings). Gold is also becoming a widespread allergen. Fragrances, such as those found in perfumes, soaps, lotions, and shampoos. Cosmetics. Topical medications, such as antibiotics (Neosporin ) or anti-itch preparations. These may cause an allergic reaction or even worsening of the initial problem and are often misdiagnosed as an infection. Preservatives. These substances keep topical products from spoiling. Sunscreens. These commonly cause a hive-like rash that can appear hours or days after sun exposure. Rubber ingredients. Rubber is a common source of work-related allergies. It can cause immediate allergic reactions, such as itching, burning, or welts. Some people experience itching and tearing eyes or even shortness of breath. What are common sources of irritant contact dermatitis? Detergents, soaps, brand mgr, waxes, and chemicals are substances that can irritate the skin. They can wear down the oily, protective layer on skin surface and lead to irritant contact dermatitis. Irritant contact dermatitis is common among people who regularly work with strong chemicals or detergents, such as restaurant, maintenance, and chemical workers. It is also seen in people who do a lot of housework due to contact with cleaning products. Are certain occupations at greater risk? Some occupations have more exposure to chemicals or substances that can result in sensitization and cause allergic contact dermatitis. Examples of these include dental workers, health care workers, florists, hairdressers, and machinists. What are the symptoms of contact dermatitis? Contact dermatitis symptoms can range from mild redness and dryness to severe pain and peeling that can be disabling. Allergic contact dermatitis symptoms include: Reddening of skin (either in patches or all over the body) Intermittent dry, scaly patches of skin Blisters that ooze Burning or itching that is usually intense without visible skin sores (lesions) Swelling in the eyes, face, and genital areas (severe cases) Hives Sun sensitivity Darkened, leathery, and cracked skin Allergic contact dermatitis can be very difficult to distinguish from other rashes. Irritant contact dermatitis symptoms include: Mild swelling of skin Stiff, tight feeling skin Dry, cracking skin Blisters Painful ulcers on the skin Symptoms vary depending on the cause of dermatitis. How can I know if I have contact dermatitis? If you have a skin rash that won't go away, visit your health care provider. If he or she suspects allergic contact dermatitis, patch testing may be performed. In this test, small samples of chemicals are placed on an area of skin on your back to see if a rash develops. There are no needles or pricking of the skin. These areas of the skin are then evaluated after 48 hours and again at 96 hours or one week. The advantage of patch testing is that, if you are allergic to any chemical/product, the allergens can be identified, and your health care provider can effectively treat the rash with therapy and avoidance of the allergen(s). There are no tests that can be done for irritant contact dermatitis. Tell your health care provider about any irritating substances or chemicals that you regularly come into contact with (including cosmetics, lotions, and nail greenlandic). With either type of contact dermatitis, you can avoid substances you suspect and see if the rash improves. How is contact dermatitis treated? The type of treatment depends on the cause of contact dermatitis. Common treatments include: oral and/or topical corticosteroids, antihistamines, lotions and creams, or oatmeal baths. How can I prevent contact dermatitis? For allergic contact dermatitis: Avoid contact with substances that cause the skin rash. Wash any area that comes into contact with allergic substances. Learn to recognize poison oak and poison shira. For irritant contact dermatitis: Wear cotton gloves under rubber gloves for all wet work. Use plain petroleum jelly to protect the skin. Reapply the petroleum jelly two or three times a day and after washing your hands. Avoid contact with substances that irritate the skin. Use mild soaps. Use hand creams and lotions frequently. References [employer]. Contact Dermatitis Accessed 05/30/2014. Centers for Disease Control and Prevention. Skin Exposures and Effects Accessed 05/30/2014. National [employer]. Red, Itchy Rash? Get the Skinny on Dermatitis Accessed 05/30/2014. [employer]. Contact Dermatitis Accessed 05/30/2014. Copyright 0671-6762 The [facility]. All rights reserved This information is provided by the [facility] and is not intended to replace the medical advice of your doctor or health care provider. Please consult your health care provider for advice about a specific medical condition. For additional health information, please contact the Center for Consumer Health Information at the [facility] or toll-free extension [phone]. If you prefer, you may visit [email or web address] or [email or web address]. index#[id number] documented in this encounter [facility] 09-22-2023 History of Present illness Narrative Images from the original note were not included. Subjective Patient came in with complaints of itching rash. Patient says she has had it a week. Patient says she thinks she got into poison shira. Patient says she also has some kind of rash under her stomach. Patient denies any other symptoms. The history is provided by the patient. No american sign language interpreter was used. Rash Review of Systems Constitutional: Negative. Skin: Positive for itching and rash. Objective Physical Exam Constitutional: Appearance: Normal appearance. Cardiovascular: Rate and Rhythm: Normal rate and regular rhythm. Heart sounds: Normal heart sounds. Pulmonary: Effort: Pulmonary effort is normal. Breath sounds: Normal breath sounds. Skin: Comments: Red areas marked above are vesicular rash consistent with a contact dermatitis. The purple area marked above is erythema consistent with yeast. Neurological: Mental Status: She is alert. 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 MEDICATIONS metFORMIN (GLUCOPHAGE) 500 mg tablet Take 1 tablet by mouth daily with dinner. lisinopril (ZESTRIL) 20 mg tablet Take 1 tablet by mouth once daily. PARoxetine (PAXIL) 20 mg tablet Take 1 tablet by mouth once daily. levothyroxine (SYNTHROID) 25 mcg tablet Take 1 tablet by mouth daily before breakfast. rosuvastatin (CRESTOR) 10 mg tablet Take 1 tablet by mouth daily at bedtime. omeprazole (PRILOSEC) 20 mg capsule Take 20 mg by mouth once daily. ASPIRIN 81MG TABLET Take one (1) tablet daily . predniSONE (DELTASONE) 10 mg tablet Take 4 tabs daily for 3 days, then 2 tabs daily for 3 days, then 1 tab daily for 3 days with food. nystatin (MYCOSTATIN) cream Apply to affected area two times a day for 14 days. nystatin (MYCOSTATIN) powder Apply 1 application to affected area twice daily. benzonatate (TESSALON PERLE) 100 mg capsule Take 1 capsule by mouth three times daily as needed. albuterol HFA (PROAIR HFA) 90 mcg/actuation inhaler Inhale 2 Puffs as instructed every 4 hours as needed. FAMILY HISTORY Problem Relation Age of Onset Ischemic Heart Disease Father CABG Stroke Maternal Grandmother Stroke Paternal Grandmother in 80s Seizures Daughter Stroke Sister brain aneurysm other (Fragile X) Daughter other (Fragile X) Daughter Social History Tobacco Use Smoking status: Never Smokeless tobacco: Never Substance Use Topics Alcohol use: No Drug use: No ASSESSMENT/PLAN: 1. Yeast infection of the skin - ICD9: 112.3, ICD10: B37.2 (primary diagnosis) - NYSTATIN 100,000 UNIT/GRAM TOPICAL CREAM 2. Contact dermatitis due to plants, except food, unspecified contact dermatitis type - ICD9: 692.6, ICD10: L25.5 - PREDNISONE 10 MG TABLET Patient was educated about proper use of medication and supportive therapies. Patient will follow-up with signs and symptoms seem to getting worse not better. Becca Martinez APRN.JOJO documented in this encounter [facility] 09-12-2023 Instructions Scot Griffin DO - 09/12/2023 8:10 AM EDT Intermittent fasting By Latrice Luna Or Jason Newby Would like you to fast for 16 hours a day, at least 3-4 days a week. Eat within the 8 hour window Eat at least 90-100 grams of protein a day Drink at least 60-80 oz of water a day The office with call to schedule colonoscopy- Prep is sent to the pharmacy for you to picker and packer Call [facility] office for ear appointment for the tinnitus [phone] Dr. Raheel Pavon- Taxi Driver Supervisor, when you want to make an appointment [phone] documented in this encounter [facility] 09-12-2023 History of Present illness Narrative CC: Mindi Joshi is a 68 year old female who presents to the office for follow up HPI: HTN, well controlled, taking lisinopril as prescribed, no SE with medication HPL, taking Crestor medication 10 mg a day, tolerating well without SE Hypothyroidism, taking synthroid as prescribed, no SE with medication Willing to have fasting labs obtained. Mood, stable, taking Paxil Diarrhea, improved, she was seen by [facility] in Apr for this. Thinks maybe related to eating too many salads and these were bothering her. Weight gain, frustrated by this. Interested in trying a medication to help her lose weight, that would be safe for her Hyperglycemia, no known hx of diabetes. 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 Colon polyp 2012 tubular adenoma GERD (gastroesophageal reflux disease) hiatal hernia HTN (hypertension) Hypothyroidism 07/2015 Renal calculus Snoring PAST SURGICAL HISTORY Procedure Laterality Date COLONOSCOPY & POLYPECTOMY 07/08/2012 tubular adenoma, repeat 2015 EGD hiatal hernia HEART CATHETERIZATION 2000s x 2, patient reports negative PAST SURGICAL HISTORY OF gallbladder PAST SURGICAL HISTORY OF kidney stone retrieval Social History: Social History Tobacco Use Smoking status: Never Smokeless tobacco: Never Substance Use Topics Alcohol use: No Drug use: No FAMILY HISTORY Problem Relation Age of Onset Ischemic Heart Disease Father CABG Stroke Maternal Grandmother Stroke Paternal Grandmother in 80s Seizures Daughter Stroke Sister brain aneurysm other (Fragile X) Daughter other (Fragile X) Daughter Current Outpatient prescriptions: lisinopril (ZESTRIL) 20 mg tablet Take 1 tablet by mouth once daily. PARoxetine (PAXIL) 20 mg tablet Take 1 tablet by mouth once daily. levothyroxine (SYNTHROID) 25 mcg tablet Take 1 tablet by mouth daily before breakfast. rosuvastatin (CRESTOR) 10 mg tablet Take 1 tablet by mouth daily at bedtime. omeprazole (PRILOSEC) 20 mg capsule Take 20 mg by mouth once daily. ASPIRIN 81MG TABLET Take one (1) tablet daily . metFORMIN (GLUCOPHAGE) 500 mg tablet Take 1 tablet by mouth daily with dinner. peg 3350-electrolytes (GAVILYTE-C) 240-22.72-6.72 -5.84 gram solution Take 4,000 mL by mouth one time only for 1 dose. nystatin (MYCOSTATIN) powder Apply 1 application to affected area twice daily. benzonatate (TESSALON PERLE) 100 mg capsule Take 1 capsule by mouth three times daily as needed. albuterol HFA (PROAIR HFA) 90 mcg/actuation inhaler Inhale 2 Puffs as instructed every 4 hours as needed. Allergies: ALLERGIES No Known Allergies ROS: See HPI PE: 09/12/23 0745 BP: 130/82 Pulse: 80 Resp: 20 Temp: 36.2 C (97.2 F) TempSrc: Right Tympanic Weight: 93 kg (205 lb) Height: 153 cm (5' 0.24) Gen: A&O, NAD, non-toxic appearing, Pleasant, cooperative HEENT: NT/AC, PERRLA, EOMs intact b/l, nares clear and patent b/l, pharynx without erythema, exudate or lesions. Uvula midline. MMM, EACs without erythema or debris. TMs pearly leonardo with intact landmarks b/l. Neck: supple, No cervical LAD, no thyromegaly, no carotid bruits CV: RRR, normal S1 and S2, no murmurs, no gallops, no rubs, Pulses 2+ and symmetric in UE and LE b/l Lungs: normal respiratory effort, CTA b/l, no wheezing or rhonchi or rales Abd: soft, obese, NT, ND, +BS, no hepatosplenomegaly MS: arthritis changes of joints Neuro: CN II-XII intact b/l, strength 5/5 b/l UE and LE, DTRs 2/4 UE and LE, sensation intact. Skin: warm, dry, intact, No rashes or lesions on exposed skin. ASSESSMENT/PLAN: 1. Hypothyroidism, acquired - ICD9: 244.9, ICD10: E03.9 (primary diagnosis) - Instructed patient on importance of taking on an empty stomach either first thing in the morning or at bedtime. - continue current dose of Synthroid - THYROID STIMULATING HORMONE - T4 FREE/FREE THYROXINE 2. Special screening for malignant neoplasms, colon - ICD9: V76.51, ICD10: Z12.11 - PEG 3350 240 GRAM-ELECTROLYTES 22.72 GRAM-6.72 G-5.84 G POWDR FOR SOLN - PEG 3350 240 GRAM-ELECTROLYTES 22.72 GRAM-6.72 G-5.84 G POWDR FOR SOLN 3. Tinnitus, bilateral - ICD9: 388.30, ICD10: H93.13 - CONSULT TO ENT 4. Class 2 obesity with body mass index (BMI) of 39.0 to 39.9 in adult, unspecified obesity type, unspecified whether serious comorbidity present - ICD9: 278.00, V85.39, ICD10: E66.9, Z68.39 Weight increasing - Behavioral intervention, - PSMF, - Eat well program, - Continue current medications, and - Add Metformin 5. Weight gain - ICD9: 783.1, ICD10: R63.5 Labs as ordered Add on metformin- continue to increase dose of metformin Consider adding on Topamax - COMPLETE BLOOD COUNT AND DIFFERENTIAL - COMPREHENSIVE METABOLIC PANEL - THYROID STIMULATING HORMONE - T4 FREE/FREE THYROXINE 6. Essential hypertension - ICD9: 401.9, ICD10: I10 - Controlled - Continue current medications - Recommend home blood pressure monitoring, to bring results to next visit - Encouraged sodium restriction, DASH or Mediterranean diet - Recommend regular aerobic exercise 7. Diarrhea, unspecified type - ICD9: 787.91, ICD10: R19.7 If not improved, consider stool studies and other labs as d/w her today 8. Dyslipidemia - ICD9: 272.4, ICD10: E78.5 - Control undetermined, due for labs - Counseled on healthy diet and regular exercise - Discussed need for and benefit of weight loss. BMI 39.72 kg/(m^2) - LIPID PANEL BASIC 9. Anxiety - ICD9: 300.00, ICD10: F41.9 stable 10. Hyperglycemia - ICD9: 790.29, ICD10: R73.9 - HEMOGLOBIN A1C 11. Screening for malignant neoplasm of the rectum - ICD9: V76.41, ICD10: Z12.12 12. Screening for colon cancer - ICD9: V76.51, ICD10: Z12.11 - COLONOSCOPY SCREENING Scot Griffin DO To ER if develops chest pain, shortness of breath, or severe worsening of symptoms. Discussed risks, benefits, alternatives, and potential side effects of medications. Patient expressed understanding and agreed with the plan. Scot Griffin DO [address] [place] [address] documented in this encounter [facility] 09-02-2023 History of Present illness Narrative Images from the original note were not included. POPULATION HEALTH NAVIGATION OUTREACH Action/FYI Patient is on medication adherence list for below med: LISINOPRIL 20 MG TABLET ROSUVASTATIN CALCIUM 10 MG TAB Per reconcile dispense refilled on time: Dispensed Days Supply Quantity Provider Pharmacy LISINOPRIL 20MG TAB 09/01/2023 90 90 tablet Scot Griffin, DO Dispensed Days Supply Quantity Provider Pharmacy ROSUVASTATIN 10MG TAB 09/01/2023 90 90 tablet Scot Griffin, DO Reason for Outreach Med Adherence Patient Contacted: No outreach needed: RX filled per reconcile dispense Navigation Signature: Suze Perry Population Health Navigator September 02, 2023 12:19 PM documented in this encounter [facility] 07-02-2023 Miscellaneous Notes Pt. informed via My Chart. Tried to call no VM. Lab orders placed. Adalgisa Sotelo APRN.JOJO Please submit any necessary lab orders into patient's chart prior to wellness exam on 09/12/23. documented in this encounter [facility] 04-29-2023 Instructions Tala Sanchez APRN.CNP - 04/29/2023 9:14 AM EST Increase fiber in diet BRAT DIET (may eat any of the following as tolerated) Bananas Applesauce Sumner Saltine Crackers Animal Crackers Pretzels Oatmeal Unsweetened Dry Cereal (Rice Krispies, Cheerios) Plain Baked or Boiled Potato Plain White Rice Plain Noodles All clear liquid listed below CLEAR LIQUID DIET (need to drink 2 ounces total every half hour) Broth Jello Popsicles Pedialyte Gatorade NO Juices NO Milk NO Dairy Products Call if urine output is decreased or she develops dry mucous membranes, or lethargy. documented in this encounter [facility] 04-29-2023 History of Present illness Narrative 04/29/2023 Patient presents with: ER F/U: Went to ER 04/21 for diarrhea and palpitatons. Work up came back normal. Still not feeling well. SUBJECTIVE: This is a 67 year old that is here today for Above Complaints. HOSPITAL/ER FOLLOW UP: Reason for visit: chest pain and diarrhea Which facility: [facility] Date of visit: 04/22/2023 Diagnosis: chest pain Testing done: Blood work, CXR, EKG Treatment given: nothing Since discharge no more chest pain or palpitations. Diarrhea improved but then yesterday had about 5 episodes. Has normal formed stool two days ago. Can be watery and loose. Has some intermittent aching in the right abdomen. Not using any OTC products for pain or diarrhea. HX of cholecystomy. Denies fevers, chills, recent antibiotic/travel, sick contacts, nausea vomiting, constipation, melana, hematochezia or dysuria. 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 MEDICATIONS Current Outpatient Medications Medication Sig lisinopril (ZESTRIL) 20 mg tablet Take 1 tablet by mouth once daily. PARoxetine (PAXIL) 20 mg tablet Take 1 tablet by mouth once daily. levothyroxine (SYNTHROID) 25 mcg tablet Take 1 tablet by mouth daily before breakfast. rosuvastatin (CRESTOR) 10 mg tablet Take 1 tablet by mouth daily at bedtime. nystatin (MYCOSTATIN) powder Apply 1 application to affected area twice daily. benzonatate (TESSALON PERLE) 100 mg capsule Take 1 capsule by mouth three times daily as needed. albuterol HFA (PROAIR HFA) 90 mcg/actuation inhaler Inhale 2 Puffs as instructed every 4 hours as needed. omeprazole (PRILOSEC) 20 mg capsule Take 20 mg by mouth once daily. ASPIRIN 81MG TABLET Take one (1) tablet daily . No current facility-administered medications for this visit. Medications and allergies reviewed by this provider. SOCIAL HISTORY Social History Tobacco Use Smoking status: Never Smokeless tobacco: Never Substance Use Topics Alcohol use: No Drug use: No REVIEW OF SYSTEMS All other reviewed and negative other than HPI. OBJECTIVE: BP 122/78 Pulse 92 Temp 37.4 C (99.4 F) Resp 20 Wt 90.9 kg (200 lb 6.4 oz) SpO2 97% BMI 38.83 kg/m . Vital signs reviewed by this provider. APPEARANCE Well appearing, alert, in no acute distress, well-hydrated, well nourished. EYES PERRLA, conjunctiva and sclera normal. HEART RRR with normal S1 and S2, no murmurs, no gallops, no JVD appreciated LUNG clear to auscultation. No wheezes, rhonchi or rales ABDOMEN bowel sounds normoactive, no bruits, soft, non-distended. Mild TTP RUQ. No rebound tenderness or guarding SKIN Skin color, texture, turgor normal, no suspicious rashes or lesions to exposed skin HIV Screening Never done Shingrix Vaccine(1 of 2) Never done RSV Vaccine(1 - 1-dose 60+ series) Never done Bone Density Screening Never done Colorectal Cancer Screening due on 08/08/2022 Covid-19 Vaccine(2022- season) due on 01/24/2023 DTaP,Tdap,Td Vaccine(2 - Td or Tdap) due on 08/27/2023 Annual PCP Team Chronic Disease Visit due on 11/20/2023 BP Controlled (<130/80) due on 11/20/2023 Mammogram Screening due on 03/10/2024 Diabetes Screening due on 06/11/2025 Lipid Screening due on 05/29/2027 Influenza Vaccine Completed Depression Assessment Completed Hepatitis C Screening Completed Pneumococcal Vaccine: 65+ Completed Pap Testing Discontinued Advance Directive Discussion Discontinued ASSESSMENT/PLAN: 1. Diarrhea, unspecified type - ICD9: 787.91, ICD10: R19.7 (primary diagnosis) - consider viral - no red flag symptoms or exam findings - red flag symptoms or exam findings - COMP METABOLIC PANEL - CBC + DIFF - follow-up if symptoms fail to improve to ER with red flag 2. Right upper quadrant pain - ICD9: 789.01, ICD10: R10.11 Differential Diagnosis includes Gastritis and IBS - no red flag symptoms or exam findings - red flag symptoms discussed, verbalizes understanding - discussed BRAT diet - Increase fiber in diet - COMP METABOLIC PANEL - LIPASE BLD - CBC + DIFF - follow-up if symptoms fail to improve to ER with red flag symptoms Tala Sanchez APRN.CNP Prescription instructions reviewed with patient as applicable. Patient advised if symptoms do not improve or if symptoms worsen sooner, to contact their primary care physician. Potential red flag symptoms discussed with the patient. Reviewed appropriate action plan to take if red flag symptoms occur. Patient agreeable to treatment plan. I spent a total of 30 minutes on the date of the service which included preparing to see the patient, [id number] patient care, completing clinical documentation, obtaining and/or reviewing separately obtained history, performing a medically appropriate examination, counseling and educating the patient/family/caregiver, and ordering medications, tests, or procedures. documented in this encounter [facility] 03-10-2023 Miscellaneous Notes March 11, 2023 PID: [id number] Mindi CharanjitRochelle Joshi [address] [place] [id number] Dear Rochelle Aroldo, We are pleased to inform you that the results of your recent breast imaging exam on 03/10/2023 are normal. Early detection of cancer is very important. We also understand recommendations regarding breast cancer screening are controversial. Please discuss with your primary care provider which strategy is best for you and whether a mammogram is right for you. Your imaging studies and report will be kept on file at [facility] as part of your permanent medical record and are available for your continuing care. Thank you for allowing us to help in meeting your health care needs. Sincerely, Dr. Morin Interpreting Radiologist [facility] (Normal over 40) documented in this encounter [facility] 03-06-2023 Miscellaneous Notes Patient has been identified by name and date of : Yes, Jennifer Torres RN Date 03/06/2023 Time 11:14 am Patient phones for refill(s): Requested Prescriptions Pending Prescriptions Disp Refills lisinopril (ZESTRIL) 20 mg tablet 90 tablet 3 Sig: Take 1 tablet by mouth once daily. PARoxetine (PAXIL) 20 mg tablet 90 tablet 3 Sig: Take 1 tablet by mouth once daily. levothyroxine (SYNTHROID) 25 mcg tablet 90 tablet 3 Sig: Take 1 tablet by mouth daily before breakfast. rosuvastatin (CRESTOR) 10 mg tablet 90 tablet 2 Sig: Take 1 tablet by mouth daily at bedtime. Patient reports has enough medications until provider returns to office next week. Date of last office visit with pcp: 11/19/2022 Future appt: none Last 2 Encounter Wt Readings: Date: Wt: 11/19/2022 88.5 kg (195 lb) 10/14/2022 88.9 kg (196 lb) Previous labs/tests for medication: Cholesterol: HDL Cholesterol (mg/dL) Date Value 05/29/2022 56 12/09/2020 48 LDL Cholesterol (mg/dL) Date Value 05/29/2022 140 12/09/2020 132 ALT (U/L) Date Value 05/29/2022 24 12/09/2020 15 Non HDL Cholesterol (mg/dL) Date Value 05/29/2022 164 12/09/2020 148 Blood Pressure: BUN (mg/dL) Date Value 05/29/2022 13 12/09/2020 9 Sodium (mmol/L) Date Value 05/29/2022 141 12/09/2020 142 Last 1 Encounter BP Readings: Date: BP: 11/19/2022 120/70 Liver Function: ALT (U/L) Date Value 05/29/2022 24 12/09/2020 15 AST (U/L) Date Value 05/29/2022 22 12/09/2020 19 Please advise. Thank you. Jennifer Torres RN documented in this encounter [facility] 11-20-2022 History of Present illness Narrative CC: Mindi Joshi is a 67 year old female who presents to the office for follow up shoulder pain HPI: Seen in office on 10/14/22, at that time Was recently on 10/08 at [facility] for accident in which she fell through her deck that was rotting out and fell throught the deck. Doesn't know exactly how she landed and fell. Mertens like she was going to pass out, but didn't pass out. Hit her right shoulder and right lower leg. Right lower leg is swollen and bruised but feels better. Couldn't move right arm/shoulder after this accident. No fractures on xrays. Feels that she is slowly regaining her range of motion with gentle exercises she is doing at home with her shoulder. No new shortness of breath or other symptoms. No head injury Currently She states that she is feeling much better. She is regaining her range of motion of her shoulder. She has been alternating ice and heating pad use to help her get better movement. She feels that she is at least 90% better. Would like to continue to do her stretches at home and avoid PHYSICAL THERAPY and shoulder injection at this time. 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 Colon polyp 2012 tubular adenoma GERD (gastroesophageal reflux disease) hiatal hernia HTN (hypertension) Hypothyroidism 07/2015 Renal calculus Snoring PAST SURGICAL HISTORY Procedure Laterality Date COLONOSCOPY & POLYPECTOMY 07/08/2012 tubular adenoma, repeat 2016 EGD hiatal hernia HEART CATHETERIZATION 2000s x 2, patient reports negative PAST SURGICAL HISTORY OF gallbladder PAST SURGICAL HISTORY OF kidney stone retrieval Current Outpatient Medications Medication Sig rosuvastatin (CRESTOR) 10 mg tablet Take 1 tablet by mouth daily at bedtime. levothyroxine (SYNTHROID) 25 mcg tablet Take 1 tablet by mouth daily before breakfast. lisinopril (ZESTRIL, PRINIVIL) 20 mg tablet Take 1 tablet by mouth once daily. PARoxetine (PAXIL) 20 mg tablet Take 1 tablet by mouth once daily. omeprazole (PRILOSEC) 20 mg capsule Take 20 mg by mouth once daily. ASPIRIN 81MG TABLET Take one (1) tablet daily . nystatin (MYCOSTATIN) powder Apply 1 application to affected area twice daily. benzonatate (TESSALON PERLE) 100 mg capsule Take 1 capsule by mouth three times daily as needed. albuterol HFA (PROAIR HFA) 90 mcg/actuation inhaler Inhale 2 Puffs as instructed every 4 hours as needed. No current facility-administered medications for this visit. ALLERGIES No Known Allergies Social History Tobacco Use Smoking status: Never Smokeless tobacco: Never Substance Use Topics Alcohol use: No Drug use: No ROS: See HPI PE: BP 120/70 Pulse 64 Temp (Src) 96.7 (Left Tympanic) Resp 20 Wt 195 lb (88.5kg) Gen: A&OX3, NAD, non-toxic appearing HEENT: PERRLA, EOMs intact b/l, nares without drainage, pharynx without erythema, exudate, lesions, or drainage. Uvula midline. Neck: No LAD, no thyromegaly, no meningismus. CV: RRR, no murmur Lungs: CTA b/l, no wheezing Skin: No rashes, lesions, or wounds on exposed skin. Right shoulder with still mildly decreased abduction and flexion and internal rotation but much improved to about 90% of her capacity of movement. Mild discomfort still in superior anterior shoulder, no signs of swelling or redness ASSESSMENT/PLAN: 1. Acute pain of right shoulder - ICD9: 719.41, ICD10: M25.511 (primary diagnosis) Symptoms are much improved, d/w her today to continue her same icing and heating pad use and stretches. Consider PHYSICAL THERAPY and ishoulder injection if doesn't resolve fully 2. Injury of right shoulder, subsequent encounter - ICD9: V58.89, 959.2, ICD10: S49.91XD Symptoms are much improved, d/w her today to continue her same icing and heating pad use and stretches. Consider PHYSICAL THERAPY and ishoulder injection if doesn't resolve fully 3. Decreased right shoulder range of motion - ICD9: 719.51, ICD10: M25.611 Symptoms are much improved, d/w her today to continue her same icing and heating pad use and stretches. Consider PHYSICAL THERAPY and ishoulder injection if doesn't resolve fully Scot Griffin DO Return if no improvement. Follow up with Scot Griffin DO. To ER if develops chest pain, shortness of breath Discussed risks, benefits, alternatives, and potential side effects of medications. Patient/Guardian expressed understanding and agreed with the plan. See patient instructions. Scot Griffin DO [address] [place] [address] documented in this encounter [facility] 08-13-2022 History of Present illness Narrative CC: Mindi Joshi is a 67 year old female who presents to the office for follow up HPI: HTN, well controlled, taking lisinopril as prescribed, no SE with medication HPL, taking Crestor medication 10 mg a day, tolerating well without SE Hypothyroidism, taking synthroid as prescribed, no SE with medication Willing to have fasting labs obtained. Mood, stable, taking Paxil Is looking forward to long term at the end of August and is planning [place]. 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 Colon polyp 2012 tubular adenoma GERD (gastroesophageal reflux disease) hiatal hernia HTN (hypertension) Hypothyroidism 07/2015 Renal calculus Snoring PAST SURGICAL HISTORY Procedure Laterality Date COLONOSCOPY & POLYPECTOMY 07/08/2012 tubular adenoma, repeat 2016 EGD hiatal hernia HEART CATHETERIZATION 2000s x 2, patient reports negative PAST SURGICAL HISTORY OF gallbladder PAST SURGICAL HISTORY OF kidney stone retrieval Social History: Social History Tobacco Use Smoking status: Never Smokeless tobacco: Never Substance Use Topics Alcohol use: No Drug use: No FAMILY HISTORY Problem Relation Age of Onset Ischemic Heart Disease Father CABG Stroke Maternal Grandmother Stroke Paternal Grandmother in 80s Seizures Daughter Stroke Sister brain aneurysm other (Fragile X) Daughter other (Fragile X) Daughter Current Outpatient prescriptions: nystatin (MYCOSTATIN) powder Apply 1 application to affected area twice daily. rosuvastatin (CRESTOR) 10 mg tablet Take 1 tablet by mouth daily at bedtime. levothyroxine (SYNTHROID) 25 mcg tablet Take 1 tablet by mouth daily before breakfast. lisinopril (ZESTRIL, PRINIVIL) 20 mg tablet Take 1 tablet by mouth once daily. PARoxetine (PAXIL) 20 mg tablet Take 1 tablet by mouth once daily. benzonatate (TESSALON PERLE) 100 mg capsule Take 1 capsule by mouth three times daily as needed. omeprazole (PRILOSEC) 20 mg capsule Take 20 mg by mouth once daily. ASPIRIN 81MG TABLET Take one (1) tablet daily . albuterol HFA (PROAIR HFA) 90 mcg/actuation inhaler Inhale 2 Puffs as instructed every 4 hours as needed. Allergies: ALLERGIES No Known Allergies ROS: See HPI PE: 08/12/22 1053 BP: 118/80 Pulse: 76 Resp: 20 Temp: 36.7 C (98.1 F) TempSrc: Left Tympanic Weight: 90.3 kg (199 lb) Height: 153 cm (5' 0.24) Gen: A&O, NAD, non-toxic appearing, Pleasant, cooperative HEENT: NT/AC, wearing glasses, PERRLA, EOMs intact b/l, nares clear and patent b/l, pharynx without erythema, exudate or lesions. Uvula midline, MMM. EACs without erythema or debris. TMs pearly leonardo with intact landmarks b/l. Neck: supple, No cervical LAD, no thyromegaly, no carotid bruits CV: RRR, normal S1 and S2, no murmurs, no gallops, no rubs, Pulses 2+ and symmetric in UE and LE b/l Lungs: normal respiratory effort, CTA b/l, no wheezing or rhonchi or rales Abd: soft, obese, NT, ND, +BS, no hepatosplenomegaly MS: FROM all 4 extremities Neuro: CN II-XII intact b/l, strength 5/5 b/l UE and LE, DTRs 2/4 UE and LE, sensation intact. Skin: warm, dry, intact, No rashes or lesions on exposed skin. No edema, normal pulses ASSESSMENT/PLAN: 1. Hypothyroidism, acquired - ICD9: 244.9, ICD10: E03.9 (primary diagnosis) - Instructed patient on importance of taking on an empty stomach either first thing in the morning or at bedtime. - continue current dose of Synthroid Stable - Behavioral intervention, - Eat well program, and - Continue current medications - COMP METABOLIC PANEL - TSH BLD 2. Essential hypertension - ICD9: 401.9, ICD10: I10 - good control - Continue current medication(s) - Encouraged dietary sodium restriction/DASH diet - Recommended regular aerobic exercise. - Recommend home blood pressure monitoring, to bring results in on next visit - Discussed need and benefit for weight loss. - Reviewed risks of HTN and principles of treatment - Goal of BP <130/80 3. Dyslipidemia - ICD9: 272.4, ICD10: E78.5 - to be determined upon return of lab results - Encouraged following a low fat, low cholesterol diet. - Discussed the benefits of regular aerobic exercise and weight loss. - LIPID PANEL BASIC - T4 FREE/FREE THYROX 4. Anxiety - ICD9: 300.00, ICD10: F41.9 Stable, continue Paxil, she is looking forward to upcoming long term 5. Obesity, Class II, BMI 35-39.9 - ICD9: 278.00, ICD10: E66.9 Stable - Behavioral intervention, - Eat well program, and - Continue current medications Scot Griffin DO To ER if develops chest pain, shortness of breath, or severe worsening of symptoms. Discussed risks, benefits, alternatives, and potential side effects of medications. Patient expressed understanding and agreed with the plan. Scot Griffin DO [address] [place] [address] documented in this encounter [facility] 08-12-2022 Instructions Scot Griffin DO - 08/12/2022 11:57 AM EDT SHINGRIX shingles vaccine at pharmacy for no cost documented in this encounter [facility] 08-05-2022 Miscellaneous Notes Spoke with patient. Given message from provider's office. Patient verbalizes understanding. Simona Cardenas RN No answer and no VM set up will try back later Marissa Ball Cma Please let patient know that urine culture shows normal vaginal bacteria. documented in this encounter [facility] 08-01-2022 Miscellaneous Notes Addended by: TSERING CAIN on: 08/01/2022 05:23 PM Modules accepted: Orders documented in this encounter [facility] 08-01-2022 History of Present illness Narrative Chief Complaint Patient presents with: Follow Up: Infected belly button HPI Mindi Joshi is a 67 year old female who presents here today for Above Complaints.. Patient presents for redness to belly button and possible UTI. Patient reports that rash has been there for about a week. Patient was putting triple antibiotic ointment on it but she reports its getting worse. Patient reports pain with urination and urinary frequency for about 3 days. Past medical history, appointments, medications, allergies reviewed. Previous Medical History 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 Colon polyp 2012 tubular adenoma GERD (gastroesophageal reflux disease) hiatal hernia HTN (hypertension) Hypothyroidism 07/2015 Renal calculus 1990s Snoring Previous Surgical History PAST SURGICAL HISTORY Procedure Laterality Date COLONOSCOPY & POLYPECTOMY 07/08/2012 tubular adenoma, repeat 2016 EGD hiatal hernia HEART CATHETERIZATION 2000s x 2, patient reports negative PAST SURGICAL HISTORY OF gallbladder PAST SURGICAL HISTORY OF kidney stone retrieval Family History FAMILY HISTORY Problem Relation Age of Onset Ischemic Heart Disease Father CABG Stroke Maternal Grandmother Stroke Paternal Grandmother in 80s Seizures Daughter Stroke Sister brain aneurysm other (Fragile X) Daughter other (Fragile X) Daughter Patient Allergies ALLERGIES No Known Allergies Current Medications Current Outpatient Medications on File Prior to Visit Medication Sig rosuvastatin (CRESTOR) 10 mg tablet Take 1 tablet by mouth daily at bedtime. levothyroxine (SYNTHROID) 25 mcg tablet Take 1 tablet by mouth daily before breakfast. lisinopril (ZESTRIL, PRINIVIL) 20 mg tablet Take 1 tablet by mouth once daily. PARoxetine (PAXIL) 20 mg tablet Take 1 tablet by mouth once daily. benzonatate (TESSALON PERLE) 100 mg capsule Take 1 capsule by mouth three times daily as needed. albuterol HFA (PROAIR HFA) 90 mcg/actuation inhaler Inhale 2 Puffs as instructed every 4 hours as needed. omeprazole (PRILOSEC) 20 mg capsule Take 20 mg by mouth once daily. ASPIRIN 81MG TABLET Take one (1) tablet daily . No current facility-administered medications on file prior to visit. Social History Social History Tobacco Use Smoking status: Never Smokeless tobacco: Never Substance Use Topics Alcohol use: No Drug use: No Review of Symptoms REVIEW OF SYSTEMS SEE HPI EXAM: BP 124/70 Pulse 80 Temp 37.3 C (99.2 F) Resp 16 Wt 87.1 kg (192 lb) BMI 37.20 kg/m General Appearance: Well appearing, alert, in no acute distress, well-hydrated, well nourished.. Skin: Positives: Rash: Red splotchy raised rash to umbilicus and periumbilical area. Health Maintenance List HIV SCREENING Never done SHINGRIX VACCINE(1 of 2) Never done MAMMOGRAM due on 04/24/2016 COVID-19 VACCINE(3 - Booster for Moderna series) due on 12/08/2020 BP CONTROLLED (<130/80) due on 11/22/2021 BONE DENSITY Never done PNEUMOCOCCAL: 65+(1 - PCV) Never done ADVANCE DIRECTIVE DISCUSSION Never done DEPRESSION ASSESSMENT due on 05/26/2022 COLORECTAL CANCER SCREENING due on 08/08/2022 ANNUAL PCP TEAM CHRONIC DISEASE VISIT due on 02/25/2023 DTAP,TDAP,TD(2 - Td or Tdap) due on 08/27/2023 DIABETES SCREEN due on 05/29/2025 LIPID SCREEN due on 05/29/2027 INFLUENZA Completed HEPATITIS C SCREENING Completed ASSESSMENT/PLAN: 1. Yeast infection of the skin - ICD9: 112.3, ICD10: B37.2 (primary diagnosis) - NYSTATIN 100,000 UNIT/GRAM TOPICAL POWDER 2. Urinary frequency - ICD9: 788.41, ICD10: R35.0 acute - UA positive for kai esterase - Send urine for culture - Begin treatment with Macrobid 100 mg BID for 7 days - Patient education for prevention given - UA DIP, URINE (POC) Tsering Cain APRN.JOJO documented in this encounter [facility] 06-14-2022 Miscellaneous Notes Letter mailed Rachael Sterling Ma Please send her a letter to schedule an appt Scot Griffin DO [facility] Case Management called the office to inform the patient's PCP that she was seen at [facility] for chest pain related to anxiety. It was advised that she schedule a hospital follow up with her PCP. Both Case Management and PSS have been unsuccessful at contacting the patient with the provider phone numbers. Patient has not been active on MyChart since 04/2021. documented in this encounter [facility] 06-10-2022 Miscellaneous Notes The following approved medication requests have been transmitted electronically. Requested Prescriptions Signed Prescriptions Disp Refills rosuvastatin (CRESTOR) 10 mg tablet 90 tablet 2 Sig: Take 1 tablet by mouth daily at bedtime. Authorizing Provider: SCOT GRIFFIN Ordering User: ADALGISA SOTELO APRN.CNP Pt informed, verbalized understanding. Pt reports she would like to proceed with rx. Please send to [facility] in [place]. Rachael Sterling Ma Tried to reach pt at home number and mobile, no answer. Roz Yi Ma Voice mailbox not set up yet. Will need to try back. Please inform patient that overall her labs are stable except for her cholesteol remains not well controlled. Would recommend following a low fat diet, exercise at least 30 min 3-4 days a week and need for weight loss. Also consider starting on crestor 10 mg a day Scot Griffin DO documented in this encounter [facility] 02-25-2022 History of Present illness Narrative CC: Mindi Joshi is a 66 year old female who presents to the office for physical HPI: Anxiety, stable, taking Paxil medication, tolerating well. Mood is much improved- was having some depressed mood symptoms previously - this is improved HTN, well controlled, taking lisinopril HPL, recently at work lipids showing LDL 131. HDL 51. Triglycerides 149. Knows has gained weight and not eating a balanced diet well. Knows needs to work on weight loss. Hypothyroidism, taking synthroid 25 mcg daily, tolerating well 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 Colon polyp 2012 tubular adenoma GERD (gastroesophageal reflux disease) hiatal hernia HTN (hypertension) Hypothyroidism 07/2015 Renal calculus Snoring PAST SURGICAL HISTORY Procedure Laterality Date COLONOSCOPY & POLYPECTOMY 07/08/2012 tubular adenoma, repeat 2016 EGD hiatal hernia HEART CATHETERIZATION 2000s x 2, patient reports negative PAST SURGICAL HISTORY OF gallbladder PAST SURGICAL HISTORY OF kidney stone retrieval Social History: Social History Tobacco Use Smoking status: Never Smokeless tobacco: Never Substance Use Topics Alcohol use: No Drug use: No FAMILY HISTORY Problem Relation Age of Onset Ischemic Heart Disease Father CABG Stroke Maternal Grandmother Stroke Paternal Grandmother in 80s Seizures Daughter Stroke Sister brain aneurysm other (Fragile X) Daughter other (Fragile X) Daughter Current Outpatient prescriptions: benzonatate (TESSALON PERLE) 100 mg capsule Take 1 capsule by mouth three times daily as needed. omeprazole (PRILOSEC) 20 mg capsule Take 20 mg by mouth once daily. ASPIRIN 81MG TABLET Take one (1) tablet daily . levothyroxine (SYNTHROID) 25 mcg tablet Take 1 tablet by mouth daily before breakfast. lisinopril (ZESTRIL, PRINIVIL) 20 mg tablet Take 1 tablet by mouth once daily. PARoxetine (PAXIL) 20 mg tablet Take 1 tablet by mouth once daily. albuterol HFA (PROAIR HFA) 90 mcg/actuation inhaler Inhale 2 Puffs as instructed every 4 hours as needed. Allergies: ALLERGIES No Known Allergies ROS: See HPI PE: 02/25/22 1424 BP: 120/80 Pulse: 76 Resp: 16 Temp: 36.7 C (98 F) TempSrc: Left Tympanic Weight: 93.9 kg (207 lb) Height: 153 cm (5' 0.24) Gen: A&O, NAD, non-toxic appearing, Pleasant, cooperative HEENT: NT/AC, PERRLA,wearing glasses, EOMs intact b/l, nares clear and patent b/l, pharynx without erythema, exudate or lesions. MMM, Uvula midline. EACs without erythema or debris. TMs pearly leonardo with intact landmarks b/l. Neck: supple, No cervical LAD, no thyromegaly, no carotid bruits CV: RRR, normal S1 and S2, no murmurs, no gallops, no rubs, Pulses 2+ and symmetric in UE and LE b/l Lungs: normal respiratory effort, CTA b/l, no wheezing or rhonchi or rales Abd: soft, obese, NT, ND, +BS, no hepatosplenomegaly MS: FROM all 4 extremities Neuro: CN II-XII intact b/l, strength 5/5 b/l UE and LE, DTRs 2/4 UE and LE, sensation intact. Skin: warm, dry, intact, No rashes or lesions on exposed skin. No edema, normal pulses Varicose veins ASSESSMENT/PLAN: 1. Well adult exam - ICD9: V70.0, ICD10: Z00.00 (primary diagnosis) - Counseled on healthy diet and regular exercise - Calcium intake with supplements or by diet of 1000 mg/day for under 50, 2159-9428 mg/day for 50+ - Discussed need and benefit for weight loss. BMI 40.11 kg/(m^2) - COMP METABOLIC PANEL - CBC - LIPID PANEL BASIC - HGB A1C - TSH BLD - T4 FREE/FREE THYROX 2. Hypothyroidism, acquired - ICD9: 244.9, ICD10: E03.9 - Instructed patient on importance of taking on an empty stomach either first thing in the morning or at bedtime. - continue current dose of Synthroid 0.025 mg Stable - Behavioral intervention and - Continue current medications - TSH BLD - T4 FREE/FREE THYROX 3. Essential hypertension - ICD9: 401.9, ICD10: I10 - suboptimal control - Encouraged dietary sodium restriction/DASH diet - Recommended regular aerobic exercise. - Recommend home blood pressure monitoring, to bring results in on next visit - Discussed need and benefit for weight loss. - Recheck in 2 month, sooner should new symptoms or problems arise. - Goal of BP <130/80 4. Anxiety - ICD9: 300.00, ICD10: F41.9 -stable, continue Paxil Scot Griffin DO To ER if develops chest pain, shortness of breath, or severe worsening of symptoms. Discussed risks, benefits, alternatives, and potential side effects of medications. Patient expressed understanding and agreed with the plan. Scot Griffin DO [address] [place] [address] documented in this encounter [facility] 12-24-2021 Miscellaneous Notes Addended by: KIMBERLY BIRMINGHAM on: 12/24/2021 01:38 PM Modules accepted: Orders documented in this encounter [facility] 12-24-2021 History of Present illness Narrative Chief Complaint Patient presents with: posion shira: first appeared last week on aleena arms and back of neck HPI Mindi Joshi is a 66 year old female who presents here today for Above Complaints. Mindi is an established patient of Dr. Elias DO. Mindi is a new patient to me today. Concerns today... Poison Shira? Has known posion shira in her yard. Was mowing lawn and woke up next morning with rash to R hand. Communications Representative cutting down trees warned patient of area with posion shira but patient forgot. Noticed rash last week that started on hand. Has now spread to bilateral arms and neck. Has tried calamine lotion and cortisone cream with some relief. Has hx of numerous occurrences of poison shira in lifetime -- knows this is the same. Very itchy. Denies any purulent drainage, fevers, or chills. No other concerns or complaints. Past medical history, appointments, medications, allergies reviewed. Previous Medical History 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 Colon polyp 2012 tubular adenoma GERD (gastroesophageal reflux disease) hiatal hernia HTN (hypertension) Hypothyroidism 07/2015 Renal calculus Snoring Previous Surgical History PAST SURGICAL HISTORY Procedure Laterality Date COLONOSCOPY & POLYPECTOMY 07/08/2012 tubular adenoma, repeat 2016 EGD hiatal hernia HEART CATHETERIZATION 2000s x 2, patient reports negative PAST SURGICAL HISTORY OF gallbladder PAST SURGICAL HISTORY OF kidney stone retrieval Family History FAMILY HISTORY Problem Relation Age of Onset Ischemic Heart Disease Father CABG Stroke Maternal Grandmother Stroke Paternal Grandmother in 80s Seizures Daughter Stroke Sister brain aneurysm other (Fragile X) Daughter other (Fragile X) Daughter Patient Allergies ALLERGIES No Known Allergies Current Medications Current Outpatient Medications on File Prior to Visit Medication Sig levothyroxine (SYNTHROID) 25 mcg tablet Take 1 tablet by mouth daily before breakfast. lisinopril (ZESTRIL, PRINIVIL) 20 mg tablet Take 1 tablet by mouth once daily. PARoxetine (PAXIL) 20 mg tablet Take 1 tablet by mouth once daily. benzonatate (TESSALON PERLE) 100 mg capsule Take 1 capsule by mouth three times daily as needed. albuterol HFA (PROAIR HFA) 90 mcg/actuation inhaler Inhale 2 Puffs as instructed every 4 hours as needed. omeprazole (PRILOSEC) 20 mg capsule Take 20 mg by mouth once daily. ASPIRIN 81MG TABLET Take one (1) tablet daily . No current facility-administered medications on file prior to visit. Social History Social History Tobacco Use Smoking status: Never Smoker Smokeless tobacco: Never Used Substance Use Topics Alcohol use: No Drug use: No REVIEW OF SYSTEMS: as above Reviewed relevant PMHx, PSHx, Social Hx, current medications and allergies. Review of Symptoms See HPI. All other systems are negative. EXAM: BP 118/60 (BP Site: Left Arm, BP Position: Sitting, BP Cuff Size: Large Adult) Pulse 82 Resp 16 Wt 92.9 kg (204 lb 12.8 oz) SpO2 97% BMI 38.70 kg/m General Appearance: Well appearing, alert, in no acute distress, well-hydrated, well nourished.. Skin: Skin color, texture, turgor normal, no suspicious rashes or lesions. Rash: raised pustules in various healing stages to R hand, up R arm, back of neck and slightly to L arm. No drainage noted on exam. Head: Normocephalic, no masses, lesions, tenderness or abnormalities. Lungs: Lungs clear to auscultation. No wheezing, rhonchi, rales.. Heart: RRR without murmur, gallop, or rubs. No ectopy. Extremities: No deformities, edema, skin discoloration, clubbing or cyanosis. Good capillary refill. . Musculoskeletal: No joint swelling, deformity, or tenderness. Peripheral Pulses: Normal. Neurologic: Gait normal. Reflexes normal and symmetric. Sensation grossly intact. Health Maintenance List HIV SCREENING Never done HPV TESTING Never done SHINGRIX VACCINE(1 of 2) Never done MAMMOGRAM due on 04/24/2016 PAP TESTING due on 06/02/2020 COVID-19 VACCINE(3 - Booster for Moderna series) due on 03/15/2021 ANNUAL PCP TEAM CHRONIC DISEASE VISIT due on 11/22/2021 DEPRESSION SCREENING due on 11/22/2021 INFLUENZA(1) due on 01/24/2022 BP CONTROLLED (<130/80) due on 07/17/2022 COLORECTAL CANCER SCREENING due on 08/08/2022 DTAP,TDAP,TD(2 - Td or Tdap) due on 08/27/2023 DIABETES SCREEN due on 12/10/2023 LIPID SCREEN due on 12/09/2025 HEPATITIS C SCREENING Completed ASSESSMENT/PLAN: 1. 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 - PREDNISONE 10 MG TABLET - CLOBETASOL 0.05 % TOPICAL OINTMENT RTO as needed and if symptoms worsen or do not improve. Schedule routine physical wellness exam today. Prescription instructions reviewed with patient as applicable. Potential red flag symptoms discussed with the patient. Reviewed appropriate action plan to take if red flag symptoms occur. Patient agreeable to treatment plan. Kimberly Birmingham APRN.[employer] [address] [place] [address] documented in this encounter [facility] 12-20-2021 Miscellaneous Notes Patient returned call and went over notes from Henna Sotelo NP with understanding. Patient said she plans to walk in to do labs, aware 90 day rx for the 3 medications were sent to pharmacy. Also gave patient lab hours of operation. Left message for patient to return call to office Marissa Ball Cma Overdue for labs, no additional refills. The following approved medication requests have been transmitted electronically. Signed Prescriptions Disp Refills levothyroxine (SYNTHROID) 25 mcg tablet 90 tablet 0 Sig: Take 1 tablet by mouth daily before breakfast. [place]: No Authorizing Provider: SCOT GRIFFIN Ordering User: ADALGISA SOTELO lisinopril (ZESTRIL, PRINIVIL) 20 mg tablet 90 tablet 0 Sig: Take 1 tablet by mouth once daily. [place]: No Authorizing Provider: SCOT GRIFFIN Ordering User: ADALGISA SOTELO PARoxetine (PAXIL) 20 mg tablet 90 tablet 0 Sig: Take 1 tablet by mouth once daily. [place]: No Authorizing Provider: SCOT GRIFFIN Ordering User: ADALGISA SOTELO APRN.CNP Last office visit: 11/22/21 F/u scheduled: none Roz Yi Ma Patient has been identified by name and date of : Yes Pending Prescriptions Disp Refills LEVOTHYROXINE 25 MCG TABLET 90 tablet 1 Sig: Take 1 tablet by mouth daily before breakfast. [place]: No LISINOPRIL 20 MG TABLET 90 tablet 1 Sig: Take 1 tablet by mouth once daily. [place]: No PAROXETINE 20 MG TABLET 90 tablet 1 Sig: Take 1 tablet by mouth once daily. [place]: No RX INSTRUCTIONS: Patient aware RX will be sent to pharmacy. No need to notify patient. Juliet Hooks documented in this encounter [facility] 07-17-2021 History of Present illness Narrative Radiology Service Progress Note PATIENT NAME: Mindi Joshi DATE OF SERVICE: July 17, 2021 TIME: 9:52 AM PATIENT IDENTITY VERIFICATION COMPLETED USING TWO (2) IDENTIFIERS: Name and Date of confirmed by patient verbally. FALL SCREENING: Has the patient had 2 falls in the last year or 1 fall with injury or currently using an Ambulatory Assistive Device (Walker, Cane, Wheelchair, Crutches, etc.)? No PATIENT GENDER DATA: Female. status: : No status: NO. PATIENT RELEVANT IMPLANT DATA REVIEWED: Yes RADIOLOGY DEPARTMENT: General X-ray: Exam(s) Completed: Upper Extremity X-Ray(s): Humerus, left PERIPHERAL IV DATA: Not applicable SIGNED BY: RT August(R) July 17, 2021 9:52 AM documented in this encounter [facility] 07-21-2015 History of Past i llness Narrative Problem Noted Date Resolved Date Unspecified essential hypertension 07/21/2015 documented as of this encounter (statuses as of 11/05/2021) [facility]26[facility]2016 History of Past illness Narrative* Problem Noted Date Resolved Date Unspecified essential hypertension 07/21/2015 documented as of this encounter (statuses as of 12/20/2021) [address]26-2016 History of Past illness Narrative* Problem Noted Date Resolved Date Unspecified essential hypertension 07/21/2015 documented as of this encounter (statuses as of 12/24/2021) [address]26-2016 History of Past illness Narrative* Problem Noted Date Resolved Date Unspecified essential hypertension 07/21/2015 documented as of this encounter (statuses as of 02/25/2022) [address]2016 History of Past illness Narrative* Problem Noted Date Resolved Date Unspecified essential hypertension 07/21/2015 documented as of this encounter (statuses as of 06/14/2022) [address]2016 History of Past illness Narrative* Problem Noted Date Resolved Date Unspecified essential hypertension 07/21/2015 documented as of this encounter (statuses as of 08/02/2022) [address]2016 History of Past illness Narrative* Problem Noted Date Resolved Date Unspecified essential hypertension 07/21/2015 documented as of this encounter (statuses as of 08/06/2022) [address]2016 History of Past illness Narrative* Problem Noted Date Resolved Date Unspecified essential hypertension 07/21/2015 documented as of this encounter (statuses as of 08/13/2022) [address]26-2016 History of Past illness Narrative* Problem Noted Date Resolved Date Unspecified essential hypertension 07/21/2015 documented as of this encounter (statuses as of 11/20/2022) [place] [address] History of Past illness Narrative* Problem Noted Date Diagnosed Date Resolved Date Unspecified essential hypertension 07/21/2015 documented as of this encounter (statuses as of 01/24/2023) [place] [address] History of Past illness Narrative* Problem Noted Date Diagnosed Date Resolved Date Unspecified essential hypertension 07/21/2015 documented as of this encounter (statuses as of 03/06/2023) [address] History of Past illness Narrative* Problem Noted Date Diagnosed Date Resolved Date Unspecified essential hypertension 07/21/2015 documented as of this encounter (statuses as of 03/08/2023) [place] [address] History of Past illness Narrative* Problem Noted Date Diagnosed Date Resolved Date Unspecified essential hypertension 07/21/2015 documented as of this encounter (statuses as of 03/12/2023) [facility]2016 History of Past illness Narrative* Problem Noted Date Diagnosed Date Resolved Date Unspecified essential hypertension 07/21/2015 documented as of this encounter (statuses as of 03/30/2023) [address]26-2016 History of Past illness Narrative* Problem Noted Date Diagnosed Date Resolved Date Unspecified essential hypertension 07/21/2015 documented as of this encounter (statuses as of 04/29/2023) [address]26-2016 History of Past illness Narrative* Problem Noted Date Diagnosed Date Resolved Date Unspecified essential hypertension 07/21/2015 documented as of this encounter (statuses as of 07/02/2023) [address]26-2016 History of Past illness Narrative* Problem Noted Date Diagnosed Date Resolved Date Unspecified essential hypertension 07/21/2015 documented as of this encounter (statuses as of 09/03/2023) [facility]2016 History of Past illness Narrative* Problem Noted Date Diagnosed Date Resolved Date Unspecified essential hypertension 07/21/2015 documented as of this encounter (statuses as of 09/12/2023) [facility] noteNo assessment information availableWKing's [facility] [place] Work Phone: Evaluation note* Diagnosis Encounter for screening mammogram for breast cancer [facility] Diagnosis Hypothyroidism, acquired- Primary Unspecified hypothyroidism Essential hypertension Unspecified essential hypertension [facility] Diagnosis Dermatitis due to plants, including poison shira, sumac, and oak- Primary Contact dermatitis and other eczema due to plants (except food) [facility]* Diagnosis Well adult exam- Primary Routine general medical examination at a health care facility Hypothyroidism, acquired Unspecified hypothyroidism Essential hypertension Unspecified essential hypertension Anxiety Anxiety state, unspecified [facility] Diagnosis Yeast infection of the skin- Primary Candidiasis of skin and nails Urinary frequency Recurrent UTI (urinary tract infection) Urinary tract infection, site not specified [facility] Diagnosis Hypothyroidism, acquired- Primary Unspecified hypothyroidism Essential hypertension Unspecified essential hypertension Dyslipidemia Other and unspecified hyperlipidemia Anxiety Anxiety state, unspecified Obesity, Class II, BMI 35-39.9 Obesity, unspecified [facility] Diagnosis Acute pain of right shoulder- Primary Injury of right shoulder, subsequent encounter Decreased right shoulder range of motion Other symptoms referable to shoulder joint [facility] Diagnosis Encounter for screening mammogram for breast cancer [facility] Diagnosis Diarrhea, unspecified type- Primary Right upper quadrant pain Abdominal pain, right upper quadrant [facility] Diagnosis Hypothyroidism, acquired- Primary Unspecified hypothyroidism Essential hypertension Unspecified essential hypertension [facility] Diagnosis Hypothyroidism, acquired- Primary Unspecified hypothyroidism Special screening for malignant neoplasms, colon Tinnitus, bilateral Unspecified tinnitus Class 2 obesity with body mass index (BMI) of 39.0 to 39.9 in adult, unspecified obesity type, unspecified whether serious comorbidity present Weight gain Abnormal weight gain Essential hypertension Unspecified essential hypertension Diarrhea, unspecified type Dyslipidemia Other and unspecified hyperlipidemia Anxiety Anxiety state, unspecified Hyperglycemia Other abnormal glucose Screening for malignant neoplasm of the rectum Screening for colon cancer Special screening for malignant neoplasms, colon [facility] Diagnosis Yeast infection of the skin- Primary Candidiasis of skin and nails Contact dermatitis due to plants, except food, unspecified contact dermatitis type [facility]* Diagnosis Hypothyroidism, acquired- Primary Unspecified hypothyroidism documented [facility] Diagnosis Hypothyroidism, acquired- Primary Unspecified hypothyroidism documented in this encounter [facility] note* Diagnosis Hypothyroidism, acquired- Primary Unspecified hypothyroidism Encounter for screening mammogram for malignant neoplasm of breast Other screening mammogram Class 2 obesity with body mass index (BMI) of 39.0 to 39.9 in adult, unspecified obesity type, unspecified whether serious comorbidity present Essential hypertension Unspecified essential hypertension Dyslipidemia Other and unspecified hyperlipidemia [facility]* Diagnosis Arm injury, left, initial encounter [facility] Diagnosis Encounter for screening mammogram for malignant neoplasm of breast Other screening mammogram [facility]* Diagnosis IFG (impaired fasting glucose)- Primary Impaired fasting glucose Need for tetanus booster Need for prophylactic vaccination with tetanus toxoid alone Hypothyroidism, acquired Unspecified hypothyroidism Essential hypertension Unspecified essential hypertension Dyslipidemia Other and unspecified hyperlipidemia Tinnitus, bilateral Unspecified tinnitus Primary osteoarthritis of both knees Primary localized osteoarthrosis, lower leg [facility]* Diagnosis Tinnitus, bilateral- Primary Unspecified tinnitus documented in this encounter [facility] Discharge instructions Additional Instructions Please follow-up with your primary care doctorWKing[facility] [place] Work Phone: Reason for referral (narrative)* Diagnostic Procedure Only (Routine) - Pending Review Specialty Diagnoses / Procedures Referred By Liliya adames Referred To Contact [facility] Diagnoses Encounter for screening mammogram for breast cancer Procedures SARATH SCREENING SCREENING MAMMOGRAPHY BI 2-VIEW BREAST INC Scot Lemon DO [address] [place] [address] [facility] [address] [place] [address] Referral ID Status Reason Start Date Expiration Date Visits Requested Visits Authorized [id number] Pending Review Auto-Generat ed Referral 10/31/2021 11/30/2022 1 1 [facility] for referral (narrative)* Diagnostic Procedure Only (Routine) - Closed Specialty Diagnoses / Procedures Referred By iLliya adames Referred To Contact [facility] Diagnoses Encounter for screening mammogram for breast cancer Procedures SARATH SCREENING SCREENING MAMMOGRAPHY BI 2-VIEW BREAST INC Scot Lemon DO [address] [place] [address] [facility] [address] [place] [address] Referral ID Status Reason Start Date Expiration Date V isits Requested Visits Authorized [id number] Closed Auto-Generate d Referral 10/09/2022 11/08/2023 1 1 T [facility] for referral (narrative)* Outpatient Procedure (Routine) - Authorized Specialty Diagnoses / Procedures Referred By Liliya adames Referred To Contact [facility] Diagnoses Screening for colon cancer Procedures COLONOSCOPY SCREENING COLONOSCOPY FLX DX W/COLLJ SPEC WHEN PFRMD Scot Griffin DO [address] [place] [address] [facility] [address] [place] [address] Referral ID Status Reason Start Date Expiration Date Visits Requested Visits Authorized [id number] Authorized Auto-Generat ed Referral 09/12/2023 09/11/2024 1 1 * Consult, Test, Treat (Routine) - Authorized Specialty Diagnoses / Procedures Referred By Contac t Referred To Contact Ent - Otolaryngology Diagnoses Tinnitus, bilateral Procedures CONSULT TO ENT OFFICE/OUTPATIENT [facility] MDM 60 MINUTES Scot Griffin DO [address] [place] [address] Referral ID Status Reason Start Date Expiration Date Visits Requested Visits Authorized [id number] Authorized PCP Requested Referral 09/12/2023 09/11/2024 1 1 [facility] for referral (narrative)* Diagnostic Procedure Only (Routine) - Authorized Specialty Diagnoses / Procedures Referred By Liliya t Referred To Contact [facility] Diagnoses Encounter for screening mammogram for malignant neoplasm of breast Procedures SARATH SCREENING SCREENING MAMMOGRAPHY BI 2-VIEW BREAST INC CAD Scot Griffin DO [address] [place] [address] [facility] [address] [place] [address] Referral ID Status Reason Start Date Expiration Date Visits Requested Visits Authorized [id number] Authorized Auto-Generat ed Referral 01/14/2024 02/12/2025 1 1 [facility] for referral (narrative)* Diagnostic Procedure Only (Urgent) - Closed Specialty Diagnoses / Procedures Referred By Contac t Referred To Contact [facility] Diagnoses Arm injury, left, initial encounter Procedures XR HUMERUS 2V AP/LAT LEFT RADEX HUMERUS MINIMUM 2 VIEWS Risa Barger PA-C [address] [place] [address] [place] [address] Referral ID Status Reason Start Date Expiration Date V isits Requested Visits Authorized [id number] Closed Auto-Generate d Referral 07/17/2021 08/16/2022 1 1 [facility] for referral (narrative)* Diagnostic Procedure Only (Routine) - Closed Specialty Diagnoses / Procedures Referred By Contac t Referred To Contact [facility] Diagnoses Encounter for screening mammogram for malignant neoplasm of breast Procedures SARATH SCREENING SCREENING MAMMOGRAPHY BI 2-VIEW BREAST INC CAD Scot Griffin, DO [address] [place] [address] [facility] [address] [place] [address] Referral ID Status Reason Start Date Expiration Date V isits Requested Visits Authorized [id number] Closed Auto-Generate d Referral 01/14/2024 02/12/2025 1 1 [facility] for visit Narrative* Diagnostic Procedure Only (Routine) - Closed Specialty Diagnoses / Procedures Referred By Contac t Referred To Contact [facility] Diagnoses Encounter for screening mammogram for breast cancer Procedures SARATH SCREENING SCREENING MAMMOGRAPHY BI 2-VIEW BREAST INC CAD Scot Griffin, DO [address] [place] [address] [facility] [address] [place] [address] Referral ID Status Reason Start Date Expiration Date V isits Requested Visits Authorized [id number] Closed Auto-Generate d Referral 10/09/2022 11/08/2023 1 1 [facility] for visit Narrative* Diagnostic Procedure Only (Urgent) - Closed Specialty Diagnoses / Procedures Referred By Contac t Referred To Contact [facility] Diagnoses Arm injury, left, initial encounter Procedures XR HUMERUS 2V AP/LAT LEFT RADEX HUMERUS MINIMUM 2 VIEWS Risa Barger PA-C [address] [place] [address] [place] [address] Referral ID Status Reason Start Date Expiration Date V isits Requested Visits Authorized [id number] Closed Auto-Generate d Referral 07/17/2021 08/16/2022 1 1 [facility]* Diagnostic Procedure Only (Routine) - Closed Specialty Diagnoses / Procedures Referred By Contac t Referred To Contact [facility] Diagnoses Encounter for screening mammogram for malignant neoplasm of breast Procedures SARATH SCREENING SCREENING MAMMOGRAPHY BI 2-VIEW BREAST INC CAD Scot Griffin L, DO [address] [place] [address] [facility] [address] [place] [address] Referral ID Status Reason Start Date Expiration Date V isits Requested Visits Authorized [id number] Closed Auto-Generate d Referral 01/14/2024 02/12/2025 1 1 [facility] Summary Purpose Family History No Family History Records Found Relationship Condition Age at Onset Recorded Date/T deena Unknown Family History?Heart Disease Unknown July 24, 2015 8:39am Family History?Heart Disease Unknown December 07, 2016 8:38am Relationship Condition Age at Onset Recorded Date/T deena Unknown Family History?Heart Disease Unknown July 24, 2015 7:39am Family History?Heart Disease Unknown December 07, 2016 7:38am Advance Directives No Advanced Directives Records Found Advance Directive Response Recorded Date/ Time Advance Directives No June 9:06am Living Will No October 24, 2021 2 :39pm Power of Media Account Executive No October 24, 2021 2:39pm Documents on File Type Date Recorded Patient Mat Repairer Expl anation Advance Directive(s) 08/09/2019 8:25 AM Advance Directive(s) 08/02/2019 8:45 AM Documents on File Type Date Recorded Patient Mat Repairer Expl anation Advance Directive(s) 08/09/2019 8:25 AM Advance Directive(s) 08/02/2019 8:45 AM Advance Directive Response Recorded Date/ Time Advance Directives No June 9:06am Living Will No January 02 2 1:19pm Power of Media Account Executive No January 02 2 022 1:19pm Advance Directive Response Recorded Date/ Time Advance Directives No June 8:06am Living Will No April 22, 2 023 3:19pm Power of Media Account Executive No April 22, 2023 3:19pm Chief Complaint and Reason for Visit Chief Complaint chest pain Chief Complaint chest pain chest painq Chief Complaint CP Additional Source Comments INFORMATION SOURCE (unrecogn ized section and content) DATE CREATED AUTHOR 11/14/2018 [facility] DATE CREATED AUTHOR AUTHOR'S ORGANIZ ATION 06/18/2022 [facility] DATE CREATED AUTHOR AUTHOR'S ORGANIZ ATION 10/09/2022 [facility] DATE CREATED AUTHOR AUTHOR'S ORGANIZ ATION 09/30/2024 [facility] [place] [facility] DATE CREATED AUTHOR AUTHOR'S ORGANIZ ATION 10/01/2024 [facility] DATE CREATED AUTHOR AUTHOR'S ORGANIZ ATION 10/06/2024 [facility] Goals (unrecognized section and content) Goals may be documented in a n alternate sectionGoals may be documented in an alternate sectionGoals may be documented in an alternate section Source Comments (unrecognize d section and content) In the event this informatio n is protected by the Federal Confidentiality of Alcohol and Drug Abuse Patient Records regulations: The Federal rules restrict any use of the information to criminally investigate or prosecute any alcohol or drug abuse patient.[facility] the event this information is protected by the Federal Confidentiality of Alcohol and Drug Abuse Patient Records regulations: The Federal rules restrict any use of the information to criminally investigate or prosecute any alcohol or drug abuse patient.[facility] Hospital[facility] the event this information is protected by the Federal Confidentiality of Alcohol and Drug Abuse Patient Records regulations: The Federal rules restrict any use of the information to criminally investigate or prosecute any alcohol or drug abuse patient.[facility] HospitalIn the event this information is protected by the Federal Confidentiality of Alcohol and Drug Abuse Patient Records regulations: The Federal rules restrict any use of the information to criminally investigate or prosecute any alcohol or drug abuse patient.[facility] the event this information is protected by the Federal Confidentiality of Alcohol and Drug Abuse Patient Records regulations: The Federal rules restrict any use of the information to criminally investigate or prosecute any alcohol or drug abuse patient.[facility] the event this information is protected by the Federal Confidentiality of Alcohol and Drug Abuse Patient Records regulations: The Federal rules restrict any use of the information to criminally investigate or prosecute any alcohol or drug abuse patient.[facility] HospitalIn the event this information is protected by the Federal Confidentiality of Alcohol and Drug Abuse Patient Records regulations: The Federal rules restrict any use of the information to criminally investigate or prosecute any alcohol or drug abuse patient.[facility] Hospital[facility] the event this information is protected by the Federal Confidentiality of Alcohol and Drug Abuse Patient Records regulations: The Federal rules restrict any use of the information to criminally investigate or prosecute any alcohol or drug abuse patient.[facility] Hospital[facility] the event this information is protected by the Federal Confidentiality of Alcohol and Drug Abuse Patient Records regulations: The Federal rules restrict any use of the information to criminally investigate or prosecute any alcohol or drug abuse patient.[facility] HospitalIn the event this information is protected by the Federal Confidentiality of Alcohol and Drug Abuse Patient Records regulations: The Federal rules restrict any use of the information to criminally investigate or prosecute any alcohol or drug abuse patient.[facility] HospitalIn the event this information is protected by the Federal Confidentiality of Alcohol and Drug Abuse Patient Records regulations: The Federal rules restrict any use of the information to criminally investigate or prosecute any alcohol or drug abuse patient.[facility] HospitalIn the event this information is protected by the Federal Confidentiality of Alcohol and Drug Abuse Patient Records regulations: The Federal rules restrict any use of the information to criminally investigate or prosecute any alcohol or drug abuse patient.[facility] Hospital[facility] the event this information is protected by the Federal Confidentiality of Alcohol and Drug Abuse Patient Records regulations: The Federal rules restrict any use of the information to criminally investigate or prosecute any alcohol or drug abuse patient.[facility] HospitalIn the event this information is protected by the Federal Confidentiality of Alcohol and Drug Abuse Patient Records regulations: The Federal rules restrict any use of the information to criminally investigate or prosecute any alcohol or drug abuse patient.[facility] HospitalIn the event this information is protected by the Federal Confidentiality of Alcohol and Drug Abuse Patient Records regulations: The Federal rules restrict any use of the information to criminally investigate or prosecute any alcohol or drug abuse patient.[facility] HospitalIn the event this information is protected by the Federal Confidentiality of Alcohol and Drug Abuse Patient Records regulations: The Federal rules restrict any use of the information to criminally investigate or prosecute any alcohol or drug abuse patient.[facility] HospitalIn the event this information is protected by the Federal Confidentiality of Alcohol and Drug Abuse Patient Records regulations: The Federal rules restrict any use of the information to criminally investigate or prosecute any alcohol or drug abuse patient.[facility] HospitalIn the event this information is protected by the Federal Confidentiality of Alcohol and Drug Abuse Patient Records regulations: The Federal rules restrict any use of the information to criminally investigate or prosecute any alcohol or drug abuse patient.[facility] HospitalIn the event this information is protected by the Federal Confidentiality of Alcohol and Drug Abuse Patient Records regulations: The Federal rules restrict any use of the information to criminally investigate or prosecute any alcohol or drug abuse patient.[facility] HospitalIn the event this information is protected by the Federal Confidentiality of Alcohol and Drug Abuse Patient Records regulations: The Federal rules restrict any use of the information to criminally investigate or prosecute any alcohol or drug abuse patient.[facility] HospitalIn the event this information is protected by the Federal Confidentiality of Alcohol and Drug Abuse Patient Records regulations: The Federal rules restrict any use of the information to criminally investigate or prosecute any alcohol or drug abuse patient.[facility] HospitalIn the event this information is protected by the Federal Confidentiality of Alcohol and Drug Abuse Patient Records regulations: The Federal rules restrict any use of the information to criminally investigate or prosecute any alcohol or drug abuse patient.[facility] HospitalIn the event this information is protected by the Federal Confidentiality of Alcohol and Drug Abuse Patient Records regulations: The Federal rules restrict any use of the information to criminally investigate or prosecute any alcohol or drug abuse patient.[facility] HospitalIn the event this information is protected by the Federal Confidentiality of Alcohol and Drug Abuse Patient Records regulations: The Federal rules restrict any use of the information to criminally investigate or prosecute any alcohol or drug abuse patient.[facility] HospitalIn the event this information is protected by the Federal Confidentiality of Alcohol and Drug Abuse Patient Records regulations: The Federal rules restrict any use of the information to criminally investigate or prosecute any alcohol or drug abuse patient.[facility] HospitalIn the event this information is protected by the Federal Confidentiality of Alcohol and Drug Abuse Patient Records regulations: The Federal rules restrict any use of the information to criminally investigate or prosecute any alcohol or drug abuse patient.[facility] HospitalIn the event this information is protected by the Federal Confidentiality of Alcohol and Drug Abuse Patient Records regulations: The Federal rules restrict any use of the information to criminally investigate or prosecute any alcohol or drug abuse patient.[facility] HospitalIn the event this information is protected by the Federal Confidentiality of Alcohol and Drug Abuse Patient Records regulations: The Federal rules restrict any use of the information to criminally investigate or prosecute any alcohol or drug abuse patient.[facility] HospitalIn the event this information is protected by the Federal Confidentiality of Alcohol and Drug Abuse Patient Records regulations: The Federal rules restrict any use of the information to criminally investigate or prosecute any alcohol or drug abuse patient.[facility] HospitalIn the event this information is protected by the Federal Confidentiality of Alcohol and Drug Abuse Patient Records regulations: The Federal rules restrict any use of the information to criminally investigate or prosecute any alcohol or drug abuse patient.[facility] HospitalIn the event this information is protected by the Federal Confidentiality of Alcohol and Drug Abuse Patient Records regulations: The Federal rules restrict any use of the information to criminally investigate or prosecute any alcohol or drug abuse patient.[facility] Care Teams (unrecognized sec tion and content) High School Admissions Representative Relationship Specialty Start Date End Date Scot Griffin, DO [address] [place] [address] PCP - General Family Practice 04/11/15 High School Admissions Representative Relationship Specialty Start Date End Date Scot Griffin DO [address] [place] [address] PCP - General Family Practice 04/11/15 High School Admissions Representative Relationship Specialty Start Date End Date Scot Griffin DO [address] [place] [address] PCP - General Family Practice 04/11/15 High School Admissions Representative Relationship Specialty Start Date End Date Scot Griffin DO [address] [place] [address] PCP - General Family Medicine 04/11/15 High School Admissions Representative Relationship Specialty Start Date End Date Scot Griffin DO [address] [place] [address] PCP - General Family Medicine 04/11/15 High School Admissions Representative Relationship Specialty Start Date End Date Scot Griffin, DO [address] [place] [address] PCP - General Family Medicine 04/11/15 High School Admissions Representative Relationship Specialty Start Date End Date Scot Griffin, DO [address] [place] [address] PCP - General Family Medicine 04/11/15 High School Admissions Representative Relationship Specialty Start Date End Date Scot Griffin, DO [address] [place] [address] PCP - General Family Medicine 04/11/15 High School Admissions Representative Relationship Specialty Start Date End Date Scot Griffin DO [address] [place] [address] PCP - General Family Medicine 04/11/15 High School Admissions Representative Relationship Specialty Start Date End Date Scot Griffin DO [address] [place] [address] PCP - General Family Medicine 04/11/15 High School Admissions Representative Relationship Specialty Start Date End Date Scot Griffin DO [address] [place] [address] PCP - General Family Medicine 04/11/15 High School Admissions Representative Relationship Specialty Start Date End Date Scot Griffin DO [address] [place] [address] PCP - General Family Medicine 04/11/15 High School Admissions Representative Relationship Specialty Start Date End Date Scot Griffin DO [address] [place] [address] PCP - General Family Medicine 04/11/15 High School Admissions Representative Relationship Specialty Start Date End Date Scot Griffin DO [address] [place] [address] PCP - General Family Medicine 04/11/15 Team Status: Active Member Role Status Dates Dr. Scot Griffin DO Family Provider Active Dr. Scot Griffin DO Primary Care Provider Active Team Status: Inactive Member Role Status Dates Dr. Scot Griffin DO Primary Care Provider Active Dr. Esequiel Villalba MD Emergency Provider Active [employer] School Admissions Representative Relationship Specialty Start Date End Date Scot Griffin DO [address] [place] [address] PCP - General Family Medicine 04/11/15 High School Admissions Representative Relationship Specialty Start Date End Date Scot Griffin DO [address] [place] [address] PCP - General Family Medicine 04/11/15 High School Admissions Representative Relationship Specialty Start Date End Date Scot Griffin DO [address] [place] [address] PCP - General Family Medicine 04/11/15 High School Admissions Representative Relationship Specialty Start Date End Date Scot Griffin DO [address] [place] [address] PCP - General Family Medicine 04/11/15 High School Admissions Representative Relationship Specialty Start Date End Date Scot Griffin DO [address] [place] [address] PCP - General Family Medicine 04/11/15 High School Admissions Representative Relationship Specialty Start Date End Date Scot Griffin DO [address] [place] [address] PCP - General Family Medicine 04/11/15 High School Admissions Representative Relationship Specialty Start Date End Date Scot Griffin, [address] [place] [address] PCP - General Family Medicine 04/11/15 High School Admissions Representative Relationship Specialty Start Date End Date Scot Griffin, [address] [place] [address] PCP - General Family Medicine 04/11/15 High School Admissions Representative Relationship Specialty Start Date End Date Scot Griffin, [address] [place] [address] PCP - General Family Medicine 04/11/15 High School Admissions Representative Relationship Specialty Start Date End Date Scot Griffin DO [address] [place] [address] PCP - General Family Medicine 04/11/15 High School Admissions Representative Relationship Specialty Start Date End Date Scot Griffin, [address] [place] [address] PCP - General Family Medicine 04/11/15 High School Admissions Representative Relationship Specialty Start Date End Date Scot Griffin, [address] [place] [address] PCP - General Family Medicine 04/11/15 High School Admissions Representative Relationship Specialty Start Date End Date Scot Griffin, [address] [place] [address] PCP - General Family Medicine 04/11/15 High School Admissions Representative Relationship Specialty Start Date End Date Scot Griffin, [address] [place] [address] PCP - General Family Medicine 04/11/15 AlbertoAdalgisa, CUSTOMER EXPERIENCE RETAIL CLERK.[employer] MACHINE FEEDER [address] [facility] [place] [id number] Occupational Therapist [employer] [facility] 05/02/24 High School Admissions Representative Relationship Specialty Start Date End Date Scot Griffin, [address] [facility] [place] [id number] PCP - General Family Medicine 04/11/15 AlbertoAdalgisa, CUSTOMER EXPERIENCE RETAIL CLERK.[employer] SORTING MACHINE FEEDER [address] [facility] [place] [address] Occupational Therapist Per [employer] [facility] 05/02/24 High School Admissions Representative Relationship Specialty Start Date End Date Scot Griffin, DO [address] [facility] [address] [place], [place] [id number] PCP - General Endocrinology/Metabolism 10/08/22 Reason for Visit (unrecogniz ed section and content) Reason Onset Date Comments Refill Request 12/17/2021 Reason Comments posion shira first appeared last week on aleena arms and back of neck Reason Comments Yearly Exam Reason Comments Patient Update Appointment Reason Comments Follow Up Infected belly butto n Reason Comments Results Reason Comments Follow Up 1 month Reason Comments Refill Request Reason Comments ER F/U Went to ER 04/21 for diarrhea and palpitatons. Work up came back normal. Still not feeling well. Reason Comments Lab Orders Reason Onset Date Comments Population Health Navigation Outreach 09/02/2023 Med adherence Reason Comments Yearly Exam Reason Comments Rash Rash all over, possi ble poison sumac x 1 week Reason Onset Date Comments Refill Request 12/02/2023 Reason Onset Date Comments Population Health Navigation Outreach 12/18/2023 [facility] and care gaps Reason Comments Follow Up 4 months Reason Onset Date Comments Refill Request 02/23/2024 Medication Problem 02/23/2024 Has 1 Synthro id left. Reason Onset Date Comments Refill Request 04/01/2024 Reason Comments chest injury Reason Comments 6 Month Exam <item> Privacy Markings (unrecogniz ed section and content) Section Author: Simona Escobar PROHIBITION ON REDISCLOSURE OF CONFIDENTIAL INFORMATION This notice accompanies a disclosure of information concerning a client made to you with the consent of such client. FOR RECORDS PERTAINING TO PATIENTS WHO ARE OR HAVE BEEN ENROLLED IN A CHEMICAL DEPENDENCY/SUBSTANCEABUSE PROGRAM, SOME INFORMATION MAY BE OMITTED. This clinical summary was aggregated from multiple sources. Caution should be exercised in using it in the provision of clinical care. This summary normalizes information from multiple sources, and as a consequence, information in this document may materially change the coding, format and clinical context of patient data. In addition, data may be omitted in some cases. CLINICAL DECISIONS SHOULD BE BASED ON THE PRIMARY CLINICAL RECORDS. [facility]. provides no warranty or guarantee of the accuracy or completeness of information in this document.
[2024-11-04 02:04] LABS: D-Dimer Quantitative (DVT/PE) 0.89 FEU/ug/m (0.27-0.49)
--- NOTE | 2024-11-04 02:04 | CT_ITS ---
PROCEDURE: CTA CHEST W/WO CONTRAST 11/04/2024 REASON FOR EXAM: ELEVATED D DIMER TECHNIQUE: CTA imaging of the chest with intravenous contrast. Multiplanar and multisequence images were obtained. CONTRAST: Isovue 370 VOLUME: 100 mL One or more dose reduction techniques were used (e.g., Automated exposure control, adjustment of the mA and/or kV according to patient size, use of iterative reconstruction technique). RADIATION DOSE SUMMARY: CTDlvol: 14.25 mGy DLP: 440 mGycm COMPARISON: 11/04/2024. FINDINGS: Mild bilateral basilar atelectatic pulmonary changes. Small sliding hiatal hernia. 4 mm nodule in the left lower lobe. No follow-up is needed. No significant coronary artery calcifications. Normal enhancement of the main pulmonary artery and right and left pulmonary arteries. Normal enhancement of the bilateral peripheral pulmonary arteries. There is no demonstrated pulmonary embolism. Normal thoracic aorta and visualized great vessels. There is no demonstrated aortic dissection. Normal heart and pericardium. Normal mediastinum. Normal hilar regions. Normal visualized trachea and bronchi. The remaining lungs are well expanded. Normal remaining pulmonary parenchyma. Normal pleura. Normal visualized upper abdomen. CT/CTA Chest W/WO Contrast IMPRESSION: Mild bilateral basilar atelectatic pulmonary changes. Small sliding hiatal hernia. 4 mm nodule in the left lower lobe. No follow-up is needed. No significant coronary artery calcifications. No CT evidence of pulmonary embolus or aortic dissection. Reading Location[facility] [address]
[2024-11-04 02:07] LABS: Anion Gap 16 (5-15); BUN 13 mg/dL (4-19); BUN/Creat Ratio 13.9 RATIO (10-20); Calcium,Total 9.6 mg/dL (7.6-11.0); Carbon Dioxide 17.8 mmol/L (21.0-32.0); Chloride 105 mmol/L (98-108); Creatinine, Serum 0.92 mg/dL (0.70-1.20); EST Glomerular Filtration Rate 68 (>60); Estimated Creatinine Clearance 61.64 ml/min (50-250); Glucose 106 mg/dL (70-99); Magnesium 1.9 mg/dL (1.5-2.2); Potassium 3.4 mmol/L (3.3-5.1); Sodium Level 139 mmol/L (133-145); Troponin T High Sensitivity 10 ng/L (<=14)
[2024-11-04 02:17] VITALS: BP 120/72; PULSE 86; RESP 18; O2SAT 98
[2024-11-04 03:00] VITALS: BP 109/55; PULSE 90; RESP 16; O2SAT 96
[2024-11-04 04:00] VITALS: BP 106/50; PULSE 80; RESP 16; O2SAT 97
[2024-11-04 04:00] LABS: Troponin T High Sens 2 HR 9 ng/L (<=14)
[2024-11-04 04:10] VITALS: BP 108/60; PULSE 82; RESP 16; TEMP 36.8; O2SAT 98
== END 2024-11-04 04:11 | disposition home or self-care (01) ==
PROVIDERS: Emergency Provider Emergency Medicine; PCP Student in an Organized Health Care Education/Training Program; Visit Provider Emergency Medicine
DX: I49.3 Ventricular premature depolarization (principal); E78.5 Hyperlipidemia, unspecified; I10 Essential (primary) hypertension; E03.9 Hypothyroidism, unspecified; F32.A Depression, unspecified; Z79.82 Long term (current) use of aspirin; Z79.890 Hormone replacement therapy; Z79.84 Long term (current) use of oral hypoglycemic drugs; Z79.899 Other long term (current) drug therapy
CPT/HCPCS: 71045; 71275; 80048; 83735; 84443; 84484; 85025; 85379; 93005; 96360; 99284; Q9967; A4216

== ENCOUNTER 2025-05-09 08:44 | Emergency (ER) | payer MEDICARE, SELFPAY ==
[2025-05-09 08:44] VITALS: BP 120/67; PULSE 79; RESP 19; TEMP 36.8; O2SAT 97; O2SAT 98; BMI 36.9
[2025-05-09 08:48] VITALS: O2SAT 99
--- NOTE | 2025-05-09 08:56 | EKG12_ITS ---
Test Reason : CP Blood Pressure : */* mmHG Vent. Rate : 70 BPM Atrial Rate : 70 BPM P-R Int : 162 ms QRS Dur : 72 ms QT Int : 390 ms P-R-T Axes : 46 9 39 degrees QTcB Int : 421 ms Normal sinus rhythm Normal ECG Confirmed by PEREZ DOMINGO, STEVEN ([id number]), manager editorial ALEK HAMILTON ([id number]) on 05/10/2025 1:19:43 PM Referred By: TIFFANIE/ARTURO Confirmed By: STEVEN TODD MD
--- NOTE | 2025-05-09 09:01 | ED.VIS.CHEST ---
HPI History of Present Illness Chief Complaint: Chest Pain Narrative Narrative: Chief complaint and HPI: 69-year-old female with past medical history of HTN, HLD, GERD, hypothyroidism presents for evaluation of resolved chest pain. Patient states she takes antireflux medication in which she forgot to take it yesterday. She states this morning she woke up with bilateral jaw pain. She states she then developed palpitations and lower midsternal chest pain that she describes as sharp. States she had a upset stomach. Patient received aspirin and nitro prior to arrival. She states her sharp chest pain has resolved however she has a headache from the nitro. She denies any CAD. Non-smoker. She denies any shortness of breath. Denies any fever, chills, URI symptoms. Review of systems: See HPI Medications: As listed on the chart Allergies: As listed on the chart PFSH: Per chart Vital signs: As listed on the chart. Reviewed. Physical exam: Gen: A&O x3, NAD Head: Normocephalic, atraumatic Eyes: No sclera icterus, conjunctiva clear ENT: Moist mucous membranes Neck: Trachea midline, No JVD CV: RRR, no murmurs, no peripheral edema Resp: Lungs CTA BL, no w/r/c GI: Abd soft, non-distended, non-tender, no r/r/g Musc: Full ROM, no deformity Skin: Warm, dry Psych: Cooperative, appropriate mood and affect [facility] Medical History Depression Hyperlipidemia Hypertension Home Medications ?Medication ?Instructions ?Recorded ?Last Taken ?Type aspirin 81 mg tablet,delayed 81 mg PO DAILY heart health 07/08/13 05/09/25 History release lisinopril 20 mg tablet 20 mg PO DAILY blood pressure 07/08/13 05/09/25 History paroxetine HCl 20 mg tablet 20 mg PO QHS depression 07/08/13 05/08/25 History levothyroxine 25 mcg tablet 25 mcg PO SUMOTHFRSA thyroid 05/31/19 05/09/25 History metformin 500 mg tablet 500 mg PO QPM 05/07/24 05/08/25 History rosuvastatin 10 mg tablet 10 mg PO QHS 05/07/24 05/08/25 History ibuprofen 200 mg tablet (Advil) 400 mg PO Q6H PRN pain 09/27/24 09/27/24 History levothyroxine 25 mcg tablet 50 mcg PO TUWE 09/27/24 05/04/25 History turmeric 2 cap PO DAILY 11/04/24 05/08/25 History cholecalciferol (vitamin D3) 25 25 mcg PO DAILY 05/09/25 05/08/25 History mcg (1,000 unit) tablet (PureVita Vitamin D3) mecobalamin (vitamin B12) 1,000 1,000 mcg PO DAILY 05/09/25 05/08/25 History mcg lozenges omega 1-abo-wql-fish oil 1,200 mg 2 cap PO DAILY 05/09/25 05/08/25 History (144 mg-216 mg) capsule (Fish Oil) omeprazole 20 mg tablet,delayed 20 mg PO DAILY 05/09/25 05/08/25 History release pantoprazole 40 mg tablet,delayed 40 mg PO DAILY 05/09/25 Unknown History release Allergy/AdvReac Type Severity Reaction Status Date / Time No Known Allergies Allergy Verified 05/09/25 08:46 Surgical History Hx of cholecystectomy Social History Smoking Status: Never smoker EXAM Physical Exam Const Vital Signs: 05/09/25 08:44 05/09/25 08:48 05/09/25 09:45 Temperature 98.2 F Temperature Source Oral Pulse Rate 79 68 Respiratory Rate 19 H 12 Blood Pressure 120/67 105/69 Blood Pressure Mean 84 81 Pulse Ox 97 99 94 Oxygen Delivery Method Room Air Room Air 05/09/25 10:00 Temperature Temperature Source Pulse Rate 70 Respiratory Rate 20 H Blood Pressure 114/58 L Blood Pressure Mean 76 Pulse Ox 98 Oxygen Delivery Method Room Air MDM MDM MDM Narrative Medical decision making narrative: 69-year-old female with past medical history of HTN, HLD, GERD, hypothyroidism presents for evaluation of resolved chest pain. Patient states she takes antireflux medication in which she forgot to take it yesterday. She states this morning she woke up with bilateral jaw pain. She states she then developed palpitations and lower midsternal chest pain that she describes as sharp. States she had a upset stomach. Patient received aspirin and nitro prior to arrival. She states her sharp chest pain has resolved however she has a headache from the nitro. On chart review, patient had a stress test on 05/31/2019. She had an EF of 81%. She had normal pharmacological myocardial perfusion stress test.On presentation, patient no acute distress. Vitals are stable. Differential diagnosis includes but is not limited to GERD, ACS, gastritis, pleurisy, gastritis, PE, thyroid disease, arrhythmia, electrolyte abnormality. Pepcid ordered. Patient already received aspirin. Cardiac workup ordered. EKG and chest x-ray reviewed see below. CBC without leukocytosis. Patient has mild anemia of 11.8. Platelets unremarkable. D-dimer elevated at 4.8. Cannot rule out PE. CTA chest ordered. Will give NS bolus for contrast load. CMP unremarkable. Magnesium unremarkable. TSH unremarkable. BNP unremarkable. Lipase unremarkable. CT abdomen pelvis negative for PE or dissection. No acute pulmonary process. Hiatal hernia. Troponin unremarkable x 2. Patient has a moderate heart score of 5. Patient currently not having any chest pain however given her elevated heart score, will contact cardiology. Patient was discussed with the rigger supervisor. Given her unremarkable cardiac workup and that her chest pain has resolved recommended outpatient follow-up. Patient may need outpatient stress test. She is updated about the results of her and understand the plan. Follow-up with primary care physician and cardiology. Return back to ED symptoms change or worsen. Patient able to discharge home. EKG: Interpreted by me/EM physician: EKG with normal sinus rhythm. Heart rate 70. No acute ischemic changes. Normal QTc. Diagnostic: Interpreted by me/EM physician: Chest x-ray without pneumonia, effusion, cardiomegaly, pneumothorax. Radiology in agreement. Per radiology, scattered calcified granulomas. Impression: 1. Chest pain, resolved 2. Anemia Lab Data Labs: Laboratory Results - last 24 hr 05/09/25 05/09/25 08:45 10:50 WBC 9.1 RBC 4.07 L Hgb 11.8 L Hct 36.1 L MCV 88.7 MCH 29.0 MCHC 32.7 RDW Std Deviation 41.1 RDW Coeff of Ashleigh 12.6 Plt Count 271 MPV 10.3 Immature Gran % (Auto) 0.300 Neut % (Auto) 72.4 H Lymph % (Auto) 17.6 L Sherman % (Auto) 7.4 Eos % (Auto) 1.9 Baso % (Auto) 0.4 Absolute Neuts (auto) 6.6 Absolute Lymphs (auto) 1.59 Nucleated RBC % 0 D-Dimer Quant (PE/DVT) 4.79 H* Sodium 139 Potassium 3.9 Chloride 106 Carbon Dioxide 22.7 Anion Gap 11 BUN 14 Creatinine 0.82 Estim Creat Clear Calc 67.43 Est GFR (MDRD) Non-Af 79 BUN/Creatinine Ratio 17.3 Glucose 105 H Calcium 9.1 Magnesium 2.1 Total Bilirubin 0.30 AST 13 ALT 12 Alkaline Phosphatase 79 Troponin T High Sens < 6 D Troponin T Hi Sens 2 Hr < 6 NT pro BNP II < 36 Total Protein 6.5 Albumin 3.9 Globulin 2.6 Albumin/Globulin Ratio 1.5 Lipase 20 TSH 2.930 Radiography Diagnostic Testing: Clinical Impression(s) from Imaging Studies Chest X-Ray 05/09/25 09:18 IMPRESSION: Hyperinflation. No acute abnormality is seen. Reading Location: [id number] Chest CTA 05/09/25 09:55 IMPRESSION: No demonstrated PE, or thoracic aortic aneurysm or dissection No acute pulmonary process No suspicious noncalcified mass or nodule Degenerative bony changes Hiatal hernia Reading Location: [id number] Discharge Plan Triage Chief Complaint: Chest Pain ED Provider: Aamir Wilkins Dx/Rx/DC Orders Prescriptions: No Action lisinopril 20 MG tablet 20 mg PO DAILY Patient Comments: blood pressure aspirin 81 MG tablet 81 mg PO DAILY Patient Comments: blood thinner paroxetine HCl 20 MG tablet 20 mg PO QHS Patient Comments: anti-depressant levothyroxine 25 MCG tablet 25 mcg PO Patient Comments: thyroid levothyroxine 25 mcg tablet 50 mcg PO ibuprofen [Advil] 200 mg tablet 400 mg PO Q6H PRN (Reason: pain) turmeric 2 cap PO DAILY pantoprazole 40 mg tablet,delayed release (DR/EC) 40 mg PO DAILY omeprazole 20 mg tablet,delayed release (DR/EC) 20 mg PO DAILY omega 9-lxl-wha-fish oil [Fish Oil] 1,200 (144-216) mg capsule 2 cap PO DAILY mecobalamin (vitamin B12) 1,000 mcg lozenge 1,000 mcg PO DAILY Rx Instructions: allow to dissolve in mouth OR may chew lightly before swallowing cholecalciferol (vitamin D3) [PureVita Vitamin D3] 25 mcg (1,000 unit) tablet 25 mcg PO DAILY metformin 500 mg tablet 500 mg PO QPM rosuvastatin 10 mg tablet 10 mg PO QHS Primary Care Provider: Scot Griffin Referrals: Scot Griffin DO [Primary Care Provider, Medical] Print Language: Ecuadorean
[2025-05-09 09:12] LABS: Hematocrit 36.1 % (37-47); Hemoglobin 11.8 g/dL (12.0-15.0); Immature Granulocytes Count 0.030 X10^3/uL (0.0-0.0); Mean Corp Hgb Conc 32.7 g/dL (32-36); Mean Corpuscular Volume 88.7 fL (81-99); Mean Platelet Vol. 10.3 fl (6.2-12.0); NRBC Flagged by Analyzer 0 % (0-5); Platelet Count 271 K/mm3 (150-450); RBC Distribution Width CV 12.6 % (11.6-14.6); RBC Distribution Width SD 41.1 fl (35.1-43.9); Red Blood Count 4.07 M/mm3 (4.2-5.4); White Blood Count 9.1 K/mm3 (4.4-11.0)
--- NOTE | 2025-05-09 09:18 | RAD_ITS ---
PROCEDURE: CHEST PA AND LATERAL 05/09/2025 REASON FOR EXAM: CHEST PAIN TECHNIQUE: Procedure Code: RADCXR Modality: DX Procedure: CHEST PA AND LATERAL COMPARISON: November 04, 2024. FINDINGS: Hardware: EKG electrodes are seen. Heart: The heart size is normal. Mediastinum: The mediastinal contour is unremarkable. Lungs: Hyperinflation. Scattered calcified granulomas. No acute infiltrate is seen. Bones: Degenerative changes are identified within the thoracic spine. RAD/Chest PA and Lateral IMPRESSION: Hyperinflation. No acute abnormality is seen. Reading Location: [id number]
[2025-05-09] MEDS: Famotidine 200 MG/20 ML MDV 20 MG in 0.9% Normal Saline (Pres. free 8 ML 300 MG IV (09:30)
[2025-05-09 09:39] LABS: AST(SGOT) 13 U/L (<=31); Alanine Aminotransfer ALT/SGPT 12 U/L (<=34); Albumin, Serum 3.9 g/dL (3.4-4.8); Alkaline Phosphatase 79 U/L (35-104); Anion Gap 11 (5-15); BUN 14 mg/dL (4-19); BUN/Creat Ratio 17.3 RATIO (10-20); Calcium,Total 9.1 mg/dL (7.6-11.0); Carbon Dioxide 22.7 mmol/L (21.0-32.0); Chloride 106 mmol/L (98-108); Estimated Creatinine Clearance 67.43 ml/min (50-250); Globulin 2.6 g/dL (2.2-4.2); Glucose 105 mg/dL (70-99); Magnesium 2.1 mg/dL (1.5-2.2); Potassium 3.9 mmol/L (3.3-5.1)
[2025-05-09 09:40] LABS: Pro- Brain NATRIURETIC PEPTIDE < 36 pg/mL (<=900); Troponin T High Sensitivity < 6 ng/L (<=14)
[2025-05-09 09:43] LABS: D-Dimer Quantitative (DVT/PE) 4.79 FEU/ug/m (0.27-0.49)
[2025-05-09 09:45] VITALS: BP 105/69; PULSE 68; RESP 12; O2SAT 94
--- NOTE | 2025-05-09 09:55 | CT_ITS ---
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 3D post processing was performed CONTRAST: Isovue 370 VOLUME: 100 mL One or more dose reduction techniques were used (e.g., Automated exposure control, adjustment of the mA and/or kV according to patient size, use of iterative reconstruction technique). RADIATION DOSE SUMMARY: CTDlvol: 27.37 mGy DLP: 461.66 mGycm COMPARISON: 11/04/2024 # of known CTs in the past 12 months: 1 # of known Cardiac Nuclear Medicine Studies in the past 12 months: 0 FINDINGS: Thoracic Aorta: Tapers normally No filling defects are identified within the pulmonary arteries to suspect PE. Normal-appearing thyroid gland. No suspicious axillary, mediastinal or perihilar adenopathy. No calcified coronary vessels. Lung windows show the lungs to be normally expanded. No superimposed infiltrate, effusion, or suspicious noncalcified mass or nodule. Degenerative bony changes. Limited cuts of the upper abdomen show a retrocardiac hiatal hernia. CT/CTA Chest W/WO Contrast IMPRESSION: No demonstrated PE, or thoracic aortic aneurysm or dissection No acute pulmonary process No suspicious noncalcified mass or nodule Degenerative bony changes Hiatal hernia Reading Location: [id number]
[2025-05-09 10:00] VITALS: BP 114/58; PULSE 70; RESP 20; O2SAT 98
[2025-05-09 10:04] LABS: Lipase 20 U/L (13-75)
[2025-05-09] MEDS: 0.9% Normal Saline (1000mL) 1,000 ML 1000 ML IV (10:11)
[2025-05-09 11:00] VITALS: BP 104/63; PULSE 72; RESP 19; O2SAT 97
[2025-05-09 11:20] LABS: Troponin T High Sens 2 HR < 6 ng/L (<=14)
[2025-05-09 12:00] VITALS: BP 106/71; PULSE 68; RESP 14; TEMP 36.6; O2SAT 97
== END 2025-05-09 12:22 | disposition home or self-care (01) ==
PROVIDERS: Emergency Provider Surgery; PCP Student in an Organized Health Care Education/Training Program; Visit Provider Surgery
DX: R07.9 Chest pain, unspecified (principal); D64.9 Anemia, unspecified; I10 Essential (primary) hypertension; E78.5 Hyperlipidemia, unspecified; Z79.82 Long term (current) use of aspirin; Z79.899 Other long term (current) drug therapy
CPT/HCPCS: 71046; 71275; 80053; 83690; 83735; 83880; 84443; 84484; 85025; 85379; 93005; 96361; 96365; 99285; Q9967; A4216